=== PATIENT | male | born 1950 | race Caucasian/White ===

== ENCOUNTER 2016-11-21 12:57 | Inpatient (IN) ==
--- NOTE | 2016-11-21 13:59 | Emergency Department Note ---
Disposition Clinical Impression: NSTEMI (non-ST elevated myocardial infarction) Disposition: Admitted As Inpatient Condition: Fair General Adult HPI - General Chief complaint: ED Chest Pain Stated complaint: chest pain Time Seen by Provider: 11/21/16 13:53 Source: patient Limitations: no limitations - History of Present Illness Pain Scale: 5 - Related Data Home Medications Medication Instructions Recorded Confirmed Amlodipine [Norvasc] 5 mg PO DAILY 11/21/16 11/21/16 Aspirin [Lo-Dose Aspirin EC] 81 mg PO DAILY 11/21/16 11/21/16 Atenolol [Tenormin] 50 mg PO DAILY 11/21/16 11/21/16 Atorvastatin [Lipitor] 10 mg PO HS 11/21/16 11/21/16 Furosemide [Lasix] 20 mg PO DAILY 11/21/16 11/21/16 Gabapentin [Neurontin] 300 mg PO HS 11/21/16 11/21/16 Glimepiride [Amaryl] 4 mg PO BID 11/21/16 11/21/16 HYDROcodone/Acet 5/325 mg [[place] 2 tab PO HS 11/21/16 11/21/16 5-325 mg] Insulin DETEMIR [Levemir] 30 unit SQ HS 11/21/16 11/21/16 Lisinopril [Zestril] 5 mg PO DAILY 11/21/16 11/21/16 Meloxicam [Mobic] 15 mg PO DAILY 11/21/16 11/21/16 Metformin HCl [Glucophage] 1,000 mg PO BID 11/21/16 11/21/16 Nitroglycerin 0.4 mg SL Q5MIN PRN 11/21/16 11/21/16 Allergies Allergy/AdvReac Type Severity Reaction Status Date / Time No Known Allergies Allergy Verified 11/21/16 13:07 Past Medical History - Past Medical History Medical history: Reports: coronary artery disease, myocardial infarction Psychiatric history: Reports: no psych history - Social History Smoking Status: Never smoker Alcohol use: Reports: none Drug use: Reports: none Physical Exam - General Limitations: no limitations General appearance: alert, in no apparent distress Course Vital Signs Temperature 97.4 F L 11/21/16 13:07 Pulse Rate 61 11/21/16 13:07 Respiratory Rate 17 11/21/16 13:07 Blood Pressure 181/92 11/21/16 13:07 O2 Sat by Pulse Oximetry 96 11/21/16 13:07 Temperature 97.5 F L 11/21/16 17:30 Pulse Rate 63 11/21/16 22:16 Respiratory Rate 15 11/21/16 22:16 Blood Pressure 169/86 11/21/16 22:16 O2 Sat by Pulse Oximetry 93 L 11/21/16 22:16 Oxygen Delivery Oxygen Delivery Room Air Medical Decision Making - Lab Data Result diagrams: 11/21/16 14:41 11/21/16 14:41 Lab Results 11/21/16 11/21/16 11/21/16 Range/Units 14:41 14:41 14:41 WBC 10.5 (4.3-11.1) K/mcL RBC 5.39 (4.19-5.50) M/mcL Hgb 14.4 (12.9-16.9) g/dL Hct 45.6 (37.5-50.1) % MCV 84.6 (83.0-100.0) fL MCH 26.7 L (28.0-33.3) pg MCHC 31.6 (31.6-35.5) g/dL RDW 14.5 (11.5-14.5) % Plt Count 323 (140-400) K/mcL MPV 10.9 (9.4-12.4) fL Immature Gran % 0.8 (0-4) % Seg Neutrophils % 64.5 % Lymphocytes % 23.6 % Monocytes % 7.3 % Eosinophils % 2.9 % Basophils % 0.9 % Neutrophils # 6.8 (1.6-8.9) K/mcL Lymphocytes # 2.5 (0.6-4.6) K/mcL Monocytes # 0.8 (0.0-1.3) K/mcL Eosinophils # 0.3 (0.0-0.6) K/mcL Basophils # 0.1 (0.0-0.2) K/mcL PT 11.8 (9.4-12.1) Seconds INR 1.1 APTT 28.5 (26.0-36.0) Seconds Sodium 140 (136-145) mEq/L Potassium 4.5 (3.5-4.5) mEq/L Chloride 108 (98-109) mEq/L Carbon Dioxide 21 (19-29) mEq/L BUN 13 (8-26) mg/dL Creatinine 1.05 (0.72-1.25) mg/dL Est GFR ( Amer) > 60 (> 60) Est GFR (Non-Af Amer) > 60 (> 60) BUN/Creatinine Ratio 12 (6-26) Glucose 115 H (70-99) mg/dL Calculated Osmolality 291 (280-300) Calcium 10.2 (8.6-10.8) mg/dL Troponin I (0-0.03) ng/mL 11/21/16 Range/Units 14:41 WBC (4.3-11.1) K/mcL RBC (4.19-5.50) M/mcL Hgb (12.9-16.9) g/dL Hct (37.5-50.1) % MCV (83.0-100.0) fL MCH (28.0-33.3) pg MCHC (31.6-35.5) g/dL RDW (11.5-14.5) % Plt Count (140-400) K/mcL MPV (9.4-12.4) fL Immature Gran % (0-4) % Seg Neutrophils % % Lymphocytes % % Monocytes % % Eosinophils % % Basophils % % Neutrophils # (1.6-8.9) K/mcL Lymphocytes # (0.6-4.6) K/mcL Monocytes # (0.0-1.3) K/mcL Eosinophils # (0.0-0.6) K/mcL Basophils # (0.0-0.2) K/mcL PT (9.4-12.1) Seconds INR APTT (26.0-36.0) Seconds Sodium (136-145) mEq/L Potassium (3.5-4.5) mEq/L Chloride (98-109) mEq/L Carbon Dioxide (19-29) mEq/L BUN (8-26) mg/dL Creatinine (0.72-1.25) mg/dL Est GFR ( Amer) (> 60) Est GFR (Non-Af Amer) (> 60) BUN/Creatinine Ratio (6-26) Glucose (70-99) mg/dL Calculated Osmolality (280-300) Calcium (8.6-10.8) mg/dL Troponin I 1.49 H* (0-0.03) ng/mL Critical Care Time Critical Care Time: Yes Total Critical Care Time: 30 Attestation: Patient presented with chest pain. Troponin elevated. IV heparin ordered. Consult with cardiology. Admission to medicine Attestation Statement - Attestation Attestation: I examined this patient and my medical decision-making was reviewed with the JOB SETTER/PA/Advanced Practice Nurse/Resident Physician. I agree with the documented findings, disposition and treatment plan as described except to the extent set forth below. Face to face time provided Patient complains of left-sided chest pain. He appears in no acute distress. Triage note and vital signs reviewed by me. EKG reviewed by me
--- NOTE | 2016-11-21 14:18 | Emergency Department Note ---
Disposition Clinical Impression: NSTEMI (non-ST elevated myocardial infarction) Disposition: Admitted As Inpatient Condition: Fair Referrals: Meg Reina CNP [Primary Care Provider] - Forms: ED Satisfaction Letter Chest Pain HPI - General Chief Complaint: ED Chest Pain Stated Complaint: chest pain Time Seen by Provider: 11/21/16 13:53 Source: patient Limitations: no limitations Vital Signs Reviewed: Yes Nursing Notes Reviewed: Yes - History of Present Illness HPI Narrative: 66-year-old male with a history of coronary artery disease and previous bypass surgery as well as hypertension and hyperlipidemia presents to the emergency department with a chief complaint of chest pain. He had bypass surgery about 15 years ago after having an AR but has not had any sort of cardiac workup since then. He takes medications for diabetes, hypertension, CHF and hyperlipidemia. He sees his primary doctor for his medications but no investigative assistant. He has been having progressive exertional dyspnea over the last week but started developing left-sided chest pain that radiates to his neck and shoulder over the last 3 days. Exertion exacerbates this. He states it feels similar to his previous AR. Chest pain is described as a pressure and heaviness. No associated nausea, vomiting or diaphoresis. He does however, have associated hiccups. Denies any new lower extremity swelling. Denies any abdominal pain, lightheadedness or syncope. Severity scale (1-10): 5 - Related Data Home Medications Medication Instructions Recorded Confirmed Amlodipine [Norvasc] 5 mg PO DAILY 11/21/16 11/21/16 Aspirin [Lo-Dose Aspirin EC] 81 mg PO DAILY 11/21/16 11/21/16 Atenolol [Tenormin] 50 mg PO DAILY 11/21/16 11/21/16 Atorvastatin [Lipitor] 10 mg PO HS 11/21/16 11/21/16 Furosemide [Lasix] 20 mg PO DAILY 11/21/16 11/21/16 Gabapentin [Neurontin] 300 mg PO HS 11/21/16 11/21/16 Glimepiride [Amaryl] 4 mg PO BID 11/21/16 11/21/16 HYDROcodone/Acet 5/325 mg [[place] 2 tab PO HS 11/21/16 11/21/16 5-325 mg] Insulin DETEMIR [Levemir] 30 unit SQ HS 11/21/16 11/21/16 Lisinopril [Zestril] 5 mg PO DAILY 11/21/16 11/21/16 Meloxicam [Mobic] 15 mg PO DAILY 11/21/16 11/21/16 Metformin HCl [Glucophage] 1,000 mg PO BID 11/21/16 11/21/16 Nitroglycerin 0.4 mg SL Q5MIN PRN 11/21/16 11/21/16 Allergies Allergy/AdvReac Type Severity Reaction Status Date / Time No Known Allergies Allergy Verified 11/21/16 13:07 All systems ED: reviewed and negative except as stated. Constitutional: Denies: fever Cardiovascular: Reports: chest pain, dyspnea on exertion Respiratory: Reports: dyspnea. Denies: cough Gastrointestinal: Denies: abdominal pain, nausea, vomiting Musculoskeletal: Denies: back pain, neck pain Integumentary: Denies: rash Neurological: Denies: headache, weakness, numbness Chest Pain PMH - Past Medical History Medical history: Reports: coronary artery disease, myocardial infarction Psychiatric history: Reports: no psych history - Social History Smoking Status: Never smoker Alcohol use: Reports: none Drug use: Reports: none Physical Exam General: Appears well, alert and oriented x 3 Cardiovascular: Regular rate and rhythm. S1, S2. No murmurs, rubs or gallops. Respiratory: Breath sounds clear bilaterally. No wheezing, rales or rhonchi. No resp distress Abdomen: Soft, nontender. No pulsatile abdominal mass Eyes: conjunctiva clear HENT: No bruit Neuro: No motor or sensory deficit. Musculoskeletal: No joint tenderness or swelling. Bilateral mild nonpitting swelling of the ankles bilaterally. No calf tenderness or pain along the venous system. Skin: No lesions. No diaphoresis. Normal turgor. Normal color Psych: Appropriate - General Limitations: no limitations General appearance: alert, in no apparent distress Course Course Narrative: 66-year-old male history of coronary artery disease who had bypass 15 years ago and has not had much of a workup since then presents to the ED with 3 days of exertional dyspnea and chest pain that feels similar to his previous AR. Initial EKG shows a incomplete left bundle-branch block without any ST changes. He does have some T-wave flattening in the inferior leads. We have no EKG available for previous comparison. Patient's not having symptoms now and actually appears very well. He has stable vital signs is talkative, appropriate and nontoxic appearing. His chest x-ray shows some atelectasis. His troponin came back elevated at 1.15. He was given aspirin. His symptoms did not progress. We spoke with the investigative assistant, Dr. Bahena who is comfortable with heparinization and agrees to see the patient as consult. We then spoke with the hospitalist, Dr. Jurado who accepts for admission, no further orders at this time. Plan to admit for NSTEMI Vital Signs Temperature 97.4 F L 11/21/16 13:07 Pulse Rate 61 11/21/16 13:07 Respiratory Rate 17 11/21/16 13:07 Blood Pressure 181/92 11/21/16 13:07 O2 Sat by Pulse Oximetry 96 11/21/16 13:07 Temperature 97.4 F L 11/21/16 13:07 Pulse Rate 54 11/21/16 15:30 Respiratory Rate 16 11/21/16 15:30 Blood Pressure 113/74 11/21/16 15:30 O2 Sat by Pulse Oximetry 96 11/21/16 15:30 Oxygen Delivery Oxygen Delivery Room Air Chest Pain - Lab Data Result diagrams: 11/21/16 14:41 11/21/16 14:41 Lab Results 11/21/16 11/21/16 11/21/16 Range/Units 14:41 14:41 14:41 WBC 10.5 (4.3-11.1) K/mcL RBC 5.39 (4.19-5.50) M/mcL Hgb 14.4 (12.9-16.9) g/dL Hct 45.6 (37.5-50.1) % MCV 84.6 (83.0-100.0) fL MCH 26.7 L (28.0-33.3) pg MCHC 31.6 (31.6-35.5) g/dL RDW 14.5 (11.5-14.5) % Plt Count 323 (140-400) K/mcL MPV 10.9 (9.4-12.4) fL Immature Gran % 0.8 (0-4) % Seg Neutrophils % 64.5 % Lymphocytes % 23.6 % Monocytes % 7.3 % Eosinophils % 2.9 % Basophils % 0.9 % Neutrophils # 6.8 (1.6-8.9) K/mcL Lymphocytes # 2.5 (0.6-4.6) K/mcL Monocytes # 0.8 (0.0-1.3) K/mcL Eosinophils # 0.3 (0.0-0.6) K/mcL Basophils # 0.1 (0.0-0.2) K/mcL PT 11.8 (9.4-12.1) Seconds INR 1.1 APTT 28.5 (26.0-36.0) Seconds Sodium 140 (136-145) mEq/L Potassium 4.5 (3.5-4.5) mEq/L Chloride 108 (98-109) mEq/L Carbon Dioxide 21 (19-29) mEq/L BUN 13 (8-26) mg/dL Creatinine 1.05 (0.72-1.25) mg/dL Est GFR ( Amer) > 60 (> 60) Est GFR (Non-Af Amer) > 60 (> 60) BUN/Creatinine Ratio 12 (6-26) Glucose 115 H (70-99) mg/dL Calculated Osmolality 291 (280-300) Calcium 10.2 (8.6-10.8) mg/dL Troponin I (0-0.03) ng/mL 11/21/16 Range/Units 14:41 WBC (4.3-11.1) K/mcL RBC (4.19-5.50) M/mcL Hgb (12.9-16.9) g/dL Hct (37.5-50.1) % MCV (83.0-100.0) fL MCH (28.0-33.3) pg MCHC (31.6-35.5) g/dL RDW (11.5-14.5) % Plt Count (140-400) K/mcL MPV (9.4-12.4) fL Immature Gran % (0-4) % Seg Neutrophils % % Lymphocytes % % Monocytes % % Eosinophils % % Basophils % % Neutrophils # (1.6-8.9) K/mcL Lymphocytes # (0.6-4.6) K/mcL Monocytes # (0.0-1.3) K/mcL Eosinophils # (0.0-0.6) K/mcL Basophils # (0.0-0.2) K/mcL PT (9.4-12.1) Seconds INR APTT (26.0-36.0) Seconds Sodium (136-145) mEq/L Potassium (3.5-4.5) mEq/L Chloride (98-109) mEq/L Carbon Dioxide (19-29) mEq/L BUN (8-26) mg/dL Creatinine (0.72-1.25) mg/dL Est GFR ( Amer) (> 60) Est GFR (Non-Af Amer) (> 60) BUN/Creatinine Ratio (6-26) Glucose (70-99) mg/dL Calculated Osmolality (280-300) Calcium (8.6-10.8) mg/dL Troponin I 1.49 H* (0-0.03) ng/mL - EKG Data EKG results narrative: EKG shows a sinus rhythm with a rate of 60 bpm. Left bundle branch block pattern. Poor R-wave progression. Left axis deviation. Nonspecific T wave changes in [address] elevation. T-wave flattening in inferior leads. We have no previous EKG available for comparison.
[2016-11-21 14:53] LABS: Basophils # 0.1 K/mcL (0.0-0.2); Basophils % 0.9 %; Eosinophils # 0.3 K/mcL (0.0-0.6); Eosinophils % 2.9 %; Hematocrit 45.6 % (37.5-50.1); Hemoglobin 14.4 g/dL (12.9-16.9); Immature Granulocytes % 0.8 % (0-4); Lymphocytes # 2.5 K/mcL (0.6-4.6); Lymphocytes % 23.6 %; Mean Corpuscular HGB Conc 31.6 g/dL (31.6-35.5); Mean Corpuscular Hemoglobin 26.7 pg (28.0-33.3); Mean Corpuscular Volume 84.6 fL (83.0-100.0); Mean Platelet Volume 10.9 fL (9.4-12.4); Monocytes # 0.8 K/mcL (0.0-1.3); Monocytes % 7.3 %; Neutrophils # 6.8 K/mcL (1.6-8.9); Platelet Count 323 K/mcL (140-400); Red Blood Count 5.39 M/mcL (4.19-5.50); Red Cell Distribution Width 14.5 % (11.5-14.5); Segmented Neutrophils % 64.5 %
[2016-11-21 15:02] LABS: BUN/Creatinine Ratio 12 (6-26); Blood Urea Nitrogen 13 mg/dL (8-26); Calcium 10.2 mg/dL (8.6-10.8); Carbon Dioxide 21 mEq/L (19-29); Chloride 108 mEq/L (98-109); Glucose 115 mg/dL (70-99); INR 1.1; Osmolality,Calculated 291 (280-300); Potassium 4.5 mEq/L (3.5-4.5); Prothrombin Time 11.8 Seconds (9.4-12.1); Sodium 140 mEq/L (136-145); eGFR For African Americans > 60 (> 60); eGFR For Non-African Americans > 60 (> 60)
[2016-11-21 15:05] LABS: Activated Partial Thrombo Time 28.5 Seconds (26.0-36.0)
[2016-11-21] MEDS ORDERED: *HR* Heparin 5,000 UNIT/ML VIAL IVP PRN (15:23)
[2016-11-21] MEDS ORDERED: *HR* Heparin 5,000 UNIT/ML VIAL IVP ONE (15:23)
[2016-11-21] MEDS ORDERED: Heparin 25,000 UNIT/500 ML D5W 25,000 UNIT/500 ML MLS IVC SCH (15:30)
[2016-11-21] MEDS ORDERED: Aspirin 81 MG TAB.CHEW PO ONE (16:20)
[2016-11-21] MEDS ORDERED: Naloxone 0.4 MG/ML INJ IVP PRN (18:07)
[2016-11-21] MEDS ORDERED: Ondansetron 4 MG/2 ML VIAL IVP PRN (18:07)
[2016-11-21] MEDS ORDERED: Acetaminophen 325 MG TABLET PO PRN (18:07)
[2016-11-21] MEDS ORDERED: Nitroglycerin 0.4 MG TAB.SUBL SL PRN (21:52)
[2016-11-21] MEDS ORDERED: *HR* Dextrose 50 % in Water (Syg) 50 ML SYRINGE IVP PRN (22:04)
[2016-11-21] MEDS ORDERED: Dextrose Gel 15 GM PO PRN ×2 (22:04)
[2016-11-21] MEDS ORDERED: D5% in Water 1,000 ML IV PRN (22:04)
--- NOTE | 2016-11-21 22:22 | Internal Med History&Physical ---
<Kaelyn Baeza - Last Filed: 11/21/16 22:18> Date of Encounter: 11/21/16 Time of Encounter: 22:18 Assessment and Plan (1) NSTEMI (non-ST elevated myocardial infarction) Status: Acute Trend troponins Cardiac catheter tomorrow morning Aspirin, statin, heparin, beta yuliet, AARON inhibitor (2) Diabetes Status: Acute Hold oral medications Continue Levemir Low-dose sliding scale insulin Qualifiers: Diabetes mellitus type: type 2 Diabetes mellitus complication status: with neurologic complications Diabetes mellitus complication detail: with unspecified neuropathy Diabetes mellitus terminal worker insulin use: with terminal worker use Qualified Code(s): E11.40 - Type 2 diabetes mellitus with diabetic neuropathy, unspecified; Z79.4 - lobsterman (current) use of insulin (3) Hypertension Status: Acute Qualifiers: Hypertension type: essential hypertension Qualified Code(s): I10 - Essential (primary) hypertension (4) CAD (coronary artery disease) Status: Acute Qualifiers: Coronary Disease-Associated Artery/Lesion type: bypass graft [place] vs. transplanted heart: [place] heart Associated angina: without angina Qualified Code(s): I25.810 - Atherosclerosis of coronary artery bypass graft(s) without angina pectoris Internal Medicine - H&P: HPI Admitted From: Emergency Dept Plans for Post Hospital Care: Home History of present illness: Mr. Sahu is a 66 year old male with past medical history of diabetes with nephropathy and coronary artery disease status post open bypass and stents. He presents to the emergency department with a three-day history of nonexertional chest pain and pressure. He states that the chest pain shoots to his back and also radiates to his left shoulder. There is associated shortness of breath. 3 days ago he also had a headache. Today he came to the emergency department due to the chest pressure being unrelenting. He did have loss of appetite today. He states that this pain is similar to his previous MD. Past Med Surg Social Fam HX - Past Medical History Medical history: coronary artery disease, diabetes, myocardial infarction, other (hypogonadism) Psychiatric history: no psych history - Past Surgical History Surgical History: appendectomy, coronary bypass (CABG), knee replacement (right) , orthopedic, other (L hand) - Social History Smoking Status: Never smoker Smokeless Tobacco Status: No Alcohol use: none Drug use: none Internal Medicine - H&P: Meds Amlodipine [Norvasc] 5 mg PO DAILY 11/21/16 [History] Aspirin [Lo-Dose Aspirin EC] 81 mg PO DAILY 11/21/16 [History] Atorvastatin [Lipitor] 10 mg PO HS 11/21/16 [History] Furosemide [Lasix] 20 mg PO DAILY 11/21/16 [History] Gabapentin [Neurontin] 300 mg PO HS 11/21/16 [History] Glimepiride [Amaryl] 4 mg PO BID 11/21/16 [History] HYDROcodone/Acet 5/325 mg [[place] 5-325 mg] 2 tab PO HS 11/21/16 [History] Insulin DETEMIR [Levemir] 30 unit SQ HS 11/21/16 [History] Lisinopril [Zestril] 5 mg PO DAILY 11/21/16 [History] Metformin HCl [Glucophage] 1,000 mg PO BID 11/21/16 [History] Nitroglycerin 0.4 mg SL Q5MIN PRN 11/21/16 [History] Metoprolol XL (24 HR) Succ [Toprol Xl] 50 mg PO DAILY #30 tab.er.24h 11/23/16 [ Rx] Ticagrelor [Brilinta] 90 mg PO BID #180 tablet 11/23/16 [Rx] Allergies No Known Allergies Allergy (Verified 11/21/16 13:07) All Systems PM: A 10-system review of systems was performed and is negative for pertinent findings except as documented above in the HPI. - Constitutional Constitutional: anorexia, no chills, no excessive sweating, no fever(s), no night sweats, no weakness - EENT Eyes: no change in vision, no discharge, no pain, no photophobia Ears: no ear discharge, no ear pain, no tinnitus Nose, mouth and throat: nasal discharge, no dysphagia, no neck pain, no sore throat - Cardiovascular Cardiovascular ROS IM: chest pain, dyspnea, no diaphoresis, no lightheadedness, no palpitations, no syncope - Respiratory Respiratory: no cough, no dyspnea, no wheezing, no excessive phlegm production - Gastrointestinal Gastrointestinal: diarrhea (chronic with metformin use), no abdominal pain, no change in bowel habits, no hematemesis, no hematochezia, no melena, no nausea, no vomiting - Genitourinary Genitourinary ROS male: nocturia (chronic), no difficulty urinating, no dysuria - Musculoskeletal Musculoskeletal ROS IM: arthralgias (chronic), no muscle weakness, no myalgias, no numbness, no tingling - Integumentary Integumentary IM: no rash, no unusual bruising - Neurological Neurological ROS: no confusion, no convulsions, no disequilibrium, no dizziness , no focal weakness, no numbness, no tingling, no tremor(s) - Hematologic/Lymphatic Hematologic/Lymphatic: no easy bruising - Constitutional Vitals: Temp Pulse Resp BP Pulse Ox 97.5 F L 63 15 169/86 93 L 11/21/16 17:30 11/21/16 22:16 11/21/16 22:16 11/21/16 22:16 11/21/16 22:16 General appearance: Present: A&O X 3, no acute distress, answers questions appropriately - Head Head exam: Present: atraumatic, normocephalic - Eye Eye exam: Present: PERRL, conjuntiva pink, sclera anicteric Pupils: Present: PERRL - Neck Neck exam general surgery: Present: supple, trachea midline. Absent: lymphadenopathy - Respiratory Respiratory exam: Present: CTAB. Absent: accessory muscle use, rales, rhonchi, wheezes - Cardiovascular Cardiovascular exam: Present: RRR, +S1, +S2. Absent: diastolic murmur, gallop, rubs, systolic murmur - GI/Abdominal GI/Abdominal exam: Present: normal bowel sounds, soft, no peritoneal signs. Absent: distended, tenderness - Extremities Exam Extremities exam: Present: warm, radial pulses palpable and symetrical. Absent : calf tenderness, cyanotic, pedal edema - Neurological Exam Neurological exam: Present: CN II-XII intact, oriented X3, no focal deficits. Absent: pronater drift, facial droop, speech deficit - Skin Skin exam: Present: dry, intact Internal Med - H&P Results - Labs CBC & Chem 7: 11/21/16 14:41 11/21/16 14:41 Labs: Cardiac Enzymes 11/21/16 Range/Units 19:46 Troponin I 1.60 H* (0-0.03) ng/mL <Dino Fermin - Last Filed: 11/27/16 22:50> Assessment and Plan (1) Chest pain, rule out acute myocardial infarction Status: Acute . (2) Chest pain with moderate risk of acute coronary syndrome Status: Acute . (3) Hx of CABG Status: Chronic . (4) Obesity (BMI 30-39.9) Status: Chronic . (5) NSTEMI (non-ST elevated myocardial infarction) Status: Acute . (6) Systolic CHF Status: Chronic . Qualifiers: Congestive heart failure chronicity: acute on chronic Qualified Code(s): I50.23 - Acute on chronic systolic (congestive) heart failure (7) CAD (coronary artery disease) Status: Chronic / Qualifiers: Coronary Disease-Associated Artery/Lesion type: bypass graft [place] vs. transplanted heart: [place] heart Associated angina: without angina Qualified Code(s): I25.810 - Atherosclerosis of coronary artery bypass graft(s) without angina pectoris (8) Diabetes Status: Chronic / Qualifiers: Diabetes mellitus type: type 2 Diabetes mellitus complication status: with neurologic complications Diabetes mellitus complication detail: with unspecified neuropathy Diabetes mellitus mcc insulin use: with terminal worker use Qualified Code(s): E11.40 - Type 2 diabetes mellitus with diabetic neuropathy, unspecified; Z79.4 - USP (current) use of insulin (9) Hypertension Status: Chronic / Qualifiers: Hypertension type: essential hypertension Qualified Code(s): I10 - Essential (primary) hypertension Internal Medicine - H&P: HPI Chief complaint: Chest Pain History of present illness: Mr. Sahu is a 66 year old male is admitted to [facility] via the emergency department with chief complaint of chest pain. The patient was visited and interviewed and examined. I examined this patient and my medical decision-making was reviewed with the Resident Physician. For this encounter, I have reviewed the documentation, treatment plan, and medical decision making. I agree with the documented findings, disposition and treatment plan as described except to the extent set forth below. All Laboratory and radiographic database was reviewed and considered and discussed. Given the patient's presenting concerns, past medical history, clinical findings and symptoms, he is admitted at this time and further evaluation and disposition. Orders were written as per the computerized physician orders entry system............................ Past Med Surg Social Fam HX - Past Medical History Source: old records reviewed Medical history: arthritis, CHF, coronary artery disease, diabetes (diabetic peripheral polyneuropahty.), hyperlipidemia, hypertension, myocardial infarction , other (Hypogonadism. ED/impotence. Onychomycosis.) - Past Surgical History Surgical History: angioplasty/stent, appendectomy, coronary bypass (CABG), knee replacement, orthopedic, other, other (colonoscopy) - Social History Occupational status: retired Current living situation: With Family Activity Level: Independent ambulation, Mostly sedentary Recent Out of Country Travel Within the Last 8 Weeks: No Exposure or Possible Exposure to Illness During Travel: No All Systems PM: A 10-system review of systems was performed and is negative for pertinent findings except as documented above in the HPI. - Constitutional Vitals: Temp Pulse Resp BP Pulse Ox 98.4 F 59 16 156/84 98 11/23/16 08:15 11/23/16 08:15 11/23/16 08:15 11/23/16 08:15 11/23/16 08:15 Internal Med - H&P Results - Labs CBC & Chem 7: 11/23/16 04:19 11/23/16 04:19 - Impressions Abnormal lab results Hgb 12.8 g/dL (12.9-16.9) L 11/23/16 04:19 MCH 26.5 pg (28.0-33.3) L 11/23/16 04:19 RDW 14.7 % (11.5-14.5) H 11/23/16 04:19 APTT 86.1 Seconds (26.0-36.0) H D 11/22/16 12:50 Est GFR (Non-Af Amer) 57 (> 60) L 11/23/16 04:19 Glucose 105 mg/dL (70-99) H 11/23/16 04:19 POC Glucose 157 (58-89) H 11/23/16 08:15 Hemoglobin A1c 6.9 % (-5.6) H 11/22/16 05:17 Troponin I 1.68 ng/mL (0-0.03) H* 11/22/16 05:17 HDL Cholesterol 26 mg/dL (40-59) L 11/22/16 05:17 Allergies Allergy/AdvReac Type Severity Reaction Status Date / Time No Known Allergies Allergy Verified 11/21/16 13:07 Laboratory Results WBC 9.8 K/mcL (4.3-11.1) 11/23/16 04:19 RBC 4.83 M/mcL (4.19-5.50) 11/23/16 04:19 Hgb 12.8 g/dL (12.9-16.9) L 11/23/16 04:19 Hct 40.4 % (37.5-50.1) 11/23/16 04:19 MCV 83.6 fL (83.0-100.0) 11/23/16 04:19 MCH 26.5 pg (28.0-33.3) L 11/23/16 04:19 MCHC 31.7 g/dL (31.6-35.5) 11/23/16 04:19 RDW 14.7 % (11.5-14.5) H 11/23/16 04:19 Plt Count 291 K/mcL (140-400) 11/23/16 04:19 MPV 10.8 fL (9.4-12.4) 11/23/16 04:19 Immature Gran % 0.6 % (0-4) 11/23/16 04:19 Seg Neutrophils % 57.4 % 11/23/16 04:19 Lymphocytes % 27.5 % 11/23/16 04:19 Monocytes % 10.0 % 11/23/16 04:19 Eosinophils % 3.7 % 11/23/16 04:19 Basophils % 0.8 % 11/23/16 04:19 Neutrophils # 5.6 K/mcL (1.6-8.9) 11/23/16 04:19 Lymphocytes # 2.7 K/mcL (0.6-4.6) 11/23/16 04:19 Monocytes # 1.0 K/mcL (0.0-1.3) 11/23/16 04:19 Eosinophils # 0.4 K/mcL (0.0-0.6) 11/23/16 04:19 Basophils # 0.1 K/mcL (0.0-0.2) 11/23/16 04:19 PT 11.8 Seconds (9.4-12.1) 11/21/16 14:41 INR 1.1 11/21/16 14:41 APTT 86.1 Seconds (26.0-36.0) H D 11/22/16 12:50 Sodium 141 mEq/L (136-145) 11/23/16 04:19 Potassium 4.1 mEq/L (3.5-4.5) 11/23/16 04:19 Chloride 109 mEq/L (98-109) 11/23/16 04:19 Carbon Dioxide 22 mEq/L (19-29) 11/23/16 04:19 BUN 20 mg/dL (8-26) 11/23/16 04:19 Creatinine 1.25 mg/dL (0.72-1.25) 11/23/16 04:19 Est GFR ( Amer) > 60 (> 60) 11/23/16 04:19 Est GFR (Non-Af Amer) 57 (> 60) L 11/23/16 04:19 BUN/Creatinine Ratio 16 (6-26) 11/23/16 04:19 Glucose 105 mg/dL (70-99) H 11/23/16 04:19 POC Glucose 157 (58-89) H 11/23/16 08:15 Est Mean Plasma Glucose 151 mg/dl 11/22/16 05:17 Hemoglobin A1c 6.9 % (-5.6) H 11/22/16 05:17 Calculated Osmolality 295 (280-300) 11/23/16 04:19 Calcium 9.3 mg/dL (8.6-10.8) 11/23/16 04:19 Magnesium 1.9 mg/dL (1.6-2.6) 11/23/16 04:19 Troponin I 1.68 ng/mL (0-0.03) H* 11/22/16 05:17 C-Reactive Protein 4 mg/L (Less than 5) 11/22/16 05:17 Triglycerides 110 mg/dL (< 150) 11/22/16 05:17 Cholesterol 99 mg/dL (< 200) 11/22/16 05:17 LDL Cholesterol, Calc 51 mg/dL (0-99) 11/22/16 05:17 VLDL Cholesterol, Calc 22 mg/dL (< 31) 11/22/16 05:17 HDL Cholesterol 26 mg/dL (40-59) L 11/22/16 05:17 Cholesterol/HDL Ratio 3.8 (0-4.9) 11/22/16 05:17 TSH 3.459 mcIU/mL (0.350-4.840) 11/22/16 05:17 Impressions Chest X-Ray 11/21/16 13:11 IMPRESSION: Mild left lower lobe atelectasis versus pneumonia. D/ / Jeffrey Montilla MD / Jeffrey Montilla MD Interpreting Provider: Jeffrey Montilla MD Chest CT 11/22/16 08:00 IMPRESSION: 1. Indeterminate 3-8 mm ground-glass and solid nodules bilaterally. Although these could be infectious etiology, a neoplastic process cannot be excluded. Recommend at least a short-term follow-up CT in three months. 2. Mild mediastinal adenopathy. Metastatic disease is not excluded given lung nodules. 3. Nonobstructing left renal calculi. 4. Mild cardiomegaly with no other acute cardiopulmonary findings. RECOMMENDATIONS: Fleischner Society guidelines for follow-up and management of pulmonary nodules: Nodule size equals 6-8 mm In a low-risk patient, initial follow-up CT at 6-12 months then at 18-24 months if no change. In a high-risk patient, initial follow-up CT at 3-6 months then at 9-12 months and 24 months if no change. Nodule size greater than 8 mm In low-risk and high-risk patients follow-up CT at around 3, 9, and 24 months, contrast-enhanced CT, PET, and/or biopsy. Low risk patients include individuals with minimal or absent history of smoking and other known risk factors. High risk patients include individuals with a history of smoking or other known risk factors. Radiology 2005; [id number] D/ / 11/22/2016 09:23:21 Eloina Shaw MD / sven Interpreting Provider: Eloina Shaw MD - Attending Attestation My signature below is to certify that this patient is under my care and that I, or the Resident Physician working with me, has had a [id number] encounter with this patient. Plan of care has been reviewed and discussed in detail with patient. Questions addressed. Advance care directive discussion briefly addressed. Patient does not declare any healthcare restrictions at this time. Outpatient medication schedules will be reviewed, confirmed and facilitated as appropriate. Reconciliation of home treatments including adjustment, substitutions and reattachment regimen will address this maintenance therapies for chronic pre-existing medical conditions. Smoking cessation counseling briefly addressed. The patient declares self a nonsmoker. Hospital course will be dependent upon clinical findings, treatment response and potential consultative interventions. Patient is at risk for acute clinical decline and morbidity given his presenting chief complaint, findings and associated comorbidities. Condition is serious. Prognosis is guarded. CODE STATUS is full.
[2016-11-21] MEDS: *HR* Heparin 5,000 UNIT/ML VIAL IVP PRN (22:59)
[2016-11-21] MEDS: Gabapentin 300 MG CAPSULE PO SCH (23:03)
[2016-11-21] MEDS: *HR* HYDROcodone/Acet 5/325 mg TABLET PO SCH (23:04)
[2016-11-21] MEDS ORDERED: *HR* Morphine 2 MG/ML SYRINGE IVP PRN (23:58)
[2016-11-21] MEDS ORDERED: Pantoprazole 40 MG VIAL IVP STA (23:58)
[2016-11-21] MEDS ORDERED: Benzonatate 100 MG CAPSULE PO PRN (23:58)
[2016-11-22 06:07] LABS: Basophils # 0.1 K/mcL (0.0-0.2); Basophils % 0.9 %; Eosinophils # 0.4 K/mcL (0.0-0.6); Eosinophils % 3.8 %; Hematocrit 40.9 % (37.5-50.1); Hemoglobin 13.2 g/dL (12.9-16.9); Immature Granulocytes % 0.6 % (0-4); Lymphocytes # 3.1 K/mcL (0.6-4.6); Lymphocytes % 32.5 %; Mean Corpuscular HGB Conc 32.3 g/dL (31.6-35.5); Mean Corpuscular Hemoglobin 27.2 pg (28.0-33.3); Mean Corpuscular Volume 84.3 fL (83.0-100.0); Mean Platelet Volume 11.4 fL (9.4-12.4); Monocytes # 0.9 K/mcL (0.0-1.3); Monocytes % 9.2 %; Neutrophils # 5.1 K/mcL (1.6-8.9); Platelet Count 307 K/mcL (140-400); Red Blood Count 4.85 M/mcL (4.19-5.50); Red Cell Distribution Width 14.6 % (11.5-14.5)
[2016-11-22 06:09] LABS: Hemoglobin A1C 6.9 %
[2016-11-22 06:14] LABS: BUN/Creatinine Ratio 13 (6-26); Blood Urea Nitrogen 14 mg/dL (8-26); C-Reactive Protein 4 mg/L (Less than 5); Calcium 9.3 mg/dL (8.6-10.8); Carbon Dioxide 20 mEq/L (19-29); Chloride 109 mEq/L (98-109); Chol/HDL Ratio 3.8 (0-4.9); Cholesterol 99 mg/dL (< 200); Glucose 113 mg/dL (70-99); HDL Cholesterol 26 mg/dL (40-59); LDL Cholesterol,Calculated 51 mg/dL (0-99); Magnesium 1.7 mg/dL (1.6-2.6); Osmolality,Calculated 291 (280-300); Sodium 140 mEq/L (136-145); Triglycerides 110 mg/dL (< 150); eGFR For African Americans > 60 (> 60); eGFR For Non-African Americans > 60 (> 60)
[2016-11-22] MEDS: *HR* Heparin 5,000 UNIT/ML VIAL IVP PRN (06:32)
[2016-11-22 07:17] LABS: Thyroid Stimulating Hormone 3.459 mcIU/mL (0.350-4.840)
--- NOTE | 2016-11-22 09:34 | Cardiology Consult Note ---
<Colton Laurent - Last Filed: 11/22/16 09:37> Date of Encounter: 11/22/16 Time of Encounter: 09:29 Assessment and Plan (1) NSTEMI (non-ST elevated myocardial infarction) Current Visit: Yes Status: Acute Heparin drip On beta-yuliet, Statin, AARON-I, and ASA therapy Likely cardiac cath today Echocardiogram ordered (2) CAD (coronary artery disease) Current Visit: Yes Status: Chronic Qualifiers: Coronary Disease-Associated Artery/Lesion type: bypass graft [place] vs. transplanted heart: [place] heart Associated angina: without angina Qualified Code(s): I25.810 - Atherosclerosis of coronary artery bypass graft(s) without angina pectoris (3) Diabetes Current Visit: Yes Status: Chronic Hold oral medications Continue Levemir Low-dose sliding scale insulin Qualifiers: Diabetes mellitus type: type 2 Diabetes mellitus complication status: with neurologic complications Diabetes mellitus complication detail: with unspecified neuropathy Diabetes mellitus extermination inspector insulin use: with [place] use Qualified Code(s): E11.40 - Type 2 diabetes mellitus with diabetic neuropathy, unspecified; Z79.4 - ferry terminal agent (current) use of insulin (4) Hypertension Current Visit: Yes Status: Chronic Qualifiers: Hypertension type: essential hypertension Qualified Code(s): I10 - Essential (primary) hypertension Discussion w patient/family: The assessment and plan as outlined above was discussed with the patient and/or family members who expressed understanding and agreement. All questions were answered. Thank you for involving us in the care of your patient. Please call with any questions. History of Present Illness Consult date: 11/22/16 Requesting physician: Kaelyn Baeza Consult reason: Elevated Troponin Chief complaint: Chest pain, weakness History of present illness: Mr. Sahu is a 66 year old male with hisotry of CAD and 6-way bypass roughly 15 years ago after SC, arrived to [facility] ED for complaints of chest pain since 11/19/16 in the afternoon. He states he had left sided chest pain with radiation to left shoulder and neck pain with generalized weakness which he states that felt identical to his previous SC. Patient states he felt too weak to go anywhere on Saturday but decided yesterday that he had enough strength to come to the ED. Previous to this episode he has been experiencing dyspnea on exertion that has been worsening with associated chest pain. In addition this is relieved by rest at times, but states this relief has been lessened over the days preceding the episode. He states that he had an SC on Saturday. Patient has history of HTN, HLD, DMII, CAD, CHF. Denies any other complaints. Past Med Surg Social Fam HX - Past Medical History Attestation: Yes The following information was validated with the patient. Source: patient, old records reviewed Medical history: coronary artery disease, diabetes, myocardial infarction, other (hypogonadism) Psychiatric history: no psych history - Past Surgical History Surgical History: appendectomy, coronary bypass (CABG), knee replacement (right) , orthopedic, other (L hand) - Social History Smoking Status: Never smoker Smokeless Tobacco Status: No Alcohol use: none Drug use: none Medications and Allergies Amlodipine [Norvasc] 5 mg PO DAILY 11/21/16 [History] Aspirin [Lo-Dose Aspirin EC] 81 mg PO DAILY 11/21/16 [History] Atenolol [Tenormin] 50 mg PO DAILY 11/21/16 [History] Atorvastatin [Lipitor] 10 mg PO HS 11/21/16 [History] Furosemide [Lasix] 20 mg PO DAILY 11/21/16 [History] Gabapentin [Neurontin] 300 mg PO HS 11/21/16 [History] Glimepiride [Amaryl] 4 mg PO BID 11/21/16 [History] HYDROcodone/Acet 5/325 mg [[place] 5-325 mg] 2 tab PO HS 11/21/16 [History] Insulin DETEMIR [Levemir] 30 unit SQ HS 11/21/16 [History] Lisinopril [Zestril] 5 mg PO DAILY 11/21/16 [History] Meloxicam [Mobic] 15 mg PO DAILY 11/21/16 [History] Metformin HCl [Glucophage] 1,000 mg PO BID 11/21/16 [History] Nitroglycerin 0.4 mg SL Q5MIN PRN 11/21/16 [History] Allergies No Known Allergies Allergy (Verified 11/21/16 13:07) All Systems Review: A 10-system review of systems was performed and is negative for pertinent findings except as documented above in the HPI. - Constitutional Constitutional: fatigue - Cardiovascular Cardiovascular: chest pain at rest (subsided since admission), chest pain with exertion, dyspnea on exertion Physical Examination Vital Signs, Last 4 Hours Temp Pulse Resp BP Pulse Ox 11/22/16 07:07 97.7 F 48 16 150/79 94 L General: Conversant, No Apparent Distress HEENT: Normocephaly, Mucus Membranes Moist Neck: No JVD Cardiac: Reg Rate and Rhythm, Normal S1 and S2, No Murmur Lungs: Normal Breath Sounds, No Wheeze, Rales, Rhonchi Neuro: Alert and responsive, No focal deficits noted Abdomen: Soft, Non-Tender Skin: No rashes noted on visualized skin Musculoskeletal: No Chest Wall Tenderness Extremities: No Clubbing, No Edema Results 11/22/16 05:17 11/22/16 05:17 Lab Results 11/21/16 11/21/16 11/22/16 19:46 22:15 05:17 WBC 9.6 Hgb 13.2 Hct 40.9 Plt Count 307 APTT 44.5 H D Sodium Potassium Chloride Carbon Dioxide BUN Creatinine Glucose Calcium Magnesium Troponin I 1.60 H* TSH 11/22/16 11/22/16 11/22/16 05:17 05:17 05:17 WBC Hgb Hct Plt Count APTT 52.8 H Sodium 140 Potassium 4.0 Chloride 109 Carbon Dioxide 20 BUN 14 Creatinine 1.08 Glucose 113 H Calcium 9.3 Magnesium 1.7 Troponin I 1.68 H* TSH 3.459 - Imaging and Cardiology Chest Xray: report reviewed - EKG Interpretation EKG results cardiology: personally reviewed, no diagnostic ischemia, left bundle branch block Consult Discharge Plan - Plan Referrals: Meg Reina CNP [Primary Care Provider] - 11/29/16 10:40 am <Carolann Bahena - Last Filed: 11/22/16 13:42> Assessment and Plan Discussion w patient/family: The assessment and plan as outlined above was discussed with the patient and/or family members who expressed understanding and agreement. All questions were answered. Thank you for involving us in the care of your patient. Please call with any questions. History of Present Illness History of present illness: Mr. Sahu is a 66 year old male All Systems Review: A 10-system review of systems was performed and is negative for pertinent findings except as documented above in the HPI. Physical Examination Vital Signs, Last 4 Hours Pulse Resp BP 11/22/16 10:48 54 20 164/88 Results 11/22/16 05:17 02/16/17 05:17 Lab Results 11/21/16 11/21/16 11/22/16 19:46 22:15 05:17 WBC 9.6 Hgb 13.2 Hct 40.9 Plt Count 307 APTT 44.5 H D Sodium Potassium Chloride Carbon Dioxide BUN Creatinine Glucose Calcium Magnesium Troponin I 1.60 H* TSH 11/22/16 11/22/16 11/22/16 05:17 05:17 05:17 WBC Hgb Hct Plt Count APTT 52.8 H Sodium 140 Potassium 4.0 Chloride 109 Carbon Dioxide 20 BUN 14 Creatinine 1.08 Glucose 113 H Calcium 9.3 Magnesium 1.7 Troponin I 1.68 H* TSH 3.459 11/22/16 12:50 WBC Hgb Hct Plt Count APTT 86.1 H D Sodium Potassium Chloride Carbon Dioxide BUN Creatinine Glucose Calcium Magnesium Troponin I TSH - Attending Attestation I examined this patient and my medical decision-making was reviewed with the JUNIOR SYSTEMS ANALYST/PA/Advanced Practice Nurse/Resident Physician. I agree with the documented findings, disposition and treatment plan. Mr. Sahu presents with his typical chest pain symptoms and an elevated troponin consistent with NSTEMI. He has a remote history of CABG 15 years ago and has not been following a window covering sales consultant since that time. We have recommended proceeding with [facility]. The R/B/A of the procedure were discussed with the patient who expressed understanding and verbalized agreement to proceed.
[2016-11-22] MEDS: Aspirin Enteric Coated 81 MG Tablet PO SCH (09:53)
[2016-11-22] MEDS ORDERED: 0.9 % Sodium Chloride 1,000 ML ONE ×2 (09:56→10:55)
[2016-11-22] MEDS ORDERED: *HR* Heparin 10,000 UNIT/10 ML VIAL ONE (09:56)
[2016-11-22] MEDS ORDERED: Heparin 1,000 UNITS/500 mL NS 500 ML ONE ×2 (09:56→11:44)
[2016-11-22] MEDS ORDERED: Nitroglycerin 1,000 MCG/10 ML VIAL IV ONE (09:57)
[2016-11-22] MEDS ORDERED: *HR* Midazolam HCl 2 MG/2 ML VIAL ONE (10:47)
[2016-11-22] MEDS ORDERED: *HR* FentaNYL (PF) 100 MCG/2 ML VIAL ONE (10:47)
--- NOTE | 2016-11-22 11:02 | Pre-Sedation Evaluation ---
Pre-sedation evaluation - Pre-sedation checklist Date of procedure: 11/22/16 Procedure: HEART CATHERIZATION Recent Vitals: Last Vital Signs Temp 97.7 F 11/22/16 07:07 Pulse 54 11/22/16 10:48 Resp 20 11/22/16 10:48 BP 164/88 11/22/16 10:48 Pulse Ox 94 L 11/22/16 07:07 H&P (including ROS) documented in medical record: Yes Previous reaction to sedatives/anesthetics: No Dietary Status: NPO after Midnight Dentition: full dentition Possible difficult airway: No ASA Classification *see protocol: CLASS II-Mild systemic disease Plan of Care: Pt appropriate candidate for procedure/moderate/conscious sedation , Risks/benefits of procedure/sedation discussed w/ patient/family, If not NPO; Risk of intake outweiged by necessity to perform procedure
[2016-11-22] MEDS: Insulin LISPRO 300 UNITS/3 ML VIAL SQ SCH ×2 (11:30→17:42)
[2016-11-22] MEDS ORDERED: *HR* Bivalirudin 250 MG VIAL IVC ONE ×2 (11:31→11:45)
[2016-11-22] MEDS ORDERED: *HR* Ticagrelor 90 MG TABLET ONE (11:53)
[2016-11-22] MEDS ORDERED: *HR* HYDROcodone/Acet 5/325 mg TABLET PO PRN (12:05)
[2016-11-22] MEDS ORDERED: 0.9 % Sodium Chloride 1,000 ML IVC SCH (12:15)
--- NOTE | 2016-11-22 12:19 | Invasive Diagnostic Lab ---
Name: Selwyn Shau Date of Study: 11/22/2016 Date: 1950 Ht: 180.0 cm /70.9 in Medical Record#: [id number] Age: 66 Wt: 111. kg / 244.71 lb Account/Order#: [id number] Gender: Male BSA: 2.29 Order #: [id number] Fluoro Dose: 2782 mGy BMI: 34.26 Procedure Physician: Aden Leong MD Referring MD: Meg Reina CNP Referring MD: Procedures Performed: LEFT HEART CATH W/ GRAFTS Stent w/ PTCA Single Major Vessel Indications: Non-Stemi Impressions: There is severe three vessel coronary artery disease. There is mild LV Dysfunction EF 45% Patient had successful PTCA/Drug-Eluting Stent placement in the Ramus. S/P CABG 2 of 3 patent bypass grafts. Recommendations: Optimal medical therapy of patient's disease. Aggressive risk factor modification. Patient being referred for cardiac rehab. History/Risk Factors: CABG approx. 15 years ago Diabetes Hypertension Prior AR Procedure Access obtained in the right Femoral artery by percutaneous puncture Patient had successful PTCA/Drug-Eluting Stent placement in the Ramus. Complications: None Contrast: Isovue 276ml Closure Device: Perclose ProGlide Hemodynamics: Pressures Site Systolic/ A Wave Diastolic/ V Wave End Diastolic/ Mean HR AO 126 69 92 65 AO 119 70 92 53 AO 143 19 59 54 LV 141 7 21 55 LV 125 31 27 52 AO 144 52 93 55 AO 112 51 73 54 LV Ventriculography Ejection Method: LV Gram Ejection Fraction: 45% Wall Motion: HERNANDEZ Anterobasal Normal Anterolateral Normal Apical: Normal Inferoapical Normal Inferobasal Akinesis Coronary Dominance: right Lesion Findings/Interventions * Left Main Coronary Artery The LMCA is angiographically free of disease. * Left Anterior Descending There is a 100% stenosis in the Proximal LAD. * Circumflex There is a 30% stenosis in the 1st Marginal. There is a 100% stenosis in the 2nd Marginal. * Ramus There is a 8 mm long, 99% stenosis in the Ramus. The lesion has a BETTYE flow of 2 and has no thrombus present. An intervention was performed on the Ramus with a final stenosis of 0%. There were no lesion complications. The final BETTYE flow was 3. * Right Coronary Artery There is a 100% stenosis in the Proximal RCA. Additional Findings: Grafts * The saphenous vein graft to the 2nd Marginal is patent. * The left internal mammary graft to the Proximal LAD is patent. * The saphenous vein graft to the RCA is occluded. Interventional Device(s) Vessel Segment Type Name Diameter (mm) Length (mm) Ramus Balloon Emerge Monorail 2 8 Ramus Drug Eluting Stent Synergy 2.25 8 Updated by Yissel Griffiths RT (R) on 11/22/2016 12:10:05 PM Aden Leong MD electronically signed on 11/22/2016 12:13:37 PM with status of Final
--- NOTE | 2016-11-22 12:20 | Invasive Diagnostic Lab Proc ---
Name: Selwyn Sahu Date of Study: 11/22/2016 Date: 1950 Ht: 70.9in Medical Record#: [id number] Age: 66 Wt: 244.71lb Gender: Male BSA: 2.29 Order #: [id number] BMI: 34.26 Physicians Procedure Physician: Aden Leong MD Referring MD: Meg Reina CNP Referring MD: Staff Name Position Time In Sites, Yissel RT (R) Monitor 11:05 AM Alvarez Yissel RT (R) Scrub 11:05 AM Jai Gastelum RN Physics Teacher 11:05 AM Indications Indication Non-Stemi Procedures Performed Procedure L HRT ART/GRFT ANGIO PRQ CARD JAMIE STENT W/ANGIO 1 VSL Pre-Procedure Checklist Informed consent is complete signed and on chart. H\\T\\P is on chart. ID band is on and ID verified with patient. Patient NPO for procedure The procedure was described for the patient and questions were answered. Blood Pressure: 150/79 ECG is on chart. Rhythm: Sinus Bradycardia Plan of Care Patient will tolerate the procedure without complications. Adequate level of comfort will be maintained. Hemodynamics will remain stable Patient will recover from procedure without complications. Respiratory function will be maintained. Cardiac rhythm will remain stable. Patient temperature will be maintained. Patient and/or family have verbalized understanding of the procedure. Patient Education Chief Complaint/Reason for Test: Cardiac Cath Developmental Category: Adult (18-64 years) Developmentally Appropriate for Age: Yes Learning Barriers: None Education Needs: Procedure Education Method: Verbal Information Taught: Cardiac Cath Educational Evaluation: Able to repeat information Intravenous Access Time IV Size Location DC'd Fluid/Drip Rate Units RN 10:53 AM 20g 1 10/10" Patent On Arrival Rt Antecubital 0.9NaCl 25 ml/hr Jai Gastelum RN Allergies No Known Allergies Vital Signs Time BP (mmHg) HR (bpm) O2 Sat. RR (bpm) LOC 10:53 AM 164 / 88 54 98 % 20 5 = Fully awake and oriented or at pre-proc level 11:07 AM / % 5 = Fully awake and oriented or at pre-proc level 11:07 AM / % 5 = Fully awake and oriented or at pre-proc level 11:01 AM 178 / 130 79 94 % 15 11:05 AM 162 / 83 52 97 % 11:11 AM 159 / 83 57 95 % 20 11:15 AM 133 / 68 52 90 % 14 11:20 AM 143 / 65 51 95 % 24 11:25 AM 140 / 74 53 94 % 21 11:31 AM 134 / 69 52 93 % 28 11:35 AM 138 / 74 52 94 % 11:41 AM 137 / 68 51 95 % 11:45 AM 135 / 73 50 95 % 19 11:50 AM 138 / 64 50 95 % 22 11:55 AM 142 / 72 51 93 % 21 12:00 PM 102 / 60 50 99 % 17 Procedural Medications Time Medication Dose Units Method Given By 11:06 AM Oxygen 2 L/min nasal cannula Jai Gastelum RN 11:06 AM Versed 1 mg Intravenous Jai Gasteulm RN 11:06 AM Fentanyl 50 mcg Intravenous Jai Gastelum RN 11:10 AM Versed 1 mg Intravenous Jai Gastelum RN 11:10 AM Fentanyl 50 mcg Intravenous Jai Gastelum RN 11:10 AM Lidocaine 2% 20 ml Subcutaneous Aden Leong MD 11:16 AM Oxygen 5 L/min nasal cannula Jai Gastelum RN 11:27 AM Nitroglycerin 200 mcg Intracoronary Aden Leong MD 11:34 AM Angiomax 0.75mg/kg bolus: 16 ml Intravenous Jai Gastelum RN 11:34 AM Angiomax 1.75mg/kg/hr: 38.5 ml Intravenous Jai Gastelum RN 11:36 AM Nitroglycerin 200 mcg IntracAden Buckley MD 11:52 AM Nitroglycerin 200 mcg IntracoronAden Rosario MD 11:56 AM Brilinta 180 mg Orally Jai Gastelum RN ASA Classification: CLASS II- Mild systemic disease (i.e. well-controlled diabetes, hypertension, asthma, cigarette smoking) Kourtney Score Preprocedure Postprocedure Activity 2- Moves 4 extremities sustained head lift Activity 2- Moves 4 extremities sustained head lift Circulation 2- SBP +/= 20 points of pre-anesthetic level Circulation 2- SBP +/= 20 points of pre-anesthetic level Consciousness 2- Awake and alert oriented x 3 Consciousness 2- Awake and alert oriented x 3 O2 Saturation 2- Able to maintain O2 satruation of 92% on room air O2 Saturation 2- Able to maintain O2 satruation of 92% on room air Respiratory 2- Able to deep breathe and cough well Respiratory 2- Able to deep breathe and cough well Total Score 10 Total Score 10 Contrast Agent: Isovue Diagnostic Contrast: 276 ml Total Contrast: 276 ml Fluoro Dose: 2782 mGy Procedure Log Time Note Enter By 10:08 AM CathStat 10:59 AM Sign in performed according to hospital policy. tsites 10:59 AM Procedure start 10:59 tsites 10:59 AM Pt arrived to geophysical laboratory chief 2 at 10:59 tsites 10:59 AM Physician arrived 10:59 tsites 10:59 AM Case Start 10:59 AM Vitals capture started with the following parameters, Patient=Adult, Interval=5 min, Initial Wbzzcxeh=064 mmHg, Deflation Rate=5 mmHg, Cuff placed on Right Arm 10:59 AM Meet and greet completed tsites 11:01 AM HR=79 bpm, OYIZ=391/130 mmhg, SpO2=94.0 %, Resp=15 B/min 11:04 AM Recorded ECG: HR=55 Condition=Condition 1 11:04 AM Recorded ECG: HR=54 Condition=Condition 1 11:05 AM Yissel Griffiths RT (R) Position: Monitor Time in: 11:05 [facility] 11:05 AM HR=52 bpm, WVBX=399/83 mmhg, SpO2=97.0 %, Comment=sb 11:05 AM Yissel Pino RT (R) Position: Scrub Time in: 11:05 tsites 11:05 AM Jai Gastelum RN Position: Physics Teacher Time in: 11:05 [facility] 11:05 AM Patient charges- Angio tray pack, Navilyst 3mm J, Pulse Oximetry and ACIST tubing and transducer [facility] 11:06 AM Time: 11: Oxygen on at 2 L/min per nasal cannula by Jai Gastelum RN [facility] 11: AM Time: 11: Versed 1 mg Intravenous Given by Jai Gastelum RN [facility] 11: AM Time: 11: Fentanyl 50 mcg Intravenous Given by Jai Gastelum RN [facility] 11: AM Time: 11:07 Patient comfortable and pain free: Yes [facility] 11:07 AM Time: 11:07LOC: 5 = Fully awake and oriented or at pre-proc level [facility] 11:07 AM Clinical Presentation: Non-STEMI [facility] 11:08 AM Pressure channel 1 zero failed. 11:08 AM Pressure channel 1 zeroed. 11:10 AM Time: 11:10 Versed 1 mg Intravenous Given by Jai Gastelum RN [facility] 11:10 AM Time: 11:10 Fentanyl 50 mcg Intravenous Given by Jai Gastelum RN [facility] 11:10 AM Time: 11:10 20 ml Lidocaine 2% to right groin Subcutaneous Given by Aden Leong MD [facility] 11:11 AM HR=57 bpm, CZJX=039/83 mmhg, SpO2=95 %, Resp=20 B/min 11:11 AM Access obtained by percutaneous puncture. 6Fr 10cm Terumo Roberta sheath placed in right Femoral artery. [id number] [facility] 11:12 AM 5Fr FL 4 catheter inserted over the wire DN [facility] 11:12 AM 0.035 145cm Navilyst 3mmJ wire [id number] [facility] 11:14 AM 5Fr FR 4 catheter inserted over the wire [facility] 11:14 AM RCA angiography performed in multiple views. tsites 11:15 AM SVG to the 2nd OM angio performed in multiple views. [facility] 11:15 AM Recorded Pressure: Ao, HR=65, Condition=Condition 1 (Aorta) Ao 126/69/92 11:15 AM HR=52 bpm, IFSZ=630/68 mmhg, SpO2=90 %, Resp=14 B/min 11:16 AM Time: 11:16 Oxygen on at 5 L/min per nasal cannula by Jai Gastelum RN [facility] 11:17 AM Left ASIF to the LAD angio performed in multiple views. tsites 11:18 AM Wire removed [facility] 11:18 AM 0.035 260cm Navilyst 3mmJ wire [id number] tsites 11:18 AM Wire removed tsites 11:18 AM 0.035 260cm Glidewire wire [id number] [facility] 11:19 AM Catheter removed tsites 11:19 AM 5Fr IM catheter inserted over the wire [id number] tsites 11:20 AM HR=51 bpm, PMPW=313/65 mmhg, SpO2=95 %, Resp=24 B/min 11:21 AM Wire removed [facility] 11:21 AM Left ASIF to the LAD angio performed in multiple views. tsites 11: AM Time: 11:07 Patient comfortable and pain free: Yes [facility] 11:22 AM Time: 11:07LOC: 5 = Fully awake and oriented or at pre-proc level tsites 11: AM Catheter removed tsites 11:22 AM 5Fr MPA1 catheter inserted over the wire [id number] tsites 11:22 AM Recorded Pressure: Ao, HR=53, Condition=Condition 1 (Aorta) Ao 119/70/92 11:23 AM SVG to the RPDA angio performed in multiple views. tsites 11:23 AM Catheter removed tsites 11: AM 5Fr FL3.5 catheter inserted over the wire [id number] tsites 11:24 AM LCA angiography performed in multiple views. tsites 11:24 AM Recorded Pressure: Ao, HR=54, Condition=Condition 1 (Aorta) Ao 143/19/59 11:25 AM HR=53 bpm, VSOX=146/74 mmhg, SpO2=94 %, Resp=21 B/min 11: AM Time: 11: Nitroglycerin 200 mcg Intracoronary Given by Aden Leong MD tsites 11:29 AM Coronary Dominance: right tsites 11:30 AM Lesion found in Proximal LAD. Pre Stenosis: 100 Pre BETTYE Flow: 2: Partial Flow/Perfusion (> 1 but < 3) tsites 11:30 AM Lesion found in Proximal RCA. Pre Stenosis: 100 Pre BETTYE Flow: 0: No Flow/No perfusion tsites 11:30 AM Lesion found in 1st Marginal. Pre Stenosis: 30 Pre BETTYE Flow: tsites 11:31 AM HR=52 bpm, BREH=423/69 mmhg, SpO2=93 %, Resp=28 B/min 11:31 AM Lesion found in 2nd Marginal. Pre Stenosis: 100 Pre BETTYE Flow: 0: No Flow/No perfusion tsites 11:31 AM Lesion found in Ramus. Pre Stenosis: 99 Pre BETTYE Flow: tsites 11:31 AM Proximal Left Anterior Descending Coronary Artery with 100% stenosis. If graft is supplying this territory, 0 % stenosis. tsites 11:31 AM Recorded Pressure: LV, HR=55, Condition=Condition 1 (Left Ventricle) LV 141/7/21 11:32 AM Mid/Distal Left Anterior Descending Coronary Artery and diagonal branches with 100% stenosis. If graft is supplying this area, 0 % stenosis tsites 11:32 AM 5Fr Pigtail catheter inserted over the wire DN tsites 11:32 AM Catheter selectively placed in left ventricle tsites 11:32 AM Recorded Pressure: LV, Ao, HR=54, Condition=Condition 1 (Left Ventricle) LV 125/31/27, (Aorta) Ao 144/52/93 11:33 AM Bolus angiogram of left Ventricle complete: 12 ml/sec for a total of 36 mls tsites 11:33 AM Catheter removed tsites 11:34 AM 6Fr XB3.5 [place] Bright-Tip guide catheter was used to cannulate the PCI vessel successfully. reused? No tsites 11:34 AM Inflation device was opened. tsites 11:34 AM Time: 11:34 Angiomax 0.75mg/kg bolus: 16 ml Intravenous Given by Jai Gastelum RN [place] pump tsites 11:35 AM Time: 11:34 Angiomax 1.75mg/kg/hr: 38.5 ml Intravenous Given by Jai Gastelum RN [place] pump tsites 11:35 AM HR=52 bpm, IWMP=997/74 mmhg, SpO2=94.0 % 11:36 AM Time: 11:36 Nitroglycerin 200 mcg Intracoronary Given by Aden Leong MD tsites 11:36 AM Recorded Pressure: Ao, HR=54, Condition=Condition 1 (Aorta) Ao 112/51/73 11:37 AM Time: 11:22 Patient comfortable and pain free: Yes tsites 11:37 AM .014 Prowater 182cm guide wire across target lesion- successful. reused? No tsites 11:40 AM .014 Whisper 190cm guide wire across target lesion- successful. reused? No tsites 11:40 AM Guide wire removed intact.prowater tsites 11:41 AM HR=51 bpm, EXGG=542/68 mmhg, SpO2=95.0 %, Comment=sb 11:43 AM .014 Whisper 190cm guide wire across target lesion- successful. reused? No tsites 11:45 AM HR=50 bpm, NCOC=559/73 mmhg, SpO2=95.0 %, Resp=19 B/min 11:46 AM Guide wire removed intact. tsites 11:46 AM 2.0 mm x 8 mm Emerge Monorail balloon across target lesion- successful. reused? No tsites 11:47 AM Balloon inflated @ 10 marilynn for 10 seconds tsites 11:48 AM Balloon inflated @ 12 marilynn for 8 seconds tsites 11:50 AM Balloon catheter removed intact. tsites 11:50 AM HR=50 bpm, ADDM=350/64 mmhg, SpO2=95.0 %, Resp=22 B/min, Comment=sb 11:51 AM 2.25mm x 8mm Synergy drug-eluting stent across target lesion- successful Lot #[id number] tsites 11:52 AM Time: 11:37 Patient comfortable and pain free: Yes tsites 11:52 AM Time: 11:52 Nitroglycerin 200 mcg Intracoronary Given by Aden Leong MD tsites 11:52 AM Stent deployed @ 11 marilynn for 4 seconds tsites 11:53 AM Stent delivery system removed intact. tsites 11:53 AM Guide wire removed intact. tsites 11:53 AM Guide catheter removed intact. tsites 11:53 AM Bolus angiogram of right Femoral complete: 2 ml/sec for a total of 4 mls tsites 11:55 AM HR=51 bpm, GSFE=197/72 mmhg, SpO2=93.0 %, Resp=21 B/min, Comment=sb 11:55 AM Procedure completed at 11:55 tsites 11:56 AM Sign out completed: Radiation Dose 2782 mGy Fluoro Time: 14.7 Isovue 370 - 200ml contrast 276 ml given by Aden Leong MD. Complications: NoneCardiac Rehab Consult needed: YesConfirmed administered medications: Yes tsites 11:56 AM Time: 11:56 Brilinta 180 mg Orally Given by Jai Gastelum RN tsites 11:57 AM Isovue 370 - 500ml,1 Bottle(s) used. tsites 11:57 AM Arterial sheath pulled, perclose closure device used and was Successful S/N. tsites 11:57 AM Post ECG NSR tsites 11:57 AM Post Blood Pressure 142/72 tsites 11:57 AM 11:57 Post Pulses Bilateral DP \\T\\ PT 2+ tsites 11:57 AM Information taught Cardiac Cath, PCI, and Perlose tsites 11:57 AM Education needs Procedure, Plan of Care, and Responsibilities of Patient in Care tsites 11:58 AM Learning barriers :None tsites 11:58 AM Education Methods Verbal tsites 11:58 AM Education evaluation Able to repeat information tsites 11:58 AM Site status No bleeding/hematoma - Rt Groin as reported by Yissel Pino RT (R) at 11:58 tsites 11:58 AM Opsite applied tsites 11:58 AM Plavix, Effient or Brilinta given Yes tsites 12:00 PM HR=50 bpm, UIKC=286/60 mmhg, SpO2=99 %, Resp=17 B/min 12:02 PM Family placed in consult room. tsites 12:05 PM Report given to naga [place] Pt taken to E Room #34. 12:05 tsites 12:05 PM Patient out of room: 12:05 tsites Complications Complication None Hemodynamics Pressures Site Systolic/A Wave Diastolic/V Wave Mean AO 126 69 92 AO 119 70 92 AO 143 19 59 LV 141 7 21 LV 125 31 27 AO 144 52 93 AO 112 51 73 Post Procedure Information Blood Pressure: 142/72 mmHg Rhythm: NSR Post procedural instructions were given Closure Device Time Device Success/Fail 11/22/2016 12:05:00 PM Perclose ProGlide Successful Site Checks Time Location Status Staff Sheath In? Note 11:58 AM Rt Groin No bleeding/hematoma Yissel Pino RT (R) Pulses Time Site Pre-Procedure Post-Procedure Note 11/22/2016 10:53:00 AM Bilateral DP \\T\\ PT 2+ 11:57:00 AM Bilateral DP \\T\\ PT 2+ Updated by Yissel Griffiths RT (R) on 11/22/2016 12:14:05 PM RT Kathy electronically signed on 11/22/2016 12:14:28 PM with status of Final
--- NOTE | 2016-11-22 16:27 | Internal Med Progress Note ---
<Ghada Omalley - Last Filed: 11/22/16 16:22> Date of Encounter: 11/22/16 Time of Encounter: 09:00 - Assessment and plan (1) NSTEMI (non-ST elevated myocardial infarction) Status: Acute Assessment and plan: Patient had LHC with graft and stent with PTCA single major vessel. Found severe three vessel coronary artery disease, mild LV dysfunction EF 45%. Patient had drug eluting stent placed. He is s/p CABG 2 of 3 patnet bypass grafts. Started on Brilinta by cardiology. Continue ASA, Statin, BB, Heparin drip discontinued, switched to SQ heparin. Cardiac diet. possible discharge home tomorrow. (3) CAD (coronary artery disease) Status: Chronic Assessment and plan: plan as above. Qualifiers: Coronary Disease-Associated Artery/Lesion type: bypass graft [place] vs. transplanted heart: [place] heart Associated angina: without angina Qualified Code(s): I25.810 - Atherosclerosis of coronary artery bypass graft(s) without angina pectoris (4) Diabetes Status: Chronic Assessment and plan: Low dose sliding scale insulin with ACHS accuchecks. Qualifiers: Diabetes mellitus type: type 2 Diabetes mellitus complication status: with neurologic complications Diabetes mellitus complication detail: with unspecified neuropathy Diabetes mellitus roasterman insulin use: with residential use Qualified Code(s): E11.40 - Type 2 diabetes mellitus with diabetic neuropathy, unspecified; Z79.4 - MCFP (current) use of insulin (5) Hypertension Status: Chronic Assessment and plan: Continue home med lisinopril Qualifiers: Hypertension type: essential hypertension Qualified Code(s): I10 - Essential (primary) hypertension (6) DVT prophylaxis Status: Acute Assessment and plan: Heparin SQ - Subjective Interval history: 66 year old male evaluated at bedside. Patient was admited to the ED overnight with exertional dyspnea and chest pain. Patient is scheduled for a [facility] this morning. - Constitutional Vitals: Temp Pulse Resp BP Pulse Ox 97.5 F L 55 16 134/75 96 11/22/16 15:46 11/22/16 15:46 11/22/16 15:46 11/22/16 15:46 11/22/16 15:46 General appearance: Present: A&O X 3, no acute distress, answers questions appropriately - Head Head exam: Present: atraumatic, normocephalic - Neck Neck exam general surgery: Present: supple, trachea midline - Respiratory Additional comments: expiratory wheezing and fine crackles present in Right upper lobe. - Cardiovascular Additional comments: bradycardia, regular rhythm. - GI/Abdominal GI/Abdominal exam: Present: soft. Absent: tenderness - Extremities Exam Extremities exam: Present: radial pulses palpable and symetrical. Absent: cyanotic, pedal edema - Neurological Exam Neurological exam: Present: alert, oriented X3, no focal deficits Internal Medicine: Result - Labs CBC & Chem 7: 11/22/16 05:17 11/22/16 05:17 - ABG Interpretation ABG results: PT/INR, D-dimer PT 11.8 Seconds (9.4-12.1) 11/21/16 14:41 Consult Discharge Plan - Plan Instructions: Metoprolol (By mouth), Ticagrelor (By mouth) Additional Instructions: Stop taking Atenolol. Stop taking Mobic (severe interaction with Brillinta). Follow up with Primary care doctor within one week of discharge. Follow up with [facility] after discharge. Take Metoprolol XL and Brillinta as directed. Follow Low fat/low cholesterol diet. Patient counseled on importance of exercise, weight loss, and low fat diet. Referrals: Meg Reina CNP [Primary Care Provider] - 11/29/16 10:40 am Carolann Bahena DO [Partnered Physician] - Prescriptions: Metoprolol XL (24 HR) Succ [Toprol Xl] 50 mg PO DAILY #30 tab.er.24h Ticagrelor [Brilinta] 90 mg PO BID #180 tablet <Orlin Hudson - Last Filed: 11/23/16 15:12> - Assessment and plan (1) NSTEMI (non-ST elevated myocardial infarction) Status: Acute (2) CAD (coronary artery disease) Status: Chronic Qualifiers: Coronary Disease-Associated Artery/Lesion type: bypass graft [place] vs. transplanted heart: [place] heart Associated angina: without angina Qualified Code(s): I25.810 - Atherosclerosis of coronary artery bypass graft(s) without angina pectoris (3) Diabetes Status: Chronic Qualifiers: Diabetes mellitus type: type 2 Diabetes mellitus complication status: with neurologic complications Diabetes mellitus complication detail: with unspecified neuropathy Diabetes mellitus roasterman insulin use: with residential use Qualified Code(s): E11.40 - Type 2 diabetes mellitus with diabetic neuropathy, unspecified; Z79.4 - long term care phlebotomist (current) use of insulin (4) Hypertension Status: Chronic Qualifiers: Hypertension type: essential hypertension Qualified Code(s): I10 - Essential (primary) hypertension (5) Systolic CHF Status: Acute Qualifiers: Congestive heart failure chronicity: acute Qualified Code(s): I50.21 - Acute systolic (congestive) heart failure - Constitutional Vitals: Temp Pulse Resp BP Pulse Ox 98.4 F 59 16 156/84 98 11/23/16 08:15 11/23/16 08:15 11/23/16 08:15 11/23/16 08:15 11/23/16 08:15 Internal Medicine: Result - Labs CBC & Chem 7: 11/23/16 04:19 11/23/16 04:19 Labs: Short CBC 11/23/16 Range/Units 04:19 WBC 9.8 (4.3-11.1) K/mcL Hgb 12.8 L (12.9-16.9) g/dL Hct 40.4 (37.5-50.1) % Plt Count 291 (140-400) K/mcL Neutrophils # 5.6 (1.6-8.9) K/mcL BMP 11/23/16 04:19 Sodium 141 Potassium 4.1 Chloride 109 Carbon Dioxide 22 BUN 20 Creatinine 1.25 Glucose 105 H Calcium 9.3 - ABG Interpretation ABG results: PT/INR, D-dimer PT 11.8 Seconds (9.4-12.1) 11/21/16 14:41 - Attending Attestation I examined this patient and my medical decision-making was reviewed with the Resident Physician on 11/22/16. I agree with the documented findings, disposition and treatment plan as described except to the extent set forth below. Mr. Sahu is currently in observation for acute NSTEMI. He is high risk due to potential for worsening cardiac status. Mr. Sahu is going to cardiac cath today. No chest pain currently. No fever or chills. Exam Alert. Comfortable Heart reg Lungs no wheeze I/P 1. Acute NSTEMI 2. HTN Further diagnoses and plan as above.
--- NOTE | 2016-11-22 19:44 | Electrocardiograph Report ---
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
[2016-11-22] MEDS: *HR* HYDROcodone/Acet 5/325 mg TABLET PO SCH (20:39)
[2016-11-22] MEDS: Gabapentin 300 MG CAPSULE PO SCH (20:40)
[2016-11-22] MEDS: *HR* Ticagrelor 90 MG TABLET PO SCH (20:40)
[2016-11-22] MEDS ORDERED: Insulin DETEMIR 100 UNIT/ML X5UNITS SQ SCH (21:00)
[2016-11-22] MEDS ORDERED: Insulin LISPRO 300 UNITS/3 ML VIAL SQ SCH (21:00)
[2016-11-22] MEDS ORDERED: NON-FORMULARY MEDICATION 1 EACH EACH (Insulin Detemir 30 UNIT) SQ SCH (21:00)
[2016-11-22] MEDS: *HR* Heparin 5,000 UNIT/ML VIAL SQ SCH (22:26)
[2016-11-23 05:14] LABS: Basophils # 0.1 K/mcL (0.0-0.2); Basophils % 0.8 %; Eosinophils # 0.4 K/mcL (0.0-0.6); Eosinophils % 3.7 %; Hematocrit 40.4 % (37.5-50.1); Hemoglobin 12.8 g/dL (12.9-16.9); Immature Granulocytes % 0.6 % (0-4); Lymphocytes # 2.7 K/mcL (0.6-4.6); Lymphocytes % 27.5 %; Mean Corpuscular HGB Conc 31.7 g/dL (31.6-35.5); Mean Corpuscular Hemoglobin 26.5 pg (28.0-33.3); Mean Corpuscular Volume 83.6 fL (83.0-100.0); Mean Platelet Volume 10.8 fL (9.4-12.4); Neutrophils # 5.6 K/mcL (1.6-8.9); Platelet Count 291 K/mcL (140-400); Red Blood Count 4.83 M/mcL (4.19-5.50); Red Cell Distribution Width 14.7 % (11.5-14.5); Segmented Neutrophils % 57.4 %
[2016-11-23 05:49] LABS: BUN/Creatinine Ratio 16 (6-26); Blood Urea Nitrogen 20 mg/dL (8-26); Calcium 9.3 mg/dL (8.6-10.8); Carbon Dioxide 22 mEq/L (19-29); Chloride 109 mEq/L (98-109); Glucose 105 mg/dL (70-99); Magnesium 1.9 mg/dL (1.6-2.6); Osmolality,Calculated 295 (280-300); Potassium 4.1 mEq/L (3.5-4.5); Sodium 141 mEq/L (136-145); eGFR For African Americans > 60 (> 60); eGFR For Non-African Americans 57 (> 60)
[2016-11-23] MEDS: *HR* Heparin 5,000 UNIT/ML VIAL SQ SCH (06:03)
[2016-11-23] MEDS: Aspirin Enteric Coated 81 MG Tablet PO SCH (08:11)
[2016-11-23] MEDS: *HR* Ticagrelor 90 MG TABLET PO SCH (08:11)
[2016-11-23] MEDS: Insulin LISPRO 300 UNITS/3 ML VIAL SQ SCH (08:15)
[2016-11-23] MEDS ORDERED: Aspirin 81 MG TAB.CHEW PO SCH (09:00)
--- NOTE | 2016-11-23 09:10 | Cardiology Progress Note ---
<Colton Laurent - Last Filed: 11/23/16 09:55> Date of Encounter: 11/23/16 Time of Encounter: 09:08 Assessment and Plan (1) Systolic CHF Status: Acute Begin patient on Toprol XL 50 mg Daily. D/c atenolol. Follow-up with cardiology outpatient clinic. Qualifiers: Congestive heart failure chronicity: acute Qualified Code(s): I50.21 - Acute systolic (congestive) heart failure (2) NSTEMI (non-ST elevated myocardial infarction) Status: Acute Cardiac cath 11/22/16. (3) CAD (coronary artery disease) Status: Chronic Qualifiers: Coronary Disease-Associated Artery/Lesion type: bypass graft [place] vs. transplanted heart: [place] heart Associated angina: without angina Qualified Code(s): I25.810 - Atherosclerosis of coronary artery bypass graft(s) without angina pectoris (4) Diabetes Status: Chronic Hold oral medications Continue Levemir Low-dose sliding scale insulin Qualifiers: Diabetes mellitus type: type 2 Diabetes mellitus complication status: with neurologic complications Diabetes mellitus complication detail: with unspecified neuropathy Diabetes mellitus detention insulin use: with batching operator use Qualified Code(s): E11.40 - Type 2 diabetes mellitus with diabetic neuropathy, unspecified; Z79.4 - photo specialist (current) use of insulin (5) Hypertension Status: Chronic Qualifiers: Hypertension type: essential hypertension Qualified Code(s): I10 - Essential (primary) hypertension Discussion w patient/family: The assessment and plan as outlined above was discussed with the patient and/or family members who expressed understanding and agreement. All questions were answered. Thank you for involving us in the care of your patient. Please call with any questions. Subjective Principal diagnosis: Elevated cardiac enzymes Interval history: Patient received cardiac catheterization yesterday. JAMIE placed in RMA. EF 50% in Echo. No other complaints. Objective General: Conversant, No Apparent Distress HEENT: Atraumatic, Normocephaly, Mucus Membranes Moist Neck: No JVD Cardiac: Reg Rate and Rhythm, Normal S1 and S2, No Murmur Lungs: Normal Breath Sounds, No Wheeze, Rales, Rhonchi Neuro: Alert and responsive, No focal deficits noted Abdomen: Soft, Non-Tender Skin: No rashes noted on visualized skin Musculoskeletal: No Chest Wall Tenderness Extremities: No Clubbing, No Cyanosis, No Edema Other: Cath site intact without erythema, hematoma or bruising noted. Results 11/23/16 04:19 11/23/16 04:19 Lab Results 11/23/16 11/23/16 04:19 04:19 WBC 9.8 Hgb 12.8 L Hct 40.4 Plt Count 291 Sodium 141 Potassium 4.1 Chloride 109 Carbon Dioxide 22 BUN 20 Creatinine 1.25 Glucose 105 H Calcium 9.3 Magnesium 1.9 - Imaging and Cardiology Echo: report reviewed Cardiac cath: report reviewed Consult Discharge Plan - Plan Instructions: Metoprolol (By mouth), Ticagrelor (By mouth) Additional Instructions: Stop taking Atenolol. Stop taking Mobic (severe interaction with Brillinta). Follow up with Primary care doctor within one week of discharge. Follow up with [place] [facility]ology after discharge. Take Metoprolol XL and Brillinta as directed. Follow Low fat/low cholesterol diet. Patient counseled on importance of exercise, weight loss, and low fat diet. Referrals: Meg Reina CNP [Primary Care Provider] - 11/29/16 10:40 am Carolann Bahena DO [Partnered Physician] - Prescriptions: Metoprolol XL (24 HR) Succ [Toprol Xl] 50 mg PO DAILY #30 tab.er.24h Ticagrelor [Brilinta] 90 mg PO BID #180 tablet <Carolann Bahena - Last Filed: 11/23/16 11:30> Assessment and Plan Discussion w patient/family: I examined this patient and my medical decision-making was reviewed with the PRODUCTION SUPPORT ENGINEER/PA/Advanced Practice Nurse/Resident Physician. I agree with the documented findings, disposition and treatment plan. Mr. Sahu underwent PCI with JAMIE to ramus without complication. He is feeling well this AM without groin complaints. He was strongly advised to continue at least 12 months of uninterrupted DAPT. He will remain on statin and BB. LV systolic function low normal on echo. We will sign off. Please have him follow up in the outpatient setting. Objective Vital Signs, Last 4 Hours Temp Pulse Resp BP Pulse Ox 11/23/16 08:15 98.4 F 59 16 156/84 98 Results 11/23/16 04:19 11/23/16 04:19 Lab Results 11/23/16 11/23/16 04:19 04:19 WBC 9.8 Hgb 12.8 L Hct 40.4 Plt Count 291 Sodium 141 Potassium 4.1 Chloride 109 Carbon Dioxide 22 BUN 20 Creatinine 1.25 Glucose 105 H Calcium 9.3 Magnesium 1.9
[2016-11-23] MEDS ORDERED: Metoprolol XL (24 HR) Succ 50 MG TAB.ER.24H PO SCH (09:15)
--- NOTE | 2016-11-23 09:15 | Discharge Summary ---
<Ghada Omalley - Last Filed: 11/23/16 13:27> Date of Encounter: 11/23/16 Time of Encounter: 08:30 - Discharge Diagnosis (1) NSTEMI (non-ST elevated myocardial infarction) Priority: Primary Status: Acute (2) Systolic CHF Priority: Secondary Status: Acute Qualifiers: Congestive heart failure chronicity: acute Qualified Code(s): I50.21 - Acute systolic (congestive) heart failure (3) CAD (coronary artery disease) Priority: Primary Status: Chronic Qualifiers: Coronary Disease-Associated Artery/Lesion type: bypass graft [place] vs. transplanted heart: [place] heart Associated angina: without angina Qualified Code(s): I25.810 - Atherosclerosis of coronary artery bypass graft(s) without angina pectoris (4) Diabetes Priority: Secondary Status: Chronic Qualifiers: Diabetes mellitus type: type 2 Diabetes mellitus complication status: with neurologic complications Diabetes mellitus complication detail: with unspecified neuropathy Diabetes mellitus intermediate insulin use: with intermediate use Qualified Code(s): E11.40 - Type 2 diabetes mellitus with diabetic neuropathy, unspecified; Z79.4 - moth exterminator (current) use of insulin (5) Hypertension Priority: Secondary Status: Chronic Qualifiers: Hypertension type: essential hypertension Qualified Code(s): I10 - Essential (primary) hypertension (6) DVT prophylaxis Priority: Secondary Status: Acute - Discharge Medications Prescriptions: Metoprolol XL (24 HR) Succ [Toprol Xl] 50 mg PO DAILY #30 tab.er.24h Ticagrelor [Brilinta] 90 mg PO BID #180 tablet Home Medications: Amlodipine [Norvasc] 5 mg PO DAILY 11/21/16 [History] Aspirin [Lo-Dose Aspirin EC] 81 mg PO DAILY 11/21/16 [History] Atorvastatin [Lipitor] 10 mg PO HS 11/21/16 [History] Furosemide [Lasix] 20 mg PO DAILY 11/21/16 [History] Gabapentin [Neurontin] 300 mg PO HS 11/21/16 [History] Glimepiride [Amaryl] 4 mg PO BID 11/21/16 [History] HYDROcodone/Acet 5/325 mg [[place] 5-325 mg] 2 tab PO HS 11/21/16 [History] Insulin DETEMIR [Levemir] 30 unit SQ HS 11/21/16 [History] Lisinopril [Zestril] 5 mg PO DAILY 11/21/16 [History] Metformin HCl [Glucophage] 1,000 mg PO BID 11/21/16 [History] Nitroglycerin 0.4 mg SL Q5MIN PRN 11/21/16 [History] Metoprolol XL (24 HR) Succ [Toprol Xl] 50 mg PO DAILY #30 tab.er.24h 11/23/16 [ Rx] Ticagrelor [Brilinta] 90 mg PO BID #180 tablet 11/23/16 [Rx] Allergies/Adverse Reactions: Allergies No Known Allergies Allergy (Verified 11/21/16 13:07) Date of admission: 11/22/16 16:06 Primary care physician: Meg Reina CNP - Patient Status Disposition: Home, Self-Care Condition: Good Functional capacity at discharge: independent ambulation Overall status at discharge: patient is progressing back to baseline - Discharge Instructions Instructions: Metoprolol (By mouth), Ticagrelor (By mouth) Follow Up With: Meg Reina CNP [Primary Care Provider] - 11/29/16 10:40 am Carolann Bahena DO [Partnered Physician] - Additional Instructions: Stop taking Atenolol. Stop taking Mobic (severe interaction with Brillinta). Follow up with Primary care doctor within one week of discharge. Follow up with [place] [facility] after discharge. Take Metoprolol XL and Brillinta as directed. Follow Low fat/low cholesterol diet. Patient counseled on importance of exercise, weight loss, and low fat diet. - Diet and Activity Activity: as per the cardiac rehab Diet: low fat, low cholesterol Hospital course: Mr. Sahu is a 66 year old male with PMHx of HTN, systolic CHF, DM with nephropathy, CAD (s/p open bypass with stents). He presented to the hospital with a three day history of non exertional chest pain and pressure that radiates to his back and left shoulder. He also complained of a headache at that time. He was diagnosed with a NSTEMI and placed on a heparin drip, aspirin , statin, beta yuliet. The patient subsequently underwent a LHC with graft and stent with PTCA single major vessel. The cath showed severe three vessel coronary artery disease, mild LV dysfunction with EF 45%. The patient had a drug eluting stent placed. After cardiac catheterization, he was started on Brillinta. Cardiology continued to monitor him after his catheterization. For his systolic CHF, he was started on Toprol XL and his home med Atenolol was discontinued. The patient did not have any complications after his heart cath and he continued to remain stable throughout his hospital stay. He was instructed to follow up with cardiology and his PCP outpatient. Plan: Stop taking Atenolol. Stop taking Mobic (severe interaction with Brillinta). Follow up with Primary care doctor within one week of discharge. Follow up with [place] cardiology after discharge. Take Metoprolol XL and Brillinta as directed. Follow Low fat/low cholesterol diet. Patient counseled on importance of exercise, weight loss, and low fat diet. - Time Spent with Patient Total time spent providing and/or coordinating discharge services: - Constitutional Vitals: Temp Pulse Resp BP Pulse Ox 98.2 F 57 16 144/80 91 L 11/23/16 05:00 11/23/16 05:00 11/23/16 05:00 11/23/16 05:00 11/23/16 05:00 General appearance: Present: A&O X 3, no acute distress, answers questions appropriately - Head Head exam: Present: atraumatic, normocephalic - Eye Eye exam: Absent: scleral icterus - Neck Neck exam general surgery: Present: supple, trachea midline - Respiratory Respiratory exam: Present: CTAB - Cardiovascular Cardiovascular exam: Present: RRR, +S1, +S2 - GI/Abdominal GI/Abdominal exam: Present: normal bowel sounds, soft. Absent: tenderness - Extremities Exam Extremities exam: Absent: cyanotic, pedal edema - Neurological Exam Neurological exam: Present: alert, oriented X3, no focal deficits - Psychiatric Psychiatric exam: Present: normal mood <Orlin Hudson - Last Filed: 11/23/16 15:18> - Discharge Diagnosis (1) NSTEMI (non-ST elevated myocardial infarction) Status: Acute (2) CAD (coronary artery disease) Status: Chronic Qualifiers: Coronary Disease-Associated Artery/Lesion type: bypass graft [place] vs. transplanted heart: [place] heart Associated angina: without angina Qualified Code(s): I25.810 - Atherosclerosis of coronary artery bypass graft(s) without angina pectoris (3) Diabetes Status: Chronic Qualifiers: Diabetes mellitus type: type 2 Diabetes mellitus complication status: with neurologic complications Diabetes mellitus complication detail: with unspecified neuropathy Diabetes mellitus intermediate insulin use: with rat exterminator use Qualified Code(s): E11.40 - Type 2 diabetes mellitus with diabetic neuropathy, unspecified; Z79.4 - MCC (current) use of insulin (4) Hypertension Status: Chronic Qualifiers: Hypertension type: essential hypertension Qualified Code(s): I10 - Essential (primary) hypertension (5) Systolic CHF Status: Acute Qualifiers: Congestive heart failure chronicity: acute Qualified Code(s): I50.21 - Acute systolic (congestive) heart failure Procedures/tests Complete & Pending: Procedures Performed prior 72 hours Category Date Time Status ECG 12 lead ECG [ECG] Routine Y 11/22/16 13:07 Completed Date of admission: 11/22/16 16:06 Primary care physician: Meg Reina [facility] Hospital course: Mr. Sahu is a 66 year old male - Time Spent with Patient Total time spent providing and/or coordinating discharge services: 27min - Constitutional Vitals: Temp Pulse Resp BP Pulse Ox 98.4 F 59 16 156/84 98 11/23/16 08:15 11/23/16 08:15 11/23/16 08:15 11/23/16 08:15 11/23/16 08:15 - Attending Attestation I examined this patient and my medical decision-making was reviewed with the Resident Physician on 11/23/16. I agree with the documented findings, disposition and treatment plan as described except to the extent set forth below. Mr. Lawton had cath and stent placement yesterday. He is doing OK and ready to go home. Exam alert. Comfortable Heart reg Lungs clear No edema Plan D/C today Follow up with PCP and cardiology.
[2016-11-23 09:23] VITALS: BP 156/84
--- NOTE | 2016-11-23 09:25 | ECHO - Doppler Report ---
Echocardiogram Name: Selwyn Sahu Date of Study: 11/22/2016 Date: 1950 Ht: 71.0 in Medical Record#: [id number] Age: 66 Wt: 245.0 lb Gender: Male BSA: 2.3 Order #: [id number] Location: [facility] Room #: [id number] Reading Physician: Carolann Bahena DO Power Sewing Machine Operator: Kallie Webb Ordering Physician: Colton Laurent DO Primary Physician: Meg Reina CNP Indications: Elevated cardiac enzymes Impressions: LVEF 50%. Not all LV myocardial segments were well visualized. There is evidence of moderate diastolic dysfunction of the left ventricle. Moderately enlarged left atrial size. Normal right ventricular size and function. Mild pulmonic regurgitation. No pulmonary hypertension. Left Ventricular Wall Motion: Rest Echo Findings The apex, apical inferior, mid inferior, basal inferior, apical anterior, mid anterior and basal anterior villa were not visualized. All other wall segments showed normal motion. Findings: Study Quality * Technically sub-optimal due to body habitus. ECG Findings * Sinus bradycardia. Left Ventricle * Normal LV chamber size, wall thickness and function. * Moderate left ventricular diastolic dysfunction. * LVEF 50%. Mitral Valve * Normal mitral valve structure. * No mitral stenosis. * No mitral regurgitation. Aortic Valve * No aortic regurgitation. * Trileaflet aortic valve. * Normal aortic valve structure. * No aortic stenosis. Tricuspid Valve * Tricuspid valve not well visualized. * No tricuspid regurgitation. Pulmonic Valve * Pulmonic valve is not well visualized. * No pulmonic stenosis. * Mild pulmonic regurgitation. Pulmonary Artery * Pulmonary artery not well visualized. Right Ventricle * Normal right ventricular structure and function. Right Atrium * Normal right atrial size. Left Atrium * Moderately dilated left atrium. Interatrial Septum * Interatrial septum not well evaluated. IVC * The IVC is not well evaluated. Pericardium * There is no pericardial effusion present. Aorta * Normally sized aortic root. History Hypertension Diabetes Hypercholesteremia Family History of CAD History of CAD/PTCA Myocardial Infarction Coronary Artery Bypass Graft Congestive Heart Failure Measurements: BP: 134/ 75 2D Normal Values IVSd: 1.10 cm 0.6 - 1.0 cm LVIDd: 4.60 cm 3.7 - 5.6 cm LVPWd: 1.10 cm 0.6 - 1.1 cm LVIDs: 3.50 cm 1.5 - 3.6 cm AO: 3.50 cm < 4.0 cm LA: 4.70 cm 2.0 - 4.0cm %FS: 23.90 cm >25 % LA volume: 85 Mitral Valve Peak E:.74 m/sec Peak A:.29 m/sec E/A Ratio:2.5 Peak E' Lat Fredy:10.7 cm/s Peak E' Med Fredy:4.87 cm/s E/E' Lat Ratio:6.9 E/E' Med Ratio:15.2 Tricuspid Valve TV Regurg Peak Grad: 13.00mmHg TV Regurg Peak Fredy: 1.78m/sec Updated by Carolann Bahena on 11/23/2016 9:17:19 AM electronically signed on 11/23/2016 9:18:28 AM with status of Final Wall Motion Elizalde: 1=Normal, 2=Hypokinesis, 3=Akinesis, 4=Dyskinesis, 5=Aneurysmal, 6=Hyperkinetic, X=Not Visualized (Blank)=Missing
--- NOTE | 2016-11-23 17:14 | Electrocardiograph Report ---
[place] [id number] Test Date: 2016-11-22 Pat Name: Selwyn Sahu Department: 111 Room: [id number] Gender: M Forensic Medical Examiner: : 1950 Requested By: Orlin Hudson Order Number: [id number] Reading MD: Carolann Bahena Measurements Intervals [place] Rate: 46 P: 204 WA: 233 QRS: -23 QRSD: 114 T: -31 QT: 460 QTc: 420 Interpretive Statements SINUS BRADYCARDIA WITH FIRST DEGREE AV BLOCK INTRAVENTRICULAR CONDUCTION DELAY NONSPECIFIC T-WAVE ABNORMALITY Electronically Signed On 11-23-2016 17:12:50 EST by Carolann Bahena
== END 2016-11-23 10:54 | disposition home or self-care (01) | DRG 246 ==
LOC: 2NENU 12:57 → EMEROO 12:57 → 2NENU 17:16
PROVIDERS: ADMIT Internal Medicine; ATTEND Internal Medicine

== ENCOUNTER 2018-07-16 18:50 | Inpatient (IN) ==
--- NOTE | 2018-07-16 19:44 | Emergency Department Note ---
Disposition Clinical Impression: Elevated troponin Congestive heart failure Qualifiers: Heart failure type: unspecified Heart failure chronicity: acute Qualified Code( s): I50.9 - Heart failure, unspecified Disposition: Admitted As Inpatient Condition: Fair Referrals: Meg Reina CNP [Primary Care Provider] - Forms: ED Satisfaction Letter SOB HPI - General Chief Complaint: ED Shortness of Breath/Dyspnea Stated Complaint: Abnormal EKG from Time Seen by Provider: 07/16/18 19:01 Source: patient Mode of arrival: private vehicle Limitations: no limitations Nursing Notes Reviewed: Yes Vital Signs Reviewed: Yes - History of Present Illness 67-year-old male history of CAD with a CABG in roughly 1999, cardiac stent placed in 2017 on aspirin and Plavix who presents to the ER from urgent care with a complaint of generalized weakness, chest pain and shortness of breath. Patient states she has felt unwell for about a week. Says around 3-4 days ago he started having a left sided chest pressure up into his shoulder. It feels vaguely similar to when he last had a cardiac issue. Also states for the last 3 days he has been unable to lay flat at home. He feels like he gets very short of breath when he lays flat. States this is happened twice 1 when he had pneumonia and 1 when he required a stent. Reports a cough with a little bit of productive sputum. When he breathes and it hurts down into his abdomen. He states he does have some exertional dyspnea but that is normal for him for the last 5 years. He has diarrhea which is chronic for him secondary to his diabetic medications. He was seen at urgent care there was concern for an abnormal EKG and was sent here for further evaluation. Pt Subjective Complaint: shortness of breath, cough, chest pain Onset (ago): day(s) Severity: moderate Consistency/Duration: intermittent Improves with: nothing Worsens with: lying flat Known history of: other (CAD) Associated symptoms: Reports: chest pain, cough, sputum production, orthopnea. Denies: fever Treatment prior to arrival: none Cough present: Yes Cough Description: Involuntary Cough Frequency: Intermittent Sputum production: Yes Sputum Amount: Small - Related Data Home oxygen amount: none Home Medications Medication Instructions Recorded Confirmed Aspirin [Lo-Dose Aspirin EC] 81 mg PO DAILY 11/21/16 07/16/18 Atorvastatin [Lipitor] 10 mg PO HS 11/21/16 07/16/18 Furosemide [Lasix] 20 mg PO DAILY 11/21/16 07/16/18 Glimepiride [Amaryl] 4 mg PO BID 11/21/16 07/16/18 Lisinopril [Zestril] 5 mg PO DAILY 11/21/16 07/16/18 Metformin HCl [Glucophage] 1,000 mg PO BID 11/21/16 07/16/18 Nitroglycerin 0.4 mg SL Q5MIN PRN 11/21/16 07/16/18 amLODIPine [Norvasc] 5 mg PO DAILY 11/21/16 07/16/18 Clopidogrel [Plavix] 75 mg PO DAILY 07/16/18 07/16/18 Metoprolol XL (24 HR) Succ [Toprol 50 mg PO BID 07/16/18 07/16/18 Xl] Allergies Allergy/AdvReac Type Severity Reaction Status Date / Time No Known Allergies Allergy Verified 07/16/18 18:19 All systems ED: reviewed and negative except as stated. Constitutional: Denies: fever Cardiovascular: Reports: chest pain, dyspnea on exertion Respiratory: Reports: cough, dyspnea Gastrointestinal: Reports: abdominal pain, diarrhea (chronic). Denies: nausea, vomiting Neurological: Reports: weakness Past Medical History - Past Medical History Attestation: Yes The following information was validated with the patient. Source: patient Medical history: Reports: arthritis, CHF, coronary artery disease, diabetes, hyperlipidemia, hypertension, myocardial infarction, other Surgical history: Reports: angioplasty/stent, appendectomy, coronary bypass ( CABG), knee replacement, orthopedic, other, other (colonoscopy) Psychiatric history: Reports: no psych history - Social History Smoking Status: Never smoker Smokeless Tobacco Status: No Alcohol use: Reports: none Drug use: Reports: none Physical Exam - General Limitations: no limitations General appearance: alert, in no apparent distress - Head Head exam: atraumatic, normocephalic - Eye Eye exam: Present: normal appearance - ENT ENT exam: normal exam - Neck Neck exam: Present: normal inspection - Chest Chest inspection: Present: normal inspection, symmetric chest wall rise - Respiratory Respiratory exam: Present: normal lung sounds bilaterally - Cardiovascular Cardiovascular exam: Present: normal rhythm, bradycardia, normal heart sounds - Abdominal Exam Abdominal exam: Present: soft, Non-Tender. Absent: tenderness, distention, rigidity - Extremities Exam Extremities exam: Present: normal inspection, full ROM - Expanded Upper Extremity Exam Shoulder exam: Present: normal inspection, full ROM Arm exam: Present: normal inspection, full ROM Elbow exam: Present: normal inspection, full ROM Forearm/Wrist exam: Present: normal inspection, full ROM Hand exam: Present: normal inspection, full ROM - Expanded Lower Extremity Exam Hip/Pelvis exam: Present: normal inspection, full ROM Upper leg exam: Present: normal inspection, full ROM Knee exam: Present: normal inspection, full ROM Lower leg exam: Present: normal inspection, full ROM Ankle exam: Present: normal inspection, full ROM Foot/toe exam: Present: normal inspection, full ROM - Skin Skin exam: Present: warm, dry Course Course Narrative: Patient seen and examined. Vital signs reviewed. Plan for EKG, chest x-ray, labs, likely admission for further evaluation. - Reevaluation(s) Reevaluation #1: Imaging and labs reviewed. Nitroglycerin given for pain as well as for heart failure. Lasix also initiated. Plan to admit for acute congestive heart failure and elevated troponin. Aspirin ordered. Vital Signs Temperature 97.9 F 07/16/18 18:56 Pulse Rate 62 07/16/18 18:56 Respiratory Rate 22 07/16/18 18:56 Blood Pressure 180/78 07/16/18 18:56 O2 Sat by Pulse Oximetry 97 07/16/18 18:56 Temperature 97.9 F 07/16/18 19:55 Pulse Rate 75 07/16/18 21:07 Respiratory Rate 20 07/16/18 21:07 Blood Pressure 179/70 07/16/18 21:07 O2 Sat by Pulse Oximetry 93 07/16/18 21:07 Oxygen Delivery Oxygen Delivery Room Air Shortness of Breath/Dyspnea - [facility] Narrative Medical decision making narrative: 67-year-old male presenting with orthopnea shortness of breath and generalized weakness for several days. He is hemodynamically stable here. His EKG demonstrates what appears to be atrial flutter. Chest x-ray with pulmonary vascular congestion. He has an elevated BNP as well as an elevated troponin. The patient was given nitroglycerin, aspirin and Lasix. He is admitted to the hospitalist service for acute exacerbation of congestive heart failure and elevated troponin. - Lab Data Lab results reviewed: Yes I reviewed the patient's lab results. Result diagrams: 07/16/18 19:29 07/16/18 19:29 Lab Results 07/16/18 07/16/18 07/16/18 Range/Units 19:29 19:29 19:29 WBC 11.2 H (4.3-11.1) K/mcL RBC 4.53 (4.19-5.50) M/mcL Hgb 11.8 L (12.9-16.9) g/dL Hct 36.9 L (37.5-50.1) % MCV 81.5 L (83.0-100.0) fL MCH 26.0 L (28.0-33.3) pg MCHC 32.0 (31.6-35.5) g/dL RDW 15.6 H (11.5-14.5) % Plt Count 292 (140-400) K/mcL MPV 10.7 (9.4-12.4) fL Immature Gran % 1.0 (0-4) % Seg Neutrophils % 73.3 % Lymphocytes % 14.3 % Monocytes % 8.7 % Eosinophils % 2.0 % Basophils % 0.7 % Neutrophils # 8.2 (1.6-8.9) K/mcL Lymphocytes # 1.6 (0.6-4.6) K/mcL Monocytes # 1.0 (0.0-1.3) K/mcL Eosinophils # 0.2 (0.0-0.6) K/mcL Basophils # 0.1 (0.0-0.2) K/mcL PT 12.0 (9.4-12.1) Seconds INR 1.1 Sodium 141 (136-145) mEq/L Potassium 3.6 (3.5-5.1) mEq/L Chloride 106 (98-107) mEq/L Carbon Dioxide 22 L (23-29) mEq/L BUN 15 (8-23) mg/dL Creatinine 0.97 (0.70-1.30) mg/dL Est GFR ( Amer) > 60 (> 60) Est GFR (Non-Af Amer) > 60 (> 60) BUN/Creatinine Ratio 15 (6-26) Glucose 195 H (70-105) mg/dL Calculated Osmolality 298 (280-300) Calcium 9.5 (8.6-10.3) mg/dL Magnesium 1.5 L (1.6-2.6) mg/dL Total Bilirubin 0.6 (0.3-1.0) mg/dL Direct Bilirubin 0.1 (0.0-0.2) mg/dL Indirect Bilirubin 0.5 (0.0-1.2) mg/dL AST 10 L (13-39) Units/L ALT 10 (7-52) Units/L Alkaline Phosphatase 75 (34-104) Units/L Troponin I 0.08 H* (< 0.04) ng/mL B-Natriuretic Peptide (Less than 100) pg/mL Serum Total Protein 6.8 (6.4-8.9) g/dL Albumin 4.3 (3.5-5.7) g/dL Globulin 2.5 (2.4-3.5) g/dL Albumin/Globulin Ratio 1.7 (1.1-2.2) Lipase 22 (11-82) Units/L TSH 2.827 (0.340-5.600) mcIU/mL Blood Type Antibody Screen 07/16/18 07/16/18 Range/Units 19:29 19:29 WBC (4.3-11.1) K/mcL RBC (4.19-5.50) M/mcL Hgb (12.9-16.9) g/dL Hct (37.5-50.1) % MCV (83.0-100.0) fL MCH (28.0-33.3) pg MCHC (31.6-35.5) g/dL RDW (11.5-14.5) % Plt Count (140-400) K/mcL MPV (9.4-12.4) fL Immature Gran % (0-4) % Seg Neutrophils % % Lymphocytes % % Monocytes % % Eosinophils % % Basophils % % Neutrophils # (1.6-8.9) K/mcL Lymphocytes # (0.6-4.6) K/mcL Monocytes # (0.0-1.3) K/mcL Eosinophils # (0.0-0.6) K/mcL Basophils # (0.0-0.2) K/mcL PT (9.4-12.1) Seconds INR Sodium (136-145) mEq/L Potassium (3.5-5.1) mEq/L Chloride (98-107) mEq/L Carbon Dioxide (23-29) mEq/L BUN (8-23) mg/dL Creatinine (0.70-1.30) mg/dL Est GFR ( Amer) (> 60) Est GFR (Non-Af Amer) (> 60) BUN/Creatinine Ratio (6-26) Glucose (70-105) mg/dL Calculated Osmolality (280-300) Calcium (8.6-10.3) mg/dL Magnesium (1.6-2.6) mg/dL Total Bilirubin (0.3-1.0) mg/dL Direct Bilirubin (0.0-0.2) mg/dL Indirect Bilirubin (0.0-1.2) mg/dL AST (13-39) Units/L ALT (7-52) Units/L Alkaline Phosphatase (34-104) Units/L Troponin I (< 0.04) ng/mL B-Natriuretic Peptide 724 H (Less than 100) pg/mL Serum Total Protein (6.4-8.9) g/dL Albumin (3.5-5.7) g/dL Globulin (2.4-3.5) g/dL Albumin/Globulin Ratio (1.1-2.2) Lipase (11-82) Units/L TSH (0.340-5.600) mcIU/mL Blood Type A POSITIVE Antibody Screen POSITIVE - Radiology Data Radiology results reviewed: Yes I reviewed the patient's radiology results. Chest X-Ray 07/16/18 19:01 IMPRESSION: Pulmonary vascular congestion without overt edema. D/ / Eloina Shaw MD / Eloina Shaw MD Interpreting Provider: Eloina Shaw MD - EKG Data EKG attestation: Yes I reviewed and interpreted this EKG. EKG results narrative: EKG demonstrates a bradycardic rhythm with the appearance of atrial flutter with a rate of 57 bpm. Left axis deviation poor R wave progression. No gross ST elevations or depressions. No acute ischemic findings. Changes from prior EKG on 11/22/16 include atrial flutter. S.B.A.R. - S.B.A.R. Situation: Demographics, MOA Background: Presenting Complaint, Relevant PMH, Meds, & Allergies Assessment: Vital Signs, Course and respsone to treatment, Exam Concerns, Patient/Family Expectation, Pertinant Lab Results Recommendation: Barrier(s) to disposition, Recommendation based on pending studies, treatments, or consults [email or web address] Report Given to: Dr. Analy Lawrence Repor Time: 21:29
[2018-07-16 19:47] LABS: Hematocrit 36.9 % (37.5-50.1); Hemoglobin 11.8 g/dL (12.9-16.9); Mean Corpuscular Volume 81.5 fL (83.0-100.0); Mean Platelet Volume 10.7 fL (9.4-12.4); Platelet Count 292 K/mcL (140-400); Red Blood Count 4.53 M/mcL (4.19-5.50); Red Cell Distribution Width 15.6 % (11.5-14.5); Segmented Neutrophils % 73.3 %
[2018-07-16 19:48] LABS: Basophils # 0.1 K/mcL (0.0-0.2); Basophils % 0.7 %; Eosinophils # 0.2 K/mcL (0.0-0.6); Lymphocytes # 1.6 K/mcL (0.6-4.6); Lymphocytes % 14.3 %; Monocytes % 8.7 %; Neutrophils # 8.2 K/mcL (1.6-8.9)
[2018-07-16 19:54] LABS: INR 1.1
[2018-07-16 20:15] LABS: Alanine Aminotransferase 10 Units/L (7-52); Albumin 4.3 g/dL (3.5-5.7); Albumin/Globulin Ratio 1.7 (1.1-2.2); Alkaline Phosphatase 75 Units/L (34-104); Aspartate Amino Transferase 10 Units/L (13-39); BUN/Creatinine Ratio 15 (6-26); Bilirubin,Direct 0.1 mg/dL (0.0-0.2); Bilirubin,Indirect 0.5 mg/dL (0.0-1.2); Bilirubin,Total 0.6 mg/dL (0.3-1.0); Blood Urea Nitrogen 15 mg/dL (8-23); Calcium 9.5 mg/dL (8.6-10.3); Carbon Dioxide 22 mEq/L (23-29); Chloride 106 mEq/L (98-107); Globulin 2.5 g/dL (2.4-3.5); Glucose 195 mg/dL (70-105); Lipase 22 Units/L (11-82); Magnesium 1.5 mg/dL (1.6-2.6); Osmolality,Calculated 298 (280-300); Potassium 3.6 mEq/L (3.5-5.1); Sodium 141 mEq/L (136-145); Total Protein 6.8 g/dL (6.4-8.9); eGFR For Non-African Americans > 60 (> 60)
[2018-07-16] MEDS ORDERED: Nitroglycerin 0.4 MG TAB.SUBL SL PRN (20:15)
[2018-07-16 20:18] LABS: Troponin I 0.08 ng/mL (< 0.04)
[2018-07-16] MEDS ORDERED: Aspirin 325 MG TABLET PO ONE (20:25)
[2018-07-16 20:28] LABS: Thyroid Stimulating Hormone 2.827 mcIU/mL (0.340-5.600)
[2018-07-16] MEDS ORDERED: Furosemide 40 MG/4 ML VIAL IVP ONE (20:45)
[2018-07-16] MEDS ORDERED: Nitroglycerin 0.4 MG TAB.SUBL SL ONE (20:53)
--- NOTE | 2018-07-16 21:14 | Emergency Department Note ---
Disposition Clinical Impression: Elevated troponin Congestive heart failure Qualifiers: Heart failure type: unspecified Heart failure chronicity: acute Qualified Code( s): I50.9 - Heart failure, unspecified Disposition: Admitted As Inpatient Condition: Fair Referrals: Meg Reina CNP [Primary Care Provider] - Forms: ED Satisfaction Letter General Adult HPI - General Chief complaint: ED Shortness of Breath/Dyspnea Stated complaint: Abnormal EKG from UC Time Seen by Provider: 07/16/18 19:01 Source: patient Mode of arrival: private vehicle Limitations: no limitations Nursing Notes Reviewed: Yes Vital Signs Reviewed: Yes - History of Present Illness Pain Scale: 6 - Related Data Home Medications Medication Instructions Recorded Confirmed Aspirin [Lo-Dose Aspirin EC] 81 mg PO DAILY 11/21/16 07/16/18 Atorvastatin [Lipitor] 10 mg PO HS 11/21/16 07/16/18 Furosemide [Lasix] 20 mg PO DAILY 11/21/16 07/16/18 Glimepiride [Amaryl] 4 mg PO BID 11/21/16 07/16/18 Lisinopril [Zestril] 5 mg PO DAILY 11/21/16 07/16/18 Metformin HCl [Glucophage] 1,000 mg PO BID 11/21/16 07/16/18 Nitroglycerin 0.4 mg SL Q5MIN PRN 11/21/16 07/16/18 amLODIPine [Norvasc] 5 mg PO DAILY 11/21/16 07/16/18 Clopidogrel [Plavix] 75 mg PO DAILY 07/16/18 07/16/18 Metoprolol XL (24 HR) Succ [Toprol 50 mg PO BID 07/16/18 07/16/18 Xl] Allergies Allergy/AdvReac Type Severity Reaction Status Date / Time No Known Allergies Allergy Verified 07/16/18 18:19 Constitutional: Denies: fever Cardiovascular: Reports: chest pain, dyspnea on exertion Respiratory: Reports: cough, dyspnea Gastrointestinal: Reports: abdominal pain, diarrhea (chronic). Denies: nausea, vomiting Neurological: Reports: weakness Past Medical History - Past Medical History Medical history: Reports: arthritis, CHF, coronary artery disease, diabetes, hyperlipidemia, hypertension, myocardial infarction, other Surgical history: Reports: angioplasty/stent, appendectomy, coronary bypass ( CABG), knee replacement, orthopedic, other, other (colonoscopy) Psychiatric history: Reports: no psych history - Social History Smoking Status: Never smoker Smokeless Tobacco Status: No Alcohol use: Reports: none Drug use: Reports: none Physical Exam - General Limitations: no limitations General appearance: alert, in no apparent distress Course Vital Signs Temperature 97.9 F 07/16/18 18:56 Pulse Rate 62 07/16/18 18:56 Respiratory Rate 22 07/16/18 18:56 Blood Pressure 180/78 07/16/18 18:56 O2 Sat by Pulse Oximetry 97 07/16/18 18:56 Temperature 97.9 F 07/16/18 19:55 Pulse Rate 75 07/16/18 21:07 Respiratory Rate 20 07/16/18 21:07 Blood Pressure 179/70 07/16/18 21:07 O2 Sat by Pulse Oximetry 93 07/16/18 21:07 Oxygen Delivery Oxygen Delivery Room Air Medical Decision Making - Medical Records Medical records reviewed: Yes I reviewed the patient's medical records. - Lab Data Lab results reviewed: Yes I reviewed the patient's lab results. Result diagrams: 07/16/18 19:29 07/16/18 19:29 Lab Results 07/16/18 07/16/18 07/16/18 Range/Units 19:29 19:29 19:29 WBC 11.2 H (4.3-11.1) K/mcL RBC 4.53 (4.19-5.50) M/mcL Hgb 11.8 L (12.9-16.9) g/dL Hct 36.9 L (37.5-50.1) % MCV 81.5 L (83.0-100.0) fL MCH 26.0 L (28.0-33.3) pg MCHC 32.0 (31.6-35.5) g/dL RDW 15.6 H (11.5-14.5) % Plt Count 292 (140-400) K/mcL MPV 10.7 (9.4-12.4) fL Immature Gran % 1.0 (0-4) % Seg Neutrophils % 73.3 % Lymphocytes % 14.3 % Monocytes % 8.7 % Eosinophils % 2.0 % Basophils % 0.7 % Neutrophils # 8.2 (1.6-8.9) K/mcL Lymphocytes # 1.6 (0.6-4.6) K/mcL Monocytes # 1.0 (0.0-1.3) K/mcL Eosinophils # 0.2 (0.0-0.6) K/mcL Basophils # 0.1 (0.0-0.2) K/mcL PT 12.0 (9.4-12.1) Seconds INR 1.1 Sodium 141 (136-145) mEq/L Potassium 3.6 (3.5-5.1) mEq/L Chloride 106 (98-107) mEq/L Carbon Dioxide 22 L (23-29) mEq/L BUN 15 (8-23) mg/dL Creatinine 0.97 (0.70-1.30) mg/dL Est GFR ( Amer) > 60 (> 60) Est GFR (Non-Af Amer) > 60 (> 60) BUN/Creatinine Ratio 15 (6-26) Glucose 195 H (70-105) mg/dL Calculated Osmolality 298 (280-300) Calcium 9.5 (8.6-10.3) mg/dL Magnesium 1.5 L (1.6-2.6) mg/dL Total Bilirubin 0.6 (0.3-1.0) mg/dL Direct Bilirubin 0.1 (0.0-0.2) mg/dL Indirect Bilirubin 0.5 (0.0-1.2) mg/dL AST 10 L (13-39) Units/L ALT 10 (7-52) Units/L Alkaline Phosphatase 75 (34-104) Units/L Troponin I 0.08 H* (< 0.04) ng/mL B-Natriuretic Peptide (Less than 100) pg/mL Serum Total Protein 6.8 (6.4-8.9) g/dL Albumin 4.3 (3.5-5.7) g/dL Globulin 2.5 (2.4-3.5) g/dL Albumin/Globulin Ratio 1.7 (1.1-2.2) Lipase 22 (11-82) Units/L TSH 2.827 (0.340-5.600) mcIU/mL Blood Type Antibody Screen 07/16/18 07/16/18 Range/Units 19:29 19:29 WBC (4.3-11.1) K/mcL RBC (4.19-5.50) M/mcL Hgb (12.9-16.9) g/dL Hct (37.5-50.1) % MCV (83.0-100.0) fL MCH (28.0-33.3) pg MCHC (31.6-35.5) g/dL RDW (11.5-14.5) % Plt Count (140-400) K/mcL MPV (9.4-12.4) fL Immature Gran % (0-4) % Seg Neutrophils % % Lymphocytes % % Monocytes % % Eosinophils % % Basophils % % Neutrophils # (1.6-8.9) K/mcL Lymphocytes # (0.6-4.6) K/mcL Monocytes # (0.0-1.3) K/mcL Eosinophils # (0.0-0.6) K/mcL Basophils # (0.0-0.2) K/mcL PT (9.4-12.1) Seconds INR Sodium (136-145) mEq/L Potassium (3.5-5.1) mEq/L Chloride (98-107) mEq/L Carbon Dioxide (23-29) mEq/L BUN (8-23) mg/dL Creatinine (0.70-1.30) mg/dL Est GFR ( Amer) (> 60) Est GFR (Non-Af Amer) (> 60) BUN/Creatinine Ratio (6-26) Glucose (70-105) mg/dL Calculated Osmolality (280-300) Calcium (8.6-10.3) mg/dL Magnesium (1.6-2.6) mg/dL Total Bilirubin (0.3-1.0) mg/dL Direct Bilirubin (0.0-0.2) mg/dL Indirect Bilirubin (0.0-1.2) mg/dL AST (13-39) Units/L ALT (7-52) Units/L Alkaline Phosphatase (34-104) Units/L Troponin I (< 0.04) ng/mL B-Natriuretic Peptide 724 H (Less than 100) pg/mL Serum Total Protein (6.4-8.9) g/dL Albumin (3.5-5.7) g/dL Globulin (2.4-3.5) g/dL Albumin/Globulin Ratio (1.1-2.2) Lipase (11-82) Units/L TSH (0.340-5.600) mcIU/mL Blood Type A POSITIVE Antibody Screen POSITIVE - Radiology Data Radiology results reviewed: Yes I reviewed the patient's radiology results. Chest X-Ray 07/16/18 19:01 IMPRESSION: Pulmonary vascular congestion without overt edema. D/ / Eloina Shaw MD / Eloina Shaw MD Interpreting Provider: Eloina Shaw MD - EKG Data EKG #1 EKG attestation: Yes I reviewed and interpreted this EKG. EKG results narrative: EKG shows an atrial flutter with 41 conduction with ventricular rate of 57. No acute ST segment elevation or depression noted. Attestation Statement - Attestation Attestation: I, Kurt Rodriguez MD, personally evaluated this patient and discussed their management with the resident physician. I reviewed the resident's note and agree with the documented findings, medical decision making, and plan of care. 67-year-old male presents to the emergency department with a complaint of some generalized weakness and malaise and not feeling well for the past several days. He states he thought he was getting the flu and then started having some burning discomfort across the upper chest which is worse in the left upper chest and radiated to the left shoulder. He also complains of wheezing and shortness of breath when he lies flat which is not normal for him. He does have some swelling of his ankles which is chronic and unchanged from usual. Patient has a prior history of CABG in the distant past and about one year ago had a stent placed. Patient states this discomfort in his chest feels similar when he had to have his bypass and stent. Some nonproductive cough. No fever. Patient initially seen at urgent care and had an EKG which showed some abnormalities and he was referred to the emergency department. On examination patient is a well-developed well-nourished well-appearing elderly male in no acute distress. He is alert and oriented 3. There is no cyanosis or diaphoresis. Chest is nontender to palpation. Breath sounds are clear and equal bilaterally. Heart regular rate and rhythm. Abdomen is soft and nontender with normal bowel sounds. There is 1+ pitting edema of the lower extremities bilaterally. EKG shows atrial flutter with 4-1 conduction and a ventricular rate of 57. No acute ischemic changes. Chest x-ray shows pulmonary vascular congestion with no overt edema. Labs reviewed. Troponin elevated at 0.08. BNP 724. The hospitalist, Dr. Beckford, was consulted and accepted admission of the patient.
--- NOTE | 2018-07-16 22:31 | Internal Med History&Physical ---
<Rohan Perez - Last Filed: 07/17/18 02:14> Date of Encounter: 07/17/18 Time of Encounter: 22:40 Internal Medicine - H&P: HPI Chief complaint: Chest pain Admitted From: Emergency Dept Plans for Post Hospital Care: Home History of present illness: Mr. Sahu is a 67 year old male with history of diabetes, hypertension, hyperlipidemia, DE status post CABG in 1999, stent in 2017 and CHF with ejection fraction 45% in 2017 per left heart catheterization presented to the emergency room due to chest pain and shortness of breath. Says that this has developed over the past several days insidiously. The pain is primarily centered substernally, with radiation towards both the right and the left side. It is exertional in nature and made worse with even minimal movement, however it is also worsened with lying flat. It is relieved with rest. He says that it does feel very similar to the times that he has had coronary events in the past, however it feels more similar to events Tino had acute heart failure decompensation in the past. As an associated symptom, he mentions that he has been coughing today. This cough has been dry and he denies sputum production. He otherwise denies fever, chills, sweats. He has no other acute symptoms. He presented to the urgent care because he thought that he was developing a upper respiratory infection with the flu, however at that time it was noted that he had an abnormal EKG which was potentially noted to be atrial flutter, and he was sent to the emergency department. In the ED, the patient had an EKG which showed potentially atrial flutter with 4 -1 conduction and a ventricular rate of 57. He did have a WBC 11.7 and also a troponin of 0.08 and BNP 724. Chest x-ray in the emergency department demonstrated pulmonary vascular congestion without overt edema. He received 40 mg IV Lasix and was admitted to medicine for observation. Social Hx: Lives at home with . Denies tobacco or alcohol use. Denies illicit drug use. Surgical Hx: CABG in 1999, PCI 2017, multiple orthopedic surgeries Family Hx: Mother history of coronary artery disease status post CABG; father diabetes, CAD status post CABG Past Med Surg Social Fam HX - Past Medical History Medical history: arthritis, CHF, coronary artery disease, diabetes, hyperlipidemia, hypertension, myocardial infarction, other Psychiatric history: no psych history - Past Surgical History Surgical History: angioplasty/stent, appendectomy, coronary bypass (CABG), knee replacement, orthopedic, other, other (colonoscopy) - Social History Smoking Status: Never smoker Smokeless Tobacco Status: No Alcohol use: none Drug use: none - Family History Mother Hx Family Cardiac Disorders: Yes (CAD, CABG) Father Hx Family Cardiac Disorders: Yes (CAD; CABG) Hx Family Endocrine Disorder: Yes (DM) Brother Age: 65 Hx Family Genitourinary Disorders: Yes Internal Medicine - H&P: Meds Aspirin [Lo-Dose Aspirin EC] 81 mg PO DAILY 11/21/16 [History] Atorvastatin [Lipitor] 10 mg PO HS 11/21/16 [History] Furosemide [Lasix] 20 mg PO DAILY 11/21/16 [History] Glimepiride [Amaryl] 4 mg PO BID 11/21/16 [History] Lisinopril [Zestril] 5 mg PO DAILY 11/21/16 [History] Metformin HCl [Glucophage] 1,000 mg PO BID 11/21/16 [History] Nitroglycerin 0.4 mg SL Q5MIN PRN 11/21/16 [History] amLODIPine [Norvasc] 5 mg PO DAILY 11/21/16 [History] Clopidogrel [Plavix] 75 mg PO DAILY 07/16/18 [History] Metoprolol XL (24 HR) Succ [Toprol Xl] 50 mg PO BID 07/16/18 [History] 3 Allergy/AdvReac Type Severity Reaction Status Date / Time No Known Allergies Allergy Verified 07/16/18 18:19 All Systems PM: A 10-system review of systems was performed and is negative for pertinent findings except as documented above in the HPI. Review of systems: Constitutional: Denies fevers, chills, weight loss, generalized fatigue Head/Neck: Denies [place], neck stiffness EENT: Denies vision changes/blurriness, rhinorrhea, congestion, sore throat CVS: Admits to substernal chest pain, palpitations, dyspnea on exertion and orthopnea Pulm: Admits to shortness of breath, cough, wheezing GI: Admits to Nausea. Denies abdominal pain, vomiting, diarrhea, constipation, melena, hematemasis : Denies dysuria, increased frequency, urgency, hematuria Heme: Denies ease of bleeding or bruising MSK: Denies joint pain, limited ROM Skin: Denies rashes, ulcers, color changes Neuro: Denies [place], paresthesias, focal deficits, ataxia - Constitutional Vitals: Temp Pulse Resp BP Pulse Ox 97.9 F 75 20 179/70 93 07/16/18 19:55 07/16/18 21:07 07/16/18 21:07 07/16/18 21:07 07/16/18 21:07 Exam: Gen: Vitals noted. Mildly distressed with conversational dyspnea HEENT: Normocephalic, atraumatic. JVD is noted on Exam. No scleral icterus Neck: Supple. No adenopathy. Cardiac: RRR, no murmur, +S1/S2 Pulmonary: Bibasilar rales, otherwise CTAB. Abdomen: Moderately distended, tympanic to percussion, nontender, no guarding Back: Nontender throughout. MSK: ROM intact, no joint swelling noted Extremities: 2+ BLE edema, nontender calf, no cyanosis or clubbing Neuro: moves all extremities, no focal deficits. A&Ox3 Psych: Appropriate mood and behavior Internal Med - H&P Results - Labs CBC & Chem 7: 07/17/18 01:05 07/17/18 01:05 Labs: Short CBC 07/16/18 Range/Units 19:29 WBC 11.2 H (4.3-11.1) K/mcL Hgb 11.8 L (12.9-16.9) g/dL Hct 36.9 L (37.5-50.1) % Plt Count 292 (140-400) K/mcL Neutrophils # 8.2 (1.6-8.9) K/mcL BMP 07/16/18 19:29 Sodium 141 Potassium 3.6 Chloride 106 Carbon Dioxide 22 L BUN 15 Creatinine 0.97 Glucose 195 H Calcium 9.5 Cardiac Enzymes 07/16/18 Range/Units 19:29 Troponin I 0.08 H* (< 0.04) ng/mL Liver Function 07/16/18 Range/Units 19:29 Total Bilirubin 0.6 (0.3-1.0) mg/dL Direct Bilirubin 0.1 (0.0-0.2) mg/dL AST 10 L (13-39) Units/L ALT 10 (7-52) Units/L Alkaline Phosphatase 75 (34-104) Units/L Albumin 4.3 (3.5-5.7) g/dL - Impressions ITS Impressions Chest X-Ray 07/16/18 19:01 IMPRESSION: Pulmonary vascular congestion without overt edema. D/ / Eloina Shaw MD / Eloina Shaw MD Interpreting Provider: Eloina Shaw MD - Assessment and plan (1) Congestive heart failure Current Visit: Yes Status: Acute Assessment and plan: Acute decompensation of congestive heart failure, Appears [facility] Class III Long-standing history of CAD and CHF with multiple procedures including CABG and stents Echocardiogram 11/23 demonstrated EF of 50 with moderate left ventricular diastolic dysfunction Left heart catheterization 11/22/16 demonstrated mild LV dysfunction with EF of 45% and severe three-vessel coronary artery disease Patient presents with chest pains or shortness of breath, dyspnea on exertion, orthopnea and JVD Troponin is mildly elevated, BNP 724. Chest x-ray demonstrates pulmonary vascular congestion Plan -Continue ASA, High Intensity Statin, Beta yuliet, Torito inhibitor, and lasix -Recieved 40mg IV Lasix in the ED, continue aggressive diuresis with 20mg IV lasix BID as tolerated -NPO for now pending cardiac evaluation, however fluid restriction 1500mL -Maintain strict I/Os, Daily weights -Cardiac and O2 monitoring -echocardiogram in AM for EF/valvular abnormality -Cardiology consult Qualifiers: Heart failure type: systolic Heart failure chronicity: acute on chronic Qualified Code(s): I50.23 - Acute on chronic systolic (congestive) heart failure (2) CAD (coronary artery disease) Current Visit: Yes Status: Chronic Assessment and plan: Long standing history of CAD, s/p CABG 1999 and PCI 2016 Patient presents with chest pain and mildly elevated troponin, decompensated heart failure and new atrial arrhythmia HEART Score 7, Patient is High risk of MACE Additionally, C 11/23 demonstrated severe 3 vessel disease with 100% stenosis of LAD, 100% stenosis in 2nd marginal circumflex, and 100% stenosis of proximal RCA with occlusion of graft to the RCA Given his extensive history of CAD, I am highly suspicious of cardiac event in this patient I will consult cardiology for ischemic workup. Received ASA in the ED. On heparin for new a fib/flutter. Qualifiers: Coronary Disease-Associated Artery/Lesion type: bypass graft [place] vs. transplanted heart: [place] heart Associated angina: without angina Qualified Code(s): I25.810 - Atherosclerosis of coronary artery bypass graft(s) without angina pectoris (3) Elevated troponin Current Visit: Yes Status: Acute Assessment and plan: Elevated troponin, 0.08 Although it very well could be due to demand ischemia in the setting of CHF exacerbation, patient has high risk of ischemic event Continue to trend troponins, telemetry Cardiology consult (4) Hypertension Current Visit: Yes Status: Acute Assessment and plan: Poorly controlled hypertension Patient presents with SBP of 180 Although he's on several home antihypertensives, they are all low dose We will begin to titrate up on these Continue home meds, increase lisinopril to 20mg Nitro paste 0.5 inch, hydralazine prn Qualifiers: Hypertension type: essential hypertension Qualified Code(s): I10 - Essential (primary) hypertension (5) Diabetes Current Visit: Yes Status: Chronic Assessment and plan: Diabetes, moderate control Hold oral glycemic medications Sliding scale insulin Qualifiers: Diabetes mellitus type: type 2 Diabetes mellitus penitentiary insulin use: with penitentiary use Diabetes mellitus complication status: with neurologic complications Diabetes mellitus complication detail: with unspecified neuropathy Qualified Code(s): E11.40 - Type 2 diabetes mellitus with diabetic neuropathy, unspecified; Z79.4 - long term care phlebotomist (current) use of insulin (6) DVT prophylaxis Current Visit: No Status: Acute Assessment and plan: Patient will be on heparin drip (7) Atrial arrhythmia Current Visit: Yes Status: Acute Assessment and plan: Newly diagnosed atrial arrhythmia On EKG appears to be atrial flutter with 4-1 conduction pattern Did appear to have regularity on 12-lead EKG however on monitor and there appeared to be markedly irregularity Suspect that the patient may have mixed atrial fib atrial flutter pattern Etiology is unclear although likely related to decompensated respiratory status in setting of acute heart failure We will get an echocardiogram in the morning to evaluate valvular abnormalities [id number] Score 5, penitentiary anticoagulation is indicated in this patient We will start heparin drip tonight, likely transition to NOAC following full workup - Time Spent With Patient Total time spent is greater than 50% in coordination of care (as documented) at patient's floor/unit and/or counseling patient: <Princess Beckford - Last Filed: 07/17/18 05:16> Date of Encounter: 07/17/18 Internal Medicine - H&P: HPI History of present illness: Mr. Sahu is a 67 year old male All Systems PM: A 10-system review of systems was performed and is negative for pertinent findings except as documented above in the HPI. - Constitutional Vitals: Temp Pulse Resp BP Pulse Ox 98.7 F 57 16 154/67 93 07/17/18 00:54 07/17/18 02:15 07/17/18 00:54 07/17/18 02:15 07/17/18 01:02 Internal Med - H&P Results - Labs CBC & Chem 7: 07/17/18 02:59 07/17/18 01:05 - Assessment and plan (1) Diabetes Current Visit: Yes Status: Chronic Qualifiers: Diabetes mellitus type: type 2 Diabetes mellitus intermediate project manager insulin use: with intermediate project manager use Diabetes mellitus complication status: with neurologic complications Diabetes mellitus complication detail: with unspecified neuropathy Qualified Code(s): E11.40 - Type 2 diabetes mellitus with diabetic neuropathy, unspecified; Z79.4 - long term care phlebotomist (current) use of insulin (2) Hypertension Current Visit: Yes Status: Acute Qualifiers: Hypertension type: essential hypertension Qualified Code(s): I10 - Essential (primary) hypertension (3) CAD (coronary artery disease) Current Visit: Yes Status: Chronic Qualifiers: Coronary Disease-Associated Artery/Lesion type: bypass graft [place] vs. transplanted heart: [place] heart Associated angina: without angina Qualified Code(s): I25.810 - Atherosclerosis of coronary artery bypass graft(s) without angina pectoris (4) DVT prophylaxis Current Visit: No Status: Acute (5) Congestive heart failure Current Visit: Yes Status: Acute Qualifiers: Heart failure type: systolic Heart failure chronicity: acute on chronic Qualified Code(s): I50.23 - Acute on chronic systolic (congestive) heart failure (6) Elevated troponin Current Visit: Yes Status: Acute (7) Atrial arrhythmia Current Visit: Yes Status: Acute - Time Spent With Patient Total time spent is greater than 50% in coordination of care (as documented) at patient's floor/unit and/or counseling patient: - Attending Attestation Patient seen and examined. Chart including laboratory and imaging were reviewed. Case discussed with resident. Agree with assessment and plan. Short patient is a 67-year-old male with a past medical history of coronary artery disease status post CABG and PCI now presents with atypical chest pain, worsening shortness of breath with exertion and orthopnea. Labs notable for an elevated BNP and troponin. EKG shows new changes with ST depression in lead 1, and slight elevations in aVR and V1. Concern for CHF exacerbation secondary to underlying ischemia. We will continue to trend troponin, echocardiogram in the morning, and cardiology consult. Will start patient on heparin drip.
[2018-07-16 22:55] LABS: Bilirubin,Urine Negative (Negative); Blood,Urine Negative (Negative); Clarity,Urine Clear (Clear); Color,Urine Yellow (Yellow); Glucose,Urine (UA) Normal (Normal); Ketones,Urine Negative (Negative); Leukocyte Esterase,Urine Negative (Negative); Nitrite,Urine Negative (Negative); Protein,Urine 100 mg/dL (Neg-Trace); Specific Gravity,Urine 1.023 (1.010-1.025); Urobilinogen,Urine Normal (Normal)
[2018-07-16 22:57] LABS: Bacteria,Urine None Seen per hpf (None-Few); Hyaline Casts,Urine None Seen per lpf (None-Few); RBC,Urine 0-3 per hpf (0-3); Squamous Epithelial Cell,Urine Few per lpf (None-Few); WBC,Urine 0-3 per hpf (0-3)
[2018-07-16] MEDS ORDERED: Naloxone 0.4 MG/ML INJ IVP PRN (23:23)
[2018-07-16] MEDS ORDERED: Dextrose Gel 15 GM/37.5 ML TUBE PO PRN ×2 (23:30)
[2018-07-16] MEDS ORDERED: D5% in Water 1,000 ML IVC PRN (23:30)
[2018-07-16] MEDS ORDERED: *HR* Dextrose 50 % in Water (Syg) 50 ML SYRINGE IVP PRN (23:30)
[2018-07-17 01:15] LABS: Basophils # 0.1 K/mcL (0.0-0.2); Basophils % 0.5 %; Eosinophils # 0.2 K/mcL (0.0-0.6); Eosinophils % 1.9 %; Hematocrit 36.6 % (37.5-50.1); Hemoglobin 11.7 g/dL (12.9-16.9); Immature Granulocytes % 0.9 % (0-4); Lymphocytes # 1.6 K/mcL (0.6-4.6); Lymphocytes % 13.7 %; Mean Corpuscular Hemoglobin 26.2 pg (28.0-33.3); Mean Corpuscular Volume 81.9 fL (83.0-100.0); Mean Platelet Volume 10.6 fL (9.4-12.4); Neutrophils # 8.6 K/mcL (1.6-8.9); Platelet Count 336 K/mcL (140-400); Red Blood Count 4.47 M/mcL (4.19-5.50); Red Cell Distribution Width 15.8 % (11.5-14.5)
[2018-07-17 01:21] LABS: INR 1.1; Prothrombin Time 12.8 Seconds (9.4-12.1)
[2018-07-17 01:35] LABS: BUN/Creatinine Ratio 15 (6-26); Blood Urea Nitrogen 14 mg/dL (8-23); Calcium 9.5 mg/dL (8.6-10.3); Carbon Dioxide 21 mEq/L (23-29); Chloride 104 mEq/L (98-107); Chol/HDL Ratio 3.7 (0-4.9); Cholesterol 107 mg/dL (< 200); Glucose 207 mg/dL (70-105); HDL Cholesterol 29 mg/dL (40-59); LDL Cholesterol,Calculated 45 mg/dL (0-99); Osmolality,Calculated 293 (280-300); Potassium 3.6 mEq/L (3.5-5.1); Sodium 138 mEq/L (136-145); Triglycerides 163 mg/dL (< 150); eGFR For Non-African Americans > 60 (> 60)
[2018-07-17 01:37] LABS: % Iron Saturation 3 % (20-55); Iron 10 mcg/dL (65-175); Transferrin 281 mg/dL (203-362)
[2018-07-17 01:54] LABS: Ferritin 48 ng/mL (20-250)
[2018-07-17] MEDS: Insulin LISPRO 300 UNITS/3 ML VIAL SQ SCH ×4 (02:01→16:52)
[2018-07-17] MEDS ORDERED: Furosemide 40 MG/4 ML VIAL IVP ONE (02:09)
[2018-07-17] MEDS ORDERED: *HR* Heparin 5,000 UNIT/ML VIAL IVP PRN (02:10)
[2018-07-17] MEDS ORDERED: *HR* Heparin 5,000 UNIT/ML VIAL IVP ONE (02:10)
[2018-07-17] MEDS ORDERED: Nitroglycerin 1 INCH/GM PACKET TP ONE (02:11)
[2018-07-17] MEDS: Heparin 25,000 UNIT/500 ML D5W 25,000 UNIT/500 ML BAG IVC SCH ×2 (03:15→16:53)
[2018-07-17 03:17] LABS: Hematocrit 34.9 % (37.5-50.1); Hemoglobin 11.1 g/dL (12.9-16.9); Mean Corpuscular HGB Conc 31.8 g/dL (31.6-35.5); Mean Corpuscular Hemoglobin 25.9 pg (28.0-33.3); Mean Corpuscular Volume 81.4 fL (83.0-100.0); Mean Platelet Volume 10.6 fL (9.4-12.4); Platelet Count 288 K/mcL (140-400); Red Blood Count 4.29 M/mcL (4.19-5.50); Red Cell Distribution Width 15.7 % (11.5-14.5)
[2018-07-17 03:32] LABS: Heparin anti-factor XA UFH 0.04 IU/mL (0.30-0.70)
[2018-07-17 03:33] LABS: INR 1.1; Prothrombin Time 12.4 Seconds (9.4-12.1)
[2018-07-17] MEDS: *HR* Heparin 5,000 UNIT/ML VIAL IVP PRN (04:00)
[2018-07-17 07:21] LABS: Estimated Average Glucose 197 mg/dl; Hemoglobin A1C 8.5 %
[2018-07-17] MEDS: amLODIPine 5 MG TABLET PO SCH (07:40)
[2018-07-17] MEDS: Lisinopril 20 MG TABLET PO SCH (07:40)
[2018-07-17] MEDS: Metoprolol XL (24 HR) Succ 50 MG TAB.ER.24H PO SCH ×2 (07:40→20:01)
[2018-07-17] MEDS: Furosemide 20 MG/2 ML VIAL IVP SCH ×2 (07:40→20:01)
[2018-07-17] MEDS: Aspirin Enteric Coated 81 MG Tablet PO SCH (07:40)
[2018-07-17] MEDS ORDERED: *HR* Morphine 2 MG/ML SYRINGE IVP ONE (09:30)
--- NOTE | 2018-07-17 13:38 | Cardiology Consult Note ---
Date of Encounter: 07/17/18 Time of Encounter: 12:30 Assessment and Plan (1) CHF (congestive heart failure) Current Visit: Yes Status: Acute CHFpEF per last TTE. Will re-evaluate with re-peat TTE. TTE 11/2016- LVEF 50%. Not all LV myocardial segments were well visualized. There is evidence of moderate diastolic dysfunction of the left ventricle. Moderately enlarged left atrial size. Normal right ventricular size and function. Mild pulmonic regurgitation. No pulmonary hypertension. Significant fluid overload on exam. LE edema and crackles. CXR showed interstitial pulmonary edema. Agree with IV lasix. Strict I&O and daily weights. CHF education. Qualifiers: Heart failure type: diastolic Qualified Code(s): I50.31 - Acute diastolic ( congestive) heart failure (2) Elevated troponin Current Visit: Yes Status: Acute Mild adynamic troponin elevation at 0.08, 0.09, 0.09. Likely demand ischemia in the setting of acute CHF. He [place] c/o intermittent chest discomfort that occurs with activity concerning for angina. EKG- atrial flutter with slow ventricular response, HR 57. Non-specific T wave changes. Recommend TTE for further evaluation. (3) CAD (coronary artery disease) Current Visit: Yes Status: Chronic H/o CABG. Last LHC 11/2016 for a NSTEMI at that time showed 2/3 patent bypass grafts includding SVG to 2nd OM, and [place] -LAD. SVG - RCA was occluded. 100% stenosis in the Proximal LAD. 30% stenosis in the 1st Marginal. 100% stenosis in the 2nd Marginal. 99% stenosis in the Ramus s/p PCI with PTCA and JAMIE. 100% stenosis in the Proximal RCA. Continue asa, plavix, statin, and bb. NTG SL PRN pain. WIll consider adding imdur. Qualifiers: Coronary Disease-Associated Artery/Lesion type: bypass graft [place] vs. transplanted heart: [place] heart Associated angina: without angina Qualified Code(s): I25.810 - Atherosclerosis of coronary artery bypass graft(s) without angina pectoris (4) Atrial arrhythmia Current Visit: Yes Status: Acute EKG shows atrial flutter with slow ventricular response. Telemetry shows some atrial fibrillation rate controlled. He denies prior history. Currently on heparin gtt. Continue bb. CHADS VASc=6. Anticoagulation with coumadin verses NOAC discussed. I will send eliquis RX to pharmacy for lemus check. Continue heparin gtt pending further work-up. Discussion w patient/family: The assessment and plan as outlined above was discussed with the patient and/or family members who expressed understanding and agreement. All questions were answered. Thank you for involving us in the care of your patient. Please call with any questions. History of Present Illness Consult date: 07/17/18 Requesting physician: David Guerra Consult reason: CHF, aflutter, chest pain. Chief complaint: SOB, congestion, cough, chest discomfort History of present illness: Mr. Sahu is a 67 year old male with past medical history of CABG in 2005, ND with PCI in 2017, and DM who presents due to feeling un-well for three days. C/o weight gain, BLE edema, orthopnea, and left sided chest pain for three days. C/o congestion and cough. He states that his chest pain is not like his previous ND. His pain does improve with SL NTG and NTG patch that was placed in the ED. His cardiac work-up revealed elevated troponin at 0.08 and atrial fibrillation /flutter on EKG and telemetry. CXR shows pulmonary interstitial edema. He was started on IV lasix for CHF. He denies history of atrial flutter or CHF. Past Med Surg Social Fam HX - Past Medical History Medical history: arthritis, coronary artery disease, diabetes, hyperlipidemia, hypertension, myocardial infarction, other Psychiatric history: no psych history - Past Surgical History Surgical History: angioplasty/stent, appendectomy, coronary bypass (CABG), knee replacement, orthopedic, other, other (colonoscopy) - Social History Smoking Status: Never smoker Smokeless Tobacco Status: No Alcohol use: none Drug use: none - Family History Mother Age: 87 Living Status: Still Living Hx Family Cardiac Disorders: Yes (CAD, CABG) Father Living Status: Age at : 72 Cause of : DM, Heart failure, dialysis Hx Family Cardiac Disorders: Yes (CAD; CABG) Hx Family Endocrine Disorder: Yes (DM) Brother Age: 65 Hx Family Genitourinary Disorders: Yes Medications and Allergies Aspirin [Lo-Dose Aspirin EC] 81 mg PO DAILY 11/21/16 [History] Atorvastatin [Lipitor] 10 mg PO HS 11/21/16 [History] Furosemide [Lasix] 20 mg PO DAILY 11/21/16 [History] Glimepiride [Amaryl] 4 mg PO BID 11/21/16 [History] Lisinopril [Zestril] 5 mg PO DAILY 11/21/16 [History] Metformin HCl [Glucophage] 1,000 mg PO BID 11/21/16 [History] Nitroglycerin 0.4 mg SL Q5MIN PRN 11/21/16 [History] amLODIPine [Norvasc] 5 mg PO DAILY 11/21/16 [History] Clopidogrel [Plavix] 75 mg PO DAILY 07/16/18 [History] Metoprolol XL (24 HR) Succ [Toprol Xl] 50 mg PO BID 07/16/18 [History] 3 Allergy/AdvReac Type Severity Reaction Status Date / Time No Known Allergies Allergy Verified 07/16/18 18:19 All Systems Review: The remainder of the systems were reviewed and are negative Physical Examination Vital Signs, Last 4 Hours Temp Pulse Resp BP Pulse Ox 07/17/18 12:27 97.7 F 64 17 155/64 91 General: Conversant, Other (Mildly SOB) HEENT: Atraumatic, Normocephaly, Mucus Membranes Moist Neck: No JVD, Normal carotid pulses Cardiac: Reg Rate and Rhythm, Normal S1 and S2, No Murmur Lungs: Normal Breath Sounds, No Wheeze, Rales, Rhonchi Neuro: Alert and responsive, No focal deficits noted Abdomen: Soft, Non-Tender Skin: No rashes noted on visualized skin Musculoskeletal: No Chest Wall Tenderness Extremities: No Clubbing, No Cyanosis, No Edema, Normal Pulses Results 07/17/18 02:59 07/17/18 01:05 Lab Results 07/17/18 07:07 Troponin I 0.09 H* - Imaging and Cardiology Echo: report reviewed Cardiac cath: report reviewed - EKG Interpretation EKG results cardiology: personally reviewed Consult Discharge Plan - Plan Referrals: Meg Reina CNP [Primary Care Provider] -
--- NOTE | 2018-07-17 14:57 | Internal Med Progress Note ---
Hospitalist Progress Note - Encounter Date of Encounter: 07/17/18 Time of Encounter: 14:54 - Subjective Interval History: Pt reported chest pain this am and EKG showing a flutter. He then denied CP but did report chest discomfort. He denies plapitations or SOB. He is afebrile. He denies fever, chills, N/V or diarrhea. - Exam Vitals: Temp Pulse Resp BP Pulse Ox 97.7 F 64 17 155/64 91 07/17/18 12:27 07/17/18 12:27 07/17/18 12:27 07/17/18 12:27 07/17/18 12:27 Exam: Gen: Vitals noted. Mildly distressed with conversational dyspnea HEENT: Normocephalic, atraumatic. JVD is noted on Exam. No scleral icterus Neck: Supple. No adenopathy. Cardiac: RRR, no murmur, +S1/S2 Pulmonary: Bibasilar rales, otherwise CTAB. Abdomen: Moderately distended, tympanic to percussion, non-tender, no guarding Back: Nontender throughout. MSK: ROM intact, no joint swelling noted Extremities: 2+ BLE edema, non-tender calf, no cyanosis or clubbing Neuro: moves all extremities, no focal deficits. A&Ox3 Psych: Appropriate mood and behavior - Assessment and Plan (1) Congestive heart failure Current Visit: Yes Status: Acute Assessment and Plan: Acute decompensation of congestive heart failure, Appears [facility] Class III Long-standing history of CAD and CHF with multiple procedures including CABG and stents Echocardiogram 11/23 demonstrated EF of 50 with moderate left ventricular diastolic dysfunction Left heart catheterization 11/22/16 demonstrated mild LV dysfunction with EF of 45% and severe three-vessel coronary artery disease Patient presents with chest pains and shortness of breath, dyspnea on exertion, orthopnea and JVD Troponin is mildly elevated, BNP 724. Chest x-ray demonstrated pulmonary vascular congestion Plan - Consulted cardiology to see due to significant hx of CAD and cardiac issues. Cardiology agrees with Lasix. -Continue ASA, statin, Beta yuliet, Torito inhibitor, and lasix -Recieved 40mg IV Lasix in the ED, continue diuresis with Lasix 20mg IV BID as tolerated - however fluid restriction 1500mL -Maintain strict I/Os, Daily weights -Cardiac and O2 monitoring -echocardiogram in AM for EF/valvular abnormality (2) CAD (coronary artery disease) Current Visit: Yes Status: Chronic Assessment and Plan: Long standing history of CAD, s/p CABG 1999 and PCI 2016 Patient presents with chest pain and mildly elevated troponin, decompensated heart failure and new atrial arrhythmia HEART Score 7, Patient is High risk of MACE Additionally, [facility] 11/23 demonstrated severe 3 vessel disease with 100% stenosis of LAD, 100% stenosis in 2nd marginal circumflex, and 100% stenosis of proximal RCA with occlusion of graft to the RCA Given his extensive history of CAD, cardiology consulting. Received ASA in the ED. On heparin for new a fib/flutter. (3) Hypertension Current Visit: Yes Status: Acute Assessment and Plan: Lisinopril and Metoprolol Previous rounding hospitalist increased lisinopril to 20mg Nitro paste 0.5 inch, hydralazine prn (4) Elevated troponin Current Visit: Yes Status: Acute Assessment and Plan: Elevated troponin, 0.08 Although it very well could be due to demand ischemia in the setting of CHF exacerbation, patient has high risk of ischemic event Continue to trend troponins, telemetry. Cardiology consulting. (5) Atrial arrhythmia Current Visit: Yes Status: Acute Assessment and Plan: Newly diagnosed atrial arrhythmia On EKG appears to be atrial flutter with 3-1 conduction pattern Did appear to have regularity on 12-lead EKG however on monitor and there appeared to be markedly irregularity Suspect that the patient may have mixed atrial fib atrial flutter pattern Etiology is unclear although likely related to decompensated respiratory status in setting of acute heart failure We will get an echocardiogram in the morning to evaluate valvular abnormalities [id number] Score 5, shelter anticoagulation is indicated in this patient On heparin drip likely transition to NOAC following full workup by cardiology (6) Diabetes Current Visit: Yes Status: Chronic Assessment and Plan: Diabetes, moderate control On Glimepiride and Metformin at home. Glycemic medications held on admission Sliding scale insulin (7) Atrial flutter Current Visit: Yes Status: Acute Assessment and Plan: Notified by nurse that pt having CP this morning. EKG ordered showing Aflutter with 3-1 conduction. [id number] score 6, shelter anticoagulation is indicated in this patient. Suspect that the patient may have mixed atrial fib atrial flutter pattern. Cardiology sending Eliquis to pharmacy for lemus check. DVT Prophylaxis: Heparin - Summary of Assessment and Plan Summary of Assessment and Plan: Mr. Sahu is a 67 year old male with history of diabetes, hypertension, hyperlipidemia, [place] status post CABG in 2000, stent in 2017 and CHF with ejection fraction 45% in 2017 per left heart catheterization presented to the emergency room due to chest pain and shortness of breath. Says that this has developed over the past several days insidiously. The pain is primarily centered substernally, with radiation towards both the right and the left side. It is exertional in nature and made worse with even minimal movement, however it is also worsened with lying flat. It is relieved with rest. He says that it does feel very similar to the times that he has had coronary events in the past, however it feels more similar to events Tino had acute heart failure decompensation in the past. In the ED, the patient had an EKG which showed potentially atrial flutter with 4 -1 conduction and a ventricular rate of 57. He did have a WBC 11.7 and also a troponin of 0.08 and BNP 724. Chest x-ray in the emergency department demonstrated pulmonary vascular congestion without overt edema. He received 40 mg IV Lasix and was admitted to medicine for observation. - Time Spent with Patient Total time spent is greater than 50% in coordination of care (as documented) at patient's floor/unit and/or counseling patient: less than 15 minutes Plan of Care Discussed with: patient Internal Medicine: Result - Labs CBC & Chem 7: 07/17/18 02:59 07/17/18 01:05 Labs: Cardiac Enzymes 07/17/18 Range/Units 07:07 Troponin I 0.09 H* (< 0.04) ng/mL - ABG Interpretation ABG results: PT/INR, D-dimer PT 12.4 Seconds (9.4-12.1) H 07/17/18 02:59 Consult Discharge Plan - Plan Referrals: Meg Reina, ELECTRICAL CHECKOUT MECHANIC [Primary Care Provider] - (1) Congestive heart failure Qualifiers: Heart failure type: systolic Heart failure chronicity: acute on chronic Qualified Code(s): I50.23 - Acute on chronic systolic (congestive) heart failure (2) CAD (coronary artery disease) Qualifiers: Coronary Disease-Associated Artery/Lesion type: bypass graft [place] vs. transplanted heart: [place] heart Associated angina: without angina Qualified Code(s): I25.810 - Atherosclerosis of coronary artery bypass graft(s) without angina pectoris (3) Hypertension Qualifiers: Hypertension type: essential hypertension Qualified Code(s): I10 - Essential (primary) hypertension (6) Diabetes Qualifiers: Diabetes mellitus type: type 2 Diabetes mellitus oysterman insulin use: with oysterman use Diabetes mellitus complication status: with neurologic complications Diabetes mellitus complication detail: with unspecified neuropathy Qualified Code(s): E11.40 - Type 2 diabetes mellitus with diabetic neuropathy, unspecified; 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
--- NOTE | 2018-07-17 16:52 | Event Note ---
Date of Encounter: 07/17/18 Time of Encounter: 16:49 Please consider this might attest patient to the consultation performed earlier today. Patient independently seen and examined. Significant history of CAD, noncompliant with follow-up. [facility] performed 11/2016 as described in the consultation. JAMIE placed in the ramus. 2/3 patent bypass grafts described. Returns to hospital with complaints of general weakness and left-sided chest discomfort. ECG in the ER demonstrates slow atrial flutter with controlled ventricular response. Elevated cardioembolic risk score. We discussed the risks, benefits, and alternatives to anticoagulation. Patient agreeable to proceed. Minimal troponin elevation not c/w ACS. Given onset of this arrhythmia and complaints of chest discomfort, recommend an ischemic evaluation. Agree with TTE. Recommend stress test. Compliance with follow-up emphasized. All questions were answered. The recommendations to follow. Thanks, Duane Bowman DO, FACC
[2018-07-17] MEDS ORDERED: Insulin DETEMIR 100 UNIT/ML X5UNITS SQ SCH (21:00)
[2018-07-18] MEDS: Insulin LISPRO 300 UNITS/3 ML VIAL SQ SCH ×4 (00:36→17:07)
[2018-07-18] MEDS ORDERED: Regadenoson 0.4 MG/5 ML SYRINGE IVP ONE (05:28)
[2018-07-18] MEDS: Heparin 25,000 UNIT/500 ML D5W 25,000 UNIT/500 ML BAG IVC SCH ×2 (06:14→20:27)
[2018-07-18] MEDS: Furosemide 20 MG/2 ML VIAL IVP SCH ×2 (08:44→20:46)
[2018-07-18] MEDS: Metoprolol XL (24 HR) Succ 50 MG TAB.ER.24H PO SCH ×2 (08:44→20:46)
[2018-07-18] MEDS: Lisinopril 20 MG TABLET PO SCH (08:44)
[2018-07-18] MEDS: Aspirin Enteric Coated 81 MG Tablet PO SCH (08:44)
[2018-07-18] MEDS: amLODIPine 5 MG TABLET PO SCH (08:44)
--- NOTE | 2018-07-18 12:18 | Internal Med Progress Note ---
Hospitalist Progress Note - Encounter Date of Encounter: 07/18/18 Time of Encounter: 12:20 - Subjective Interval History: No acute events. Denies CP, SOB, N/V. Edema at baseline. - Exam Vitals: Temp Pulse Resp BP Pulse Ox 98.5 F 70 16 165/80 98 07/18/18 08:30 07/18/18 08:30 07/18/18 08:30 07/18/18 08:30 07/18/18 09:06 Exam: Gen: NAD HEENT: Normocephalic, atraumatic. + JVD. Neck: Supple. No adenopathy. Cardiac: RRR, no murmur, +S1/S2 Pulmonary: Bibasilar rales Abdomen: Moderately distended, tympanic to percussion, non-tender, no guarding Extremities: 2+ BLE edema, no cyanosis or clubbing - Assessment and Plan (1) Chest pain Current Visit: Yes Status: Acute Assessment and Plan: Cardiology following, recommendations appreciated Stress test done today, results pending Echo done showing improvement in EF since prior studies. Troponin 0.08, 0.09, 0.09 (2) Congestive heart failure Current Visit: Yes Status: Acute Assessment and Plan: Acute decompensation of congestive heart failure, Appears [facility] Class III Long-standing history of CAD and CHF with multiple procedures including CABG and stents Echocardiogram 11/23 demonstrated EF of 50 with moderate left ventricular diastolic dysfunction Left heart catheterization 11/22/16 demonstrated mild LV dysfunction with EF of 45% and severe three-vessel coronary artery disease Patient presents with chest pains and shortness of breath, dyspnea on exertion, orthopnea and JVD Troponin is mildly elevated, BNP 724. Chest x-ray demonstrated pulmonary vascular congestion 07/18: repeat Echo shows EF 55%. Stress test report pending. Plan - Consulted cardiology to see due to significant hx of CAD and cardiac issues. Cardiology agrees with Lasix. -Continue ASA, statin, Beta yuliet, Torito inhibitor, and lasix -Recieved 40mg IV Lasix in the ED, continue diuresis with Lasix 20mg IV BID as tolerated -however fluid restriction 1500mL -Maintain strict I/Os, Daily weights -Wean O2 as tolerated. (3) Diabetes Current Visit: Yes Status: Chronic Assessment and Plan: Diabetes, moderate control Hold oral diabetic meds Glycemic medications held on admission Sliding scale insulin (4) Hypertension Current Visit: Yes Status: Acute Assessment and Plan: Lisinopril and Metoprolol increased lisinopril to 20mg Nitro paste 0.5 inch, hydralazine prn (5) CAD (coronary artery disease) Current Visit: Yes Status: Chronic Assessment and Plan: Long standing history of CAD, s/p CABG 1999 and PCI 2016 Patient presents with chest pain and mildly elevated troponin, decompensated heart failure and new atrial arrhythmia HEART Score 7, Patient is High risk of MACE Additionally, [facility] 11/23 demonstrated severe 3 vessel disease with 100% stenosis of LAD, 100% stenosis in 2nd marginal circumflex, and 100% stenosis of proximal RCA with occlusion of graft to the RCA Given his extensive history of CAD, cardiology consulting. Received ASA in the ED. On heparin for new a fib/flutter. (6) Elevated troponin Current Visit: Yes Status: Acute Assessment and Plan: Elevated troponin, 0.08 Although it very well could be due to demand ischemia in the setting of CHF exacerbation, patient has high risk of ischemic event Continue to trend troponins, telemetry. Cardiology consulting. (7) Atrial arrhythmia Current Visit: Yes Status: Acute Assessment and Plan: Newly diagnosed atrial arrhythmia On EKG appears to be atrial flutter with 3-1 conduction pattern Did appear to have regularity on 12-lead EKG however on monitor and there appeared to be markedly irregularity Suspect that the patient may have mixed atrial fib atrial flutter pattern Etiology is unclear although likely related to decompensated respiratory status in setting of acute heart failure We will get an echocardiogram in the morning to evaluate valvular abnormalities [id number] Score 5, extermination supervisor anticoagulation is indicated in this patient On heparin drip likely transition to NOAC following full workup by cardiology (8) Atrial flutter Current Visit: Yes Status: Acute Assessment and Plan: Notified by nurse that pt having CP this morning. EKG ordered showing Aflutter with 3-1 conduction. [id number] score 6, extermination supervisor anticoagulation is indicated in this patient. Suspect that the patient may have mixed atrial fib atrial flutter pattern. Cardiology sending Eliquis to pharmacy for lemus check. - Time Spent with Patient Total time spent is greater than 50% in coordination of care (as documented) at patient's floor/unit and/or counseling patient: Internal Medicine: Result - Labs CBC & Chem 7: 07/17/18 02:59 07/17/18 01:05 - ABG Interpretation ABG results: PT/INR, D-dimer PT 12.4 Seconds (9.4-12.1) H 07/17/18 02:59 Consult Discharge Plan - Plan Referrals: Meg Reina, REPA[employer]ER [employer]IPMENT [Primary Care Provider] - (1) Chest pain Qualifiers: Chest pain type: unspecified Qualified Code(s): R07.9 - Chest pain, unspecified (2) Congestive heart failure Qualifiers: Heart failure type: systolic Heart failure chronicity: acute on chronic Qualified Code(s): I50.23 - Acute on chronic systolic (congestive) heart failure (3) Diabetes Qualifiers: Diabetes mellitus type: type 2 Diabetes mellitus jail insulin use: with jail use Diabetes mellitus complication status: with neurologic complications Diabetes mellitus complication detail: with unspecified neuropathy Qualified Code(s): E11.40 - Type 2 diabetes mellitus with diabetic neuropathy, unspecified; Z79.4 - retirement (current) use of insulin (4) Hypertension Qualifiers: Hypertension type: essential hypertension Qualified Code(s): I10 - Essential (primary) hypertension (5) CAD (coronary artery disease) Qualifiers: Coronary Disease-Associated Artery/Lesion type: bypass graft [place] vs. transplanted heart: [place] heart Associated angina: without angina Qualified Code(s): I25.810 - Atherosclerosis of coronary artery bypass graft(s) without angina pectoris
--- NOTE | 2018-07-18 14:38 | Cardiology Progress Note ---
Date of Encounter: 07/18/18 Time of Encounter: 14:34 Assessment and Plan (1) Chest pain Current Visit: Yes Status: Acute Atypical chest pain symptoms on admission. Stress test was completed. There was a mild to moderate intensity decrease perfusion involving the mid to distal inferior wall and inferoseptum. Findings represent ischemia. Fixed perfusion defect involving the basal-mid inferior wall represents infarct. Hypertensive throughout study, beginning BP 180/90 mmHg. Gated EF > 70%. Findings reviewed with Dr. Bowman. Ischemia seen correlates with known occluded SVG to RCA graft.TTE shows preserved EF. Medical management recommended for now. Patient agrees with plan. Start imdur. Continue asa, statin, and bb. Outpatient follow-up will be scheduled with [place] [facility]. Cardiology will sign off. Please call with questions. Qualifiers: Chest pain type: unspecified Qualified Code(s): R07.9 - Chest pain, unspecified (2) CHF (congestive heart failure) Current Visit: Yes Status: Acute CHFpEF. TTE completed shows LVEF 55%. Atypical septal motion consistent with post-operative status. LV wall motion abnormality noted in diagram. Indeterminate diastolic function. Normal right ventricular structure and function. Mild mitral regurgitation. Mild pulmonic regurgitation. CXR showed interstitial pulmonary edema. Continue IV lasix until euvolemic. He will need at least 24 more hours. Then start on maintenance lasix 20 mg at d/c. Symptoms have improved Strict I&O and daily weights. CHF education reviewed. Qualifiers: Heart failure type: diastolic Qualified Code(s): I50.31 - Acute diastolic ( congestive) heart failure (3) Elevated troponin Current Visit: Yes Status: Acute Mild adynamic troponin elevation at 0.08, 0.09, 0.09. Likely demand ischemia in the setting of acute CHF. He [place] c/o intermittent chest discomfort that occurs with activity concerning for angina. EKG- atrial flutter with slow ventricular response, HR 57. Non-specific T wave changes. TTE shows preserved EF. No WMA. (4) CAD (coronary artery disease) Current Visit: Yes Status: Chronic H/o CABG. Last [facility] 11/2016 for a NSTEMI at that time showed 2/3 patent bypass grafts includding SVG to 2nd OM, and [place] -LAD. SVG - RCA was occluded. 100% stenosis in the Proximal LAD. 30% stenosis in the 1st Marginal. 100% stenosis in the 2nd Marginal. 99% stenosis in the Ramus s/p PCI with PTCA and JAMIE. 100% stenosis in the Proximal RCA. Continue plavix, statin, and bb. We will hold aspirin to avoid triple therapy. Patient is being started on Coumadin for afib. add imdur. Qualifiers: Coronary Disease-Associated Artery/Lesion type: bypass graft [place] vs. transplanted heart: [place] heart Associated angina: without angina Qualified Code(s): I25.810 - Atherosclerosis of coronary artery bypass graft(s) without angina pectoris (5) Atrial arrhythmia Current Visit: Yes Status: Acute EKG shows atrial flutter with slow ventricular response. Telemetry shows some atrial fibrillation rate controlled. He denies prior history. Currently on heparin gtt. Continue bb. CHADS VASc=6. Anticoagulation with coumadin verses NOAC discussed. Eliquis and xarelto are found to be 250.00$ through his insurance. He is agreeable to start Coumadin therapy. Coumadin ordered with pharmacy to dose. Discussion w patient/family: The assessment and plan as outlined above was discussed with the patient and/or family members who expressed understanding and agreement. All questions were answered. Thank you for involving us in the care of your patient. Please call with any questions. Subjective Principal diagnosis: CHF, chest pain Interval history: Mr. mendieta states he is breathing better and has less chest tightness. Objective Vital Signs, Last 4 Hours Temp Pulse Resp BP Pulse Ox 07/18/18 12:24 98.0 F 69 15 174/69 95 General: Conversant, No Apparent Distress HEENT: Atraumatic, Normocephaly, Mucus Membranes Moist Neck: No JVD, Normal carotid pulses Cardiac: Other (irregular) Lungs: Normal Breath Sounds, No Wheeze, Rales, Rhonchi, Other (Respirations easy , fine crackles right improved) Neuro: Alert and responsive, No focal deficits noted Abdomen: Soft, Non-Tender Skin: No rashes noted on visualized skin Musculoskeletal: No Chest Wall Tenderness Extremities: No Clubbing, No Cyanosis, No Edema, Normal Pulses Results 07/17/18 02:59 07/17/18 01:05 - Imaging and Cardiology Stress Test: report reviewed Echo: report reviewed Consult Discharge Plan - Plan Referrals: Meg Reina, DOCUMENT MANAGEMENT SPECIALIST [Primary Care Provider] -
[2018-07-18] MEDS: Isosorbide MONOnitrate (24 HR) 30 MG TAB.ER.24H PO SCH (14:54)
[2018-07-18] MEDS ORDERED: Warfarin perPT PO PRN (18:00)
[2018-07-18] MEDS ORDERED: *HR* Warfarin 2.5 MG TABLET PO ONE (18:00)
[2018-07-19] MEDS: Insulin LISPRO 300 UNITS/3 ML VIAL SQ SCH ×5 (00:21→23:19)
[2018-07-19 06:07] LABS: Basophils # 0.1 K/mcL (0.0-0.2); Basophils % 0.6 %; Eosinophils # 0.4 K/mcL (0.0-0.6); Hemoglobin 10.5 g/dL (12.9-16.9); Immature Granulocytes % 0.9 % (0-4); Lymphocytes # 1.8 K/mcL (0.6-4.6); Lymphocytes % 16.9 %; Mean Corpuscular HGB Conc 31.8 g/dL (31.6-35.5); Mean Corpuscular Hemoglobin 25.7 pg (28.0-33.3); Mean Corpuscular Volume 80.9 fL (83.0-100.0); Mean Platelet Volume 10.3 fL (9.4-12.4); Monocytes % 9.2 %; Neutrophils # 7.4 K/mcL (1.6-8.9); Platelet Count 322 K/mcL (140-400); Red Blood Count 4.08 M/mcL (4.19-5.50); Red Cell Distribution Width 15.8 % (11.5-14.5); Segmented Neutrophils % 68.4 %
[2018-07-19 06:13] LABS: INR 1.2
[2018-07-19 06:31] LABS: BUN/Creatinine Ratio 13 (6-26); Blood Urea Nitrogen 14 mg/dL (8-23); Calcium 8.9 mg/dL (8.6-10.3); Carbon Dioxide 26 mEq/L (23-29); Chloride 101 mEq/L (98-107); Glucose 235 mg/dL (70-105); Osmolality,Calculated 292 (280-300); Potassium 3.5 mEq/L (3.5-5.1); Sodium 137 mEq/L (136-145); eGFR For Non-African Americans > 60 (> 60)
--- NOTE | 2018-07-19 06:55 | Event Note ---
Date of Encounter: 07/19/18 Time of Encounter: 06:50 - Cardiology Event Note Discussed with Dr. Bowman, we will discontinue his Plavix and continue aspirin for his CAD. Referral sent to Coumadin clinic and requested appointment early next week. Please call with any questions.
[2018-07-19] MEDS: Lisinopril 20 MG TABLET PO SCH (09:44)
[2018-07-19] MEDS: Metoprolol XL (24 HR) Succ 50 MG TAB.ER.24H PO SCH ×2 (09:44→20:39)
[2018-07-19] MEDS: Aspirin Enteric Coated 81 MG Tablet PO SCH (09:44)
[2018-07-19] MEDS: amLODIPine 5 MG TABLET PO SCH (09:44)
[2018-07-19] MEDS: Isosorbide MONOnitrate (24 HR) 30 MG TAB.ER.24H PO SCH (09:44)
[2018-07-19] MEDS: Furosemide 20 MG/2 ML VIAL IVP SCH ×2 (09:45→20:39)
[2018-07-19] MEDS: Heparin 25,000 UNIT/500 ML D5W 25,000 UNIT/500 ML BAG IVC SCH (09:58)
--- NOTE | 2018-07-19 10:53 | Electrocardiograph Report ---
[address] [address] Test Date: 2018-07-17 Pat Name: Selwyn Sahu Department: 113 Room: 3B53 Gender: Program Dir: : 1950 Requested By: Gabriella Arnold Order Number: [id number] Reading MD: Carolann Bahena Measurements Intervals [place] Rate: 57 P: [place]: 0 QRS: -17 QRSD: 114 T: -37 QT: 494 QTc: 487 Interpretive Statements ATRIAL FLUTTER/TACHYCARDIA WITH SLOW VENTRICULAR RESPONSE INTRAVENTRICULAR CONDUCTION DELAY NONSPECIFIC ST ABNORMALITIES Electronically Signed On 07-19-2018 10:51:47 EDT by Carolann Bahena
--- NOTE | 2018-07-19 11:10 | Electrocardiograph Report ---
[place] [address] Test Date: 2018-07-16 Pat Name: Selwyn Sahu Department: [id number] Room: 3B53 Gender: M Legislative Correspondent: : 1950 Requested By: John Kaiser Order Number: [id number] Reading MD: Carolann Bahena Measurements Intervals [place] Rate: 57 P: 203 [place]: 171 QRS: -23 QRSD: 111 T: 92 QT: 415 QTc: 404 Interpretive Statements Atrial flutter LVH with secondary repolarization abnormality Anterior Q waves, possibly due to old NC Electronically Signed On 07-19-2018 11:09:07 EDT by Carolann Bahena
--- NOTE | 2018-07-19 14:21 | Internal Med Progress Note ---
Hospitalist Progress Note - Encounter Date of Encounter: 07/19/18 Time of Encounter: 14:30 - Subjective Interval History: No acute events. Denies CP, N/V. Still having edema. SOB slight improvement. - Exam Vitals: Temp Pulse Resp BP Pulse Ox 98.0 F 59 16 148/65 94 07/19/18 11:51 07/19/18 11:51 07/19/18 11:51 07/19/18 11:51 07/19/18 11:51 Exam: Gen: NAD HEENT: Normocephalic, atraumatic. + JVD. Neck: Supple. No adenopathy. Cardiac: RRR, no murmur, +S1/S2 Pulmonary: Bibasilar rales, faint wheezing expiratory Abdomen: non-tender, no guarding Extremities: 2+ BLE edema, no cyanosis or clubbing - Assessment and Plan (1) Acute respiratory failure with hypoxia Current Visit: Yes Status: Acute Assessment and Plan: Likely due to heart failure. Continue Lasix 20 mg IV BID 1.5 L Fluid restriction Wean oxygen as tolerated. Will do trial of Duo Nebs as he is wheezing, but this could be cardiac related. (2) Chest pain Current Visit: Yes Status: Acute Assessment and Plan: Echo done showing improvement in EF since prior studies. Troponin 0.08, 0.09, 0.09 Atypical chest pain. Stress test showed mild to moderate decrease perfusion in mid to distal inferior wall, consistent with ischemia. This is reviewed by Cardiology and medical management is recommended at this time. Continue aspirin , statin, BB. Starting Coumadin today for atrial flutter/fibrillation. (3) Congestive heart failure Current Visit: Yes Status: Acute Assessment and Plan: Acute decompensation of congestive heart failure, Appears [facility] Class III Long-standing history of CAD and CHF with multiple procedures including CABG and stents Echocardiogram 11/23 demonstrated EF of 50 with moderate left ventricular diastolic dysfunction Left heart catheterization 11/22/16 demonstrated mild LV dysfunction with EF of 45% and severe three-vessel coronary artery disease Patient presents with chest pains and shortness of breath, dyspnea on exertion, orthopnea and JVD Troponin is mildly elevated, BNP 724. Chest x-ray demonstrated pulmonary vascular congestion 07/18: repeat Echo shows EF 55%. Plan - Consulted cardiology to see due to significant hx of CAD and cardiac issues. Cardiology agrees with Lasix. -Continue ASA, statin, Beta yuliet, Torito inhibitor, and lasix -Recieved 40mg IV Lasix in the ED, continue diuresis with Lasix 20mg IV BID as tolerated -Continue fluid restriction 1500mL -Maintain strict I/Os, Daily weights -Wean O2 as tolerated. (4) Diabetes Current Visit: Yes Status: Chronic Assessment and Plan: Diabetes, moderate control Hold oral diabetic meds Glycemic medications held on admission Sliding scale insulin (5) Hypertension Current Visit: Yes Status: Acute Assessment and Plan: Lisinopril and Metoprolol increased lisinopril to 20mg Nitro paste 0.5 inch, hydralazine prn (6) CAD (coronary artery disease) Current Visit: Yes Status: Chronic Assessment and Plan: Long standing history of CAD, s/p CABG 1999 and PCI 2016 Patient presents with chest pain and mildly elevated troponin, decompensated heart failure and new atrial arrhythmia HEART Score 7, Patient is High risk of MACE Additionally, LHC 11/23 demonstrated severe 3 vessel disease with 100% stenosis of LAD, 100% stenosis in 2nd marginal circumflex, and 100% stenosis of proximal RCA with occlusion of graft to the RCA Received ASA in the ED. 07/19: aspirin, statin, BB. Plavix is discontinued because Coumadin will be started today for atrial arrhythmias. (7) Elevated troponin Current Visit: Yes Status: Acute Assessment and Plan: Stable, workup and plan as above. (8) Atrial arrhythmia Current Visit: Yes Status: Acute Assessment and Plan: Newly diagnosed atrial arrhythmia On EKG appears to be atrial flutter with 3-1 conduction pattern Did appear to have regularity on 12-lead EKG however on monitor and there appeared to be markedly irregularity Suspect that the patient may have mixed atrial fib atrial flutter pattern Etiology is unclear although likely related to decompensated respiratory status in setting of acute heart failure We will get an echocardiogram in the morning to evaluate valvular abnormalities [id number] Score 5, long term care pharmacist anticoagulation is indicated in this patient NOAC too expensive and patient agrees to coumadin which is started today. Continue heparin to bridge to coumadin . (9) Atrial flutter Current Visit: Yes Status: Acute Assessment and Plan: Notified by nurse that pt having CP this morning. EKG ordered showing Aflutter with 3-1 conduction. [id number] score 6, long term care pharmacist anticoagulation is indicated in this patient. Suspect that the patient may have mixed atrial fib atrial flutter pattern. Coumadin starting today, continue heparin will bridge. - Time Spent with Patient Total time spent is greater than 50% in coordination of care (as documented) at patient's floor/unit and/or counseling patient: Internal Medicine: Result - Labs CBC & Chem 7: 07/19/18 05:45 07/19/18 05:45 Labs: Short CBC 07/19/18 Range/Units 05:45 WBC 10.9 (4.3-11.1) K/mcL Hgb 10.5 L (12.9-16.9) g/dL Hct 33.0 L (37.5-50.1) % Plt Count 322 (140-400) K/mcL Neutrophils # 7.4 (1.6-8.9) K/mcL BMP 07/19/18 05:45 Sodium 137 Potassium 3.5 Chloride 101 Carbon Dioxide 26 BUN 14 Creatinine 1.10 Glucose 235 H Calcium 8.9 - ABG Interpretation ABG results: PT/INR, D-dimer PT 14.0 Seconds (9.4-12.1) H 07/19/18 05:45 Consult Discharge Plan - Plan Referrals: Meg Reina, ELECTRON MICROSCOPIST [Primary Care Provider] - (2) Chest pain Qualifiers: Chest pain type: unspecified Qualified Code(s): R07.9 - Chest pain, unspecified (3) Congestive heart failure Qualifiers: Heart failure type: systolic Heart failure chronicity: acute on chronic Qualified Code(s): I50.23 - Acute on chronic systolic (congestive) heart failure (4) Diabetes Qualifiers: Diabetes mellitus type: type 2 Diabetes mellitus senior care insulin use: with long term care pharmacist use Diabetes mellitus complication status: with neurologic complications Diabetes mellitus complication detail: with unspecified neuropathy Qualified Code(s): E11.40 - Type 2 diabetes mellitus with diabetic neuropathy, unspecified; Z79.4 - shelter (current) use of insulin (5) Hypertension Qualifiers: Hypertension type: essential hypertension Qualified Code(s): I10 - Essential (primary) hypertension (6) CAD (coronary artery disease) Qualifiers: Coronary Disease-Associated Artery/Lesion type: bypass graft [place] vs. transplanted heart: [place] heart Associated angina: without angina Qualified Code(s): I25.810 - Atherosclerosis of coronary artery bypass graft(s) without angina pectoris
[2018-07-19] MEDS: Ipratropium/Albuterol Neb 3 ML IH SCH ×2 (16:16→22:11)
[2018-07-19] MEDS: *HR* Heparin 5,000 UNIT/ML VIAL IVP PRN (16:59)
[2018-07-19] MEDS ORDERED: *HR* Warfarin 3 MG TABLET PO ONE (18:00)
[2018-07-20] MEDS ORDERED: Methyl Salicylate/Menthol 28 GM TUBE TP PRN (04:51)
[2018-07-20 05:34] LABS: Basophils # 0.1 K/mcL (0.0-0.2); Basophils % 0.7 %; Eosinophils # 0.4 K/mcL (0.0-0.6); Eosinophils % 3.6 %; Hematocrit 34.7 % (37.5-50.1); Hemoglobin 10.8 g/dL (12.9-16.9); Immature Granulocytes % 1.1 % (0-4); Lymphocytes # 1.6 K/mcL (0.6-4.6); Lymphocytes % 14.5 %; Mean Corpuscular HGB Conc 31.1 g/dL (31.6-35.5); Mean Corpuscular Hemoglobin 25.5 pg (28.0-33.3); Mean Corpuscular Volume 81.8 fL (83.0-100.0); Mean Platelet Volume 10.3 fL (9.4-12.4); Monocytes # 1.2 K/mcL (0.0-1.3); Monocytes % 11.3 %; Neutrophils # 7.5 K/mcL (1.6-8.9); Platelet Count 334 K/mcL (140-400); Red Blood Count 4.24 M/mcL (4.19-5.50); Red Cell Distribution Width 15.7 % (11.5-14.5); Segmented Neutrophils % 68.8 %
[2018-07-20 05:40] LABS: INR 1.2; Prothrombin Time 13.6 Seconds (9.4-12.1)
[2018-07-20] MEDS: Ipratropium/Albuterol Neb 3 ML IH SCH ×4 (05:44→23:59)
[2018-07-20 05:53] LABS: BUN/Creatinine Ratio 12 (6-26); Blood Urea Nitrogen 13 mg/dL (8-23); Carbon Dioxide 26 mEq/L (23-29); Chloride 101 mEq/L (98-107); Glucose 251 mg/dL (70-105); Osmolality,Calculated 295 (280-300); Potassium 3.5 mEq/L (3.5-5.1); Sodium 138 mEq/L (136-145); eGFR For Non-African Americans > 60 (> 60)
[2018-07-20] MEDS: Insulin LISPRO 300 UNITS/3 ML VIAL SQ SCH ×4 (06:20→23:51)
[2018-07-20] MEDS: Metoprolol XL (24 HR) Succ 50 MG TAB.ER.24H PO SCH ×2 (07:54→20:43)
[2018-07-20] MEDS: Lisinopril 20 MG TABLET PO SCH (07:54)
[2018-07-20] MEDS: Aspirin Enteric Coated 81 MG Tablet PO SCH (07:54)
[2018-07-20] MEDS: Isosorbide MONOnitrate (24 HR) 30 MG TAB.ER.24H PO SCH (07:54)
[2018-07-20] MEDS: Furosemide 20 MG/2 ML VIAL IVP SCH ×2 (07:54→17:41)
[2018-07-20] MEDS: amLODIPine 5 MG TABLET PO SCH (07:54)
[2018-07-20] MEDS: Heparin 25,000 UNIT/500 ML D5W 25,000 UNIT/500 ML BAG IVC SCH ×2 (10:28→20:56)
--- NOTE | 2018-07-20 13:14 | Internal Med Progress Note ---
Hospitalist Progress Note - Encounter Date of Encounter: 07/20/18 Time of Encounter: 12:30 - Subjective Interval History: No acute events. Denies CP, N/V. Edema is improved. SOB better and patient weaned to room air. He also felt Duo Neb therapy helped his breathing. - Exam Vitals: Temp Pulse Resp BP Pulse Ox 99.4 F 63 16 147/64 92 07/20/18 11:22 07/20/18 11:22 07/20/18 11:22 07/20/18 11:22 07/20/18 11:22 Exam: Gen: NAD HEENT: Normocephalic, atraumatic. + JVD. Neck: Supple. No adenopathy. Cardiac: RRR, no murmur, +S1/S2 Pulmonary: Bibasilar rales, faint wheezing expiratory but this has improved. Abdomen: non-tender, no guarding Extremities: 2+ BLE edema, no cyanosis or clubbing - Assessment and Plan (1) Acute respiratory failure with hypoxia Current Visit: Yes Status: Acute Assessment and Plan: Likely due to heart failure. 1.5 L Fluid restriction Wean oxygen as tolerated. He did feel relief with Duo Nebs so will continue this Lasix 20 mg IV BID will increase to 40 mg BID today. Continue incentive spirometry. (2) Chest pain Current Visit: Yes Status: Acute Assessment and Plan: Echo done showing improvement in EF since prior studies. Troponin 0.08, 0.09, 0.09 Atypical chest pain. Stress test showed mild to moderate decrease perfusion in mid to distal inferior wall, consistent with ischemia. This is reviewed by Cardiology and medical management is recommended at this time. Continue aspirin , statin, BB. Starting Coumadin today for atrial flutter/fibrillation. bridge with heparin (3) Congestive heart failure Current Visit: Yes Status: Acute Assessment and Plan: Acute decompensation of congestive heart failure, Appears [facility] Class III Long-standing history of CAD and CHF with multiple procedures including CABG and stents Echocardiogram 11/23 demonstrated EF of 50 with moderate left ventricular diastolic dysfunction Left heart catheterization 11/22/16 demonstrated mild LV dysfunction with EF of 45% and severe three-vessel coronary artery disease Patient presents with chest pains and shortness of breath, dyspnea on exertion, orthopnea and JVD Troponin is mildly elevated, BNP 724. Chest x-ray demonstrated pulmonary vascular congestion 07/18: repeat Echo shows EF 55%. Plan - Consulted cardiology to see due to significant hx of CAD and cardiac issues. Cardiology agrees with Lasix. -Continue ASA, statin, Beta yuliet, Torito inhibitor, and lasix -Recieved 40mg IV Lasix in the ED, -Continue fluid restriction 1500mL -Maintain strict I/Os, Daily weights -Wean O2 as tolerated. Increase Lasix to 40 mg IV BID, still having edema (4) Diabetes Current Visit: Yes Status: Chronic Assessment and Plan: Diabetes, moderate control Hold oral diabetic meds Glycemic medications held on admission Sliding scale insulin (5) Hypertension Current Visit: Yes Status: Acute Assessment and Plan: Lisinopril and Metoprolol increased lisinopril to 20mg Nitro paste 0.5 inch, hydralazine prn (6) CAD (coronary artery disease) Current Visit: Yes Status: Chronic Assessment and Plan: Long standing history of CAD, s/p CABG 1999 and PCI 2016 Patient presents with chest pain and mildly elevated troponin, decompensated heart failure and new atrial arrhythmia HEART Score 7, Patient is High risk of MACE Additionally, LHC 11/23 demonstrated severe 3 vessel disease with 100% stenosis of LAD, 100% stenosis in 2nd marginal circumflex, and 100% stenosis of proximal RCA with occlusion of graft to the RCA Received ASA in the ED. 07/19: aspirin, statin, BB. Plavix is discontinued because Coumadin will be started today for atrial arrhythmias. (7) Elevated troponin Current Visit: Yes Status: Acute Assessment and Plan: Stable, workup and plan as above. (8) Atrial arrhythmia Current Visit: Yes Status: Acute Assessment and Plan: Newly diagnosed atrial arrhythmia On EKG appears to be atrial flutter with 3-1 conduction pattern Did appear to have regularity on 12-lead EKG however on monitor and there appeared to be markedly irregularity Suspect that the patient may have mixed atrial fib atrial flutter pattern Etiology is unclear although likely related to decompensated respiratory status in setting of acute heart failure We will get an echocardiogram in the morning to evaluate valvular abnormalities [id number] Score 5, nursing home anticoagulation is indicated in this patient NOAC too expensive and patient agrees to coumadin Continue heparin to bridge to coumadin . (9) Atrial flutter Current Visit: Yes Status: Acute Assessment and Plan: Notified by nurse that pt having CP this morning. EKG ordered showing Aflutter with 3-1 conduction. [id number] score 6, termite technician anticoagulation is indicated in this patient. Suspect that the patient may have mixed atrial fib atrial flutter pattern. Coumadin starting today, continue heparin will bridge. (10) Right knee pain Current Visit: Yes Status: Acute Assessment and Plan: Acute started yesterday. Unsure cause but appears to be effusion on exam, but he states he has effusions of knee regularly. ROM limited to pain. Obtain x- ray knee rule out fracture, and U/S rule out DVT. DVT Prophylaxis: Currently on heparin drip bridging to coumadin. - Time Spent with Patient Total time spent is greater than 50% in coordination of care (as documented) at patient's floor/unit and/or counseling patient: Internal Medicine: Result - Labs CBC & Chem 7: 07/20/18 04:00 07/20/18 04:00 Labs: Short CBC 07/20/18 Range/Units 04:00 WBC 10.9 (4.3-11.1) K/mcL Hgb 10.8 L (12.9-16.9) g/dL Hct 34.7 L (37.5-50.1) % Plt Count 334 (140-400) K/mcL Neutrophils # 7.5 (1.6-8.9) K/mcL BMP 07/20/18 04:00 Sodium 138 Potassium 3.5 Chloride 101 Carbon Dioxide 26 BUN 13 Creatinine 1.06 Glucose 251 H Calcium 9.0 - ABG Interpretation ABG results: PT/INR, D-dimer PT 13.6 Seconds (9.4-12.1) H 07/20/18 04:00 Consult Discharge Plan - Plan Referrals: Meg Reina, PHOTOGRAPH EDITOR [Primary Care Provider] - (2) Chest pain Qualifiers: Chest pain type: unspecified Qualified Code(s): R07.9 - Chest pain, unspecified (3) Congestive heart failure Qualifiers: Heart failure type: systolic Heart failure chronicity: acute on chronic Qualified Code(s): I50.23 - Acute on chronic systolic (congestive) heart failure (4) Diabetes Qualifiers: Diabetes mellitus type: type 2 Diabetes mellitus nursing home insulin use: with termite technician use Diabetes mellitus complication status: with neurologic complications Diabetes mellitus complication detail: with unspecified neuropathy Qualified Code(s): E11.40 - Type 2 diabetes mellitus with diabetic neuropathy, unspecified; Z79.4 - termite control representative (current) use of insulin (5) Hypertension Qualifiers: Hypertension type: essential hypertension Qualified Code(s): I10 - Essential (primary) hypertension (6) CAD (coronary artery disease) Qualifiers: Coronary Disease-Associated Artery/Lesion type: bypass graft [place] vs. transplanted heart: [place] heart Associated angina: without angina Qualified Code(s): I25.810 - Atherosclerosis of coronary artery bypass graft(s) without angina pectoris (10) Right knee pain Qualifiers: Chronicity: acute Qualified Code(s): M25.561 - Pain in right knee
[2018-07-20] MEDS: Acetaminophen 325 MG TABLET PO PRN ×2 (14:00→23:48)
[2018-07-20] MEDS ORDERED: *HR* Warfarin 5 MG TABLET PO ONE (18:00)
[2018-07-21] MEDS: Ipratropium/Albuterol Neb 3 ML IH SCH (04:17)
[2018-07-21 04:33] LABS: Basophils # 0.1 K/mcL (0.0-0.2); Basophils % 0.7 %; Eosinophils # 0.3 K/mcL (0.0-0.6); Eosinophils % 2.9 %; Hematocrit 30.1 % (37.5-50.1); Hemoglobin 9.6 g/dL (12.9-16.9); Immature Granulocytes % 1.1 % (0-4); Lymphocytes # 1.7 K/mcL (0.6-4.6); Lymphocytes % 16.3 %; Mean Corpuscular HGB Conc 31.9 g/dL (31.6-35.5); Mean Corpuscular Hemoglobin 25.9 pg (28.0-33.3); Mean Corpuscular Volume 81.1 fL (83.0-100.0); Mean Platelet Volume 10.3 fL (9.4-12.4); Monocytes # 1.3 K/mcL (0.0-1.3); Monocytes % 12.7 %; Neutrophils # 6.8 K/mcL (1.6-8.9); Platelet Count 310 K/mcL (140-400); Red Blood Count 3.71 M/mcL (4.19-5.50); Red Cell Distribution Width 15.9 % (11.5-14.5); Segmented Neutrophils % 66.3 %
[2018-07-21 04:37] LABS: INR 1.3; Prothrombin Time 14.8 Seconds (9.4-12.1)
[2018-07-21 04:56] LABS: BUN/Creatinine Ratio 13 (6-26); Blood Urea Nitrogen 14 mg/dL (8-23); Calcium 8.8 mg/dL (8.6-10.3); Carbon Dioxide 27 mEq/L (23-29); Chloride 101 mEq/L (98-107); Glucose 289 mg/dL (70-105); Osmolality,Calculated 293 (280-300); Potassium 3.2 mEq/L (3.5-5.1); Sodium 136 mEq/L (136-145); eGFR For Non-African Americans > 60 (> 60)
[2018-07-21] MEDS: Insulin LISPRO 300 UNITS/3 ML VIAL SQ SCH ×3 (05:57→17:21)
--- NOTE | 2018-07-21 08:21 | Internal Med Progress Note ---
Hospitalist Progress Note - Encounter Date of Encounter: 07/21/18 Time of Encounter: 08:15 - Subjective Interval History: No acute events. Denies CP, N/V. Overnight patient required O2 again. He didn't notice any shortness of breath or chest pain at this time. Right knee pain is not improved and he is unable to ambulate. - Exam Vitals: Temp Pulse Resp BP Pulse Ox 99.1 F 59 16 160/82 95 07/21/18 07:42 07/21/18 07:42 07/21/18 07:42 07/21/18 07:42 07/21/18 07:42 Exam: Gen: NAD HEENT: Normocephalic, atraumatic. no longer JVD. Neck: Supple. No adenopathy. Cardiac: RRR, no murmur, +S1/S2 Pulmonary: Bibasilar rales, wheezing has improved. Abdomen: non-tender, no guarding Extremities: 2+ BLE edema, no cyanosis or clubbing - Assessment and Plan (1) Acute respiratory failure with hypoxia Current Visit: Yes Status: Acute Assessment and Plan: Likely due to heart failure. 1.5 L Fluid restriction Wean oxygen as tolerated. He did feel relief with Duo Nebs so will continue this Again, encouraged incentive spirometry. Lasix had to be increased yesterday to 40 mg IV BID. (2) Chest pain Current Visit: Yes Status: Acute Assessment and Plan: Echo done showing improvement in EF since prior studies. Troponin 0.08, 0.09, 0.09 Atypical chest pain. Stress test showed mild to moderate decrease perfusion in mid to distal inferior wall, consistent with ischemia. This is reviewed by Cardiology and medical management is recommended at this time. Continue aspirin , statin, BB. Continue coumadin bridge for atrial flutter/fibrillation (3) Congestive heart failure Current Visit: Yes Status: Acute Assessment and Plan: Acute decompensation of congestive heart failure, Appears [facility] Class III Long-standing history of CAD and CHF with multiple procedures including CABG and stents Echocardiogram 11/23 demonstrated EF of 50 with moderate left ventricular diastolic dysfunction Left heart catheterization 11/22/16 demonstrated mild LV dysfunction with EF of 45% and severe three-vessel coronary artery disease Patient presents with chest pains and shortness of breath, dyspnea on exertion, orthopnea and JVD Troponin is mildly elevated, BNP 724. Chest x-ray demonstrated pulmonary vascular congestion 07/18: repeat Echo shows EF 55%. Plan as above. (4) Diabetes Current Visit: Yes Status: Chronic Assessment and Plan: Diabetes, moderate control Hold oral diabetic meds Glycemic medications held on admission Sliding scale insulin (5) Hypertension Current Visit: Yes Status: Acute Assessment and Plan: Lisinopril and Metoprolol increased lisinopril to 20mg Continue home medications. (6) CAD (coronary artery disease) Current Visit: Yes Status: Chronic Assessment and Plan: Long standing history of CAD, s/p CABG 1999 and PCI 2016 Patient presents with chest pain and mildly elevated troponin, decompensated heart failure and new atrial arrhythmia HEART Score 7, Patient is High risk of MACE Additionally, [facility] 11/23 demonstrated severe 3 vessel disease with 100% stenosis of LAD, 100% stenosis in 2nd marginal circumflex, and 100% stenosis of proximal RCA with occlusion of graft to the RCA Received ASA in the ED. 07/19: aspirin, statin, BB. Plavix is discontinued because Coumadin will be started today for atrial arrhythmias. (7) Elevated troponin Current Visit: Yes Status: Acute Assessment and Plan: Stable, workup and plan as above. (8) Atrial arrhythmia Current Visit: Yes Status: Acute Assessment and Plan: Newly diagnosed atrial arrhythmia On EKG appears to be atrial flutter with 3-1 conduction pattern Did appear to have regularity on 12-lead EKG however on monitor and there appeared to be markedly irregularity Suspect that the patient may have mixed atrial fib atrial flutter pattern Etiology is unclear although likely related to decompensated respiratory status in setting of acute heart failure We will get an echocardiogram in the morning to evaluate valvular abnormalities [id number] Score 5, custodial anticoagulation is indicated in this patient NOAC too expensive and patient agrees to coumadin Continue heparin to bridge to coumadin . (9) Atrial flutter Current Visit: Yes Status: Acute Assessment and Plan: Notified by nurse that pt having CP this morning. EKG ordered showing Aflutter with 3-1 conduction. [id number] score 6, custodial anticoagulation is indicated in this patient. Suspect that the patient may have mixed atrial fib atrial flutter pattern. Continue bridge to coumadin. (10) Right knee pain Current Visit: Yes Status: Acute Assessment and Plan: Acute started 2 days ago Effusion is prominent. He states it was when compression stockings on. ROM limited to pain. U/S to rule out DVT is pending, continue coumadin/heparin. CT of right knee as patient is unable to ambulate and this is a concern for home -going. THere was no known inciting incident - Time Spent with Patient Total time spent is greater than 50% in coordination of care (as documented) at patient's floor/unit and/or counseling patient: Internal Medicine: Result - Labs CBC & Chem 7: 07/21/18 04:15 07/21/18 04:15 Labs: Short CBC 07/21/18 Range/Units 04:15 WBC 10.3 (4.3-11.1) K/mcL Hgb 9.6 L (12.9-16.9) g/dL Hct 30.1 L (37.5-50.1) % Plt Count 310 (140-400) K/mcL Neutrophils # 6.8 (1.6-8.9) K/mcL BMP 07/21/18 04:15 Sodium 136 Potassium 3.2 L Chloride 101 Carbon Dioxide 27 BUN 14 Creatinine 1.08 Glucose 289 H Calcium 8.8 - ABG Interpretation ABG results: PT/INR, D-dimer PT 14.8 Seconds (9.4-12.1) H 07/21/18 04:15 - Impressions Impressions Knee X-Ray 07/20/18 13:15 IMPRESSION: Mild tricompartment osteoarthritis right knee. Prominent suprapatellar joint effusion which can be an indicator for internal derangement. Unremarkable radiographs right knee. D/ / Clemente Lopes / Clemente Lopes Interpreting Provider: Clemente Lopes Chest X-Ray 07/20/18 13:17 IMPRESSION: 1. Findings of mild congestive heart failure. 2. Calcific atherosclerosis aorta. 3. Cardiomegaly. 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 transplanted heart: [place] heart Associated angina: without angina Qualified Code(s): I25.810 - Atherosclerosis of coronary artery bypass graft(s) without angina pectoris (9) Atrial flutter Qualifiers: Atrial flutter type: unspecified Qualified Code(s): I48.92 - Unspecified atrial flutter (10) Right knee pain Qualifiers: Chronicity: acute Qualified Code(s): M25.561 - Pain in right knee
[2018-07-21] MEDS ORDERED: Ipratropium/Albuterol Neb 3 ML IH PRN (08:36)
[2018-07-21] MEDS: amLODIPine 5 MG TABLET PO SCH (09:44)
[2018-07-21] MEDS: Lisinopril 20 MG TABLET PO SCH (09:44)
[2018-07-21] MEDS: Isosorbide MONOnitrate (24 HR) 30 MG TAB.ER.24H PO SCH (09:44)
[2018-07-21] MEDS: Metoprolol XL (24 HR) Succ 50 MG TAB.ER.24H PO SCH ×2 (09:44→20:54)
[2018-07-21] MEDS: Aspirin Enteric Coated 81 MG Tablet PO SCH (09:44)
[2018-07-21] MEDS: Furosemide 20 MG/2 ML VIAL IVP SCH ×2 (09:44→17:21)
[2018-07-21] MEDS: Acetaminophen 325 MG TABLET PO PRN (11:48)
[2018-07-21] MEDS ORDERED: *HR* Warfarin 5 MG TABLET PO ONE (18:00)
--- NOTE | 2018-07-21 21:27 | Orthopedic Consult Note ---
Date of Encounter: 07/21/18 Time of Encounter: 21:20 History of Present Illness Chief complaint: Right knee swelling HPI: Mr. Sahu is a 67 year old male who has had intermittent episodes of swelling about the right knee for a prolonged period of time. Patient had a recent acute episode. He relates this to having a knee-high or possibly a thigh -high Mark that was up around his right knee. He states that after that the knee swelled. Patient also describes a history of chronic swelling in his knees due to a combination of heart disease as well as what he suspects is due to diabetes. He is having little pain now. He states that the knee is feeling better today and he has been able to weight-bear on the knee. Denies any acute injuries. Patient did have a right knee arthroscopy in the distant past by Dr. Da Silva in [place]. I reviewed the patient's completed history and physical exam as well as reviewed the medical record. Pertinent orthopedic examination reveals the left knee to have normal range of motion and function. No evidence of a left knee effusion. Right knee shows a moderate suprapatellar effusion. There are palpable spurs along both the medial and lateral joint lines of the knee. There are some patellofemoral crepitance. No overt instability. Range of motion is approximately 15-90 degrees. X-rays of the right knee are reviewed. These are nonweightbearing x- rays. These do show quite severe arthritic changes especially involving the lateral compartment. Marked patellofemoral spurring is also noted. There is evidence of a moderate suprapatellar effusion. CT scan of the right knee is also reviewed. This reveals similar findings as the x-rays. They are quite severe arthritic changes seen in a tricompartmental manner. Chondrocalcinosis is noted in both the medial and lateral compartments. A non-worrisome effusion is noted. No evidence of a lipohemarthrosis. No evidence of fractures or dislocations. Impression: Right knee effusion secondary to advanced right knee arthritis Recommendation: This is an effusion related to her arthritic knee with probable meniscal pathology as well. I discussed with the patient the current findings clinically and as well as radiographically. We discussed that this can be treated very conservatively with observation, possibly the use of anti- inflammatory medications, aspiration and corticosteroid injections or more aggressive forms of treatment such as arthroscopic surgery. Ultimate treatment would be a total knee arthroplasty. After much discussion of the treatment options and the patient's underlying medical conditions, anti-inflammatory medication was would be contraindicated due to his kidney disease as well as his heart disease. A corticosteroid injection would offer him relief but will be a possibility of escalating his blood sugars higher they currently are is concerning. I do not think anything more aggressive need be done. At this time the patient is feeling better and moving better with observation and conservative treatment. Would continue to observe and offer any further treatment pending his clinical response. Thank you very much for allowing me to seen care for Mr. Sahu. Sincerely, Michelet Islas,DO Past Med Surg Social Fam HX - Past Medical History Medical history: arthritis, coronary artery disease, diabetes, hyperlipidemia, hypertension, myocardial infarction, other Psychiatric history: no psych history - Past Surgical History Surgical History: angioplasty/stent, appendectomy, coronary bypass (CABG), knee replacement, orthopedic, other, other (colonoscopy) - Social History Smoking Status: Never smoker Smokeless Tobacco Status: No Alcohol use: none Drug use: none - Family History Mother Age: 87 Living Status: Still Living Hx Family Cardiac Disorders: Yes (CAD, CABG) Father Living Status: Age at : 72 Cause of : DM, Heart failure, dialysis Hx Family Cardiac Disorders: Yes (CAD; CABG) Hx Family Endocrine Disorder: Yes (DM) Brother Age: 65 Hx Family Genitourinary Disorders: Yes Medications and Allergies Aspirin [Lo-Dose Aspirin EC] 81 mg PO DAILY 11/21/16 [History] Atorvastatin [Lipitor] 10 mg PO HS 11/21/16 [History] Furosemide [Lasix] 20 mg PO DAILY 11/21/16 [History] Glimepiride [Amaryl] 4 mg PO BID 11/21/16 [History] Lisinopril [Zestril] 5 mg PO DAILY 11/21/16 [History] Metformin HCl [Glucophage] 1,000 mg PO BID 11/21/16 [History] Nitroglycerin 0.4 mg SL Q5MIN PRN 11/21/16 [History] amLODIPine [Norvasc] 5 mg PO DAILY 11/21/16 [History] Clopidogrel [Plavix] 75 mg PO DAILY 07/16/18 [History] Metoprolol XL (24 HR) Succ [Toprol Xl] 50 mg PO BID 07/16/18 [History] 3 Allergy/AdvReac Type Severity Reaction Status Date / Time No Known Allergies Allergy Verified 07/16/18 18:19 All Systems Reviewed: The remainder of the systems were reviewed and are negative Physical Exam - Constitutional Vitals: Temp Pulse Resp BP Pulse Ox 100 F H 69 18 162/69 94 07/21/18 20:59 07/21/18 20:59 07/21/18 20:59 07/21/18 20:59 07/21/18 20:59 Results - Labs Result Diagrams: 07/21/18 04:15 07/21/18 04:15 Labs: Abnormal lab results RBC 3.71 M/mcL (4.19-5.50) L 07/21/18 04:15 Hgb 9.6 g/dL (12.9-16.9) L 07/21/18 04:15 Hct 30.1 % (37.5-50.1) L 07/21/18 04:15 MCV 81.1 fL (83.0-100.0) L 07/21/18 04:15 MCH 25.9 pg (28.0-33.3) L 07/21/18 04:15 RDW 15.9 % (11.5-14.5) H 07/21/18 04:15 PT 14.8 Seconds (9.4-12.1) H 07/21/18 04:15 Potassium 3.2 mEq/L (3.5-5.1) L 07/21/18 04:15 Glucose 289 mg/dL (70-105) H 07/21/18 04:15 POC Glucose 312 mg/dL (70-99) H 07/21/18 05:54 Hemoglobin A1c 8.5 % (-5.6) H 07/16/18 23:30 Iron 10 mcg/dL (65-175) L 07/17/18 01:05 % Saturation 3 % (20-55) L 07/17/18 01:05 AST 10 Units/L (13-39) L 07/16/18 19:29 Troponin I 0.09 ng/mL (< 0.04) H* 07/17/18 07:07 B-Natriuretic Peptide 724 pg/mL (Less than 100) H 07/16/18 19:29 Triglycerides 163 mg/dL (< 150) H 07/17/18 01:05 VLDL Cholesterol, Calc 33 mg/dL (< 31) H 07/17/18 01:05 HDL Cholesterol 29 mg/dL (40-59) L 07/17/18 01:05 Urine Protein 100 mg/dL (Neg-Trace) H 07/16/18 22:45 H & H 07/21/18 Range/Units 04:15 Hgb 9.6 L (12.9-16.9) g/dL Hct 30.1 L (37.5-50.1) % All other labs normal. - Diagnostic results Knee x-ray: image reviewed Knee CT: image reviewed Consult Discharge Plan - Plan Referrals: Meg Reina, ALARM SIGNAL OPERATOR [Primary Care Provider] -
[2018-07-22] MEDS: Acetaminophen 325 MG TABLET PO PRN (00:26)
[2018-07-22] MEDS: Insulin LISPRO 300 UNITS/3 ML VIAL SQ SCH ×4 (00:48→12:19)
[2018-07-22 05:46] LABS: Basophils # 0.1 K/mcL (0.0-0.2); Basophils % 0.8 %; Eosinophils # 0.4 K/mcL (0.0-0.6); Eosinophils % 4.7 %; Hematocrit 31.8 % (37.5-50.1); Immature Granulocytes % 0.8 % (0-4); Lymphocytes # 1.5 K/mcL (0.6-4.6); Lymphocytes % 16.5 %; Mean Corpuscular HGB Conc 31.4 g/dL (31.6-35.5); Mean Corpuscular Hemoglobin 25.5 pg (28.0-33.3); Mean Corpuscular Volume 81.1 fL (83.0-100.0); Mean Platelet Volume 10.3 fL (9.4-12.4); Monocytes % 11.1 %; Neutrophils # 5.8 K/mcL (1.6-8.9); Platelet Count 341 K/mcL (140-400); Red Blood Count 3.92 M/mcL (4.19-5.50); Red Cell Distribution Width 15.9 % (11.5-14.5); Segmented Neutrophils % 66.1 %
[2018-07-22 05:50] LABS: INR 1.4; Prothrombin Time 15.8 Seconds (9.4-12.1)
[2018-07-22 06:06] LABS: BUN/Creatinine Ratio 15 (6-26); Blood Urea Nitrogen 16 mg/dL (8-23); Calcium 9.4 mg/dL (8.6-10.3); Carbon Dioxide 24 mEq/L (23-29); Chloride 102 mEq/L (98-107); Glucose 218 mg/dL (70-105); Osmolality,Calculated 292 (280-300); Potassium 3.5 mEq/L (3.5-5.1); Sodium 137 mEq/L (136-145); eGFR For Non-African Americans > 60 (> 60)
[2018-07-22] MEDS ORDERED: *HR* Enoxaparin 120 MG/0.8 ML SYRINGE SQ SCH (07:45)
[2018-07-22] MEDS: Metoprolol XL (24 HR) Succ 50 MG TAB.ER.24H PO SCH (08:07)
[2018-07-22] MEDS: amLODIPine 5 MG TABLET PO SCH (08:07)
[2018-07-22] MEDS: Isosorbide MONOnitrate (24 HR) 30 MG TAB.ER.24H PO SCH (08:07)
[2018-07-22] MEDS: Lisinopril 20 MG TABLET PO SCH (08:07)
[2018-07-22] MEDS: Furosemide 20 MG/2 ML VIAL IVP SCH (08:07)
[2018-07-22] MEDS: Aspirin Enteric Coated 81 MG Tablet PO SCH (08:07)
--- NOTE | 2018-07-22 08:36 | Internal Med Progress Note ---
Hospitalist Progress Note - Encounter Date of Encounter: 07/22/18 Time of Encounter: 08:34 - Subjective Interval History: No acute events. Denies CP, N/V. Breathing is significantly better after increasing Lasix to 40 mg IV BID. He didn't notice any shortness of breath or chest pain at this time. Right knee pain still bothersome. - Exam Vitals: Temp Pulse Resp BP Pulse Ox 99.2 F 58 18 161/77 94 07/22/18 07:27 07/22/18 07:27 07/22/18 07:27 07/22/18 07:27 07/22/18 07:27 Exam: Gen: NAD HEENT: Normocephalic, atraumatic. no longer JVD. Neck: Supple. No adenopathy. Cardiac: RRR, no murmur, +S1/S2 Pulmonary: Bibasilar rales, improved since exam yesterday. Abdomen: non-tender, no guarding Extremities: 2+ BLE edema, no cyanosis or clubbing. Moderate right knee effusion. Skin is intact, warm, dry, no rashes. - Assessment and Plan (1) Acute respiratory failure with hypoxia Current Visit: Yes Status: Acute Assessment and Plan: Likely due to heart failure. 1.5 L Fluid restriction Wean oxygen as tolerated - Currently on room ait Again, encouraged incentive spirometry. Lasix had to be increased two days ago to 40 mg IV BID. Disposition: - Likely home today - repeat chest x-ray due to borderline temperature, will rule out pneumonia. - PT to work with patient today for right knee. - Coumdin/Lovenox bridge on discharge. (2) Chest pain Current Visit: Yes Status: Acute Assessment and Plan: Echo done showing improvement in EF since prior studies. Troponin 0.08, 0.09, 0.09 Atypical chest pain. Stress test showed mild to moderate decrease perfusion in mid to distal inferior wall, consistent with ischemia. This is reviewed by Cardiology and medical management is recommended at this time. Continue aspirin , statin, BB. Continue coumadin bridge for atrial flutter/fibrillation (3) Congestive heart failure Current Visit: Yes Status: Acute Assessment and Plan: Acute decompensation of congestive heart failure, Appears [facility] Class III Long-standing history of CAD and CHF with multiple procedures including CABG and stents Echocardiogram 11/23 demonstrated EF of 50 with moderate left ventricular diastolic dysfunction Left heart catheterization 11/22/16 demonstrated mild LV dysfunction with EF of 45% and severe three-vessel coronary artery disease Patient presents with chest pains and shortness of breath, dyspnea on exertion, orthopnea and JVD Troponin is mildly elevated, BNP 724. Chest x-ray demonstrated pulmonary vascular congestion 07/18: repeat Echo shows EF 55%. Plan as above. (4) Diabetes Current Visit: Yes Status: Chronic Assessment and Plan: Diabetes, moderate control Hold oral diabetic meds Glycemic medications held on admission Sliding scale insulin (5) Hypertension Current Visit: Yes Status: Acute Assessment and Plan: Lisinopril and Metoprolol increased lisinopril to 20mg Continue home medications. (6) CAD (coronary artery disease) Current Visit: Yes Status: Chronic Assessment and Plan: Long standing history of CAD, s/p CABG 1999 and PCI 2016 Patient presents with chest pain and mildly elevated troponin, decompensated heart failure and new atrial arrhythmia HEART Score 7, Patient is High risk of MACE Additionally, [facility] 11/23 demonstrated severe 3 vessel disease with 100% stenosis of LAD, 100% stenosis in 2nd marginal circumflex, and 100% stenosis of proximal RCA with occlusion of graft to the RCA Received ASA in the ED. 07/19: aspirin, statin, BB. Plavix is discontinued because Coumadin will be started today for atrial arrhythmias. (7) Elevated troponin Current Visit: Yes Status: Acute Assessment and Plan: Stable, workup and plan as above. (8) Atrial arrhythmia Current Visit: Yes Status: Acute Assessment and Plan: Newly diagnosed atrial arrhythmia On EKG appears to be atrial flutter with 3-1 conduction pattern Did appear to have regularity on 12-lead EKG however on monitor and there appeared to be markedly irregularity Suspect that the patient may have mixed atrial fib atrial flutter pattern Etiology is unclear although likely related to decompensated respiratory status in setting of acute heart failure We will get an echocardiogram in the morning to evaluate valvular abnormalities [id number] Score 5, food critic anticoagulation is indicated in this patient NOAC too expensive and patient agrees to coumadin Continue bridge to coumadin (9) Atrial flutter Current Visit: Yes Status: Acute Assessment and Plan: Notified by nurse that pt having CP this morning. EKG ordered showing Aflutter with 3-1 conduction. [id number] score 6, food critic anticoagulation is indicated in this patient. Suspect that the patient may have mixed atrial fib atrial flutter pattern. Continue bridge to coumadin. (10) Right knee pain Current Visit: Yes Status: Acute Assessment and Plan: Acute started 2 days ago Effusion is prominent. He states it was when compression stockings on. ROM limited to pain. U/S to rule out DVT is pending, continue coumadin/heparin. CT of right knee shows effusion Ortho consulted, likely this is right knee effusion from advanced arthritis causing pain. Continue conservative measures. PT/OT to work for home needs. - Time Spent with Patient Total time spent is greater than 50% in coordination of care (as documented) at patient's floor/unit and/or counseling patient: Internal Medicine: Result - Labs CBC & Chem 7: 07/22/18 05:19 07/22/18 05:19 Labs: Short CBC 07/22/18 Range/Units 05:19 WBC 8.8 (4.3-11.1) K/mcL Hgb 10.0 L (12.9-16.9) g/dL Hct 31.8 L (37.5-50.1) % Plt Count 341 (140-400) K/mcL Neutrophils # 5.8 (1.6-8.9) K/mcL BMP 07/22/18 05:19 Sodium 137 Potassium 3.5 Chloride 102 Carbon Dioxide 24 BUN 16 Creatinine 1.04 Glucose 218 H Calcium 9.4 - ABG Interpretation ABG results: PT/INR, D-dimer PT 15.8 Seconds (9.4-12.1) H 07/22/18 05:19 - Impressions Impressions Knee CT 07/21/18 08:17 IMPRESSION: No acute bony abnormalities identified. If there is persistent clinical concern consider MRI evaluation. Large nonspecific knee joint effusion without fat-fluid level or fluid-fluid level to suggest hemarthrosis or lipohemarthrosis. Question superimposed nonspecific synovitis. Tricompartmental degenerative changes to the knee. Chondrocalcinosis. Diffuse bone demineralization. Mild nonspecific subcutaneous edema predominantly anteriorly. D/ / 07/21/2018 09:39:23 Talon Raymundo MD / [facility] Interpreting Provider: Talon Raymundo MD Consult Discharge Plan - Plan Referrals: Meg Reina, HOSPICE PLAN ADMINISTRATOR [Primary Care Provider] - (2) Chest pain Qualifiers: Chest pain type: unspecified Qualified Code(s): R07.9 - Chest pain, unspecified (3) Congestive heart failure Qualifiers: Heart failure type: systolic Heart failure chronicity: acute on chronic Qualified Code(s): I50.23 - Acute on chronic systolic (congestive) heart failure (4) Diabetes Qualifiers: Diabetes mellitus type: type 2 Diabetes mellitus fpc insulin use: with fpc use Diabetes mellitus complication status: with neurologic complications Diabetes mellitus complication detail: with unspecified neuropathy Qualified Code(s): E11.40 - Type 2 diabetes mellitus with diabetic neuropathy, unspecified; Z79.4 - custodial (current) use of insulin (5) Hypertension Qualifiers: Hypertension type: essential hypertension Qualified Code(s): I10 - Essential (primary) hypertension (6) CAD (coronary artery disease) Qualifiers: Coronary Disease-Associated Artery/Lesion type: bypass graft [place] vs. transplanted heart: [place] heart Associated angina: without angina Qualified Code(s): I25.810 - Atherosclerosis of coronary artery bypass graft(s) without angina pectoris (9) Atrial flutter Qualifiers: Atrial flutter type: unspecified Qualified Code(s): I48.92 - Unspecified atrial flutter (10) Right knee pain Qualifiers: Chronicity: acute Qualified Code(s): M25.561 - Pain in right knee
[2018-07-22 11:10] VITALS: BP 135/61
--- NOTE | 2018-07-22 15:11 | Discharge Summary ---
- NOTES TO OUTPATIENT PROVIDER Notes to Outpatient Provider: Adjust Lasix dose as needed. Will be discharged with 5 days of 40 mg PO BID. Orders not resulted at time of discharge: Pending orders 07/17/18 16:52 NM rosie perf SPECT multi [NM] Routine 07/23/18 04:00 BMP [Basic Metabolic Panel] AM 0400 Complete Blood Count [HEME] AM 0400 PT/INR [Prothrombin Time INR] [COAG] AM 04007/24/18 04:00 BMP [Basic Metabolic Panel] AM 0400 Complete Blood Count [HEME] AM 0400 PT/INR [Prothrombin Time INR] [COAG] AM 0400 07/25/18 04:00 BMP [Basic Metabolic Panel] AM 0400 Complete Blood Count [HEME] AM 0400 PT/INR [Prothrombin Time INR] [COAG] AM 0400 07/26/18 04:00 PT/INR [Prothrombin Time INR] [COAG] AM 0400 Date of Encounter: 07/22/18 Time of Encounter: 15:07 - Discharge Diagnosis (1) Acute respiratory failure with hypoxia Priority: Primary Status: Acute (2) Chest pain Priority: Secondary Status: Acute Qualifiers: Chest pain type: unspecified Qualified Code(s): R07.9 - Chest pain, unspecified (3) Congestive heart failure Priority: Secondary Status: Acute Qualifiers: Heart failure type: systolic Heart failure chronicity: acute on chronic Qualified Code(s): I50.23 - Acute on chronic systolic (congestive) heart failure (4) Diabetes Priority: Secondary Status: Chronic Qualifiers: Diabetes mellitus type: type 2 Diabetes mellitus terminal block assembler insulin use: with skilled nursing use Diabetes mellitus complication status: with neurologic complications Diabetes mellitus complication detail: with unspecified neuropathy Qualified Code(s): E11.40 - Type 2 diabetes mellitus with diabetic neuropathy, unspecified; Z79.4 - senior living (current) use of insulin (5) Hypertension Priority: Secondary Status: Acute Qualifiers: Hypertension type: essential hypertension Qualified Code(s): I10 - Essential (primary) hypertension (6) CAD (coronary artery disease) Priority: Secondary Status: Chronic Qualifiers: Coronary Disease-Associated Artery/Lesion type: bypass graft [place] vs. transplanted heart: [place] heart Associated angina: without angina Qualified Code(s): I25.810 - Atherosclerosis of coronary artery bypass graft(s) without angina pectoris (7) Elevated troponin Priority: Secondary Status: Acute (8) Atrial arrhythmia Priority: Secondary Status: Acute (9) Atrial flutter Priority: Secondary Status: Acute Qualifiers: Atrial flutter type: unspecified Qualified Code(s): I48.92 - Unspecified atrial flutter (10) Right knee pain Priority: Secondary Status: Acute Qualifiers: Chronicity: acute Qualified Code(s): M25.561 - Pain in right knee Hospital course: Mr. Sahu is a 67 year old male with history of systolic heart failure, DM, HTN, [place] s/p CABG in 1999 presnted to ED for chest pain and shortness of breath that was ongoing for several days. Chest pain was exertional and he also complained of orthopnea. In the ED patient had an EKG which showed atrial flutter with 4-1 conduction and ventricular rate of 57. He had an initial troponin of 0.08 and BNP of 724. Chest x-ray in ED showed pulmonary vascular congestion. He was admitted for acute decompensated heart failure. He was started on a fluid restricted diet and started on IV Lasix. Cardiology was consulted for chest pain and elevated troponin. For atrial arrhythmia newly found on EKG, he was started on a heparin drip since his [id number] score is 5 -6. He had a stress test on 07/18/18, and Cardiology reviewed. There was ischemia seen that correlates with his known occluded SVG to RCA graft. A repeat echo showed preserved ejection fraction. Plavix was discontinued and aspirin was restarted. Patient improved with IV Lasix. He did have an episode of acute knee swelling and Ortho evaluated patient, this was less likely hemoarthrosis, this was likely effusion from knee arthritis and so anticoagulation was continued. He was discharged home in stable condition. He is being transitioned to coumadin with a Lovenox bridge on discharge. He will be discharged with 40 mg PO Lasix BID. Recheck INR and BMP in 3 days. - Time Spent with Patient Total time spent providing and/or coordinating discharge services: - Discharge Medications Prescriptions: Enoxaparin [Lovenox] 100 mg SQ Q12HR #6 syr Furosemide [Lasix] 40 mg PO BID #10 tablet Warfarin [Coumadin] 4 mg PO 1800 #30 tablet Home Medications: Aspirin [Lo-Dose Aspirin EC] 81 mg PO DAILY 02/15/17 [History] Atorvastatin [Lipitor] 10 mg PO HS 11/21/16 [History] Glimepiride [Amaryl] 4 mg PO BID 11/21/16 [History] Lisinopril [Zestril] 5 mg PO DAILY 11/21/16 [History] Metformin HCl [Glucophage] 1,000 mg PO BID 11/21/16 [History] Nitroglycerin 0.4 mg SL Q5MIN PRN 11/21/16 [History] amLODIPine [Norvasc] 5 mg PO DAILY 11/21/16 [History] Metoprolol XL (24 HR) Succ [Toprol Xl] 50 mg PO BID 07/16/18 [History] Acetaminophen [Tylenol] 650 mg PO Q6HR PRN tablet 07/22/18 [Rx] Enoxaparin [Lovenox] 100 mg SQ Q12HR #6 syr 07/22/18 [Rx] Furosemide [Lasix] 40 mg PO BID #10 tablet 07/22/18 [Rx] Warfarin [Coumadin] 4 mg PO 1800 #30 tablet 07/22/18 [Rx] Allergies/Adverse Reactions: 3 Allergy/AdvReac Type Severity Reaction Status Date / Time No Known Allergies Allergy Verified 07/16/18 18:19 Date of admission: 07/17/18 03:42 Primary care physician: Meg Reina CNP Consults: 07/17/18 07:57 Consult to Invasive Line Access Team [CONS] Routine Reason for Consult: limited access. heparin drip, no IV, elevated trops, chest pain. Line Type: EPIV 07/17/18 09:44 Consult to Cardiology [CONS] Routine Comment: Consulting Provider: Cardiology Pia Reason for Consult: NSTEMI Call Completed: Yes 07/21/18 08:17 Consult to Physical Therapy [CONS] Routine Comment: Evaluate, develop and implement POC Reason for Consult: Right knee pain. Does patient have active BEDREST order?: No Is patient medically & hemodynamically stable?: Yes 07/21/18 16:47 Consult to Orthopedic Surgery [CONS] Routine Consulting Provider: Orthopedic and Sports Medicine Reason for Consult: Joint effusion, possibly hemoarthrosis. Call Completed: Yes Discharging clinician: Valerie Durham - Constitutional Vitals: Temp Pulse Resp BP Pulse Ox 97.9 F 59 18 135/61 92 07/22/18 11:05 07/22/18 11:05 07/22/18 11:05 07/22/18 11:05 07/22/18 11:05 Exam: Gen: NAD HEENT: Normocephalic, atraumatic. no longer JVD. Neck: Supple. No adenopathy. Cardiac: RRR, no murmur, +S1/S2 Pulmonary: Bibasilar rales, improved since exam yesterday. Abdomen: non-tender, no guarding Extremities: 2+ BLE edema, no cyanosis or clubbing. Moderate right knee effusion. Skin is intact, warm, dry, no rashes. - Patient Status Disposition: Home Health Service Condition: Fair Functional capacity at discharge: uses cane/walker Overall status at discharge: patient is progressing back to baseline - Discharge Instructions Follow Up With: Meg Reina, MACHINE BINDER STRIPPER [Primary Care Provider] - - Diet and Activity Activity: as per physical therapy Diet: diabetic diet, low fat, low cholesterol, low salt diet
--- NOTE | 2018-07-22 15:30 | Physician Discharge Referral ---
Home Health/Hosp Referral Info Transfer to: Home Health Provider in Charge Post Discharge: PCP - Diagnosis (1) Acute respiratory failure with hypoxia Priority: Primary Status: Acute (2) Chest pain Priority: Secondary Status: Acute (3) Congestive heart failure Priority: Secondary Status: Acute (4) Diabetes Priority: Secondary Status: Chronic (5) Hypertension Priority: Secondary Status: Acute (6) CAD (coronary artery disease) Priority: Secondary Status: Chronic (7) Elevated troponin Priority: Secondary Status: Acute (8) Atrial arrhythmia Priority: Secondary Status: Acute (9) Atrial flutter Priority: Secondary Status: Acute (10) Right knee pain Priority: Secondary Status: Acute - Respiratory Orders Smoking Cessation: Smoking cessation has been advised. For more information, call the [place] Tobacco Quit Line at 7-816-TETYNOW. - Services Needed Following services are medically necessary services: Physical Therapy - Transfer Medications Prescriptions: Enoxaparin [Lovenox] 100 mg SQ Q12HR #6 syr Furosemide [Lasix] 40 mg PO BID #10 tablet Warfarin [Coumadin] 4 mg PO 1800 #30 tablet Home Medications: Aspirin [Lo-Dose Aspirin EC] 81 mg PO DAILY 11/21/16 [History] Atorvastatin [Lipitor] 10 mg PO HS 11/21/16 [History] Glimepiride [Amaryl] 4 mg PO BID 11/21/16 [History] Lisinopril [Zestril] 5 mg PO DAILY 11/21/16 [History] Metformin HCl [Glucophage] 1,000 mg PO BID 11/21/16 [History] Nitroglycerin 0.4 mg SL Q5MIN PRN 11/21/16 [History] amLODIPine [Norvasc] 5 mg PO DAILY 11/21/16 [History] Metoprolol XL (24 HR) Succ [Toprol Xl] 50 mg PO BID 07/16/18 [History] Acetaminophen [Tylenol] 650 mg PO Q6HR PRN tablet 07/22/18 [Rx] Enoxaparin [Lovenox] 100 mg SQ Q12HR #6 syr 07/22/18 [Rx] Furosemide [Lasix] 40 mg PO BID #10 tablet 07/22/18 [Rx] Warfarin [Coumadin] 4 mg PO 1800 #30 tablet 07/22/18 [Rx] Allergies/Adverse Reactions: 3 Allergy/AdvReac Type Severity Reaction Status Date / Time No Known Allergies Allergy Verified 10/10/18 18:19 Certification: Further, I certify that my clinical findings support that this patient is homebound (i.e. absences from home require considerable and taxing effort and are for medical reasons or adventism services or infrequently or short duration when for other reasons) because: Homebound Reason: Patient requires assistance of a person or device to safely leave home, Severity of cardiac or pulmonary status limits activity tolerance Attestation: My signature below is to certify that this patient is under my care and that I, or nurse practitioner, or a physician's assistant paralegal working with me, has a face-to -face encounter with this patient.
[2018-07-22] MEDS ORDERED: *HR* Warfarin 5 MG TABLET PO ONE (18:00)
[2018-07-22] MEDS ORDERED: Warfarin perPT PO PRN (18:00)
[2018-07-22] MEDS ORDERED: Insulin LISPRO 300 UNITS/3 ML VIAL SQ SCH (21:00)
== END 2018-07-22 17:25 | disposition home health service (06) | DRG 291 ==
LOC: EMEROOARM 18:50 → 3BNU 18:50 → SUATTDRO 07-17 03:42 → 3BNU 07-20 22:16 → 2ANU 07-21 09:26
PROVIDERS: ADMIT Internal Medicine; ATTEND Student in an Organized Health Care Education/Training Program

== ENCOUNTER 2018-11-24 04:03 | Observation (INO) ==
--- NOTE | 2018-11-24 04:23 | Emergency Department Note ---
Disposition Clinical Impression: Hypoglycemia, TIA (transient ischemic attack), Elevated troponin Lymphoma Qualifiers: Lymphoma type: unspecified type Lymphoma site: unspecified region Qualified Code(s): C85.90 - Non-Hodgkin lymphoma, unspecified, unspecified site CAD (coronary artery disease) Qualifiers: Coronary Disease-Associated Artery/Lesion type: unspecified vessel or lesion type [place] vs. transplanted heart: [place] heart Associated angina: without angina Qualified Code(s): I25.10 - Atherosclerotic heart disease of [place] coronary artery without angina pectoris Disposition: Admitted As Inpatient Condition: Good Referrals: Meg Reina TREASURY ASSOCIATE [Primary Care Provider] - Forms: ED Satisfaction Letter General Adult HPI - General Chief complaint: ED Neuro Symptoms/Deficit Stated complaint: Neuro symptoms Time Seen by Provider: 11/24/18 04:19 Source: patient, family Limitations: no limitations Nursing Notes Reviewed: Yes Vital Signs Reviewed: Yes - History of Present Illness HPI Narrative: 68-year-old male with history of CAD, CABG and A. fib on Xarelto, and Lymphoma who presents emergency Department with complaints of slurred speech, weakness. states that at approximately 7 PM tonight he had a 30 minute episode of slurred speech, difficulty walking and bilateral lower extremity weakness. This resolved on its own. He then went to bed after getting to baseline. He then woke up around 230 and at approximately 3am, 1 hour prior to arrival the patient was Pain Scale: 0 - Related Data Home Medications Medication Instructions Recorded Confirmed Aspirin [Lo-Dose Aspirin EC] 81 mg PO DAILY 11/21/16 11/21/18 Atorvastatin [Lipitor] 10 mg PO HS 11/21/16 11/21/18 Glimepiride [Amaryl] 4 mg PO BID 11/21/16 11/21/18 Lisinopril [Zestril] 5 mg PO DAILY 11/21/16 11/21/18 Metformin HCl [Glucophage] 1,000 mg PO BID 11/21/16 11/21/18 Nitroglycerin 0.4 mg SL Q5MIN PRN 11/21/16 11/21/18 amLODIPine [Norvasc] 5 mg PO DAILY 11/21/16 11/21/18 Metoprolol XL (24 HR) Succ [Toprol 50 mg PO BID 07/16/18 11/21/18 Xl] Previous Rx's Medication Instructions Recorded Furosemide [Lasix] 40 mg PO BID #10 tablet 07/22/18 Walker [WALKER] 1 each .ROUTE AD #1 each 07/22/18 Allopurinol [Zyloprim 300 MG] 300 mg PO DAILY #30 tablet 10/20/18 Acyclovir [Zovirax] 400 mg PO BID #60 tablet 11/03/18 Allopurinol [Zyloprim] 300 mg PO BID #60 tablet 11/03/18 Ciprofloxacin HCl [Cipro] 500 mg PO BID #60 tablet 11/03/18 Fluconazole [Diflucan] 400 mg PO DAILY #60 tab 11/03/18 Omeprazole [PriLOSEC] 40 mg PO DAILY #30 cap 11/03/18 Ondansetron HCl [Zofran] 4 mg PO Q6HR PRN #20 tab 11/03/18 predniSONE [PredniSONE] 60 mg PO DAILY #15 tablet 11/03/18 Rivaroxaban [Xarelto] 20 mg PO DAILY #30 tablet 11/04/18 Lidocaine/Prilocaine [Emla] 1 appl TP DAILY #30 gm 11/06/18 OxyCODONE ER (12 HR) [OxyCONTIN] 10 mg PO Q12HR 30 Days #60 11/06/18 tab.er.12h Magic Mouthwash 5 ml PO Q4HR #240 ml 11/12/18 Polyethylene Glycol 3350 [MiraLAX] 17 gm PO DAILY #1 bottle 11/12/18 Oxycodone HCl/Acetaminophen 1 each PO Q6HR 30 Days #120 tablet 11/18/18 [Percocet 5-325 mg Tablet] Rivaroxaban [Xarelto] 10 mg PO DAILY #30 tablet 11/18/18 cephALEXin [Keflex] 500 mg PO TID #21 capsule 11/18/18 Doxycycline 100 mg PO BID #20 capsule 11/20/18 Allergies Allergy/AdvReac Type Severity Reaction Status Date / Time No Known Allergies Allergy Verified 11/21/18 13:04 Review of Systems: In addition to that documented in the HPI above, the additional ROS was obtained: General: Denies fever. Denies chills. Denies weight loss. Denies behavioral change. Eyes: Denies visual changes. ENT: Denies nasal congestion. Denies sore throat. Denies hearing change. Cardio: Denies chest pain. Denies palpitations. Respiratory: Denies cough. Admits shortness of breath. Denies wheezing. GI: Denies nausea, vomiting, or diarrhea. Denies hematochezia or melena. Denies abdominal pain. : Denies dysuria, hematuria, or urinary retention MSK: Denies back pain. Denies joint swelling. Neuro: Admits slurred speech. Admits numbness or tingling. Admits focal weakness. Denies headache. Denies loss of consciousness. Psych: Denies mood changes. All systems ED: reviewed and negative except as stated. Review of Systems: As Per HPI Past Medical History - Past Medical History Medical history: Reports: arthritis, coronary artery disease, diabetes, hyperlipidemia, hypertension, myocardial infarction, other Surgical history: Reports: angioplasty/stent, appendectomy, coronary bypass (CABG), knee replacement, orthopedic, other, other Psychiatric history: Reports: no psych history - Social History Smoking Status: Never smoker Smokeless Tobacco Status: No Alcohol use: Reports: none Drug use: Reports: none Physical Exam General: Conversant. No apparent distress. Follow commands. Appears stated age. Neck: No JVD. Trachea midline. Neck supple. Eyes: PERRL. No scleral icterus. HENT: Normocephalic and atraumatic. Moist mucus membranes. Cardiovascular: Regular rate and rhythm. Normal S1 and S2. No murmurs appreciated. Normal capillary refill. Extremities well perfused with 2+ distal pulses bilaterally. No edema. Pulmonary: Normal and equal breath sounds bilaterally, anteriorly and posteriorly. No wheezes, rales, or rhonchi. Not in respiratory distress. Speaks in full sentences. Abdomen: Soft, nondistended, and tontender. No bruits or masses. No guarding. Neuro: Alert and oriented x2, states year is 2018. Mild slurred speech. Alert and oriented to person, and place, believes it is 2018. CN II-XII tested and grossly intact. No hemineglect. Sensory: Sensation intact to light touch in all extremities. Motor: Normal tone and bulk. No pronator drift. 5/5 strength in LUE 5/5 strength in RUE 5/5 strength in LLE 5/5 strength in RLE Coordination: Finger to nose and heel to blankenship testing intact bilaterally. Reflexes: Babinski with downgoing toes bilaterally. Skin: No rashes noted on visualized skin. Musculoskeletal: No bony abnormalities visualized. Moves all extremities. Psych: Normal mood. Pleasant. Makes appropriate eye contact. - General Limitations: no limitations General appearance: alert, in no apparent distress Course - Reevaluation(s) Reevaluation #1: Discussed CT head with [place] radiology who sees subtle levi-white differentiation changes in the left temporal lobe which would correlate with slurred speech. Radiologist recommends MRI for further evaluation. No hemorrhage seen on CT. Time: 05:17 Vital Signs Temperature 97.6 F 11/24/18 04:09 Pulse Rate 65 11/24/18 04:09 Respiratory Rate 20 11/24/18 04:09 Blood Pressure 134/106 11/24/18 04:09 O2 Sat by Pulse Oximetry 100 11/24/18 04:09 Temperature 97.6 F 11/24/18 04:09 Pulse Rate 58 11/24/18 05:26 Respiratory Rate 20 11/24/18 05:26 Blood Pressure 131/73 11/24/18 05:26 O2 Sat by Pulse Oximetry 98 11/24/18 05:26 Oxygen Delivery Oxygen Delivery Room Air Medical Decision Making - MDM Narrative Medical decision making narrative: 68-year-old male who presents the emergency department with slurred speech. Per his by the time of arrival in our assessment he is approximately back to his baseline and significantly improved since his symptoms started. Initial point of care glucose was in the 50s therefore did give him oral juice. Given the patient's rapid improvement in his symptoms stroke alert was not called. Did obtain CBC, BMP, EKG, chest x-ray, troponin as well as head CT. CBC shows anemia which appears approximately the patient's baseline. Otherwise he does have slight elevation in troponin to 0.18 but given he is chest pain free and without EKG changes, this will likely be adynamic as it has been in the past. CT head does show subtle change in the levi-white differentiation in the left temporal lobe which could correlate with his slurred speech. After CT head resulted without hemorrhage he was given 325mg aspirin. He has significant improvement in his speech and has no complaints. It is possible these symptoms are moreso related to a TIA but will admit for likely MRI and neurology consultation. Did give the patient snack to ensure he does not remain hypoglycemic. Discussed case with on-call hospitalist Dr. Sheth who agrees with plan for admission and accepts the patient to the inpatient service. Patient agrees with and understands course of treatment plan including plan for admission. All questions answered. - Medical Records Medical records reviewed: Yes I reviewed the patient's medical records. - Lab Data Lab results reviewed: Yes I reviewed the patient's lab results. Result diagrams: 11/24/18 04:30 11/24/18 04:30 Lab Results 11/24/18 11/24/18 11/24/18 Range/Units 04:30 04:30 04:30 WBC 5.1 (4.3-11.1) K/mcL RBC 3.71 L (4.19-5.50) M/mcL Hgb 8.8 L (12.9-16.9) g/dL Hct 29.0 L (37.5-50.1) % MCV 78.2 L (83.0-100.0) fL MCH 23.7 L (28.0-33.3) pg MCHC 30.3 L (31.6-35.5) g/dL RDW 20.0 H (11.5-14.5) % Plt Count 366 D (140-400) K/mcL MPV 9.2 L (9.4-12.4) fL Immature Gran % 9.9 H (0-4) % Seg Neutrophils % 40.5 % Lymphocytes % 22.9 % Monocytes % 15.4 % Eosinophils % 9.1 % Basophils % 2.2 % Neutrophils # 2.1 (1.6-8.9) K/mcL Lymphocytes # 1.2 (0.6-4.6) K/mcL Monocytes # 0.8 (0.0-1.3) K/mcL Eosinophils # 0.5 (0.0-0.6) K/mcL Basophils # 0.1 (0.0-0.2) K/mcL Platelet Estimate Normal (Normal) PT 17.4 H (9.4-12.1) Seconds INR 1.5 APTT 35.1 (26.0-36.0) Seconds Sodium 138 (136-145) mEq/L Potassium 4.2 (3.5-5.1) mEq/L Chloride 102 (98-107) mEq/L Carbon Dioxide 22 L (23-29) mEq/L BUN 13 (8-23) mg/dL Creatinine 1.04 (0.70-1.30) mg/dL Est GFR ( Amer) > 60 (> 60) Est GFR (Non-Af Amer) > 60 (> 60) BUN/Creatinine Ratio 13 (6-26) Glucose 60 L (70-105) mg/dL Calculated Osmolality 284 (280-300) Calcium 9.0 (8.6-10.3) mg/dL Magnesium 1.8 (1.6-2.6) mg/dL Total Bilirubin 0.3 (0.3-1.0) mg/dL Direct Bilirubin 0.1 (0.0-0.2) mg/dL Indirect Bilirubin 0.2 (0.0-1.2) mg/dL AST 14 (13-39) Units/L ALT 11 (7-52) Units/L Alkaline Phosphatase 70 (34-104) Units/L Troponin I 0.18 H* (< 0.04) ng/mL Serum Total Protein 6.4 (6.4-8.9) g/dL Albumin 3.3 L (3.5-5.7) g/dL Globulin 3.1 (2.4-3.5) g/dL Albumin/Globulin Ratio 1.1 (1.1-2.2) - Radiology Data Radiology results reviewed: Yes I reviewed the patient's radiology results. Chest X-Ray 11/24/18 04:20 IMPRESSION: No acute process. D/ / Jose Aldridge MD / Jose Aldridge MD Interpreting Provider: Jose Aldridge MD Head CT 11/24/18 04:20 IMPRESSION: There is subtle loss of daugherty-white matter differentiation within the left temporal lobe, concerning for an acute infarct. There is no evidence of hemorrhage. Further evaluation with MRI of the brain is recommended. Findings were discussed with Cee Borrego at 5:15 am on 11/24/2018. D/ / Felipa Alston MD / Felipa Alston MD Interpreting Provider: Felipa Alston MD - EKG Data EKG #1 EKG attestation: Yes I reviewed and interpreted this EKG. EKG results narrative: Atrial flutter rate of 59. Normal axis. Intermittent PVCs. No evidence of ST elevations. When compared with prior from 07/17/2018 there are no significant changes. QRS 114, QT 465, QTC 461.
[2018-11-24 04:49] LABS: Basophils # 0.1 K/mcL (0.0-0.2); Basophils % 2.2 %; Eosinophils # 0.5 K/mcL (0.0-0.6); Eosinophils % 9.1 %; Hemoglobin 8.8 g/dL (12.9-16.9); Immature Granulocytes % 9.9 % (0-4); Lymphocytes # 1.2 K/mcL (0.6-4.6); Lymphocytes % 22.9 %; Mean Corpuscular HGB Conc 30.3 g/dL (31.6-35.5); Mean Corpuscular Hemoglobin 23.7 pg (28.0-33.3); Mean Corpuscular Volume 78.2 fL (83.0-100.0); Mean Platelet Volume 9.2 fL (9.4-12.4); Monocytes # 0.8 K/mcL (0.0-1.3); Monocytes % 15.4 %; Neutrophils # 2.1 K/mcL (1.6-8.9); Platelet Count 366 K/mcL (140-400); Red Blood Count 3.71 M/mcL (4.19-5.50); Segmented Neutrophils % 40.5 %
[2018-11-24 04:57] LABS: INR 1.5; Prothrombin Time 17.4 Seconds (9.4-12.1)
[2018-11-24 04:59] LABS: Activated Partial Thrombo Time 35.1 Seconds (26.0-36.0)
[2018-11-24 05:11] LABS: Alanine Aminotransferase 11 Units/L (7-52); Albumin 3.3 g/dL (3.5-5.7); Albumin/Globulin Ratio 1.1 (1.1-2.2); Alkaline Phosphatase 70 Units/L (34-104); Aspartate Amino Transferase 14 Units/L (13-39); BUN/Creatinine Ratio 13 (6-26); Bilirubin,Direct 0.1 mg/dL (0.0-0.2); Bilirubin,Indirect 0.2 mg/dL (0.0-1.2); Bilirubin,Total 0.3 mg/dL (0.3-1.0); Blood Urea Nitrogen 13 mg/dL (8-23); Carbon Dioxide 22 mEq/L (23-29); Chloride 102 mEq/L (98-107); Globulin 3.1 g/dL (2.4-3.5); Glucose 60 mg/dL (70-105); Magnesium 1.8 mg/dL (1.6-2.6); Osmolality,Calculated 284 (280-300); Potassium 4.2 mEq/L (3.5-5.1); Sodium 138 mEq/L (136-145); Total Protein 6.4 g/dL (6.4-8.9); eGFR For Non-African Americans > 60 (> 60)
[2018-11-24] MEDS ORDERED: Aspirin 81 MG TAB.CHEW PO STA (05:18)
--- NOTE | 2018-11-24 05:18 | Emergency Department Note ---
Disposition Clinical Impression: Hypoglycemia, TIA (transient ischemic attack), Elevated troponin Lymphoma Qualifiers: Lymphoma type: unspecified type Lymphoma site: unspecified region Qualified Code(s): C85.90 - Non-Hodgkin lymphoma, unspecified, unspecified site CAD (coronary artery disease) Qualifiers: Coronary Disease-Associated Artery/Lesion type: unspecified vessel or lesion type [place] vs. transplanted heart: [place] heart Associated angina: without angina Qualified Code(s): I25.10 - Atherosclerotic heart disease of [place] coronary artery without angina pectoris Disposition: Admitted As Inpatient Condition: Good Referrals: Meg Reina STRAP MACHINE OPERATOR AUTOMATIC [Primary Care Provider] - Forms: ED Satisfaction Letter General Adult HPI - General Chief complaint: ED Neuro Symptoms/Deficit Stated complaint: Neuro symptoms Time Seen by Provider: 11/24/18 04:19 Source: patient, family Limitations: no limitations Nursing Notes Reviewed: Yes Vital Signs Reviewed: Yes - History of Present Illness Pain Scale: 0 - Related Data Home Medications Medication Instructions Recorded Confirmed Aspirin [Lo-Dose Aspirin EC] 81 mg PO DAILY 11/21/16 11/21/18 Atorvastatin [Lipitor] 10 mg PO HS 11/21/16 11/21/18 Glimepiride [Amaryl] 4 mg PO BID 11/21/16 11/21/18 Lisinopril [Zestril] 5 mg PO DAILY 11/21/16 11/21/18 Metformin HCl [Glucophage] 1,000 mg PO BID 11/21/16 11/21/18 Nitroglycerin 0.4 mg SL Q5MIN PRN 11/21/16 11/21/18 amLODIPine [Norvasc] 5 mg PO DAILY 11/21/16 11/21/18 Metoprolol XL (24 HR) Succ [Toprol 50 mg PO BID 07/16/18 11/21/18 Xl] Previous Rx's Medication Instructions Recorded Furosemide [Lasix] 40 mg PO BID #10 tablet 07/22/18 Walker [WALKER] 1 each .ROUTE AD #1 each 07/22/18 Allopurinol [Zyloprim 300 MG] 300 mg PO DAILY #30 tablet 10/20/18 Acyclovir [Zovirax] 400 mg PO BID #60 tablet 11/03/18 Allopurinol [Zyloprim] 300 mg PO BID #60 tablet 11/03/18 Ciprofloxacin HCl [Cipro] 500 mg PO BID #60 tablet 11/03/18 Fluconazole [Diflucan] 400 mg PO DAILY #60 tab 11/03/18 Omeprazole [PriLOSEC] 40 mg PO DAILY #30 cap 11/03/18 Ondansetron HCl [Zofran] 4 mg PO Q6HR PRN #20 tab 11/03/18 predniSONE [PredniSONE] 60 mg PO DAILY #15 tablet 11/03/18 Rivaroxaban [Xarelto] 20 mg PO DAILY #30 tablet 11/04/18 Lidocaine/Prilocaine [Emla] 1 appl TP DAILY #30 gm 11/06/18 OxyCODONE ER (12 HR) [OxyCONTIN] 10 mg PO Q12HR 30 Days #60 11/06/18 tab.er.12h Magic Mouthwash 5 ml PO Q4HR #240 ml 11/12/18 Polyethylene Glycol 3350 [MiraLAX] 17 gm PO DAILY #1 bottle 11/12/18 Oxycodone HCl/Acetaminophen 1 each PO Q6HR 30 Days #120 tablet 11/18/18 [Percocet 5-325 mg Tablet] Rivaroxaban [Xarelto] 10 mg PO DAILY #30 tablet 11/18/18 cephALEXin [Keflex] 500 mg PO TID #21 capsule 11/18/18 Doxycycline 100 mg PO BID #20 capsule 11/20/18 Allergies Allergy/AdvReac Type Severity Reaction Status Date / Time No Known Allergies Allergy Verified 11/21/18 13:04 Past Medical History - Past Medical History Medical history: Reports: arthritis, coronary artery disease, diabetes, hyperlipidemia, hypertension, myocardial infarction, other Surgical history: Reports: angioplasty/stent, appendectomy, coronary bypass (CABG), knee replacement, orthopedic, other, other Psychiatric history: Reports: no psych history - Social History Smoking Status: Never smoker Smokeless Tobacco Status: No Alcohol use: Reports: none Drug use: Reports: none Physical Exam - General Limitations: no limitations General appearance: alert, in no apparent distress Course Vital Signs Temperature 97.6 F 11/24/18 04:09 Pulse Rate 65 11/24/18 04:09 Respiratory Rate 20 11/24/18 04:09 Blood Pressure 134/106 11/24/18 04:09 O2 Sat by Pulse Oximetry 100 11/24/18 04:09 Temperature 97.6 F 02/18/19 04:09 Pulse Rate 56 11/24/18 06:25 Respiratory Rate 16 11/24/18 06:25 Blood Pressure 136/64 11/24/18 06:25 O2 Sat by Pulse Oximetry 99 11/24/18 06:25 Oxygen Delivery Oxygen Delivery Room Air Medical Decision Making - Medical Records Medical records reviewed: Yes I reviewed the patient's medical records. - Lab Data Lab results reviewed: Yes I reviewed the patient's lab results. Result diagrams: 11/24/18 04:30 11/24/18 04:30 Lab Results 11/24/18 11/24/18 11/24/18 Range/Units 04:30 04:30 04:30 WBC 5.1 (4.3-11.1) K/mcL RBC 3.71 L (4.19-5.50) M/mcL Hgb 8.8 L (12.9-16.9) g/dL Hct 29.0 L (37.5-50.1) % MCV 78.2 L (83.0-100.0) fL MCH 23.7 L (28.0-33.3) pg MCHC 30.3 L (31.6-35.5) g/dL RDW 20.0 H (11.5-14.5) % Plt Count 366 D (140-400) K/mcL MPV 9.2 L (9.4-12.4) fL Immature Gran % 9.9 H (0-4) % Seg Neutrophils % 40.5 % Lymphocytes % 22.9 % Monocytes % 15.4 % Eosinophils % 9.1 % Basophils % 2.2 % Neutrophils # 2.1 (1.6-8.9) K/mcL Lymphocytes # 1.2 (0.6-4.6) K/mcL Monocytes # 0.8 (0.0-1.3) K/mcL Eosinophils # 0.5 (0.0-0.6) K/mcL Basophils # 0.1 (0.0-0.2) K/mcL Platelet Estimate Normal (Normal) PT 17.4 H (9.4-12.1) Seconds INR 1.5 APTT 35.1 (26.0-36.0) Seconds Sodium 138 (136-145) mEq/L Potassium 4.2 (3.5-5.1) mEq/L Chloride 102 (98-107) mEq/L Carbon Dioxide 22 L (23-29) mEq/L BUN 13 (8-23) mg/dL Creatinine 1.04 (0.70-1.30) mg/dL Est GFR ( Amer) > 60 (> 60) Est GFR (Non-Af Amer) > 60 (> 60) BUN/Creatinine Ratio 13 (6-26) Glucose 60 L (70-105) mg/dL Calculated Osmolality 284 (280-300) Calcium 9.0 (8.6-10.3) mg/dL Magnesium 1.8 (1.6-2.6) mg/dL Total Bilirubin 0.3 (0.3-1.0) mg/dL Direct Bilirubin 0.1 (0.0-0.2) mg/dL Indirect Bilirubin 0.2 (0.0-1.2) mg/dL AST 14 (13-39) Units/L ALT 11 (7-52) Units/L Alkaline Phosphatase 70 (34-104) Units/L Troponin I 0.18 H* (< 0.04) ng/mL Serum Total Protein 6.4 (6.4-8.9) g/dL Albumin 3.3 L (3.5-5.7) g/dL Globulin 3.1 (2.4-3.5) g/dL Albumin/Globulin Ratio 1.1 (1.1-2.2) - Radiology Data Radiology results reviewed: Yes I reviewed the patient's radiology results. Chest X-Ray 11/24/18 04:20 IMPRESSION: No acute process. D/ / Jose Aldridge MD / Jose Aldridge MD Interpreting Provider: Jose Aldridge MD Head CT 11/24/18 04:20 IMPRESSION: There is subtle loss of daugherty-white matter differentiation within the left temporal lobe, concerning for an acute infarct. There is no evidence of hemorrhage. Further evaluation with MRI of the brain is recommended. Findings were discussed with Cee Borrego at 5:15 am on 11/24/2018. D/ / Felipa Alston MD / Felipa Alston MD Interpreting Provider: Felipa Alston MD - EKG Data EKG #1 EKG attestation: Yes I reviewed and interpreted this EKG. EKG results narrative: EKG shows atrial flutter with ventricular rate of 59. PVC. No ST elevation or depression. No change from prior EKG dated 07/17/2018. Attestation Statement - Attestation Attestation: I, Kurt Rodriguez MD, personally evaluated this patient and discussed their management with the resident physician. I reviewed the resident's note and agree with the documented findings, medical decision making, and plan of care. 68-year-old male persisted emergency department with a complaint of neuro symptoms which started about one hour prior to arrival. reports that he had an episode earlier in the evening about 7 PM. He had difficulty with speech and balance. All he could say was helped knee and his speech was slurred. He could not get out what he wanted to say. helped him to his chair and this resolved completely after a while. He had another similar episode this morning sometime around 3 AM. His speech was slurred and he could not get out what he wanted to say. He seemed a little confused. By the time I get patient into trauma one on the stretcher he was talking and answering questions appropriately. His speech was no longer slurred and his symptoms had totally resolved. Initial INH of 0. No facial droop. No slurred speech. No drift of the upper or lower extremities. No motor weakness. Sensation intact. Patient is on Xarelto for atrial fibrillation. On examination patient is a well-developed well-nourished elderly male in no acute distress. He is alert and oriented. No cyanosis or diaphoresis. Breath sounds are clear and equal bilaterally. Heart regular rate and rhythm. Abdomen soft and nontender with normal bowel sounds. Good media professional strength bilaterally. No drift of upper or lower extremities. No facial droop. Fingerstick blood sugar 58. Patient was given juice. CT of the head showed an area in the left temporal lobe of subtle loss of daugherty-white matter differentiation concerning for infarction. MRI recommended. Chest x-ray negative. EKG showed atrial flutter with a ventricular rate of 59. Also a PVC. No ST segment elevation or depression. Labs reviewed. The hospitalist, Dr. Sheth, was consulted and accepted admission of the patient.
[2018-11-24 05:21] LABS: Troponin I 0.18 ng/mL (< 0.04)
[2018-11-24 05:29] LABS: Platelet Estimate Normal (Normal)
[2018-11-24 07:30] LABS: Bilirubin,Urine Negative (Negative); Blood,Urine Negative (Negative); Clarity,Urine Clear (Clear); Color,Urine Yellow (Yellow); Glucose,Urine (UA) Normal (Normal); Ketones,Urine Negative (Negative); Leukocyte Esterase,Urine Negative (Negative); Nitrite,Urine Negative (Negative); Protein,Urine 30 mg/dL (Neg-Trace); Specific Gravity,Urine 1.015 (1.010-1.025); Urobilinogen,Urine Normal (Normal)
[2018-11-24 07:33] LABS: Bacteria,Urine None Seen per hpf (None-Few); Hyaline Casts,Urine None Seen per lpf (None-Few); RBC,Urine 0-3 per hpf (0-3); Squamous Epithelial Cell,Urine None Seen per lpf (None-Few); WBC,Urine 0-3 per hpf (0-3)
[2018-11-24 08:09] LABS: Sperm,Urine Present
[2018-11-24] MEDS ORDERED: Naloxone 0.4 MG/ML INJ IVP PRN (08:12)
--- NOTE | 2018-11-24 08:21 | Internal Med History&Physical ---
Date of Encounter: 11/24/18 Time of Encounter: 08:14 Internal Medicine - H&P: HPI Chief complaint: slurred speech Admitted From: Home Plans for Post Hospital Care: Home History of present illness: Mr. 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 As per family at bedside symptoms have been occurring for the past 3 weeks on and off. On the day before admission he developed difficulty finding words and slurred speech 3 which spontaneously resolved. At around 3 AM he was brought to the emergency department because he woke up again having difficulty finding words. In addition he felt extremely weak. he cannot recall alleviating or aggravating factors. He denies extremity weakness or loss of sensation in the extremities. Denies history of seizures. He denies fever, chills, nausea, vomiting, diarrhea. As per patient he was recently seen and his oncologist office on November 21 and Xarelto was decreased to 10 mg secondary to severe nosebleeds. He is compliant with his medication last took his Xarelto on 11/23 and is compliant with aspirin 81 mg daily. He is currently receiving chemotherapy for DL BCL next cycle is due on November 26 and he follows with the [place] [facility]. Currently he denies difficulty speaking, has no weakness in the extremities or loss of sensation. While the emergency department he was given aspirin [address] head showed possible acute infarct in the left temporal lobe. An MRI was recommended. He was endorsed for admission for further workup of stroke. Past Med Surg Social Fam HX - Past Medical History Medical history: arthritis, coronary artery disease, diabetes, hyperlipidemia, hypertension, myocardial infarction, other Psychiatric history: no psych history - Past Surgical History Surgical History: angioplasty/stent, appendectomy, coronary bypass (CABG), knee replacement, orthopedic, other, other Additional surgical history: cardiac stent. knee surgery - Social History Smoking Status: Never smoker Smokeless Tobacco Status: No Alcohol use: none Drug use: none - Family History Mother Living Status: Still Living Hx Family Cardiac Disorders: Yes (CAD, CABG) Father Living Status: Hx Family Cardiac Disorders: Yes (CAD; CABG) Hx Family Endocrine Disorder: Yes (DM) Internal Medicine - H&P: Meds RX: Aspirin [Lo-Dose Aspirin EC] 81 mg PO DAILY 11/21/16 [History] RX: Atorvastatin [Lipitor] 10 mg PO HS 11/21/16 [History] RX: Glimepiride [Amaryl] 4 mg PO BID 11/21/16 [History] RX: Lisinopril [Zestril] 5 mg PO DAILY 11/21/16 [History] RX: Metformin HCl [Glucophage] 1,000 mg PO BID 11/21/16 [History] RX: Nitroglycerin 0.4 mg SL Q5MIN PRN 11/21/16 [History] RX: amLODIPine [Norvasc] 5 mg PO DAILY 11/21/16 [History] RX: Metoprolol XL (24 HR) Succ [Toprol Xl] 50 mg PO BID 07/16/18 [History] Ciprofloxacin HCl [Cipro] 500 mg PO BID #60 tablet 11/03/18 [Rx] Omeprazole [PriLOSEC] 40 mg PO DAILY #30 cap 11/03/18 [Rx] Ondansetron HCl [Zofran] 4 mg PO Q6HR PRN #20 tab 11/03/18 [Rx] RX: Acyclovir [Zovirax] 400 mg PO BID #60 tablet 11/03/18 [Rx] RX: Allopurinol [Zyloprim] 300 mg PO BID #60 tablet 11/03/18 [Rx] RX: Fluconazole [Diflucan] 400 mg PO DAILY #60 tab 11/03/18 [Rx] Lidocaine/Prilocaine [Emla] 1 appl TP DAILY #30 gm 11/06/18 [Rx] RX: OxyCODONE ER (12 HR) [OxyCONTIN] 10 mg PO Q12HR 30 Days #60 tab.er.12h 11/06/18 [Rx] Rivaroxaban [Xarelto] 10 mg PO DAILY #30 tablet 11/18/18 [Rx] RX: Doxycycline 100 mg PO BID #20 capsule 11/20/18 [Rx] Cyanocobalamin (Vitamin B-12) [Vitamin B12] 1,000 mcg PO DAILY 11/24/18 [History] Ferrous Sulfate [Iron] 325 mg PO DAILY 11/24/18 [History] Furosemide [Lasix] 20 mg PO BID 11/24/18 [History] Insulin Degludec [Tresiba Flextouch U-100] 20 unit SQ QAM 11/24/18 [History] OxyCODONE/APAP 5/325 [Percocet 5/325 MG] 1 each PO Q6HR PRN 11/24/18 [History] Allergy/AdvReac Type Severity Reaction Status Date / Time No Known Allergies Allergy Verified 11/21/18 13:04 All Systems PM: review of systems was performed and is negative for pertinent findings except as documented above in the HPI. - Constitutional Vitals: Temp Pulse Resp BP Pulse Ox 97.6 F 56 16 140/66 99 11/24/18 04:09 11/24/18 06:25 11/24/18 07:29 11/24/18 07:29 11/24/18 06:25 Exam: General: Patient is alert, oriented, no acute distress, speaks in full sentences Head: atraumatic, normocephalic, Eye: normal appearance, PERRL, no scleral icterus, no conjunctival injection, pale ENT: mucous membranes moist, normal external ear exam Neck: normal inspection, trachea midline, full ROM, no carotid bruits Chest: normal inspection, symmetric chest rise, CABG scar well-healed, right- sided port in the anterior chest without signs of infection Respiratory: Good respiratory effort. Bilateral breath sounds are clear without wheezing, crackles, or rhonchi. Cardiovascular: Bradycardic s1 and s2 No clicks, rubs, gallops, or murmors. Abdomen: Bowel sounds present normoactive x-4 quadrants. Abdomen is soft, nondistended. no Epigastric tenderness. No guarding or rebound. No organomegaly noted, obese musculoskeletal: Spontaneously moving all extremities. no edema, no calf tenderness Skin: warm, dry, intact. Stage II decub ulcer Neuro: Alert and oriented x4. Speech is comprehendible, cranial nerves II through XII is intact. Strength is 5 out of 5 in all extremities. Psych: Patient's affect is normal Internal Med - H&P Results - Labs CBC & Chem 7: 11/24/18 04:30 11/24/18 04:30 Labs: Short CBC 11/24/18 Range/Units 04:30 WBC 5.1 (4.3-11.1) K/mcL Hgb 8.8 L (12.9-16.9) g/dL Hct 29.0 L (37.5-50.1) % Plt Count 366 D (140-400) K/mcL Neutrophils # 2.1 (1.6-8.9) K/mcL BMP 11/24/18 04:30 Sodium 138 Potassium 4.2 Chloride 102 Carbon Dioxide 22 L BUN 13 Creatinine 1.04 Glucose 60 L Calcium 9.0 Cardiac Enzymes 11/24/18 Range/Units 04:30 Troponin I 0.18 H* (< 0.04) ng/mL Liver Function 11/24/18 Range/Units 04:30 Total Bilirubin 0.3 (0.3-1.0) mg/dL Direct Bilirubin 0.1 (0.0-0.2) mg/dL AST 14 (13-39) Units/L ALT 11 (7-52) Units/L Alkaline Phosphatase 70 (34-104) Units/L Albumin 3.3 L (3.5-5.7) g/dL Urine 11/24/18 Range/Units 07:15 Urine Color Yellow (Yellow) Urine Clarity Clear (Clear) Urine pH 6.0 (5.0-8.0) pH Units Ur Specific [place] 1.015 (1.010-1.025) Urine Protein 30 H (Neg-Trace) mg/dL Urine Glucose (UA) Normal (Normal) mg/dL - EKG Data -: EKG Interpreted by Myself (aflutter with 4:1 block borderline repol abn ormality ) - EKG Data Prior EKG available for review: yes When compared to previous EKG: there is no significant change - Impressions ITS Impressions Chest X-Ray 11/24/18 04:20 IMPRESSION: No acute process. D/ / 11/24/2018 07:27:58 Jose Aldridge MD / [facility] Interpreting Provider: Jose Aldridge MD Head CT 11/24/18 04:20 IMPRESSION: There is subtle loss of daugherty-white matter differentiation within the left temporal lobe, concerning for an acute infarct. There is no evidence of hemorrhage. Further evaluation with MRI of the brain is recommended. Findings were discussed with Cee M Plager at 5:15 am on 11/24/2018. D/ / 11/24/2018 07:28:39 Felipa Alston MD / [facility] Interpreting Provider: Felipa Alston MD - Assessment and plan (1) Acute CVA (cerebrovascular accident) Current Visit: Yes Status: Acute Assessment and plan: Acute left temporal CVA No TPA as symptoms rapidly improved/ out of window Telemetry monitoring Was loaded with aspirin 325 mg in the ED was on ASA 81 mg daily, will follow neurology recs on switching him to plavix is on xarelto daily for Afib- dose recently decreased by tubing machine operator on 11/21 secondary to nose bleeds- hematology consulted will follow recommendations Lipitor 80 mg at night Neurology consulted spoke to Dr. Barrios who will see the patient -recommended to hold off of AC ( heparin drip) until hematology/oncology sees the patient- he will see the patient and will provide further recommendations Neuro check as per protocol MRA head Carotid duplex 2D ECHO with bubble study Rehab/ PT Evaluation Speech / swallow evaluation Lipid panel, HbA1C, TSH Keep systolic BP <220 and diastolic BP <120 mmHg Maintain LDL less than 75 DVT prophylaxis with SCDs and on xarelto Fall, aspiration and seizure precautions (2) Atrial fibrillation Current Visit: Yes Status: Acute Assessment and plan: on BB and xarelto ( dose recently reduced be oncologist) currently in slow ventricular rate and acute stroke. hold BB for now continue xarelto pending neurology recommendations. took PM dose on 11/23 next dose due on 11/24 pm. ( Ct head negative for ICH) - hematology consulted (3) Elevated troponin Current Visit: Yes Status: Acute Assessment and plan: most likely secondary to supply vs demand mismatch cannot rule out underlying CAD currently Chest pain free follow troponins Q6H x3 continue home medications if not CI TTE pending will consider cardiology consult if troponin continues to trend up. (4) Hypoglycemia Current Visit: Yes Status: Acute Assessment and plan: on glimipride, long acting insulin at home along with metformin hold all diabetic oral diabetic medications finger sticks Q4H for 1 day hypoglycemia protocol A1c in AM (5) Lymphoma Current Visit: Yes Status: Acute Assessment and plan: Stage IV DLBCL; FISH and BMB results pending. Bulky disease with a left retroperitoneal para-aortic mass measuring 8.6 x 7.2 x 7.7 s/p chemotherapy next cycle is on 11/26 continue home pain medication oncology consulted will follow recommendations. Qualifiers: Lymphoma type: unspecified type Lymphoma site: unspecified region Qualif ied Code(s): C85.90 - Non-Hodgkin lymphoma, unspecified, unspecified site (6) Decubitus ulcer, stage 2 with infection Current Visit: No Status: Acute Assessment and plan: wound cx on 11/18 grew MRSA wound care consulted continue doxycyline( sensitive as per 11/18 cultures) ESR, CRP Bcx consider ID consult (7) Diabetes Current Visit: No Status: Chronic Assessment and plan: was hypoglycemic hold all oral hypoglycemic agents will consider insulin sliding scale if glucose stabilizes. A1c in AM Qualifiers: Diabetes mellitus type: type 2 Diabetes mellitus residential insulin use: with intermediate school teacher use Diabetes mellitus complication status: with neurologic complications Diabetes mellitus complication detail: with unspecified neuropathy Qualified Code(s): E11.40 - Type 2 diabetes mellitus with diabetic neuropathy, unspecified; Z79.4 - MCFP (current) use of insulin (8) Iron deficiency anemia Current Visit: Yes Status: Acute Assessment and plan: on iron supplements will continue hematology/oncology on board will follow recommendations. Qualifiers: Iron deficiency anemia type: inadequate dietary iron intake Qualified Code(s): D50.8 - Other iron deficiency anemias (9) Obesity (BMI 30-39.9) Current Visit: No Status: Chronic Assessment and plan: nutrition consult (10) DVT prophylaxis Current Visit: No Status: Acute Assessment and plan: on xarelto SCds - Time Spent With Patient Total time spent is greater than 50% in coordination of care (as documented) at patient's floor/unit and/or counseling patient:
[2018-11-24] MEDS ORDERED: Gadolinium Contrast Agent (WT Based) IV PRN (08:30)
[2018-11-24] MEDS ORDERED: D5% in Water 1,000 ML IVC PRN (08:36)
[2018-11-24] MEDS ORDERED: Dextrose Gel 15 GM/37.5 ML TUBE PO PRN ×2 (08:36)
[2018-11-24] MEDS ORDERED: Dextrose 4 GM Chewable Tablets PO PRN ×2 (08:36)
[2018-11-24] MEDS ORDERED: *HR* Dextrose 50 % in Water (Syg) 50 ML SYRINGE IVP PRN (08:36)
[2018-11-24] MEDS ORDERED: Ondansetron ODT 4 MG TAB.RAPDIS PO PRN (08:56)
[2018-11-24] MEDS ORDERED: Nitroglycerin 0.4 MG TAB.SUBL SL PRN (08:56)
[2018-11-24] MEDS: Acyclovir 200 MG CAPSULE PO SCH ×2 (09:25→21:01)
[2018-11-24] MEDS: Cyanocobalamin (B-12) 1,000 MCG TABLET PO SCH (09:25)
[2018-11-24] MEDS: *HR* OxyCODONE ER (12 HR) 10 MG TABLET PO SCH ×2 (09:25→21:00)
[2018-11-24] MEDS: Fluconazole 100 MG TABLET PO SCH (09:26)
[2018-11-24] MEDS: 0.9 % Sodium Chloride 1,000 ML IVC SCH (09:29)
[2018-11-24] MEDS: Doxycycline 100 MG CAPSULE PO SCH ×2 (10:29→21:00)
--- NOTE | 2018-11-24 11:05 | Neurology - Consult Note ---
Addendum entered and electronically signed by Jaya Barrios MD 11/24/18 16:41: I did a face to face evaluation with the patient in the presence of Gurpreet Rosario. Case discussed, laboratory results reviewed and imaging studies reviewed together and I agree with his history taking, physical examination, assessment and plan. this is a 68-year-old man with past medical history significant for chronic atrial fibrillation on combination of Xarelto and aspirin, status post chemotherapy few weeks ago who developed few episodes of diaphoresis, diffuse weakness, dizziness, speech difficulty lasting less than 20 minutes in duration in the last few days. MRI of the brain demonstrated no evidence of stroke. patient has been taking a reduced dose of Xarelto due to nasal bleeding on last Saturday. Nasal bleeding has been stopped and currently there is no evidence of active bleeding. There are reports that his glucose has been running low which may contribute to the spells. Not fully convinced that these are true TIAs. However, patient does have atrial fibrillation and he is at risk of developing arterial embolism if not fully anticoaguted. At present time would suggest: 1. Continue on anticoagulation therapy with xarelto and Aspirin. If no active bleeding i would recommend that patient go on full dose Xarelto and monitor clinical symptoms closely, but would defer decision to cardiology and hemo- oncology. 2. Would recommend carotid artery duplex study to check possible ICA stenosis. 3. EEG already completed and showed no seizures, no EDs and no significant focal slowing. Occasional delta slowing noted at the left anterior temporal lobe would be consistent with left temporal lobe atrophy. Addendum entered and electronically signed by Gurpreet Rosario 11/24/18 12:55: Recommend EEG to r/o seizures Original Note: Date of Encounter: 11/24/18 Time of Encounter: 10:57 Assessment and Plan (1) Acute CVA (cerebrovascular accident) Current Visit: Yes Status: Acute Pt has recurrent episodes of weakness, confusion, and slurred speech lasting 30 minutes at a time and alleviated by food consumption. Recently with start of chemotherapy in the past month, pt blood glucose level has been in 50s as opposed to 200s where he typically lies. Pt has decreased appetite and weight loss in response to his chemotherapy regimen. Based on the above, it is likely that pt sx correlate with a hypoglycemic state but CVA is also likely, continue with r/o. CT head on admission indicated possible acute infarct in left temporal lobe. MRI brain pending Continue neuro assessments per protocol Already taking ASA and Plavix; resume is not already done History of Present Illness Chief complaint: concern for CVA with intermittent slurred speech and confusion HPI: Mr. Sahu is a 68 y/o male with PMHx of A fib controlled with Xarelto and Aspirin, CAD, CABG, DM, and DLBCL presenting with recurrent episodes of mild confusion, weakness and slurred speech over the past week. His speech is not impaired but pt states that he feels what he says is unintelligible. Pt reports that these episodes last for approximately 30 minutes for which he is alert and aware of his state. At this time he typically has some juice or a snack and his symptoms alleviate. He has noticed these episodes over the last week, increasing in frequency, having 3 yesterday prior to ED presentation. Pt has had a decreased appetite for quite some time, but with recent start of chemotherapy regimen last month for his DLBCL he reports his appetite has worsened. His daughter, present at bedside, reports that he has also had weight loss. Pt also has DM for which he is compliant, taking his blood glucose levels daily. Pt was typically running in the 200s in the mornings, however since beginning his chemotherapy last month he states that his levels have been in the 50s. Past Med Surg Social Fam HX - Past Medical History Medical history: arthritis, coronary artery disease, diabetes, hyperlipidemia, hypertension, myocardial infarction, other Additional medical history: [place] x5 Psychiatric history: no psych history - Past Surgical History Surgical History: angioplasty/stent, appendectomy, coronary bypass (CABG), knee replacement, orthopedic, other, other Additional surgical history: cardiac stent. knee surgery - Social History Smoking Status: Never smoker Smokeless Tobacco Status: No Alcohol use: none Drug use: none - Family History Mother Living Status: Still Living Hx Family Cardiac Disorders: Yes (CAD, CABG) Father Living Status: Hx Family Cardiac Disorders: Yes (CAD; CABG) Hx Family Endocrine Disorder: Yes (DM) Medications and Allergies Aspirin [Lo-Dose Aspirin EC] 81 mg PO DAILY 11/21/16 [History] Atorvastatin [Lipitor] 10 mg PO HS 11/21/16 [History] Glimepiride [Amaryl] 4 mg PO BID 11/21/16 [History] Lisinopril [Zestril] 5 mg PO DAILY 11/21/16 [History] Metformin HCl [Glucophage] 1,000 mg PO BID 11/21/16 [History] Nitroglycerin 0.4 mg SL Q5MIN PRN 11/21/16 [History] amLODIPine [Norvasc] 5 mg PO DAILY 11/21/16 [History] Metoprolol XL (24 HR) Succ [Toprol Xl] 50 mg PO BID 07/16/18 [History] Acyclovir [Zovirax] 400 mg PO BID #60 tablet 11/03/18 [Rx] Allopurinol [Zyloprim] 300 mg PO BID #60 tablet 11/03/18 [Rx] Ciprofloxacin HCl [Cipro] 500 mg PO BID #60 tablet 11/03/18 [Rx] Fluconazole [Diflucan] 400 mg PO DAILY #60 tab 11/03/18 [Rx] Omeprazole [PriLOSEC] 40 mg PO DAILY #30 cap 11/03/18 [Rx] Ondansetron HCl [Zofran] 4 mg PO Q6HR PRN #20 tab 11/03/18 [Rx] Lidocaine/Prilocaine [Emla] 1 appl TP DAILY #30 gm 11/06/18 [Rx] OxyCODONE ER (12 HR) [OxyCONTIN] 10 mg PO Q12HR 30 Days #60 tab.er.12h 11/06/18 [Rx] Rivaroxaban [Xarelto] 10 mg PO DAILY #30 tablet 11/18/18 [Rx] Doxycycline 100 mg PO BID #20 capsule 11/20/18 [Rx] Cyanocobalamin (Vitamin B-12) [Vitamin B12] 1,000 mcg PO DAILY 11/24/18 [History] Ferrous Sulfate [Iron] 325 mg PO DAILY 11/24/18 [History] Furosemide [Lasix] 20 mg PO BID 11/24/18 [History] Insulin Degludec [Tresiba Flextouch U-100] 20 unit SQ QAM 11/24/18 [History] OxyCODONE/APAP 5/325 [Percocet 5/325 MG] 1 each PO Q6HR PRN 11/24/18 [History] Allergy/AdvReac Type Severity Reaction Status Date / Time No Known Allergies Allergy Verified 11/21/18 13:04 All Systems: The remainder of the systems were reviewed and are negative Review of Systems: REVIEW OF SYSTEMS GENERAL: Negative for any nausea, vomiting, fevers, chills + weight loss and fatigue NEUROLOGIC: Negative for any visual changes, facial asymmetry, dysphagia, hemiparesis, hemisensory deficits, vertigo, ataxia, seizures, parasthesias + dysarthria (resolved), word searching, lightheadedness HEENT: Negative for any head trauma, neck trauma GASTROINTESTINAL: Negative for any nausea, vomiting, diarrhea GENITOURINARY: Negative for any dysuria, hematuria, incontinence. ENDOCRINE: Thyroid trouble, heat/cold intolerance, excessive sweating, thirst, hunger, intermittent confusion and speech changes with episodes of hypoglycemia Physical Examination - Vital Signs Vital Signs: Initial Vital Signs Temp Pulse Resp BP Pulse Ox 97.6 F 65 20 134/106 100 11/24/18 04:09 11/24/18 04:09 11/24/18 04:09 11/24/18 04:11/24/18 04:09 - Exam Exam: Examination: General Examination: *CONSTITUTIONAL: A&OX3, no acute distress *GENERAL APPEARANCE OF PATIENT obese male, appears weak and easily fatigued *EYES: pupils equal, round, reactive to light and accommodation, conjunctiva clear without masses or ulcerations, fundi normal. *CARDIOVASCULAR no peripheral edema Musculoskeletal: *GAIT AND STATION sitting upright in bed with erect posture *ASSESSMENT OF MUSCLE STRENGTH IN THE UPPER AND LOWER EXTREMITIES bilateral deltoid, bicep, tricep, member of technical staff strength, hip flexors ,anterior tibialis, dorsoflexion of the foot 5/5 *MUSCLE TONE IN THE UPPER AND LOWER EXTREMITIES normal. No abnormal movements, fasciculations or atrophy identified. Neurological: *ORIENTATION to time, person, situation and place *RECURRENT AND REMOTE MEMORY intact *ATTENTION AND CONCENTRATION are normal *LANGUAGE FUNCTION no significant aphasia or dysarthia was noted. *FUND OF KNOWLEDGE aware of current events, past history, vocabulary *MENTAL attention span and concentration normal. *CN II optic fundi were normal, no papilledema noted. *CN III,IV, PERRLA extraocular eye movements were full, no nystagmus and no ptosis noted. *CN V shows normal sensation and jaw opens symmetrically. *CN VII shows normal facial movement symmetrically, upper and lower bilaterally. *CN VIII shows no significant hearing loss on exa *CN IX,,X palate elevated symmetrically *CN XI normal strength in the sternocleidomastoid muscles, asymmetrical shoulder shrugging right shoulder elevation less than left *CN XII tongue protruded in the midline, with normal strength and movement. *SENSORY EXAMINATION light touch intact *REFLEXES: deep tendon reflexes were dimished and symmetrical , grade 1/4 diffusely, no pathological reflexes were noted. *CEREBELLAR TESTING normal finger to nose, no obvious overshoot *PAIN LEVEL 0/10 Results - Laboratory Findings CBC and BMP: 11/24/18 04:30 11/24/18 04:30 Abnormal lab findings: Abnormal lab results RBC 3.71 M/mcL (4.19-5.50) L 11/24/18 04:30 Hgb 8.8 g/dL (12.9-16.9) L 11/24/18 04:30 Hct 29.0 % (37.5-50.1) L 11/24/18 04:30 MCV 78.2 fL (83.0-100.0) L 11/24/18 04:30 MCH 23.7 pg (28.0-33.3) L 11/24/18 04:30 MCHC 30.3 g/dL (31.6-35.5) L 11/24/18 04:30 RDW 20.0 % (11.5-14.5) H 11/24/18 04:30 MPV 9.2 fL (9.4-12.4) L 11/24/18 04:30 Immature Gran % 9.9 % (0-4) H 11/24/18 04:30 ESR >= 130 mm/hr (0-10) H 11/24/18 08:32 PT 17.4 Seconds (9.4-12.1) H 11/24/18 04:30 Carbon Dioxide 22 mEq/L (23-29) L 11/24/18 04:30 Glucose 60 mg/dL (70-105) L 11/24/18 04:30 Troponin I 0.18 ng/mL (< 0.04) H* 11/24/18 04:30 C-Reactive Protein 118 mg/L (Less than 10) H 11/24/18 08:32 Albumin 3.3 g/dL (3.5-5.7) L 11/24/18 04:30 Urine Protein 30 mg/dL (Neg-Trace) H 11/24/18 07:15 - Diagnostic Findings Additional findings: I have personally reviewed the CT of the head. There is subtle loss of daugherty-wh ite matter within the left temporal lobe which may indicate an acute infarct. Otherwise no hemorrhage, mass effect or midline shift noted. CT chest shows does not show an acute pulmonary process Consult Discharge Plan - Plan Referrals: Meg Reina, SKIING TEACHER [Primary Care Provider] -
--- NOTE | 2018-11-24 13:30 | Cardiology Consult Note ---
<Parviz Villaseñor - Last Filed: 11/24/18 13:21> Date of Encounter: 11/24/18 Time of Encounter: 13:20 Assessment and Plan (1) TIA (transient ischemic attack) Current Visit: Yes Status: Acute Pt presents with CVA symptoms. MRI negative for acute CVA. TIA vs hypoglycemia. Neurology evaluation pending. (2) Elevated troponin Current Visit: Yes Status: Acute Mild adynamic troponin elevation up t0 0.18 in the setting of acute on chronic CHF and TIA. H/o prior MN, 3V CABG , and prior PCI. He denies chest pain. TTE ordered for further evaluation. Heparin gtt deferred due to anemia and patient on xarelto. Continue asa and statin. Restart low dose bb. On 50 mg BID at home. (3) Atrial fibrillation Current Visit: Yes Status: Acute Diagnosed with atrial fibrillation during hospital visit 07/2018. He was rate controlled on bb and started on coumadin. Due to dizziness with mild bradycardia will decrease toprol to 25 mg BID from 50 mg BID. Avg HR on telemetry is 52 bpm. HR currently 59 bpm. HR as low as 35 bpm during nocturnal hours seen. Due to nose bleeds and interaction with chemotherapy he was transitioned to xarelto. Due to continued nose bleeds xarelto was decreased by oncology to 10 mg daily. CHADS VASc= 5 (7 if positive for TIA). Ideally he should be on 20 mg daily and 10 mg is suboptimal for CVA prevention in the setting of afib. Recommend ENT evaluation for nose bleeds and then increasing xarelto back to recommended dose if able. Qualifiers: Atrial fibrillation type: unspecified Qualified Code(s): I48.91 - Unspecified atrial fibrillation (4) Congestive heart failure Current Visit: No Status: Acute HFpEF acute on chronic. Increased BLE edema after recent decrease in lasix. Increase lasix back to 20 mg BID. TTE 11/04/18 showed EF 65%. Mild LVH. Indeterminate diastolic function. CHF education reviewed. Low sodium diet stressed. Daily weights. Qualifiers: Heart failure type: systolic Heart failure chronicity: acute on chronic Qualified Code(s): I50.23 - Acute on chronic systolic (congestive) heart failure (5) CAD (coronary artery disease) Current Visit: Yes Status: Chronic H/o 3V CABG. Last [facility] 11/2016 for a NSTEMI at that time showed 2/3 patent bypass grafts including SVG to 2nd OM, and YARBROUGH -LAD. SVG - RCA was occluded. 100% stenosis in the Proximal LAD. 30% stenosis in the 1st Marginal. 100% stenosis in the 2nd Marginal. 99% stenosis in the Ramus s/p PCI with PTCA and JAMIE. 100% stenosis in the Proximal RCA. Stress test 07/2018 showed ischemia in mid-distal inferior wall and inferoseptum. Findings corresponded with known occluded SVG-RCA graft. Medical management was recommended. He denies chest pain or anginal symptoms. Continue asa, statin, and bb. Qualifiers: Coronary Disease-Associated Artery/Lesion type: unspecified vessel or lesion type [place] vs. transplanted heart: [place] heart Associated angina: without angina Qualified Code(s): I25.10 - Atherosclerotic heart disease of [place] coronary artery without angina pectoris Discussion w patient/family: The assessment and plan as outlined above was discussed with the patient and/or family members who expressed understanding and agreement. All questions were answered. Thank you for involving us in the care of your patient. Please call with any questions. History of Present Illness Consult date: 11/24/18 Requesting physician: Joanna Gonzalez Consult reason: elevated troponin slow VR Chief complaint: intermittent garbled speech History of present illness: Mr. Sahu is a 68 year old male with PMHx significant for 3v CABG, prior PCI, atrial fibrillation, DM type II, diastolic CHF, and newly diagnosed lymphoma on chemo and radiation. He presented to the hospital c/o intermittent garbled speech and expressive aphasia. He says he was thinking clearly but his words were not coming out right. His family felt he may have been confused at times. He also c/o intermittent dizziness. He feels maybe his blood sugar was low causing his symptoms. When he would eat his symptoms improved. His initial work-up included CT scan that showed possible acute CVA. F/u MR was negative for acute CVA. He is noted to have atrial fibrillation with slow VR. HR in the 50's. Troponin elevated up to 0.18. Cardiology consulted for elevated troponin and atrial fibrillation with slow ventricular response. Past Med Surg Social Fam HX - Past Medical History Medical history: arthritis, coronary artery disease, diabetes, hyperlipidemia, hypertension, malignancy, myocardial infarction, other Additional medical history: [place] x5 Psychiatric history: no psych history - Past Surgical History Surgical History: angioplasty/stent, appendectomy, coronary bypass (CABG), knee replacement, orthopedic, other, other Additional surgical history: cardiac stent. knee surgery - Social History Smoking Status: Never smoker Smokeless Tobacco Status: No Alcohol use: none Drug use: none - Family History Mother Living Status: Still Living Hx Family Cardiac Disorders: Yes (CAD, CABG) Father Living Status: Hx Family Cardiac Disorders: Yes (CAD; CABG) Hx Family Endocrine Disorder: Yes (DM) Medications and Allergies Aspirin [Lo-Dose Aspirin EC] 81 mg PO DAILY 11/21/16 [History] Atorvastatin [Lipitor] 10 mg PO HS 11/21/16 [History] Glimepiride [Amaryl] 4 mg PO BID 11/21/16 [History] Lisinopril [Zestril] 5 mg PO DAILY 11/21/16 [History] Metformin HCl [Glucophage] 1,000 mg PO BID 11/21/16 [History] Nitroglycerin 0.4 mg SL Q5MIN PRN 11/21/16 [History] amLODIPine [Norvasc] 5 mg PO DAILY 11/21/16 [History] Metoprolol XL (24 HR) Succ [Toprol Xl] 50 mg PO BID 07/16/18 [History] Acyclovir [Zovirax] 400 mg PO BID #60 tablet 11/03/18 [Rx] Allopurinol [Zyloprim] 300 mg PO BID #60 tablet 11/03/18 [Rx] Ciprofloxacin HCl [Cipro] 500 mg PO BID #60 tablet 11/03/18 [Rx] Fluconazole [Diflucan] 400 mg PO DAILY #60 tab 11/03/18 [Rx] Omeprazole [PriLOSEC] 40 mg PO DAILY #30 cap 11/03/18 [Rx] Ondansetron HCl [Zofran] 4 mg PO Q6HR PRN #20 tab 11/03/18 [Rx] Lidocaine/Prilocaine [Emla] 1 appl TP DAILY #30 gm 11/06/18 [Rx] OxyCODONE ER (12 HR) [OxyCONTIN] 10 mg PO Q12HR 30 Days #60 tab.er.12h 11/06/18 [Rx] Rivaroxaban [Xarelto] 10 mg PO DAILY #30 tablet 11/18/18 [Rx] Doxycycline 100 mg PO BID #20 capsule 11/20/18 [Rx] Cyanocobalamin (Vitamin B-12) [Vitamin B12] 1,000 mcg PO DAILY 11/24/18 [History] Ferrous Sulfate [Iron] 325 mg PO DAILY 11/24/18 [History] Furosemide [Lasix] 20 mg PO BID 11/24/18 [History] Insulin Degludec [Tresiba Flextouch U-100] 20 unit SQ QAM 11/24/18 [History] OxyCODONE/APAP 5/325 [Percocet 5/325 MG] 1 each PO Q6HR PRN 11/24/18 [History] Allergy/AdvReac Type Severity Reaction Status Date / Time No Known Allergies Allergy Verified 11/21/18 13:04 All Systems Review: The remainder of the systems were reviewed and are negative Physical Examination Vital Signs, Last 4 Hours Temp Pulse Resp BP Pulse Ox 11/24/18 12:21 97.5 F L 59 17 145/69 95 General: Conversant, No Apparent Distress HEENT: Atraumatic, Normocephaly, Mucus Membranes Moist Neck: No JVD, Normal carotid pulses Cardiac: Other (Irregular) Lungs: Normal Breath Sounds, No Wheeze, Rales, Rhonchi Neuro: Alert and responsive, No focal deficits noted Abdomen: Soft, Non-Tender Skin: No rashes noted on visualized skin Musculoskeletal: No Chest Wall Tenderness Extremities: No Clubbing, No Cyanosis, Normal Pulses, Other (2+ pitting ankle edema. ) Results 11/24/18 04:30 11/24/18 04:30 Lab Results 11/24/18 11/24/18 11/24/18 04:30 04:30 04:30 WBC 5.1 Hgb 8.8 L Hct 29.0 L Plt Count 366 D INR 1.5 APTT 35.1 Sodium 138 Potassium 4.2 Chloride 102 Carbon Dioxide 22 L BUN 13 Creatinine 1.04 Glucose 60 L Calcium 9.0 Magnesium 1.8 Total Bilirubin 0.3 AST 14 ALT 11 Alkaline Phosphatase 70 Troponin I 0.18 H* 11/24/18 10:19 WBC Hgb Hct Plt Count INR APTT Sodium Potassium Chloride Carbon Dioxide BUN Creatinine Glucose Calcium Magnesium Total Bilirubin AST ALT Alkaline Phosphatase Troponin I 0.16 H* - Imaging and Cardiology Echo: report reviewed - EKG Interpretation EKG results cardiology: personally reviewed Consult Discharge Plan - Plan Referrals: Meg Reina, [facility] [Primary Care Provider] - <Woody Hernadez - Last Filed: 11/24/18 18:48> Date of Encounter: 11/24/18 - Attending Attestation Patient was seen and evaluated independently by me. Findings, assessment and plan were discussed at length with patient, questions answered. Agree with nurse practitioner's/resident's documentation. Addition as follows, 68yoCM ho CABG, AFlutter est [id number] on xarelto, anemia, lymphoma, DM. P/w dysarthria/expressive aphasia 3 episodes in 24 hrs which resolved on admission. Brain MRI no acute infarct. Consulted for trop 0.2 flat. ECG Aflutter/Fib with slow VR 40s. TTE pending. Recently xarelto dose from 20 to 10 due to anemia and epistaxis A: TIA Elevated troponin, type II NSTEMI vs myocardial injury Aflutter with slow VR, need to r/o global hypoperfusion due to profound bradycardia and pauses causing global hypoperfusion Suboptimal xarelto dose, non-sustained epistaxis, anemia CAD s/p CABG, no angina lymphoma P: pending TTE full dose xarelto, ENT consult D/C metoprolol if persistent bradycardia Tele inpatient Event monitor before discharge Woody Hernadez MD, PhD Assessment and Plan Discussion w patient/family: The assessment and plan as outlined above was discussed with the patient and/or family members who expressed understanding and agreement. All questions were answered. Thank you for involving us in the care of your patient. Please call with any questions. History of Present Illness History of present illness: Mr. Sahu is a 68 year old male All Systems Review: The remainder of the systems were reviewed and are negative Physical Examination Vital Signs, Last 4 Hours Temp Pulse Resp BP Pulse Ox 11/24/18 15:54 98.8 F 60 16 142/71 97 Results 11/24/18 04:30 11/24/18 04:30 Lab Results 11/24/18 11/24/18 11/24/18 04:30 04:30 04:30 WBC 5.1 Hgb 8.8 L Hct 29.0 L Plt Count 366 D INR 1.5 APTT 35.1 Sodium 138 Potassium 4.2 Chloride 102 Carbon Dioxide 22 L BUN 13 Creatinine 1.04 Glucose 60 L Calcium 9.0 Magnesium 1.8 Total Bilirubin 0.3 AST 14 ALT 11 Alkaline Phosphatase 70 Troponin I 0.18 H* 11/24/18 10:19 WBC Hgb Hct Plt Count INR APTT Sodium Potassium Chloride Carbon Dioxide BUN Creatinine Glucose Calcium Magnesium Total Bilirubin AST ALT Alkaline Phosphatase Troponin I 0.16 H*
--- NOTE | 2018-11-24 16:32 | EEG/EMG/Oth Biometrics Report ---
EEG Procedure Report Date of procedure: 11/24/18 EEG Procedure: Routine EEG Procedure Note: This EEG was acquired with standard international 10-20 system with EKG recording. The background EEG activity was replaced by persistent low amplitude, fast activity. The background activity was reactive to eye openings. Sleep stages were characterized by the presence of background fragmentation, vertex waves, K complexes, and sleep spindles. There are no electrographic seizures identified during this tracing. There are no epileptiform discharges and focal slowing noted during this recording. Photic stimulation produced no abnormalities. Hyperventilation procedure was not performed. Intermittent movements artefact noted throughout the recording. EKG tracing showed normal sinus rhythm. Impression: This is essentially a normal awake and asleep EEG. Clinical Correlation: Normal EEGs, however, do not exclude epilepsy. Clinical correlation advised.
--- NOTE | 2018-11-24 16:39 | Oncology Inp Consult Note ---
<Arun Cardenas S - Last Filed: 11/24/18 18:02> Date of Encounter: 11/24/18 - Data of Consult Requesting Physician: Darnell Sheth MD Primary Care Provider: Meg Reina CNP Medications and Allergies RX: Aspirin [Lo-Dose Aspirin EC] 81 mg PO DAILY 11/21/16 [History] RX: Atorvastatin [Lipitor] 10 mg PO HS 11/21/16 [History] RX: Glimepiride [Amaryl] 4 mg PO BID 11/21/16 [History] RX: Lisinopril [Zestril] 5 mg PO DAILY 11/21/16 [History] RX: Metformin HCl [Glucophage] 1,000 mg PO BID 11/21/16 [History] RX: Nitroglycerin 0.4 mg SL Q5MIN PRN 11/21/16 [History] RX: amLODIPine [Norvasc] 5 mg PO DAILY 11/21/16 [History] RX: Metoprolol XL (24 HR) Succ [Toprol Xl] 50 mg PO BID 07/16/18 [History] Ciprofloxacin HCl [Cipro] 500 mg PO BID #60 tablet 11/03/18 [Rx] Omeprazole [PriLOSEC] 40 mg PO DAILY #30 cap 11/03/18 [Rx] Ondansetron HCl [Zofran] 4 mg PO Q6HR PRN #20 tab 11/03/18 [Rx] RX: Acyclovir [Zovirax] 400 mg PO BID #60 tablet 11/03/18 [Rx] RX: Allopurinol [Zyloprim] 300 mg PO BID #60 tablet 11/03/18 [Rx] RX: Fluconazole [Diflucan] 400 mg PO DAILY #60 tab 11/03/18 [Rx] Lidocaine/Prilocaine [Emla] 1 appl TP DAILY #30 gm 11/06/18 [Rx] RX: OxyCODONE ER (12 HR) [OxyCONTIN] 10 mg PO Q12HR 30 Days #60 tab.er.12h 11/06/18 [Rx] Rivaroxaban [Xarelto] 10 mg PO DAILY #30 tablet 11/18/18 [Rx] RX: Doxycycline 100 mg PO BID #20 capsule 11/20/18 [Rx] Cyanocobalamin (Vitamin B-12) [Vitamin B12] 1,000 mcg PO DAILY 11/24/18 [Hist ory] Ferrous Sulfate [Iron] 325 mg PO DAILY 11/24/18 [History] Furosemide [Lasix] 20 mg PO BID 11/24/18 [History] Insulin Degludec [Tresiba Flextouch U-100] 20 unit SQ QAM 11/24/18 [History] OxyCODONE/APAP 5/325 [Percocet 5/325 MG] 1 each PO Q6HR PRN 11/24/18 [History] Allergy/AdvReac Type Severity Reaction Status Date / Time No Known Allergies Allergy Verified 11/21/18 13:04 Consult Discharge Plan - Plan Referrals: Meg Reina CNP [Primary Care Provider] - Inpatient Charges Provider: Dr. Linwood Cardenas Consult - Inpatient: [id number] - Attending Attestation I examined this patient and my medical decision-making was reviewed with the Advanced Practice Nurse Kate Fraire I agree with the documented findings, disposition and treatment plan as described except to the extent set forth below. 1. Patient admitted with possible TIA symptoms which improved. He also had some hyperglycemia 2. Significant coronary artery disease. Post CABG and percutaneous intervention. Chronic atrial fibrillation. His Conrad risk score is high 5-7. He is on aspirin and Plavix. He was on Xarelto 20 mg daily which was reduced to 10 mg daily because of nosebleeds. Given history sent CVA reasonable to inc rease Xarelto back to 20 mg a day per cardiology recommendation Currently his CBC is normal with normal platelet count 366,000 3. 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 Bone marrow biopsy negative for lymphoma. Retroperitoneal lymph node biopsy showed diffuse large B-cell lymphoma. BCL-2 and c-MYC not reported yet <Anayeli Fraire - Last Filed: 11/25/18 07:55> Date of Encounter: 11/25/18 Time of Encounter: 16:10 Assessment and Plan (1) Lymphoma Status: Acute Assessment and plan: Diffuse large B-cell lymphoma Qualifiers: Lymphoma type: non-Hodgkin Non-Hodgkin lymphoma type: B-cell B-cell lymphoma type: diffuse large B-cell Lymphoma site: unspecified region Qualified Code(s): C83.30 - Diffuse large B-cell lymphoma, unspecified site (2) Diabetes Status: Chronic Qualifiers: Diabetes mellitus type: type 2 Diabetes mellitus termite technician insulin use: with termite technician use Diabetes mellitus complication status: with neurologic complications Diabetes mellitus complication detail: with unspecified neuropathy Qualified Code(s): E11.40 - Type 2 diabetes mellitus with diabetic neuropathy, unspecified; Z79.4 - termite inspector (current) use of insulin - Data of Consult Requesting Physician: Darnell Sheth MD Primary Care Provider: Meg Reina CNP - Consult Narrative Reason for consult: Diffuse large B cell lymphoma History of present illness: Selwyn, a 68 yo male with diffuse large B cell lymphoma, presented to the emergency department with garbled speech, expressive aphasia,and feeling dizzy. He had his first cycle of R-CHOP on 11/05/18 and states that he tolerated without difficulty.He has a history of arthritis, coronary artery disease, diabetes, hyperlipidemia, hypertension, malignancy, myocardial infarction, He notes that he had mild nausea that is well-controlled with anti-emetics. He has a history of DM, type 2, but his blood sugar remained under control even with high doses of prednisone on Days 1-5. Selwyn's sister and niece are present in the room and note that he has not been eating or drinking as much as normal. He denies weight loss, fever, night sweats, shortness of breath, or cough. Denies headaches or vision changes. Selwyn notes that he does have ongoing issues with alternating constipation and diarrhea. He notes that he is supplementing his oral intake with Glucerna twice per day. Past Med Surg Social Fam HX - Past Medical History Medical history: arthritis, coronary artery disease, diabetes, hyperlipidemia, hypertension, malignancy, myocardial infarction, other Additional medical history: [place] x5 Psychiatric history: no psych history - Past Surgical History Surgical History: angioplasty/stent, appendectomy, coronary bypass (CABG), knee replacement, orthopedic, other, other Additional surgical history: cardiac stent. knee surgery - Social History Smoking Status: Never smoker Smokeless Tobacco Status: No Alcohol use: none Drug use: none - Family History Father Living Status: Hx Family Cardiac Disorders: Yes (CAD; CABG) Hx Family Endocrine Disorder: Yes (DM) Mother Living Status: Still Living Hx Family Cardiac Disorders: Yes (CAD, CABG) Constitutional: Present: fatigue. Absent: chills, excessive sweating, fever(s), headache(s), night sweats, weight loss Eyes: Absent: change in vision, loss of vision Cardiovascular: Present: leg edema, lightheadedness, slow heart rate. Absent: chest pain, diaphoresis Respiratory: Absent: cough, dyspnea Gastrointestinal: Present: constipation, diarrhea, nausea. Absent: abdominal pain, change in bowel habits, vomiting Integumentary: Present: swelling, unusual bruising Neurological: Present: abnormal speech, confusion, dizziness. Absent: headache(s), loss of vision, memory loss, syncope Hematologic/Lymphatic: Present: easy bleeding, easy bruising Oncology - Exam - Constitutional General appearance: cooperative, no acute distress - Head Head exam: Present: normal inspection, normocephalic - Eye Eye exam: Present: normal appearance, PERRL - ENT ENT exam: Present: mucous membranes moist - Neck Neck exam: Present: normal inspection. Absent: lymphadenopathy, tenderness - Respiratory Respiratory exam: Present: CTAB. Absent: rales, respiratory distress, rhonchi, wheezes, tachypnea - Cardiovascular Cardiovascular exam: Present: bradycardia, irregular rhythm - GI/Abdominal GI/Abdominal exam: Present: normal bowel sounds, soft. Absent: rebound, tenderness - Expanded Lower Extremity Exam Lower Leg exam: Present: swelling Ankle exam: Present: swelling - Neurological Exam Neurological exam: Present: alert, oriented X3, no focal deficits - Psychiatric Psychiatric exam: Present: normal affect, normal mood - Skin Skin exam: Present: abrasion, normal color, warm
[2018-11-24] MEDS: Furosemide 20 MG TABLET PO SCH (17:57)
[2018-11-24] MEDS ORDERED: *HR* OxyCODONE ER (12 HR) 10 MG TABLET PO SCH (18:00)
[2018-11-24] MEDS: *HR* Rivaroxaban 10 MG TABLET PO SCH (19:47)
[2018-11-24] MEDS ORDERED: Metoprolol XL (24 HR) Succ 25 MG TAB.ER.24H PO SCH (21:00)
[2018-11-25] MEDS: *HR* OxyCODONE/APAP 5/325 TABLET PO PRN ×2 (04:17→17:25)
[2018-11-25] MEDS: 0.9 % Sodium Chloride 1,000 ML IVC SCH (04:18)
[2018-11-25 04:47] LABS: Hematocrit 28.4 % (37.5-50.1); Hemoglobin 8.7 g/dL (12.9-16.9); Mean Corpuscular HGB Conc 30.6 g/dL (31.6-35.5); Mean Corpuscular Hemoglobin 23.8 pg (28.0-33.3); Mean Corpuscular Volume 77.6 fL (83.0-100.0); Mean Platelet Volume 9.4 fL (9.4-12.4); Platelet Count 479 K/mcL (140-400); Red Blood Count 3.66 M/mcL (4.19-5.50); Red Cell Distribution Width 19.9 % (11.5-14.5)
[2018-11-25 05:10] LABS: Alanine Aminotransferase 13 Units/L (7-52); Albumin 3.3 g/dL (3.5-5.7); Albumin/Globulin Ratio 1.2 (1.1-2.2); Alkaline Phosphatase 66 Units/L (34-104); Aspartate Amino Transferase 17 Units/L (13-39); BUN/Creatinine Ratio 11 (6-26); Bilirubin,Total 0.2 mg/dL (0.3-1.0); Blood Urea Nitrogen 12 mg/dL (8-23); Carbon Dioxide 24 mEq/L (23-29); Chloride 105 mEq/L (98-107); Chol/HDL Ratio 4.2 (0-4.9); Cholesterol 96 mg/dL (< 200); Globulin 2.7 g/dL (2.4-3.5); Glucose 91 mg/dL (70-105); HDL Cholesterol 23 mg/dL (40-59); LDL Cholesterol,Calculated 51 mg/dL (0-99); Osmolality,Calculated 283 (280-300); Potassium 4.2 mEq/L (3.5-5.1); Sodium 137 mEq/L (136-145); Triglycerides 109 mg/dL (< 150); eGFR For Non-African Americans > 60 (> 60)
[2018-11-25 05:13] LABS: Troponin I 0.13 ng/mL (< 0.04)
[2018-11-25 05:23] LABS: Thyroid Stimulating Hormone 3.353 mcIU/mL (0.340-5.600)
[2018-11-25] MEDS: Doxycycline 100 MG CAPSULE PO SCH (09:23)
[2018-11-25] MEDS: Furosemide 20 MG TABLET PO SCH ×2 (09:23→17:25)
[2018-11-25] MEDS: Fluconazole 100 MG TABLET PO SCH (09:23)
[2018-11-25] MEDS: Cyanocobalamin (B-12) 1,000 MCG TABLET PO SCH (09:23)
[2018-11-25] MEDS: Acyclovir 200 MG CAPSULE PO SCH (09:24)
[2018-11-25] MEDS: *HR* OxyCODONE ER (12 HR) 10 MG TABLET PO SCH (09:24)
[2018-11-25 09:33] LABS: Estimated Average Glucose 148 mg/dl; Hemoglobin A1C 6.8 %
--- NOTE | 2018-11-25 09:52 | Oncology Inp Progress Note ---
<Anayeli Fraire - Last Filed: 11/26/18 16:52> Date of Encounter: 11/26/18 Time of Encounter: 09:40 (1) Lymphoma Status: Acute Assessment and plan: Diffuse large B-cell lymphoma C1 RCHOP 11/05/18 C2 RCHOP due 11/26/18. Dr Gonzalez would like patient to continue to follow up with him tomorrow if discharged from the hospital today. He will plan on evaluation of symptoms and labs with possible treatment. Qualifiers: Lymphoma type: non-Hodgkin Non-Hodgkin lymphoma type: B-cell B-cell lym phoma type: diffuse large B-cell Lymphoma site: unspecified region Qualified Code(s): C83.30 - Diffuse large B-cell lymphoma, unspecified site (2) Diabetes Status: Chronic Assessment and plan: Hyppoglycemic overnight: BS 41. Continue to monitor AC + HS. Follow up with PCP to address insulin needs since beginning chemotherapy. Qualifiers: Diabetes mellitus type: type 2 Diabetes mellitus intermediate manager insulin use: with intermediate manager use Diabetes mellitus complication status: with neurologic complications Diabetes mellitus complication detail: with unspecified neuropathy Qualified Code(s): E11.40 - Type 2 diabetes mellitus with diabetic neuropathy, unspecified; Z79.4 - longterm (current) use of insulin Oncology: Subj Interval history: Selwyn notes that he is feeling this morning. He does note that he had a low blood sugar overnight of 41. He had no episodes of confusion or slurred speech, but was diaphoretic with the low blood sugar. He denies chest pain or shortness of breath. He denies nausea, vomiting, diarrhea, constipation, or abdominal pain. He denies fever or chills. Discussed with patient that Dr. Gonzalez, his primary oncologist would like him to continue with his appointment and probably C2D1 RCHOP tomorrow, as planned, if he is discharged today. He verbalizes a cceptance and desire to continue with his treatment schedule. - Constitutional General appearance: cooperative, no acute distress - Head Head exam: Present: normal inspection, normocephalic - Neck Neck exam: Present: normal inspection. Absent: lymphadenopathy, tenderness - Respiratory Respiratory exam: Present: CTAB. Absent: rales, rhonchi, wheezes, tachypnea - Cardiovascular Cardiovascular exam: Present: irregular rhythm Additional comments: rate controlled. - GI/Abdominal GI/Abdominal exam: Present: normal bowel sounds, soft. Absent: rebound, tenderness Additional comments: obese - Expanded Lower Extremity Exam Lower leg exam: Present: swelling. Absent: erythema, tenderness Oncology: Obj Data - Labs CBC & Chem 7: 11/25/18 04:20 11/25/18 04:20 Consult Discharge Plan - Plan Instructions: Holter Monitoring (GEN), Sleep Apnea Syndrome (GEN), Methicillin Resistant Staphylococcus Aureus (GEN), Wound Infection (GEN), Diabetic Hypoglycemia (GEN), Bradycardia (GEN), Transient Ischemic Attack, Director Of District Office (GEN), Ischemic Stroke, Director Of District Office (GEN) Additional Instructions: FOLLOW-UP WITH ONCOLOGY -- TOMORROW... FOLLOW-UP WITH CARDIOLOGY -- IN 2-3 WEEKS FOLLOW-UP WITH ENT (NOSE BLEEDS) -- THIS OR NEXT WEEK... Referrals: Meg Reina, S[employer]IOR [employer] [Primary Care Provider] - (Please f/u in 7-10 days with PCP, please review all of hospital stay including possible need for KAUSHAL further testing) Inpatient Charges Provider: Dr. Linwood Cardenas <Arun Cardenas S - Last Filed: 11/27/18 13:34> Date of Encounter: 11/26/18 Oncology: Obj Data - Labs CBC & Chem 7: 11/25/18 04:20 11/25/18 04:20 Inpatient Charges Provider: Dr. Linwood Cardenas Follow up - Inpatient: [id number] - Attending Attestation I examined this patient and my medical decision-making was reviewed with the Advanced Practice Nurse. I agree with the documented findings, disposition and treatment plan as described except to the extent set forth below. 1. Diffuse large B-cell lymphoma stage IV. Bone marrow negative for lymphoma. Discussed with Dr. Gonzalez. C Myc positive. But BCL-2 and BCL 6 negative Should be okay to proceed with cycle 2R CHOP as an outpatient 2. PossibleTIA versus hypoglycemia. He is on aspirin and Plavix for atrial fibrillation. Also Xarelto increased to 20 mg from 10 mg dose. We will continue to watch him closely. If he has major bleeding may have to reduce the dose of Xarelto
--- NOTE | 2018-11-25 11:17 | Cardiology Progress Note ---
Date of Encounter: 11/25/18 Time of Encounter: 11:10 Assessment and Plan (1) Atrial fibrillation Current Visit: Yes Status: Acute Diagnosed with atrial fibrillation during hospital visit 07/2018. He was rate controlled on bb and started on coumadin. Due to dizziness with bradycardia toprol decreased to 25 mg BID from 50 mg BID. Avg HR on telemetry is 52 bpm overlast 24 hours. HR as low as 26 bpm at 1258pm seen. No significant daytime bradycardia seen. Discussed with Dr. Tijerina. We will hold metoprolol. Unclear if HR in low 50's causing dizziness. I will order hoter monitor to be placed at discharge. Due to nose bleeds and interaction with chemotherapy he was transitioned to xarelto from coumadin one week ago. Due to continued nose bleeds xarelto was decreased to 10 mg daily. CHADS VASc= 5 (7 if positive for TIA). Ideally he should be on 20 mg daily and 10 mg is suboptimal for CVA prevention in the setting of afib. Recommend ENT evaluation for nose bleeds if needed. Currently tolerating 20 mg daily. If no change on TTE cardiology will sign off. Out-pt f/u will be coordinated. Qualifiers: Atrial fibrillation type: unspecified Qualified Code(s): I48.91 - Unspecified atrial fibrillation (2) Elevated troponin Current Visit: Yes Status: Acute Mild adynamic troponin elevation up t0 0.18 in the setting of acute on chronic CHF and TIA. Likely type II WA, demand ischemia. H/o prior WA, 3V CABG , and prior PCI. He denies chest pain. TTE ordered for further evaluation. Heparin gtt deferred due to anemia and patient on xarelto. Continue asa and statin. BB held for bradycardia. (3) TIA (transient ischemic attack) Current Visit: Yes Status: Acute Pt presents with CVA/TIA symptoms. MRI negative for acute CVA. Possible TIA vs hypoglycemia.Full strength xarelto is recommended for CVA/TIA prevention. Denies nose bleeds currently. (4) Congestive heart failure Current Visit: No Status: Acute HFpEF acute on chronic. Increased BLE edema after recent decrease in lasix. Increase lasix back to 20 mg BID. TTE 11/04/18 showed EF 65%. Mild LVH. Indeterminate diastolic function. CHF education reviewed. Low sodium diet stressed. Daily weights. BLE edema improved. Monitor BMP out-pt. Qualifiers: Heart failure type: systolic Heart failure chronicity: acute on chronic Qualified Code(s): I50.23 - Acute on chronic systolic (congestive) heart failure (5) CAD (coronary artery disease) Current Visit: Yes Status: Chronic H/o 3V CABG. Last [facility] 11/2016 for a NSTEMI at that time showed 2/3 patent bypass grafts including SVG to 2nd OM, and YARBROUGH -LAD. SVG - RCA was occluded. 100% stenosis in the Proximal LAD. 30% stenosis in the 1st Marginal. 100% stenosis in the 2nd Marginal. 99% stenosis in the Ramus s/p PCI with PTCA and JAMIE. 100% stenosis in the Proximal RCA. Stress test 07/2018 showed ischemia in mid-distal inferior wall and inferoseptum. Findings corresponded with known occluded SVG-RCA graft. Medical management was recommended. He denies chest pain or anginal symptoms. Continue asa, statin, and bb. Qualifiers: Coronary Disease-Associated Artery/Lesion type: unspecified vessel or lesion type [place] vs. transplanted heart: [place] heart Associated angina: without angina Qualified Code(s): I25.10 - Atherosclerotic heart disease of [place] coronary artery without angina pectoris Discussion w patient/family: The assessment and plan as outlined above was discussed with the patient and/or family members who expressed understanding and agreement. All questions were answered. Thank you for involving us in the care of your patient. Please call with any questions. Subjective Principal diagnosis: dizziness, difficulty speaking Interval history: Mr. Sahu denies recurrent garbled speech. Denies current dizziness. Denies Chest pain or SOB. Objective Vital Signs, Last 4 Hours Temp Pulse Resp BP Pulse Ox 11/25/18 11:07 99.5 F 63 18 160/65 93 General: Conversant, No Apparent Distress HEENT: Atraumatic, Normocephaly, Mucus Membranes Moist Neck: No JVD, Normal carotid pulses Cardiac: Other (Irregular) Lungs: Normal Breath Sounds, No Wheeze, Rales, Rhonchi Neuro: Alert and responsive, No focal deficits noted Abdomen: Soft, Non-Tender Skin: No rashes noted on visualized skin Musculoskeletal: No Chest Wall Tenderness Extremities: Other (Edema improved. trace ankle edema noted. ) Results 11/25/18 04:20 11/25/18 04:20 Lab Results 11/24/18 11/24/18 11/25/18 10:19 18:03 04:20 WBC 5.8 Hgb 8.7 L Hct 28.4 L Plt Count 479 H Sodium Potassium Chloride Carbon Dioxide BUN Creatinine Glucose Calcium Total Bilirubin AST ALT Alkaline Phosphatase Troponin I 0.16 H* 0.11 H* TSH 11/25/18 04:20 WBC Hgb Hct Plt Count Sodium 137 Potassium 4.2 Chloride 105 Carbon Dioxide 24 BUN 12 Creatinine 1.09 Glucose 91 Calcium 9.0 Total Bilirubin 0.2 L AST 17 ALT 13 Alkaline Phosphatase 66 Troponin I 0.13 H* TSH 3.353 - Imaging and Cardiology Echo: pending, report reviewed - EKG Interpretation EKG results cardiology: personally reviewed Consult Discharge Plan - Plan Referrals: Meg Reina STALLION KEEPER [Primary Care Provider] -
[2018-11-25] MEDS ORDERED: Silvasorb 44.4 ML TUBE TP SCH (12:00)
--- NOTE | 2018-11-25 13:44 | Neurology Progress Note ---
Addendum entered and electronically signed by Jaya Barrios MD 11/25/18 17:59: I did not a face to face evaluation with the patient in the presence of nurse practitioner Gurpreet Rosario and I agree with his assessment and plan outlined below. Patient is resumed regular dose of Xarelto for treatment of atrial fibrillation as well as aspirin 81 milligrams daily. Patient is a feeling better and reports no significant focal neurological deficits at this time. He reports no nosebleed since the admission. Would not recommend addition of Plavix at this time. The patient is ready to be discharged from a neurology perspective. Original Note: Date of Encounter: 11/25/18 Time of Encounter: 13:40 Assessment and Plan (1) Acute CVA (cerebrovascular accident) Current Visit: Yes Status: Ruled-out Patient was in with recurrent episodes of weakness, confusion and slurred speech lasting approximately 30 minutes. Episodes were intermittent and self-limited and resolved without further intervention. Given history of CVA and A. fib there are concerns for new cerebrovascular event. Additionally, given the length of symptoms, confusion and weakness lasting approximately half hours also concerns for seizures since patient does also have some left temporal cortical atrophy. CT of the head and MRI of the brain obtained and ruled out intracranial ischemia. EEG negative for seizure events but does show some expected slow and left temporal lobe. This is consistent with left temporal lobe atrophy which is evident on neuroimaging. The patient does not appear to have had a TIA either. However, it is reported the patient recently had a reduction in the dose of his DOAC due to an episode of epistaxis. Given history of CVA and A. fib at this time neurology continues to recommend increasing Xarelto to full strength dose for stroke prevention. Per my examination today the patient is back to baseline status. He is not having any focal or lateralizing deficits. Continue with aspirin, Plavix, statin and Xarelto at discharge. Subjective Principal diagnosis: dizziness, difficulty speaking Interval history: Mr. Sahu is a 68 y.o male with a PMH of a fib on Xarelto, on ASA, has CAD, CABG, DM and DL BCL. Presenting with recurrent episodes of mild confusion that is intermittent, weakness and slurred speech 1 week. Concerns for TIA versus CVA. CT imaging of the head and MR imaging of the brain did not reveal any acute intracranial findings. Acute stroke ruled out. Patient seen and examined at bedside today. No acute changes edition overnight. Patient reports that he is back to baseline status. Objective - Constitutional Vitals: Temp Pulse Resp BP Pulse Ox 99.5 F 63 18 160/65 93 11/25/18 11:07 11/25/18 11:07 11/25/18 11:07 11/25/18 11:07 11/25/18 11:07 Exam: Examination: General Examination: *CONSTITUTIONAL: A&OX3, no acute distress *GENERAL APPEARANCE OF PATIENT obese male, appropriate hygiene *EYES: pupils equal, round, reactive to light and accommodation, conjunctiva clear without masses or ulcerations, fundi normal. *CARDIOVASCULAR no peripheral edema Musculoskeletal: *GAIT AND STATION sitting upright in bed with erect posture *ASSESSMENT OF MUSCLE STRENGTH IN THE UPPER AND LOWER EXTREMITIES bilateral deltoid, bicep, tricep, embedded firmware engineer strength, hip flexors ,anterior tibialis, dorsoflexion of the foot 5/5 *MUSCLE TONE IN THE UPPER AND LOWER EXTREMITIES normal. No abnormal movements, fasciculations or atrophy identified. Neurological: *ORIENTATION to time, person, situation and place *RECURRENT AND REMOTE MEMORY intact *ATTENTION AND CONCENTRATION are normal *LANGUAGE FUNCTION no significant aphasia or dysarthia was noted. *FUND OF KNOWLEDGE aware of current events, past history, vocabulary *MENTAL attention span and concentration normal. *CN II optic fundi were normal, no papilledema noted. *CN III,IV, PERRLA extraocular eye movements were full, no nystagmus and no ptosis noted. *CN V shows normal sensation and jaw opens symmetrically. *CN VII shows normal facial movement symmetrically, upper and lower bilaterally. *CN VIII shows no significant hearing loss on exam *CN IX,,X palate elevated symmetrically *CN XI normal strength in the sternocleidomastoid muscles, asymmetrical shoulder shrugging right shoulder elevation less than left *CN XII tongue protruded in the midline, with normal strength and movement. *SENSORY EXAMINATION light touch intact *REFLEXES: deep tendon reflexes were dimished and symmetrical , grade 1/4 diffusely, no pathological reflexes were noted. *CEREBELLAR TESTING normal finger to nose, no obvious overshoot *PAIN LEVEL 0/10 Results - Laboratory Findings CBC and BMP: 11/25/18 04:20 11/25/18 04:20 Abnormal lab findings: Abnormal lab results RBC 3.66 M/mcL (4.19-5.50) L 11/25/18 04:20 Hgb 8.7 g/dL (12.9-16.9) L 11/25/18 04:20 Hct 28.4 % (37.5-50.1) L 11/25/18 04:20 MCV 77.6 fL (83.0-100.0) L 11/25/18 04:20 MCH 23.8 pg (28.0-33.3) L 11/25/18 04:20 MCHC 30.6 g/dL (31.6-35.5) L 11/25/18 04:20 RDW 19.9 % (11.5-14.5) H 11/25/18 04:20 Plt Count 479 K/mcL (140-400) H 11/25/18 04:20 Immature Gran % 9.9 % (0-4) H 11/24/18 04:30 ESR >= 130 mm/hr (0-10) H 11/24/18 08:32 PT 17.4 Seconds (9.4-12.1) H 11/24/18 04:30 POC Glucose 113 mg/dL (70-99) H 11/25/18 05:35 Hemoglobin A1c 6.8 % (-5.6) H 11/25/18 04:00 Total Bilirubin 0.2 mg/dL (0.3-1.0) L 11/25/18 04:20 Troponin I 0.13 ng/mL (< 0.04) H* 11/25/18 04:20 C-Reactive Protein 118 mg/L (Less than 10) H 11/24/18 08:32 Serum Total Protein 6.0 g/dL (6.4-8.9) L 11/25/18 04:20 Albumin 3.3 g/dL (3.5-5.7) L 11/25/18 04:20 HDL Cholesterol 23 mg/dL (40-59) L 11/25/18 04:20 Vitamin B12 > 1500 pg/mL (250-1100) H 11/25/18 04:00 25-OH Vitamin D Total 12 ng/mL (30-80) L 11/25/18 04:20 Urine Protein 30 mg/dL (Neg-Trace) H 11/24/18 07:15 Nasal Screen MRSA (PCR) Positive (Negative) A 11/24/18 16:55 Consult Discharge Plan - Plan Referrals: Meg Reina, JIGMAKER [Primary Care Provider] -
--- NOTE | 2018-11-25 15:52 | Discharge Summary ---
Orders not resulted at time of discharge: Pending orders 11/24/18 08:32 Culture,Blood [BC] Stat 11/25/18 11:25 ECG 48 holter monitor setup [ECG] Routine Date of Encounter: 11/25/18 Time of Encounter: 15:50 - Discharge Diagnosis (1) Acute CVA (cerebrovascular accident) Priority: Primary Status: Acute (2) Atrial fibrillation Priority: Primary Status: Chronic Qualifiers: Atrial fibrillation type: paroxysmal Qualified Code(s): I48.0 - Paroxysmal atrial fibrillation (3) Elevated troponin Priority: Secondary Status: Acute (4) Hypoglycemia Priority: Secondary Status: Acute (5) Diabetes Priority: Secondary Status: Chronic Qualifiers: Diabetes mellitus type: type 2 Diabetes mellitus half-way insulin use: with half-way use Diabetes mellitus complication status: with neurologic complications Diabetes mellitus complication detail: with unspecified neuropathy Qualified Code(s): E11.40 - Type 2 diabetes mellitus with diabetic neuropathy, unspecified; Z79.4 - medical terminologist (current) use of insulin (6) Lymphoma Priority: Primary Status: Acute Qualifiers: Lymphoma type: non-Hodgkin Non-Hodgkin lymphoma type: B-cell B-cell lymphoma type: diffuse large B-cell Lymphoma site: unspecified region Qualified Code(s): C83.30 - Diffuse large B-cell lymphoma, unspecified site (7) Iron deficiency anemia Priority: Secondary Status: Chronic Qualifiers: Iron deficiency anemia type: inadequate dietary iron intake Qualified Code(s): D50.8 - Other iron deficiency anemias (8) Decubitus ulcer, stage 2 with infection Priority: Secondary Status: Chronic (9) Obesity (BMI 30-39.9) Priority: Secondary Status: Chronic Hospital course: HOSPITAL COURSE: The patient is a 68-year-old male, who is currently undergoing chemotherapy for treatment of his lymphoma. He had episodes of slurred speech in the last few weeks preceding this admission. He had had difficulty to find words on the day of admission; had slurred speech on 3 different occasions. He has been treated for atrial fibrillation. He is on Xarelto. The dose was decreased by 50% on November 21, when he developed nosebleeds. The patient was basically asymptomatic in the emergency room. Neurology and cardiology were consulted. We found him to have anemia with hemoglobin of 8.8 (chronic). With WBC of 5.1 thousand and platelet count of 366,000. His BMP/magnesium were normal. Liver function tests were normal. Troponin was between 0.11 and 0.13. Normal EKG. His TTE from 11/04 showed ejection fraction of 65%. The patient is treated for chronic diastolic heart failure. He has underlying coronary artery disease. He had CABG surgery in the past. CT of head/brain without contrast showed possible acute infarct in the left temporal lobe. It was followed by MRI of head/brain without contrast. It did not show any evidence for acute infarct or lymphoma intracranially. EEG was obtained. It showed normal findings. This patient had hypoglycemia shortly after the admissionwith fingerstick for glucose of 58. It was 41 8 hours later. The patient was taking insulin and oral hypoglycemics at home. We had also oncology consult. They wanted us to discharge this patient to before her next scheduled chemotherapyon 11/26. After talking to neurology and to looking into notes from cardiology, I decided to discharge him home on 11/25/18. The patient will be on regular dose of Xarelto. He will make an appointment to an ENT specialist. I feel, that he is recurrent spells of slurred speech could be caused by uncontrolled type 2 diabetes mellitus (with hypoglycemia). He might have had TIA on the day of admission (difficulty in finding words). His elevated troponin is likely secondary to atrial fibrillation and/or chronic diastolic heart failure. CONDITION AT DISCHARGE: He feels good. Denies chest pain and difficulty breathing. He has no difficulty with speech and swallowing. He ambulates on his own. Skin: Free of rash and discoloration. Respiratory: Normal breath sounds with no crackles and wheezes bilaterally. CV: Heart is regular with no gallop or murmur. GI: Abdomen is flat and soft with no palpable mass or visceromegaly. Neuro exam: There is no focal deficits. Normal speech, swallowing and gait. SEE DISCHARGE ORDERS/MEDICATIONS I decided to decrease his insulin by 50%. He will be taking it with metformin. All other hypoglycemics are discontinued. He is to see his oncologist on November 26. Discharge discussed with: patient, family, nurse - Time Spent with Patient Total time spent providing and/or coordinating discharge services: Greater than 30 minutes (40 minutes...) - Discharge Medications Prescriptions: Continue Lisinopril [Zestril] 5 mg PO DAILY Atorvastatin [Lipitor] 10 mg PO HS amLODIPine [Norvasc] 5 mg PO DAILY Nitroglycerin 0.4 mg SL Q5MIN PRN PRN Reason: Chest Pain Metformin HCl [Glucophage] 1,000 mg PO BID Aspirin [Lo-Dose Aspirin EC] 81 mg PO DAILY Ondansetron HCl [Zofran] 4 mg PO Q6HR PRN #20 tab PRN Reason: Nausea Lidocaine/Prilocaine [Emla] 1 appl TP DAILY #30 gm OxyCODONE ER (12 HR) [OxyCONTIN] 10 mg PO Q12HR 30 Days #60 tab.er.12h Doxycycline 100 mg PO BID #20 capsule Ferrous Sulfate [Iron] 325 mg PO DAILY Insulin Degludec [Tresiba Flextouch U-100] 10 unit SQ QAM OxyCODONE/APAP 5/325 [Percocet 5/325 MG] 1 each PO Q6HR PRN PRN Reason: Breakthrough Pain Furosemide [Lasix] 20 mg PO BID Cyanocobalamin (Vitamin B-12) [Vitamin B12] 1,000 mcg PO DAILY Changed Rivaroxaban [Xarelto] 20 mg PO DAILY #30 tablet No Action Acyclovir [Zovirax] 400 mg PO BID #60 tablet Allopurinol [Zyloprim] 300 mg PO BID #60 tablet Ciprofloxacin HCl [Cipro] 500 mg PO BID #60 tablet Fluconazole [Diflucan] 400 mg PO DAILY #60 tab PredniSONE [Deltasone] 60 mg PO DAILY #15 tablet Omeprazole [PriLOSEC] 40 mg PO DAILY #30 cap Home Medications: Aspirin [Lo-Dose Aspirin EC] 81 mg PO DAILY 11/21/16 [History] Atorvastatin [Lipitor] 10 mg PO HS 11/21/16 [History] Lisinopril [Zestril] 5 mg PO DAILY 11/21/16 [History] Metformin HCl [Glucophage] 1,000 mg PO BID 11/21/16 [History] Nitroglycerin 0.4 mg SL Q5MIN PRN 11/21/16 [History] amLODIPine [Norvasc] 5 mg PO DAILY 11/21/16 [History] Ondansetron HCl [Zofran] 4 mg PO Q6HR PRN #20 tab 11/03/18 [Rx] Lidocaine/Prilocaine [Emla] 1 appl TP DAILY #30 gm 11/06/18 [Rx] OxyCODONE ER (12 HR) [OxyCONTIN] 10 mg PO Q12HR 30 Days #60 tab.er.12h 11/06/18 [Rx] Doxycycline 100 mg PO BID #20 capsule 11/20/18 [Rx] Cyanocobalamin (Vitamin B-12) [Vitamin B12] 1,000 mcg PO DAILY 11/24/18 [History] Ferrous Sulfate [Iron] 325 mg PO DAILY 11/24/18 [History] Furosemide [Lasix] 20 mg PO BID 11/24/18 [History] Insulin Degludec [Tresiba Flextouch U-100] 10 unit SQ QAM 11/24/18 [History] OxyCODONE/APAP 5/325 [Percocet 5/325 MG] 1 each PO Q6HR PRN 11/24/18 [History] Rivaroxaban [Xarelto] 20 mg PO DAILY #30 tablet 11/25/18 [Rx] Acyclovir [Zovirax] 400 mg PO BID #60 tablet 11/26/18 [Rx] Allopurinol [Zyloprim] 300 mg PO BID #60 tablet 11/26/18 [Rx] Ciprofloxacin HCl [Cipro] 500 mg PO BID #60 tablet 11/26/18 [Rx] Fluconazole [Diflucan] 400 mg PO DAILY #60 tab 11/26/18 [Rx] Omeprazole [PriLOSEC] 40 mg PO DAILY #30 cap 11/26/18 [Rx] PredniSONE [Deltasone] 60 mg PO DAILY #15 tablet 11/26/18 [Rx] Allergies/Adverse Reactions: Allergy/AdvReac Type Severity Reaction Status Date / Time No Known Allergies Allergy Verified 11/26/18 08:21 Date of admission: 11/24/18 07:44 Primary care physician: Meg Reina CNP Consults: 11/24/18 08:04 Consult to Neurology [CONS] Routine Consulting Provider: Neurology [facility] Reason for Consult: acute stroke Call Completed: Yes 11/24/18 08:07 Consult to Oncology Hematology [CONS] Routine Consulting Provider: Katerine Ward Reason for Consult: stage 4 lymphoma on chemotherapy, next cycle on 11/26- on xarelto for Afib dose was decreased now with stroke Call Completed: Yes 11/24/18 08:10 Consult to Physical Therapy [CONS] Routine Comment: Evaluate, develop and implement POC Reason for Consult: dispostion Does patient have active BEDREST order?: No Is patient medically & hemodynamically stable?: Yes Patient assessed for mobility or mobilized this visit?: Yes 11/24/18 08:11 Consult to Wound Care [CONS] Routine Reason for Consult: sacral ulcer Call Completed: No 11/24/18 12:44 Consult to Cardiology [CONS] Routine Comment: Consulting Provider: Cardiology [facility] Reason for Consult: elevated troponin, afib with Slow ventricular rate. Call Completed: Yes 11/24/18 15:31 Consult to Interpret Exam [CONS] Routine Consulting Provider: Jaya Barrios Consult to Interpret Exam: Interpret EEG Discharging clinician: Flynn Friend Anticipated date of discharge: 11/25/18 - Constitutional Vitals: Temp Pulse Resp BP Pulse Ox 99.5 F 63 18 160/65 93 11/25/18 11:07 11/25/18 11:07 11/25/18 11:07 11/25/18 11:07 11/25/18 11:07 General appearance: Present: A&O X 3, no acute distress, answers questions appropriately Exam: xx - Patient Status Disposition: Home, Self-Care Condition: Good Functional capacity at discharge: independent ambulation Overall status at discharge: patient is progressing back to baseline - Discharge Instructions Instructions: Holter Monitoring (GEN), Sleep Apnea Syndrome (GEN), Methicillin Resistant Staphylococcus Aureus (GEN), Wound Infection (GEN), Diabetic Hypoglycemia (GEN), Bradycardia (GEN), Transient Ischemic Attack, Ladies' Locker Room Attendant (GEN), Ischemic Stroke, Ladies' Locker Room Attendant (GEN) Follow Up With: Meg Reina GETTERING FILAMENT MACHINE OPERATOR [Primary Care Provider] - (Please f/u in 7-10 days with PCP, please review all of hospital stay including possible need for KAUSHAL further testing) Additional Instructions: FOLLOW-UP WITH ONCOLOGY -- TOMORROW... FOLLOW-UP WITH CARDIOLOGY -- IN 2-3 WEEKS FOLLOW-UP WITH ENT (NOSE BLEEDS) -- THIS OR NEXT WEEK... - Diet and Activity Activity: increase activity as tolerated Diet: diabetic diet - VTE Deep Vein Thrombosis/Pulmonary Embolism Present on Admission: No
[2018-11-25 16:00] VITALS: BP 161/71
[2018-11-25] MEDS: *HR* Rivaroxaban 10 MG TABLET PO SCH (17:25)
--- NOTE | 2018-11-26 09:23 | Electrocardiograph Report ---
[address] [place], [place] [address] Test Date: 2018-11-24 Pat Name: Selwyn Sahu Department: [id number] Room: 2S5 Gender: M Lead Shipper: : [id number] Requested By: Cee Borrego Order Number: [id number] Reading MD: Carolann Bahena Measurements Intervals [place] Rate: 59 P: DE: QRS: -16 QRSD: 114 T: 115 QT: 465 QTc: 461 Interpretive Statements Atrial flutter Borderline intraventricular conduction delay Baseline artifact Electronically Signed On 11-26-2018 9:21:47 EST by Carolann Bahena
== END 2018-11-25 20:02 | disposition home or self-care (01) ==
LOC: 2SOUTHHOLD 04:03 → EMEROOARM 04:03 → SUATTDRO 07:44 → 2SOUTHHOLD 07:56
PROVIDERS: ADMIT Internal Medicine; ATTEND Internal Medicine

== ENCOUNTER 2019-05-24 21:00 | Observation (INO) ==
[2019-05-24] MEDS ORDERED: Isovue-370 500 ML BOTTLE IVP ONE (21:27)
--- NOTE | 2019-05-24 21:34 | Emergency Department Note ---
Disposition Clinical Impression: Heart failure, Community acquired pneumonia Disposition: Admitted As Inpatient Condition: Fair Referrals: Meg Reina CNP [Partnered Physician] - Forms: ED Satisfaction Letter Time of Disposition: 00:15 General Adult HPI - General Chief complaint: ED Shortness of Breath/Dyspnea Stated complaint: SOB Time Seen by Provider: 05/24/19 21:04 Source: patient, family Mode of arrival: ambulatory Limitations: no limitations Nursing Notes Reviewed: Yes Vital Signs Reviewed: Yes - History of Present Illness HPI Narrative: 68-year-old male with extensive medical history presents today with dyspnea for the last 2 days. Significant past medical history of CHF on lasix, large B cell lymphoma currently on chemotherapy, atrial fibrillation and history of DVT on Xarelto. He reports that he has not been able to lay down flat. Also admits to worsening lower extremity edema bilaterally. He underwent recent toe removal 2/2 DVT, vascular disease. Symptoms improve when he is sitting up and are worse at night, when he is laying down. He has not been able to sleep due to his SOB. He denies any chest pain, diaphoresis, confusion, weight gain, worsening cough with sputum. Denies any active bleeding, hemoptysis, hematemesis, dysuria, diarrhea. Pt Subjective Complaint: Difficulty lying down Onset (ago): day(s) (2) Pain Severity: mild Pain Scale: 4 - Related Data Home Medications Medication Instructions Recorded Confirmed Atorvastatin [Lipitor] 10 mg PO HS 11/21/16 04/01/19 Lisinopril [Zestril] 5 mg PO DAILY 11/21/16 04/01/19 Metformin HCl [Glucophage] 1,000 mg PO BIDWM 11/21/16 04/01/19 Nitroglycerin 0.4 mg SL Q5MIN PRN 11/21/16 04/01/19 Cyanocobalamin (Vitamin B-12) 1,000 mcg PO DAILY 11/24/18 04/01/19 [Vitamin B12] Ferrous Sulfate [Iron] 325 mg PO BID 11/24/18 04/01/19 Insulin Degludec [Tresiba 20 unit SQ QAM 11/24/18 04/01/19 Flextouch U-100] Aspirin [Lo-Dose Aspirin EC] 81 mg PO DAILY 03/10/19 04/01/19 Furosemide [Lasix] 20 mg PO DAILY 03/10/19 04/01/19 Rivaroxaban [Xarelto] 20 mg PO 1700 03/10/19 04/01/19 Prochlorperazine Maleate 10 mg PO Q6HR PRN 05/24/19 05/24/19 [Compazine] Previous Rx's Medication Instructions Recorded Omeprazole [PriLOSEC] 40 mg PO DAILY #30 cap 11/26/18 Ondansetron HCl [Zofran] 4 mg PO Q6HR PRN #20 tab 02/20/19 Metoprolol Succinate 100 mg PO DAILY #30 tab.er.24h 03/11/19 Allergies Allergy/AdvReac Type Severity Reaction Status Date / Time No Known Allergies Allergy Verified 05/24/19 21:02 Review of Systems: As Per HPI Constitutional: Denies: fever, chills Eyes: Denies: eye pain Cardiovascular: Denies: chest pain, palpitations Respiratory: Reports: cough, dyspnea, wheezes Gastrointestinal: Denies: abdominal pain, nausea, vomiting Genitourinary: Denies: urgency, dysuria Past Medical History - Past Medical History Attestation: Yes The following information was validated with the patient. Medical history: Reports: arthritis, atrial fibrillation, cancer, coronary artery disease, diabetes, hyperlipidemia, hypertension, malignancy, myocardial infarction, other Surgical history: Reports: angioplasty/stent, appendectomy, coronary bypass (CABG), knee replacement, orthopedic, other, other Psychiatric history: Reports: no psych history - Social History Smoking Status: Never smoker Smokeless Tobacco Status: No Alcohol use: Reports: none Drug use: Reports: none Physical Exam - General General appearance: alert, in no apparent distress - Head Head exam: atraumatic, normocephalic - Eye Eye exam: Present: normal appearance - Neck Neck exam: Present: trachea midline - Chest Chest inspection: Present: symmetric chest wall rise - Respiratory Respiratory exam: Present: normal lung sounds bilaterally. Absent: respiratory distress, wheezes, stridor - Cardiovascular Cardiovascular exam: Present: regular rate, normal rhythm - Abdominal Exam Abdominal exam: Absent: Non-Tender, tenderness Course Course Narrative: 68-year-old male presents today with worsening dyspnea for the last 2 days. BNP 2081, CXR pleural effusions with possible superimposed right basilar pneumonia. EKG unremarkable, troponin elevated at 0.1, likely demand ischemia. Patient received dose of lasix with mild improvement but continues to be SOB. BCx obtained prior to giving Augmentin for possible superimposed right basilar PNA. Currently hemodynamically stable. Dr Ferreira has accepted admission for CHF exacerbation. Of note, patient has chemotherapy tomorrow with Dr. Hudson for Large B cell lymphoma. - Consultations Consultation #1: admitting hospitalist has accepted admission. Time: 23:59 Vital Signs Temperature 98.1 F 05/24/19 21:00 Pulse Rate 60 05/24/19 21:00 Respiratory Rate 20 05/24/19 21:00 Blood Pressure 129/70 05/24/19 21:00 O2 Sat by Pulse Oximetry 97 05/24/19 21:00 Temperature 98.1 F 05/24/19 21:00 Pulse Rate 61 05/24/19 23:37 Respiratory Rate 18 05/24/19 23:37 Blood Pressure 127/81 05/24/19 23:37 O2 Sat by Pulse Oximetry 100 05/24/19 23:40 Oxygen Delivery Oxygen Delivery Room Air Medical Decision Making - Medical Records Medical records reviewed: Yes I reviewed the patient's medical records. - Lab Data Lab results reviewed: Yes I reviewed the patient's lab results. Result diagrams: 05/24/19 21:44 05/24/19 21:44 Lab Results 05/24/19 05/24/19 05/24/19 Range/Units 21:44 21:44 21:44 WBC (4.3-11.1) K/mcL RBC (4.19-5.50) M/mcL Hgb (12.9-16.9) g/dL Hct (37.5-50.1) % MCV (83.0-100.0) fL MCH (28.0-33.3) pg MCHC (31.6-35.5) g/dL RDW (11.5-14.5) % Plt Count (140-400) K/mcL MPV (9.4-12.4) fL Immature Gran % (0-4) % Seg Neutrophils % % Lymphocytes % % Monocytes % % Eosinophils % % Basophils % % Neutrophils # (1.6-8.9) K/mcL Lymphocytes # (0.6-4.6) K/mcL Monocytes # (0.0-1.3) K/mcL Eosinophils # (0.0-0.6) K/mcL Basophils # (0.0-0.2) K/mcL PT 14.1 H (9.4-12.1) Seconds INR 1.2 APTT 34.8 (26.0-36.0) Seconds Sodium (136-145) mEq/L Potassium (3.5-5.1) mEq/L Chloride (98-107) mEq/L Carbon Dioxide (23-29) mEq/L BUN (8-23) mg/dL Creatinine (0.70-1.30) mg/dL Est GFR ( Amer) (> 60) Est GFR (Non-Af Amer) (> 60) BUN/Creatinine Ratio (6-26) Glucose (70-105) mg/dL Calculated Osmolality (280-300) Calcium (8.6-10.3) mg/dL Total Bilirubin 0.4 (0.3-1.0) mg/dL Direct Bilirubin 0.2 (0.0-0.2) mg/dL Indirect Bilirubin 0.2 (0.0-1.2) mg/dL AST 12 L (13-39) Units/L ALT 7 (7-52) Units/L Alkaline Phosphatase 84 (34-104) Units/L Troponin I (< 0.04) ng/mL B-Natriuretic Peptide 2081 H (Less than 100) pg/mL Serum Total Protein 6.1 L (6.4-8.9) g/dL Albumin 4.0 (3.5-5.7) g/dL Globulin 2.1 L (2.4-3.5) g/dL Albumin/Globulin Ratio 1.9 (1.1-2.2) Lipase 22 (11-82) Units/L 05/24/19 05/24/19 Range/Units 21:44 21:44 WBC 6.7 (4.3-11.1) K/mcL RBC 4.19 (4.19-5.50) M/mcL Hgb 12.2 L (12.9-16.9) g/dL Hct 39.5 (37.5-50.1) % MCV 94.3 (83.0-100.0) fL MCH 29.1 (28.0-33.3) pg MCHC 30.9 L (31.6-35.5) g/dL RDW 15.5 H (11.5-14.5) % Plt Count 151 (140-400) K/mcL MPV 11.1 (9.4-12.4) fL Immature Gran % 0.3 (0-4) % Seg Neutrophils % 63.1 % Lymphocytes % 23.6 % Monocytes % 9.8 % Eosinophils % 2.5 % Basophils % 0.7 % Neutrophils # 4.3 (1.6-8.9) K/mcL Lymphocytes # 1.6 (0.6-4.6) K/mcL Monocytes # 0.7 (0.0-1.3) K/mcL Eosinophils # 0.2 (0.0-0.6) K/mcL Basophils # 0.1 (0.0-0.2) K/mcL PT (9.4-12.1) Seconds INR APTT (26.0-36.0) Seconds Sodium 139 (136-145) mEq/L Potassium 4.2 (3.5-5.1) mEq/L Chloride 104 (98-107) mEq/L Carbon Dioxide 23 (23-29) mEq/L BUN 12 (8-23) mg/dL Creatinine 0.93 (0.70-1.30) mg/dL Est GFR ( Amer) > 60 (> 60) Est GFR (Non-Af Amer) > 60 (> 60) BUN/Creatinine Ratio 13 (6-26) Glucose 119 H (70-105) mg/dL Calculated Osmolality 289 (280-300) Calcium 9.4 (8.6-10.3) mg/dL Total Bilirubin (0.3-1.0) mg/dL Direct Bilirubin (0.0-0.2) mg/dL Indirect Bilirubin (0.0-1.2) mg/dL AST (13-39) Units/L ALT (7-52) Units/L Alkaline Phosphatase (34-104) Units/L Troponin I 0.10 H* (< 0.04) ng/mL B-Natriuretic Peptide (Less than 100) pg/mL Serum Total Protein (6.4-8.9) g/dL Albumin (3.5-5.7) g/dL Globulin (2.4-3.5) g/dL Albumin/Globulin Ratio (1.1-2.2) Lipase (11-82) Units/L - Radiology Data Radiology results reviewed: Yes I reviewed the patient's radiology results. - EKG Data EKG #1 EKG attestation: Yes I reviewed and interpreted this EKG. EKG results narrative: Atrial flutter with heart rate 51, QT 443. No significant ST changes noted Rate: bradycardia When compared to previous EKG there are: no significant changes
[2019-05-24 22:00] LABS: Basophils # 0.1 K/mcL (0.0-0.2); Basophils % 0.7 %; Eosinophils # 0.2 K/mcL (0.0-0.6); Eosinophils % 2.5 %; Hematocrit 39.5 % (37.5-50.1); Hemoglobin 12.2 g/dL (12.9-16.9); Immature Granulocytes % 0.3 % (0-4); Lymphocytes # 1.6 K/mcL (0.6-4.6); Lymphocytes % 23.6 %; Mean Corpuscular HGB Conc 30.9 g/dL (31.6-35.5); Mean Corpuscular Hemoglobin 29.1 pg (28.0-33.3); Mean Corpuscular Volume 94.3 fL (83.0-100.0); Mean Platelet Volume 11.1 fL (9.4-12.4); Monocytes # 0.7 K/mcL (0.0-1.3); Monocytes % 9.8 %; Neutrophils # 4.3 K/mcL (1.6-8.9); Platelet Count 151 K/mcL (140-400); Red Blood Count 4.19 M/mcL (4.19-5.50); Red Cell Distribution Width 15.5 % (11.5-14.5); Segmented Neutrophils % 63.1 %; White Blood Count 6.7 K/mcL (4.3-11.1)
[2019-05-24 22:04] LABS: INR 1.2; Prothrombin Time 14.1 Seconds (9.4-12.1)
[2019-05-24 22:07] LABS: Activated Partial Thrombo Time 34.8 Seconds (26.0-36.0)
[2019-05-24 22:14] LABS: Albumin/Globulin Ratio 1.9 (1.1-2.2); Bilirubin,Direct 0.2 mg/dL (0.0-0.2); Bilirubin,Indirect 0.2 mg/dL (0.0-1.2); Bilirubin,Total 0.4 mg/dL (0.3-1.0); Globulin 2.1 g/dL (2.4-3.5); Total Protein 6.1 g/dL (6.4-8.9)
[2019-05-24 22:15] LABS: BUN/Creatinine Ratio 13 (6-26); Blood Urea Nitrogen 12 mg/dL (8-23); Calcium 9.4 mg/dL (8.6-10.3); Carbon Dioxide 23 mEq/L (23-29); Chloride 104 mEq/L (98-107); Glucose 119 mg/dL (70-105); Osmolality,Calculated 289 (280-300); Potassium 4.2 mEq/L (3.5-5.1); Sodium 139 mEq/L (136-145); eGFR For African Americans > 60 (> 60); eGFR For Non-African Americans > 60 (> 60)
[2019-05-24] MEDS ORDERED: Furosemide 40 MG/4 ML VIAL IVP ONE (22:20)
[2019-05-24] MEDS ORDERED: Piperacillin/Tazobactam 3.375 GM in Water for inj. (sterile) 20 ML IVP ONE (22:22)
--- NOTE | 2019-05-25 00:13 | Internal Med History&Physical ---
Date of Encounter: 05/25/19 Time of Encounter: 00:13 Internal Medicine - H&P: HPI Chief complaint: shortness of breath History of present illness: Mr. Sahu is a 68 year old male with arthritis, atrial fibrillation, cancer, coronary artery disease, diabetes, hyperlipidemia, hypertension, malignancy, myocardial infarction with past medical history of large be tested lymphoma currently anemia most therapy and history of atrophy fibrillation, atrial flutter and tachycardia bradycardia syndrome, who presented to the ER with progressive worsening of shortness of breath associated with bilateral lower extremity edema, the patient also is complaining of orthopnea and paroxysmal nocturnal dyspnea. He denies chest pain, diaphoresis, cough, hemoptysis, changes of bowel habits or urinary habits. The patient was evaluated by the ER staff and his clinical picture was suggestive of congestive heart failure, the patient was started an IV Lasix and was admitted for further evaluation and management. The patient telling me that he was following with Dr. Bowman as an outpatient and he was supposed to be scheduled for pacemaker however he learned that Dr. Bowman is no longer with the practice antique suppressed at bedside he is wishes to get that procedure done while his inpatient. Past Med Surg Social Fam HX - Past Medical History Medical history: arthritis, atrial fibrillation, cancer, coronary artery disease, diabetes, hyperlipidemia, hypertension, malignancy, myocardial infarction, other Additional medical history: stomach cancer. PR x5 Psychiatric history: no psych history - Past Surgical History Surgical History: angioplasty/stent, appendectomy, coronary bypass (CABG), knee replacement, orthopedic, other, other Additional surgical history: cardiac stent. knee surgery - Social History Smoking Status: Never smoker Smokeless Tobacco Status: No Alcohol use: none Drug use: none - Family History Mother Living Status: Still Living Hx Family Cardiac Disorders: Yes (CAD, CABG) Father Living Status: Hx Family Cardiac Disorders: Yes (CAD; CABG) Hx Family Endocrine Disorder: Yes (DM) Internal Medicine - H&P: Meds Atorvastatin [Lipitor] 10 mg PO QAM 11/21/16 [History] Lisinopril [Zestril] 5 mg PO DAILY 11/21/16 [History] Metformin HCl [Glucophage] 1,000 mg PO BIDWM 11/21/16 [History] Nitroglycerin 0.4 mg SL Q5MIN PRN 11/21/16 [History] Cyanocobalamin (Vitamin B-12) [Vitamin B12] 2,000 mcg PO DAILY 11/24/18 [History] Ferrous Sulfate [Iron] 325 mg PO BID 11/24/18 [History] Insulin Degludec [Tresiba Flextouch U-100] 25 unit SQ QAM 11/24/18 [History] Ondansetron HCl [Zofran] 4 mg PO Q6HR PRN #20 tab 02/20/19 [Rx] Aspirin [Lo-Dose Aspirin EC] 81 mg PO DAILY 03/10/19 [History] Rivaroxaban [Xarelto] 20 mg PO HS 03/10/19 [History] Metoprolol Succinate 100 mg PO DAILY #30 tab.er.24h 03/11/19 [Rx] Prochlorperazine Maleate [Compazine] 10 mg PO Q6HR PRN 05/24/19 [History] Omeprazole [PriLOSEC] 40 mg PO QAM 05/25/19 [History] OxyCODONE/APAP 5/325 [Percocet 5/325 MG] 1 tab PO Q6H PRN 05/25/19 [History] Oxycodone HCl [Oxycontin] 10 mg PO Q12H 05/25/19 [History] Furosemide [Lasix] 40 mg PO BID #60 tablet 05/26/19 [Rx] Allergy/AdvReac Type Severity Reaction Status Date / Time No Known Allergies Allergy Verified 05/25/19 11:04 All Systems PM: A 10-system review of systems was performed and is negative for pertinent findings except as documented above in the HPI. - Constitutional Vitals: Temp Pulse Resp BP Pulse Ox 98.1 F 61 18 127/81 100 05/24/19 21:00 05/24/19 23:37 05/24/19 23:37 05/24/19 23:37 05/24/19 23:40 General appearance: Present: A&O X 3 Exam: . - Head Head exam: Present: atraumatic, normocephalic - Neck Neck exam general surgery: Present: supple, trachea midline. Absent: lymphadenopathy - Respiratory Respiratory exam: Present: decreased breath sounds, rales, rhonchi. Absent: accessory muscle use, wheezes - Cardiovascular Cardiovascular exam: Present: RRR, +S1, +S2. Absent: diastolic murmur, gallop, rubs, systolic murmur - GI/Abdominal GI/Abdominal exam: Present: normal bowel sounds, soft, no peritoneal signs. Absent: distended, tenderness - Extremities Exam Extremities exam: Present: pedal edema, warm, radial pulses palpable and symmetrical. Absent: calf tenderness, cyanotic Internal Med - H&P Results - Labs CBC & Chem 7: 05/25/19 03:13 05/25/19 03:13 Labs: Short CBC 05/24/19 Range/Units 21:44 WBC 6.7 (4.3-11.1) K/mcL Hgb 12.2 L (12.9-16.9) g/dL Hct 39.5 (37.5-50.1) % Plt Count 151 (140-400) K/mcL Neutrophils # 4.3 (1.6-8.9) K/mcL BMP 05/24/19 21:44 Sodium 139 Potassium 4.2 Chloride 104 Carbon Dioxide 23 BUN 12 Creatinine 0.93 Glucose 119 H Calcium 9.4 Cardiac Enzymes 05/24/19 Range/Units 21:44 Troponin I 0.10 H* (< 0.04) ng/mL Liver Function 05/24/19 Range/Units 21:44 Total Bilirubin 0.4 (0.3-1.0) mg/dL Direct Bilirubin 0.2 (0.0-0.2) mg/dL AST 12 L (13-39) Units/L ALT 7 (7-52) Units/L Alkaline Phosphatase 84 (34-104) Units/L Albumin 4.0 (3.5-5.7) g/dL - Impressions ITS Impressions Chest X-Ray 05/24/19 21:05 IMPRESSION: Findings most consistent with mild congestive heart failure with trace pleural effusions. Superimposed right basilar pneumonia not excluded. D/ / Moisés Rankin MD / Moisés Rankin MD Interpreting Provider: Moisés Rankin MD Chest CTA 05/24/19 21:27 IMPRESSION: No evidence of pulmonary embolism on slightly limited exam. Bilateral airspace disease suggestive of pulmonary edema with a moderate right and small left pleural effusion. Mild mediastinal lymphadenopathy which is new compared to prior CT. Given the patient's history of lymphoma, short-term follow-up recommended once the patient's acute illness has resolved. D/ / Ayanna Orr MD / Ayanna Orr MD Interpreting Provider: Ayanna Orr MD - Assessment and Plan (1) CHF exacerbation Status: Acute Assessment and plan: PLAN: - CPP x 1 more, 8 hr after the 1st one - EKG in AM - ASA - O2 to keep SpO2 > 92% - Lasix 40 mg IV BID - Aerosols UD q 4 hr - 2D Echo - CBCD, BMP in AM - Qualifiers: Heart failure type: combined systolic and diastolic Qualified Code(s): I50.43 - Acute on chronic combined systolic (congestive) and diastolic (congestive) heart failure (2) Tachycardia-bradycardia syndrome Status: Acute Assessment and plan: The patient telling me that he was following with Dr. Bowman as an outpatient and he was supposed to be scheduled for pacemaker however he learned that Dr. Bowman is no longer with the practice antique suppressed at bedside he is wishes to get that procedure done while his inpatient. (3) Large B-cell lymphoma Status: Acute Assessment and plan: The patient has chemotherapy treatment arranged tomorrow, cardiology will be contacted in a.m. to arrange for transportation for the cancer Center if appointment cannot be rescheduled. (4) Diabetes Status: Chronic Assessment and plan: We will start the patient on insulin sliding scale with moderate coverage Qualifiers: Diabetes mellitus type: type 2 Diabetes mellitus alf insulin use: with roasterman use Diabetes mellitus complication status: with neurologic complications Diabetes mellitus complication detail: with unspecified neuropathy Qualified Code(s): E11.40 - Type 2 diabetes mellitus with diabetic neuropathy, unspecified; Z79.4 - halfway (current) use of insulin (5) Hypertension Status: Chronic Qualifiers: Hypertension type: essential hypertension Qualified Code(s): I10 - Essential (primary) hypertension (6) CAD (coronary artery disease) Status: Chronic Assessment and plan: We will continue home medication. Qualifiers: Coronary Disease-Associated Artery/Lesion type: [place] artery [place] vs. transplanted heart: [place] heart Associated angina: without angina Qualified Code(s): I25.10 - Atherosclerotic heart disease of [place] coronary artery without angina pectoris (7) Obesity (BMI 30-39.9) Status: Chronic (8) Atrial flutter Status: Acute Assessment and plan: Rate is controlled, continue chronic anticoagulation Qualifiers: Atrial flutter type: unspecified Qualified Code(s): I48.92 - Unspecified atrial flutter (9) Pneumonia Status: Acute Assessment and plan: Chest x-ray is suggestive of superimposed pneumonia, we will start the patient on empiric treatment for hospital-acquired pneumonia including Levaquin and Zosyn Qualifiers: Qualified Code(s): J18.9 - Pneumonia, unspecified organism - Time Spent With Patient Total time spent is greater than 50% in coordination of care (as documented) at patient's floor/unit and/or counseling patient:
--- NOTE | 2019-05-25 00:37 | Emergency Department Note ---
Disposition Clinical Impression: CHF exacerbation Qualifiers: Heart failure type: unspecified Qualified Code(s): I50.9 - Heart failure, unspecified Disposition: Admitted As Inpatient Condition: Good Forms: ED Satisfaction Letter Time of Disposition: 00:41 General Adult HPI - General Chief complaint: ED Shortness of Breath/Dyspnea Stated complaint: SOB Time Seen by Provider: 05/24/19 21:04 Source: patient, family Mode of arrival: ambulatory Limitations: no limitations - History of Present Illness Pain Scale: 4 - Related Data Home Medications Medication Instructions Recorded Confirmed Atorvastatin [Lipitor] 10 mg PO HS 11/21/16 05/24/19 Lisinopril [Zestril] 5 mg PO DAILY 11/21/16 05/24/19 Metformin HCl [Glucophage] 1,000 mg PO BIDWM 11/21/16 05/24/19 Nitroglycerin 0.4 mg SL Q5MIN PRN 11/21/16 05/24/19 Cyanocobalamin (Vitamin B-12) 1,000 mcg PO DAILY 11/24/18 05/24/19 [Vitamin B12] Ferrous Sulfate [Iron] 325 mg PO BID 11/24/18 05/24/19 Insulin Degludec [Tresiba 20 unit SQ QAM 11/24/18 05/24/19 Flextouch U-100] Aspirin [Lo-Dose Aspirin EC] 81 mg PO DAILY 03/10/19 05/24/19 Furosemide [Lasix] 40 mg PO DAILY 03/10/19 05/24/19 Rivaroxaban [Xarelto] 20 mg PO 1700 03/10/19 05/24/19 Prochlorperazine Maleate 10 mg PO Q6HR PRN 05/24/19 05/24/19 [Compazine] Previous Rx's Medication Instructions Recorded Omeprazole [PriLOSEC] 40 mg PO DAILY #30 cap 11/26/18 Ondansetron HCl [Zofran] 4 mg PO Q6HR PRN #20 tab 02/20/19 Metoprolol Succinate 100 mg PO DAILY #30 tab.er.24h 03/11/19 Allergies Allergy/AdvReac Type Severity Reaction Status Date / Time No Known Allergies Allergy Verified 05/24/19 21:02 Constitutional: Denies: fever, chills Eyes: Denies: eye pain Cardiovascular: Denies: chest pain, palpitations Respiratory: Reports: cough, dyspnea, wheezes Gastrointestinal: Denies: abdominal pain, nausea, vomiting Genitourinary: Denies: urgency, dysuria Past Medical History - Past Medical History Medical history: Reports: arthritis, atrial fibrillation, cancer, coronary artery disease, diabetes, hyperlipidemia, hypertension, malignancy, myocardial infarction, other Surgical history: Reports: angioplasty/stent, appendectomy, coronary bypass (CABG), knee replacement, orthopedic, other, other Psychiatric history: Reports: no psych history - Social History Smoking Status: Never smoker Smokeless Tobacco Status: No Alcohol use: Reports: none Drug use: Reports: none Physical Exam - General Limitations: no limitations General appearance: alert, in no apparent distress Course Vital Signs Temperature 98.1 F 05/24/19 21:00 Pulse Rate 60 05/24/19 21:00 Respiratory Rate 20 05/24/19 21:00 Blood Pressure 129/70 05/24/19 21:00 O2 Sat by Pulse Oximetry 97 05/24/19 21:00 Temperature 98.1 F 05/24/19 21:00 Pulse Rate 61 05/24/19 23:37 Respiratory Rate 18 05/24/19 23:37 Blood Pressure 127/81 05/24/19 23:37 O2 Sat by Pulse Oximetry 100 05/24/19 23:40 Oxygen Delivery Oxygen Delivery Room Air Medical Decision Making - Lab Data Result diagrams: 05/24/19 21:44 05/24/19 21:44 Lab Results 05/24/19 05/24/19 05/24/19 Range/Units 21:44 21:44 21:44 WBC (4.3-11.1) K/mcL RBC (4.19-5.50) M/mcL Hgb (12.9-16.9) g/dL Hct (37.5-50.1) % MCV (83.0-100.0) fL MCH (28.0-33.3) pg MCHC (31.6-35.5) g/dL RDW (11.5-14.5) % Plt Count (140-400) K/mcL MPV (9.4-12.4) fL Immature Gran % (0-4) % Seg Neutrophils % % Lymphocytes % % Monocytes % % Eosinophils % % Basophils % % Neutrophils # (1.6-8.9) K/mcL Lymphocytes # (0.6-4.6) K/mcL Monocytes # (0.0-1.3) K/mcL Eosinophils # (0.0-0.6) K/mcL Basophils # (0.0-0.2) K/mcL PT 14.1 H (9.4-12.1) Seconds INR 1.2 APTT 34.8 (26.0-36.0) Seconds Sodium (136-145) mEq/L Potassium (3.5-5.1) mEq/L Chloride (98-107) mEq/L Carbon Dioxide (23-29) mEq/L BUN (8-23) mg/dL Creatinine (0.70-1.30) mg/dL Est GFR ( Amer) (> 60) Est GFR (Non-Af Amer) (> 60) BUN/Creatinine Ratio (6-26) Glucose (70-105) mg/dL Calculated Osmolality (280-300) Calcium (8.6-10.3) mg/dL Total Bilirubin 0.4 (0.3-1.0) mg/dL Direct Bilirubin 0.2 (0.0-0.2) mg/dL Indirect Bilirubin 0.2 (0.0-1.2) mg/dL AST 12 L (13-39) Units/L ALT 7 (7-52) Units/L Alkaline Phosphatase 84 (34-104) Units/L Troponin I (< 0.04) ng/mL B-Natriuretic Peptide 2081 H (Less than 100) pg/mL Serum Total Protein 6.1 L (6.4-8.9) g/dL Albumin 4.0 (3.5-5.7) g/dL Globulin 2.1 L (2.4-3.5) g/dL Albumin/Globulin Ratio 1.9 (1.1-2.2) Lipase 22 (11-82) Units/L 05/24/19 05/24/19 Range/Units 21:44 21:44 WBC 6.7 (4.3-11.1) K/mcL RBC 4.19 (4.19-5.50) M/mcL Hgb 12.2 L (12.9-16.9) g/dL Hct 39.5 (37.5-50.1) % MCV 94.3 (83.0-100.0) fL MCH 29.1 (28.0-33.3) pg MCHC 30.9 L (31.6-35.5) g/dL RDW 15.5 H (11.5-14.5) % Plt Count 151 (140-400) K/mcL MPV 11.1 (9.4-12.4) fL Immature Gran % 0.3 (0-4) % Seg Neutrophils % 63.1 % Lymphocytes % 23.6 % Monocytes % 9.8 % Eosinophils % 2.5 % Basophils % 0.7 % Neutrophils # 4.3 (1.6-8.9) K/mcL Lymphocytes # 1.6 (0.6-4.6) K/mcL Monocytes # 0.7 (0.0-1.3) K/mcL Eosinophils # 0.2 (0.0-0.6) K/mcL Basophils # 0.1 (0.0-0.2) K/mcL PT (9.4-12.1) Seconds INR APTT (26.0-36.0) Seconds Sodium 139 (136-145) mEq/L Potassium 4.2 (3.5-5.1) mEq/L Chloride 104 (98-107) mEq/L Carbon Dioxide 23 (23-29) mEq/L BUN 12 (8-23) mg/dL Creatinine 0.93 (0.70-1.30) mg/dL Est GFR ( Amer) > 60 (> 60) Est GFR (Non-Af Amer) > 60 (> 60) BUN/Creatinine Ratio 13 (6-26) Glucose 119 H (70-105) mg/dL Calculated Osmolality 289 (280-300) Calcium 9.4 (8.6-10.3) mg/dL Total Bilirubin (0.3-1.0) mg/dL Direct Bilirubin (0.0-0.2) mg/dL Indirect Bilirubin (0.0-1.2) mg/dL AST (13-39) Units/L ALT (7-52) Units/L Alkaline Phosphatase (34-104) Units/L Troponin I 0.10 H* (< 0.04) ng/mL B-Natriuretic Peptide (Less than 100) pg/mL Serum Total Protein (6.4-8.9) g/dL Albumin (3.5-5.7) g/dL Globulin (2.4-3.5) g/dL Albumin/Globulin Ratio (1.1-2.2) Lipase (11-82) Units/L Attestation Statement - Attestation Attestation: I reviewed the residents documentation and agree with the residents assessment and plan of care. I have personally had face to face time with the patient. (Brief History, Brief Exam, and MDM) I personally supervised and was present for the tang/critical portions of the following procedures completed by the resident : EKG 68 year old male presents to the eD with cmplaints of Ed with complaints of dyapnes and has a history of CHF and it appaers that on evaluation today he is having a CHF excerbation with elevated BNP and pleural effusion on CXR and CTA chest to rule out PE secondary to his B cell lymphoma. PE negative. Admitt to medicine, lasix therapy given
[2019-05-25] MEDS ORDERED: Nitroglycerin 0.4 MG TAB.SUBL SL PRN (01:51)
[2019-05-25] MEDS ORDERED: Ondansetron ODT 4 MG TAB.RAPDIS PO PRN (01:51)
[2019-05-25] MEDS ORDERED: Dextrose Gel 15 GM/37.5 ML TUBE PO PRN ×2 (01:53)
[2019-05-25] MEDS ORDERED: *HR* Dextrose 50 % in Water (Syg) 50 ML SYRINGE IVP PRN (01:53)
[2019-05-25] MEDS ORDERED: D5% in Water 1,000 ML IVC PRN (01:53)
[2019-05-25] MEDS ORDERED: Ondansetron 4 MG/2 ML VIAL IVP PRN (02:04)
[2019-05-25] MEDS ORDERED: Acetaminophen 325 MG TABLET PO PRN (02:04)
[2019-05-25] MEDS ORDERED: Naloxone 0.4 MG/ML INJ IVP PRN (02:04)
[2019-05-25 03:43] LABS: Basophils % 0.8 %; Eosinophils # 0.1 K/mcL (0.0-0.6); Eosinophils % 2.2 %; Hematocrit 41.6 % (37.5-50.1); Hemoglobin 12.5 g/dL (12.9-16.9); Immature Granulocytes % 0.4 % (0-4); Lymphocytes # 1.6 K/mcL (0.6-4.6); Lymphocytes % 31.7 %; Mean Corpuscular Hemoglobin 29.2 pg (28.0-33.3); Mean Corpuscular Volume 97.2 fL (83.0-100.0); Mean Platelet Volume 11.9 fL (9.4-12.4); Monocytes # 0.5 K/mcL (0.0-1.3); Monocytes % 9.4 %; Neutrophils # 2.7 K/mcL (1.6-8.9); Platelet Count 109 K/mcL (140-400); Red Blood Count 4.28 M/mcL (4.19-5.50); Red Cell Distribution Width 15.9 % (11.5-14.5); Segmented Neutrophils % 55.5 %; White Blood Count 4.9 K/mcL (4.3-11.1)
[2019-05-25 03:50] LABS: INR 1.2; Prothrombin Time 13.5 Seconds (9.4-12.1)
[2019-05-25 03:52] LABS: Activated Partial Thrombo Time 33.8 Seconds (26.0-36.0)
[2019-05-25 03:58] LABS: Alanine Aminotransferase 7 Units/L (7-52); Albumin 4.1 g/dL (3.5-5.7); Albumin/Globulin Ratio 1.9 (1.1-2.2); Alkaline Phosphatase 85 Units/L (34-104); Aspartate Amino Transferase 13 Units/L (13-39); BUN/Creatinine Ratio 12 (6-26); Bilirubin,Total 0.5 mg/dL (0.3-1.0); Blood Urea Nitrogen 12 mg/dL (8-23); Calcium 9.6 mg/dL (8.6-10.3); Carbon Dioxide 24 mEq/L (23-29); Chloride 103 mEq/L (98-107); Chol/HDL Ratio 3.4 (0-4.9); Cholesterol 112 mg/dL (< 200); Globulin 2.2 g/dL (2.4-3.5); Glucose 115 mg/dL (70-105); HDL Cholesterol 33 mg/dL (40-59); LDL Cholesterol,Calculated 57 mg/dL (0-99); Magnesium 1.6 mg/dL (1.6-2.6); Osmolality,Calculated 291 (280-300); Phosphorous 3.6 mg/dL (2.7-4.5); Potassium 4.1 mEq/L (3.5-5.1); Sodium 140 mEq/L (136-145); Total Protein 6.3 g/dL (6.4-8.9); Triglycerides 111 mg/dL (< 150); eGFR For African Americans > 60 (> 60); eGFR For Non-African Americans > 60 (> 60)
[2019-05-25] MEDS ORDERED: Furosemide 40 MG/4 ML VIAL IVP ONE ×2 (03:59→18:00)
[2019-05-25 04:04] LABS: Platelet Estimate Decreased (Normal)
[2019-05-25] MEDS ORDERED: Ipratropium/Albuterol Neb 3 ML IH PRN (04:04)
--- NOTE | 2019-05-25 07:46 | Event Note ---
Date of Encounter: 05/25/19 Time of Encounter: 09:00 I have seen and independently assessed this patient and I agree with plan per night team Plan Acute combined systolic and diastolic CHF. Improving on diuresis with IV lasix. Transition to po lasix in am [place] ugo syndrome. Outpt follow up with EP
[2019-05-25] MEDS: Metoprolol XL (24 HR) Succ 50 MG TAB.ER.24H PO SCH (07:54)
[2019-05-25] MEDS: Aspirin Enteric Coated 81 MG Tablet PO SCH (07:54)
[2019-05-25] MEDS: Cyanocobalamin (B-12) 1,000 MCG TABLET PO SCH (07:54)
[2019-05-25] MEDS ORDERED: Piperacillin/Tazobactam 3.375 GM in 0.9 % Sodium Chloride Mini Bag 100 ML IVPB SCH (08:00)
[2019-05-25] MEDS: Insulin LISPRO 300 UNITS/3 ML VIAL SQ SCH ×3 (08:10→16:36)
[2019-05-25] MEDS ORDERED: Furosemide 20 MG TABLET PO SCH (09:00)
[2019-05-25] MEDS ORDERED: levoFLOXacin 750 MG/150 ML 750 MG/150 ML BAG IVPB SCH (09:00)
[2019-05-25] MEDS ORDERED: Furosemide 40 MG/4 ML VIAL IVP SCH ×2 (09:00→17:00)
[2019-05-25 09:06] LABS: Estimated Average Glucose 126 mg/dl
[2019-05-25] MEDS ORDERED: Perflutren Lipid Microsphere 1.3 ML in 0.9 % Sodium Chloride 8.7 ML IVP ONE (09:28)
--- NOTE | 2019-05-25 11:04 | Cardiology Consult Note ---
<Francisco Varela R - Last Filed: 05/25/19 11:55> Date of Encounter: 05/25/19 Time of Encounter: 11:02 Assessment and Plan (1) Acute systolic CHF (congestive heart failure), NYHA class 3 Current Visit: Yes Status: Acute Presented with worsening dyspnea, PND, orthopnea. BNP 2080. CXR mild congestive CHF, trace pleural effusions. Received IV Lasix, symptoms improved. LVEF 40-45%. Mild global left ventricular systolic dysfunction. Mildly dilated LA. Normal RV structure and mild systolic dysfunction. Mild MR. Mild TR No phtn. EF is mildly reduced compared to TTE 12/2018 when EF ws 45-50%. Cumulative I/O documented as -9500mL. Question accuracy, as no intake has been recorded. Recommend strict I/Os, Na and fluid restriction, daily weights. Will start PO maintenance Lasix 40mg daily. Anticipate sign off once seen and evaluated by Dr. Mayer. (2) Atrial fibrillation Current Visit: No Status: Chronic Chronic A-Fib. 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 Holter 12/2018 AVG HR 74, lowest HR 43, max 140bpm. Overall, rate controlled on BB. Lowest HR noted on tele 43 during nocturnal hours. Pt reports occasional dizziness/lightheadedness with HR reportedly 30s at home. No urgent indication for PPM. Anticoagulated on Xarelto. Will refer to EP as outpt for further PPM evaluation. Qualifiers: Atrial fibrillation type: chronic Qualified Code(s): I48.2 - Chronic atrial fibrillation (3) CAD (coronary artery disease) Current Visit: No Status: Chronic Hx CABG and PCI. NSTEMI 11/2018 medical therapy was recommended given GI bleeding, anemia with hemoccult positive stool. Upper endoscopy at that time single nonbleeding angiodysplastic lesion in the stomach. It was treated with bipolar cautery. Colonoscopy revealed three, 7-15 mm nonbleeding Polyps in the proximal ascending colon. Dissection was not attempted. Continue ASA, Statin, BB. Qualifiers: Coronary Disease-Associated Artery/Lesion type: kaw artery [place] vs. transplanted heart: kaw heart Associated angina: without angina Qualified Code(s): I25.10 - Atherosclerotic heart disease of kaw coronary artery without angina pectoris (4) Cardiomyopathy Current Visit: Yes Status: Acute TTE 11/2018 EF 55%. TTE 12/2018 EF 45-50%. Currently EF 40-45%. ICMP vs NICMP. Hx CAD, CABG and PCI. VA 11/2018 with medical management recommended given comorbidities and acute anemia at that time. 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 Continue BB and ACEi. Add PO Lasix. Can re-evaluate outpt if further ischemic evaluation is warranted. Denies anginal symptoms currently. Qualifiers: Cardiomyopathy type: unspecified Qualified Code(s): I42.9 - Cardiomyopathy, unspecified (5) Elevated troponin Current Visit: No Status: Acute Troponin 0.10 x 2 in setting of CHF, PNA. Suspect demand ischemia, nondiagnostic for ACS. Plan as above. Cardiac rehab not warranted. Discussion w patient/family: The assessment and plan as outlined above was discussed with the patient and/or family members who expressed understanding and agreement. All questions were answered. Thank you for involving us in the care of your patient. Please call with any questions. I will discuss all the above with Dr. Mayer and make changes as necessary. History of Present Illness Consult date: 05/25/19 Consult reason: PPM evaluation, CHF Chief complaint: dyspnea History of present illness: Mr. Sahu is a 68 year old male with PMH of arthritis, atrial fibrillation, cancer, CAD s/p CABG and PCI, diabetes, hyperlipidemia, hypertension, GI Bleed, myocardial infarction, Large B Cell lymphoma who presented to the ER with progressive worsening of shortness of breath since Saturday, orthopnea and paroxysmal nocturnal dyspnea. Reports associated chest tightness. BNP 2080. Troponin 0.10 x 2. CXR with mild congestive CHF, trace pleural effusions, suggestive of PNA. Cardiology consulted for further recs. TTE resulted--LVEF 40- 45%. Mild global left ventricular systolic dysfunction. Indeterminate diastolic function. Mildly dilated left atrium. Normal right ventricular structure and mild systolic dysfunction. Mild mitral regurgitation. Mild tricuspid regurgitation. No pulmonary hypertension. Prior CV testing: Holter 12/18/18: A-Fib throughout. AVG HR 74. Occasional PVCs. No pauses. Minimum HR 43bpm. Maximum 140 bpm. Limited TTE 12/2018: LVEF 45-50%. Consider use of Definity. Atypical septal motion consistent with post-operative status. Mild LV segmental wall motion abnormality previously seen. Normal right ventricular structure and function. No valvular vegetation. Partially linear echodensity in the RA may represent an indwelling catheter. Lexiscan Cardiolite 07/18/2018: Gated EF greater than 70%. ECG was negative for ischemia at the level of heart rate achieved. Mild to moderate intensity, decreased perfusion defect involving the mid to distal inferior wall and inferos eptum. Findings consistent with ischemia. Fixed defect involving the basal to mid inferior wall represent prior infarct. TTE 07/17/2018: LVEF 55%. Basal inferior akinesis. Midinferior hypokinesis. Nor mal RV size and function. Mild MR, MT. No pulmonary hypertension. C 11/21/2016: Left main normal. LAD unreffeu892% stenosis. OM1 30% stenosis. OM to 100% stenosis. Ramus 99% stenosis (JAMIE placed). RCA proximal 100% stenosis. SVG to OM 2 patent. YARBROUGH to proximal LAD patent. SVG to RCA occluded. TTE 11/22/2069: LVEF 50%. Moderate diastolic dysfunction. Moderate left atrial enlargement. Mild pulmonic regurgitation. No pulmonary hypertension. Past Med Surg Social Fam HX - Past Medical History Medical history: arthritis, atrial fibrillation, cancer, coronary artery disease, diabetes, hyperlipidemia, hypertension, malignancy, myocardial infarction, other Additional medical history: stomach cancer. VA x5 Psychiatric history: no psych history - Past Surgical History Surgical History: angioplasty/stent, appendectomy, coronary bypass (CABG), knee replacement, orthopedic, other, other Additional surgical history: cardiac stent. knee surgery - Social History Smoking Status: Never smoker Smokeless Tobacco Status: No Alcohol use: none Drug use: none - Family History Mother Living Status: Still Living Hx Family Cardiac Disorders: Yes (CAD, CABG) Father Living Status: Hx Family Cardiac Disorders: Yes (CAD; CABG) Hx Family Endocrine Disorder: Yes (DM) Medications and Allergies Atorvastatin [Lipitor] 10 mg PO QAM 11/21/16 [History] Lisinopril [Zestril] 5 mg PO DAILY 11/21/16 [History] Metformin HCl [Glucophage] 1,000 mg PO BIDWM 11/21/16 [History] Nitroglycerin 0.4 mg SL Q5MIN PRN 11/21/16 [History] Cyanocobalamin (Vitamin B-12) [Vitamin B12] 2,000 mcg PO DAILY 11/24/18 [History] Ferrous Sulfate [Iron] 325 mg PO BID 11/24/18 [History] Insulin Degludec [Tresiba Flextouch U-100] 25 unit SQ QAM 11/24/18 [History] Ondansetron HCl [Zofran] 4 mg PO Q6HR PRN #20 tab 02/20/19 [Rx] Aspirin [Lo-Dose Aspirin EC] 81 mg PO DAILY 03/10/19 [History] Furosemide [Lasix] 40 mg PO QAM 03/10/19 [History] Rivaroxaban [Xarelto] 20 mg PO HS 03/10/19 [History] Metoprolol Succinate 100 mg PO DAILY #30 tab.er.24h 03/11/19 [Rx] Prochlorperazine Maleate [Compazine] 10 mg PO Q6HR PRN 05/24/19 [History] Omeprazole [PriLOSEC] 40 mg PO QAM 05/25/19 [History] OxyCODONE/APAP 5/325 [Percocet 5/325 MG] 1 tab PO Q6H PRN 05/25/19 [History] Oxycodone HCl [Oxycontin] 10 mg PO Q12H 05/25/19 [History] Allergy/AdvReac Type Severity Reaction Status Date / Time No Known Allergies Allergy Verified 05/25/19 11:04 All Systems Review: The remainder of the systems were reviewed and are negative - Cardiovascular Cardiovascular: as per HPI, chest pain at rest, dyspnea at rest, dyspnea on exertion, orthopnea, paroxysmal nocturnal dyspnea - Respiratory Respiratory: dyspnea Physical Examination Vital Signs, Last 4 Hours Pulse 05/25/19 07:52 84 Vital Signs Temp Pulse Resp BP Pulse Ox 05/25/19 07:52 84 05/25/19 06:54 97.5 F L 54 19 156/75 97 05/25/19 04:49 18 99 05/25/19 03:50 97.9 F 45 19 142/75 100 05/25/19 00:59 97.9 F 77 19 169/101 100 05/25/19 00:21 55 19 126/76 100 05/24/19 23:40 100 05/24/19 23:37 61 18 127/81 97 05/24/19 22:21 58 17 138/80 99 05/24/19 21:00 98.1 F 60 20 129/70 97 Intake and Output 05/24/19 05/25/19 05/25/19 23:59 07:59 15:59 Intake Total Output Total 9500 / 9500 Balance -9500 / -9500 Intake: IV Fluids Zosyn 3.375 GM In Water for inj . (sterile) 20 ML @ 400 mls/hr IVP ONCE ONE Rx#:[id number] Output: Urine 9500 / 9500 Other: Weight 92.079 kg 92 kg Blood Glucose* 124 Patient Weight 05/25/19 23:59 Weight 92 kg General: Conversant, No Apparent Distress HEENT: Atraumatic, Normocephaly, Mucus Membranes Moist Neck: Normal carotid pulses Cardiac: Other (irregularly irregular) Lungs: Other (diminished) Neuro: Alert and responsive, No focal deficits noted Abdomen: Soft, Non-Tender Skin: No rashes noted on visualized skin Musculoskeletal: No Chest Wall Tenderness Extremities: Other (mild BLE edema) Results 05/25/19 03:13 05/25/19 03:13 Lab Results 05/24/19 05/24/19 05/24/19 21:44 21:44 21:44 WBC Hgb Hct Plt Count INR 1.2 APTT 34.8 Sodium Potassium Chloride Carbon Dioxide BUN Creatinine Glucose Calcium Magnesium Total Bilirubin 0.4 AST 12 L ALT 7 Alkaline Phosphatase 84 Troponin I B-Natriuretic Peptide 2081 H Lipase 22 05/24/19 05/24/19 05/25/19 21:44 21:44 03:13 WBC 6.7 4.9 Hgb 12.2 L 12.5 L Hct 39.5 41.6 Plt Count 151 109 L INR APTT Sodium 139 Potassium 4.2 Chloride 104 Carbon Dioxide 23 BUN 12 Creatinine 0.93 Glucose 119 H Calcium 9.4 Magnesium Total Bilirubin AST ALT Alkaline Phosphatase Troponin I 0.10 H* B-Natriuretic Peptide Lipase 05/25/19 05/25/19 03:13 03:13 WBC Hgb Hct Plt Count INR 1.2 APTT 33.8 Sodium 140 Potassium 4.1 Chloride 103 Carbon Dioxide 24 BUN 12 Creatinine 0.97 Glucose 115 H Calcium 9.6 Magnesium 1.6 Total Bilirubin 0.5 AST 13 ALT 7 Alkaline Phosphatase 85 Troponin I 0.10 H* B-Natriuretic Peptide Lipase Short CBC 05/25/19 05/24/19 Range/Units 03:13 21:44 WBC 4.9 6.7 (4.3-11.1) K/mcL Hgb 12.5 L 12.2 L (12.9-16.9) g/dL Hct 41.6 39.5 (37.5-50.1) % Plt Count 109 L 151 (140-400) K/mcL Neutrophils # 2.7 4.3 (1.6-8.9) K/mcL BMP 05/25/19 05/24/19 Range/Units 03:13 21:44 Sodium 140 139 (136-145) mEq/L Potassium 4.1 4.2 (3.5-5.1) mEq/L Chloride 103 104 (98-107) mEq/L Carbon Dioxide 24 23 (23-29) mEq/L BUN 12 12 (8-23) mg/dL Creatinine 0.97 0.93 (0.70-1.30) mg/dL Glucose 115 H 119 H (70-105) mg/dL Calcium 9.6 9.4 (8.6-10.3) mg/dL Cardiac Enzymes 05/25/19 05/24/19 Range/Units 03:13 21:44 Troponin I 0.10 H* 0.10 H* (< 0.04) ng/mL Liver Function 05/25/19 05/24/19 Range/Units 03:13 21:44 Total Bilirubin 0.5 0.4 (0.3-1.0) mg/dL Direct Bilirubin 0.2 (0.0-0.2) mg/dL AST 13 12 L (13-39) Units/L ALT 7 7 (7-52) Units/L Alkaline Phosphatase 85 84 (34-104) Units/L Albumin 4.1 4.0 (3.5-5.7) g/dL Impressions Chest X-Ray 05/24/19 21:05 IMPRESSION: Findings most consistent with mild congestive heart failure with trace pleural effusions. Superimposed right basilar pneumonia not excluded. D/ / Moisés Rankin MD / Moisés Rankin MD Interpreting Provider: Moisés Rankin MD Chest CTA 05/24/19 21:27 IMPRESSION: No evidence of pulmonary embolism on slightly limited exam. Bilateral airspace disease suggestive of pulmonary edema with a moderate right and small left pleural effusion. Mild mediastinal lymphadenopathy which is new compared to prior CT. Given the patient's history of lymphoma, short-term follow-up recommended once the patient's acute illness has resolved. D/ / Ayanna Orr MD / Ayanna Orr MD Interpreting Provider: Ayanna Orr MD Echocardiogram 05/25/19 04:58 Impressions: LVEF 40-45%. Mild global left ventricular systolic dysfunction. Indeterminate diastolic function. Mildly dilated left atrium. Normal right ventricular structure and mild systolic dysfunction. Mild mitral regurgitation. Mild tricuspid regurgitation. No pulmonary hypertension. Left Ventricular Wall Motion: Rest Echo Findings The apex, apical inferior, mid inferior, basal inferior, apical anterior, mid anterior, basal anterior, apical septal, mid inferior septal, basal inferior septal, apical lateral, mid anterior lateral, basal anterior lateral, mid anterior septal, mid inferior lateral, basal anterior septal and basal inferior lateral villa were hypokinetic. Findings: Study Quality * Technically adequate exam. ECG Findings * Atrial fibrillation, PVCs. Left Ventricle * LVEF 40-45%. * Normal LV chamber size, wall thickness. * Mild global left ventricular systolic dysfunction. * Indeterminate diastolic function. * There is no LV thrombus. * Definity echo contrast was used. Right Ventricle * Normal right ventricular structure and mild systolic dysfunction. Left Atrium * Mildly dilated left atrium. Right Atrium * Normal right atrial size. Interatrial Septum * Interatrial septum not well evaluated. Aortic Valve * Trileaflet aortic valve with normal function. * No aortic stenosis. * No aortic regurgitation. Mitral Valve * Normal mitral valve structure. * No mitral stenosis. * Mild mitral regurgitation. Tricuspid Valve * Normal tricuspid valve structure. * No tricuspid stenosis. * Mild tricuspid regurgitation. * Estimated RVSP is 29 mmHg. * Estimated RA pressure is 3 mmHg. * No pulmonary hypertension. Pulmonic Valve * Pulmonic valve is not well visualized. * No pulmonic stenosis. * Trace pulmonic regurgitation. Aorta * Normally sized aortic root. Pericardium * The pericardium appears normal. IVC * The IVC is not dilated. * > 50% respiratory change Active Medications Acetaminophen (Tylenol) 650 mg PO Q6H PRN PRN Reason: Mild Pain/Fever Stop: 11/24/19 02:05 Albuterol/Ipratropium (Duoneb) 3 ml IH [id number] PRN PRN Reason: Shortness Of Breath/Wheezing Stop: 11/24/19 04:05 Last Admin: 05/25/19 04:45 Dose: 3 ml Documented by: Aspirin (Aspirin Ec) 81 mg PO DAILY [facility] Stop: 11/24/19 09:01 Last Admin: 05/25/19 07:54 Dose: 81 mg Documented by: Atorvastatin Calcium (Lipitor) 10 mg PO HS [facility] Stop: 11/24/19 21:01 Cyanocobalamin (Vitamin B12) 1,000 mcg PO DAILY [facility] Stop: 11/24/19 09:01 Last Admin: 05/25/19 07:54 Dose: 1,000 mcg Documented by: Dextrose/Water (Dextrose 50% (Syg)) 25 ml IVP AD PRN PRN Reason: Hypoglycemia Stop: 11/24/19 01:54 Ferrous Sulfate (Ferrous Sulfate) 325 mg PO BIDWM [facility] Stop: 11/24/19 17:01 Furosemide (Lasix) 40 mg IVP BIDDIURETIC [facility] Stop: 11/24/19 17:01 Glucagon (Glucagen) 1 mg IM ONCE PRN PRN Reason: Hypoglycemia Stop: 11/24/19 01:54 Glucose (Gluctose) 15 gm PO ONCE PRN PRN Reason: Hypoglycemia Stop: 11/24/19 01:54 Glucose (Gluctose) 30 gm PO ONCE PRN PRN Reason: Hypoglycemia Stop: 11/24/19 01:54 Dextrose (Dextrose 5%) 1,000 mls @ 100 mls/hr IVC .Q10H PRN PRN Reason: HYPOGLYCEMIA Stop: 11/24/19 01:54 Insulin Human Lispro (Humalog) 0 units SQ HS [facility]; Protocol Stop: 11/24/19 21:01 Insulin Human Lispro (Humalog) 0 units SQ TIDAC [facility]; Protocol Stop: 11/24/19 07:31 Last Admin: 05/25/19 08:10 Dose: Not Given Documented by: Lisinopril (Zestril) 5 mg PO DAILY [facility]; Protocol Stop: 02/18/20 09:01 Last Admin: 05/25/19 07:54 Dose: 5 mg Documented by: Metoprolol Succinate (Toprol Xl) 100 mg PO DAILY [facility] Stop: 11/24/19 09:01 Last Admin: 05/25/19 07:54 Dose: 100 mg Documented by: Naloxone HCl (Narcan) 0.4 mg IVP Q2MPRN PRN PRN Reason: SEE COMMENTS Stop: 11/24/19 02:05 Nitroglycerin (Nitroglycerin) 0.4 mg SL Q5MIN PRN PRN Reason: Chest Pain Stop: 11/24/19 01:52 Omeprazole (Prilosec) 40 mg PO DAILY [facility] Stop: 11/24/19 09:01 Last Admin: 05/25/19 07:54 Dose: 40 mg Documented by: Ondansetron HCl (Zofran Odt) 4 mg PO Q6H PRN PRN Reason: Nausea Stop: 11/24/19 01:52 Ondansetron HCl (Zofran) 4 mg IVP Q8HR PRN PRN Reason: Nausea And Vomiting Stop: 11/24/19 02:05 Prochlorperazine Maleate (Compazine) 10 mg PO Q6HR PRN PRN Reason: Blood Pressure Stop: 11/24/19 01:52 Rivaroxaban (Xarelto) 20 mg PO 1700 [facility] Stop: 11/24/19 17:01 - Imaging and Cardiology Stress Test: report reviewed Echo: report reviewed Cardiac cath: report reviewed - EKG Interpretation EKG results cardiology: personally reviewed (A-Flutter rate 56), other (12 hr tele AVG HR 64, A-Flutter, lowest 43, max 117.) Consult Discharge Plan - Plan Referrals: Meg Reina AUTOMATION CONTROL INTEGRATOR [Primary Care Provider] - < A - Last Filed: 05/25/19 15:12> Date of Encounter: 05/25/19 - Attending Attestation I have personally performed a face to face evaluation on this patient. I have reviewed and agree with the documented findings and care plan as documented by the AUTOMATION CONTROL INTEGRATOR. History and Exam by me shows: Pt with afib and occasional ugo episodes with lightheadedness, no syncope. Recommend pacemaker implantation as out patient. Refer to EP Continue GDMT for chronic heart failure with mid range EF Thanks for the consult, please call with questions. Kannan Mayer MD [facility] Assessment and Plan Discussion w patient/family: The assessment and plan as outlined above was discussed with the patient and/or family members who expressed understanding and agreement. All questions were answered. Thank you for involving us in the care of your patient. Please call with any questions. History of Present Illness History of present illness: Mr. Sahu is a 68 year old male All Systems Review: The remainder of the systems were reviewed and are negative Physical Examination Vital Signs, Last 4 Hours Temp Pulse Resp BP Pulse Ox 05/25/19 11:31 97.4 F L 57 16 139/77 98 Results 05/25/19 03:13 05/25/19 03:13 Lab Results 05/24/19 05/24/19 05/24/19 21:44 21:44 21:44 WBC Hgb Hct Plt Count INR 1.2 APTT 34.8 Sodium Potassium Chloride Carbon Dioxide BUN Creatinine Glucose Calcium Magnesium Total Bilirubin 0.4 AST 12 L ALT 7 Alkaline Phosphatase 84 Troponin I B-Natriuretic Peptide 2081 H Lipase 22 05/24/19 05/24/19 05/25/19 21:44 21:44 03:13 WBC 6.7 4.9 Hgb 12.2 L 12.5 L Hct 39.5 41.6 Plt Count 151 109 L INR APTT Sodium 139 Potassium 4.2 Chloride 104 Carbon Dioxide 23 BUN 12 Creatinine 0.93 Glucose 119 H Calcium 9.4 Magnesium Total Bilirubin AST ALT Alkaline Phosphatase Troponin I 0.10 H* B-Natriuretic Peptide Lipase 05/25/19 05/25/19 03:13 03:13 WBC Hgb Hct Plt Count INR 1.2 APTT 33.8 Sodium 140 Potassium 4.1 Chloride 103 Carbon Dioxide 24 BUN 12 Creatinine 0.97 Glucose 115 H Calcium 9.6 Magnesium 1.6 Total Bilirubin 0.5 AST 13 ALT 7 Alkaline Phosphatase 85 Troponin I 0.10 H* B-Natriuretic Peptide Lipase
[2019-05-25] MEDS ORDERED: *HR* Rivaroxaban 10 MG TABLET PO SCH (17:00)
--- NOTE | 2019-05-25 17:44 | Electrocardiograph Report ---
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
[2019-05-25] MEDS ORDERED: Insulin LISPRO 300 UNITS/3 ML VIAL SQ SCH (21:00)
[2019-05-26 07:13] VITALS: BP 137/69
[2019-05-26] MEDS ORDERED: levoFLOXacin 750 MG TABLET PO SCH (09:00)
[2019-05-26] MEDS ORDERED: Furosemide 40 MG TABLET PO SCH (09:00)
--- NOTE | 2019-05-26 09:17 | Discharge Summary ---
Date of Encounter: 05/26/19 Time of Encounter: 09:00 - Discharge Diagnosis (1) CHF exacerbation Priority: Primary Status: Acute Assessment and Plan: 68 year old male with arthritis, atrial fibrillation, cancer, coronary artery disease, diabetes, hyperlipidemia, hypertension, malignancy, myocardial infarction with past medical history of large be tested lymphoma currently anemia most therapy and history of atrophy fibrillation, atrial flutter and tachycardia bradycardia syndrome, who presented to the ER with progressive worsening of shortness of breath associated with bilateral lower extremity edema, the patient also is complaining of orthopnea and paroxysmal nocturnal dyspnea. He denies chest pain, diaphoresis, cough, hemoptysis, changes of bowel habits or urinary habits. The patient was evaluated by the ER staff and his clinical picture was suggestive of congestive heart failure, the patient was started an IV Lasix and was admitted for further evaluation and management. He improved on diuresis with IV lasix and was resumed on po lasix on discharge. He was seen by cardiology for his tachy uog syndrome for pacemaker placement and they recommended outpatient follow up with EP. He was scheduled for radiat ion this week and radiation oncology said he could follow up after discharge Qualifiers: Heart failure type: combined systolic and diastolic Qualified Code(s): I50.43 - Acute on chronic combined systolic (congestive) and diastolic (congestive) heart failure (2) Diabetes Priority: Primary Status: Chronic Qualifiers: Diabetes mellitus type: type 2 Diabetes mellitus repatcher insulin use: with repatcher use Diabetes mellitus complication status: with neurologic complications Diabetes mellitus complication detail: with unspecified neuropathy Qualified Code(s): E11.40 - Type 2 diabetes mellitus with diabetic neuropathy, unspecified; 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 transplanted heart: [place] heart Associated angina: without angina Qualified Code(s): I25.10 - Atherosclerotic heart disease of [place] coronary artery without angina pectoris (5) Obesity (BMI 30-39.9) Priority: Primary Status: Chronic (6) Atrial flutter Priority: Primary Status: Acute Qualifiers: Atrial flutter type: unspecified Qualified Code(s): I48.92 - Unspecified atrial flutter (7) Large B-cell lymphoma Priority: Primary Status: Acute (8) Tachycardia-bradycardia syndrome Priority: Primary Status: Acute (9) Pneumonia Priority: Primary Status: Acute Qualifiers: Qualified Code(s): J18.9 - Pneumonia, unspecified organism Hospital course: Mr. Sahu is a 68 year old male - Time Spent with Patient Total time spent providing and/or coordinating discharge services: - Discharge Medications Prescriptions: Continued Lisinopril [Zestril] 5 mg PO DAILY Atorvastatin [Lipitor] 10 mg PO QAM Nitroglycerin 0.4 mg SL Q5MIN PRN PRN Reason: Chest Pain Metformin HCl [Glucophage] 1,000 mg PO BIDWM Ferrous Sulfate [Iron] 325 mg PO BID Insulin Degludec [Tresiba Flextouch U-100] 25 unit SQ QAM Cyanocobalamin (Vitamin B-12) [Vitamin B12] 2,000 mcg PO DAILY Ondansetron HCl [Zofran] 4 mg PO Q6HR PRN #20 tab PRN Reason: Nausea Aspirin [Lo-Dose Aspirin EC] 81 mg PO DAILY Rivaroxaban [Xarelto] 20 mg PO HS Metoprolol Succinate 100 mg PO DAILY #30 tab.er.24h Prochlorperazine Maleate [Compazine] 10 mg PO Q6HR PRN PRN Reason: NAUSEA/VOMITING Omeprazole [PriLOSEC] 40 mg PO QAM Oxycodone HCl [Oxycontin] 10 mg PO Q12H OxyCODONE/APAP 5/325 [Percocet 5/325 MG] 1 tab PO Q6H PRN PRN Reason: Pain Changed Furosemide [Lasix] 40 mg PO BID #60 tablet Home Medications: Atorvastatin [Lipitor] 10 mg PO QAM 11/21/16 [History] Lisinopril [Zestril] 5 mg PO DAILY 11/21/16 [History] Metformin HCl [Glucophage] 1,000 mg PO BIDWM 11/21/16 [History] Nitroglycerin 0.4 mg SL Q5MIN PRN 11/21/16 [History] Cyanocobalamin (Vitamin B-12) [Vitamin B12] 2,000 mcg PO DAILY 11/24/18 [History] Ferrous Sulfate [Iron] 325 mg PO BID 11/24/18 [History] Insulin Degludec [Tresiba Flextouch U-100] 25 unit SQ QAM 11/24/18 [History] Ondansetron HCl [Zofran] 4 mg PO Q6HR PRN #20 tab 02/20/19 [Rx] Aspirin [Lo-Dose Aspirin EC] 81 mg PO DAILY 03/10/19 [History] Rivaroxaban [Xarelto] 20 mg PO HS 03/10/19 [History] Metoprolol Succinate 100 mg PO DAILY #30 tab.er.24h 03/11/19 [Rx] Prochlorperazine Maleate [Compazine] 10 mg PO Q6HR PRN 05/24/19 [History] Omeprazole [PriLOSEC] 40 mg PO QAM 05/25/19 [History] OxyCODONE/APAP 5/325 [Percocet 5/325 MG] 1 tab PO Q6H PRN 05/25/19 [History] Oxycodone HCl [Oxycontin] 10 mg PO Q12H 05/25/19 [History] Furosemide [Lasix] 40 mg PO BID #60 tablet 05/26/19 [Rx] Allergies/Adverse Reactions: Allergy/AdvReac Type Severity Reaction Status Date / Time No Known Allergies Allergy Verified 05/25/19 11:04 Date of admission: 05/25/19 00:16 Primary care physician: Meg Reina CNP Consults: 05/25/19 00:55 Consult to Nutrition [CONS] Routine Comment: poor appetite Consulting Provider: NUTRITION Reason for Dietary Consult: MST Score PO Supplementation 05/25/19 02:02 Consult to Wound Care [CONS] Routine Reason for Consult: L foot wound care Call Completed: No 05/25/19 02:16 Consult to Cardiac Rehabilitation-Phase1 [CONS] Routine Comment: Reason for Consult: heart failure Call Completed: Yes Consult to Nurse Navigator [CONS] Routine Comment: 05/25/19 05:37 Consult to Nurse Navigator [CONS] Routine Comment: 05/25/19 05:50 Consult to Cardiology [CONS] Routine Comment: Consulting Provider: Cardiology Pia Reason for Consult: Patient requested to be evaluated by cardiology to consider placement of pacemaker as was discussed with him during his clinic visit with Dr. Bowman. The patient currently in atrial flutter, heart rate around 50 and some occasion he bradycardia to around 40, as usual call was consulted and recommended to place a consult in a.m. for further evaluation and management Call Completed: Yes - Constitutional Vitals: Temp Pulse Resp BP Pulse Ox 98.0 F 99 16 137/69 95 05/26/19 07:11 05/26/19 07:11 05/26/19 07:11 05/26/19 07:11 05/26/19 07:11 General appearance: Present: A&O X 3 Exam: NAD - Head Head exam: Present: atraumatic, normocephalic - Eye Eye exam: Present: PERRL, conjuntiva pink, sclera anicteric Pupils: Present: PERRL - Neck Neck exam general surgery: Present: supple, trachea midline. Absent: lymphadenopathy - Respiratory Respiratory exam: Present: CTAB. Absent: accessory muscle use, rales, rhonchi, wheezes - Cardiovascular Cardiovascular exam: Present: RRR, +S1, +S2. Absent: diastolic murmur, gallop, rubs, systolic murmur - GI/Abdominal GI/Abdominal exam: Present: normal bowel sounds, soft, no peritoneal signs. Absent: distended, tenderness - Extremities Exam Extremities exam: Present: warm, radial pulses palpable and symmetrical. Absent: calf tenderness, cyanotic, pedal edema - Neurological Exam Neurological exam: Present: CN II-XII intact, oriented X3, no focal deficits. Absent: pronater drift, facial droop, speech deficit - Skin Skin exam: Present: dry, intact - Patient Status Disposition: Home, Self-Care Condition: Good - Discharge Instructions Instructions: Heart Failure (DC) Follow Up With: Meg Reina CNP [Primary Care Provider] - 06/01/19 10:30 am (Please follow up as schedule...,)
[2019-05-26] MEDS: Metoprolol XL (24 HR) Succ 50 MG TAB.ER.24H PO SCH (10:40)
[2019-05-26] MEDS: Aspirin Enteric Coated 81 MG Tablet PO SCH (10:40)
[2019-05-26] MEDS: Insulin LISPRO 300 UNITS/3 ML VIAL SQ SCH (10:41)
[2019-05-26] MEDS: Cyanocobalamin (B-12) 1,000 MCG TABLET PO SCH (10:41)
== END 2019-05-26 11:43 | disposition home or self-care (01) ==
LOC: EMEROOARM 21:00 → INTOOBSV 05-25 00:16 → 2ANU 05-25 00:16
PROVIDERS: ADMIT Internal Medicine Nephrology; ATTEND Internal Medicine Nephrology

== ENCOUNTER 2019-08-02 15:21 | Inpatient (IN) ==
[2019-08-02] MEDS ORDERED: Piperacillin/Tazobactam 3.375 GM in Water for inj. (sterile) 20 ML IVP ONE (15:37)
[2019-08-02] MEDS: 0.9 % Sodium Chloride 1,000 ML IVC SCH ×3 (15:50→18:31)
[2019-08-02 16:11] LABS: Basophils % 0.2 %; Hematocrit 38.9 % (37.5-50.1); Hemoglobin 12.9 g/dL (12.9-16.9); INR 3.2; Immature Granulocytes % 1.2 % (0-4); Lymphocytes # 0.9 K/mcL (0.6-4.6); Lymphocytes % 8.7 %; Mean Corpuscular HGB Conc 33.2 g/dL (31.6-35.5); Mean Corpuscular Hemoglobin 29.7 pg (28.0-33.3); Mean Corpuscular Volume 89.4 fL (83.0-100.0); Mean Platelet Volume 10.6 fL (9.4-12.4); Monocytes # 0.6 K/mcL (0.0-1.3); Monocytes % 5.7 %; Neutrophils # 9.1 K/mcL (1.6-8.9); Platelet Count 131 K/mcL (140-400); Prothrombin Time 36.6 Seconds (9.4-12.1); Red Blood Count 4.35 M/mcL (4.19-5.50); Segmented Neutrophils % 84.2 %; White Blood Count 10.8 K/mcL (4.3-11.1)
[2019-08-02 16:13] LABS: Activated Partial Thrombo Time 36.9 Seconds (26.0-36.0)
[2019-08-02 16:23] LABS: Bilirubin,Urine Negative (Negative); Blood,Urine Negative (Negative); Clarity,Urine Clear (Clear); Color,Urine Yellow (Yellow); Glucose,Urine (UA) Normal (Normal); Ketones,Urine Negative (Negative); Leukocyte Esterase,Urine Negative (Negative); Nitrite,Urine Negative (Negative); Protein,Urine 100 mg/dL (Neg-Trace); Specific Gravity,Urine 1.014 (1.010-1.025); Urobilinogen,Urine Normal (Normal)
[2019-08-02 16:25] LABS: Bacteria,Urine None Seen per hpf (None-Few); Hyaline Casts,Urine None Seen per lpf (None-Few); Squamous Epithelial Cell,Urine Many per lpf (None-Few); WBC,Urine 0-3 per hpf (0-3)
[2019-08-02 16:26] LABS: Albumin 3.7 g/dL (3.5-5.7); Albumin/Globulin Ratio 1.4 (1.1-2.2); Bilirubin,Direct 0.3 mg/dL (0.0-0.2); Bilirubin,Indirect 0.6 mg/dL (0.0-1.0); Bilirubin,Total 0.9 mg/dL (0.3-1.0); Calcium 8.8 mg/dL (8.6-10.3); Globulin 2.6 g/dL (2.4-3.5); Magnesium 1.6 mg/dL (1.6-2.6); Phosphorous 3.3 mg/dL (2.7-4.5); Potassium 3.8 mEq/L (3.5-5.1); Total Protein 6.3 g/dL (6.4-8.9)
[2019-08-02 16:34] LABS: Troponin I 1.92 ng/mL (< 0.04)
[2019-08-02] MEDS ORDERED: Naloxone 0.4 MG/ML INJ IVP PRN (21:00)
[2019-08-02] MEDS ORDERED: Ondansetron ODT 4 MG TAB.RAPDIS SL PRN (21:00)
[2019-08-02] MEDS ORDERED: *HR* Dextrose 50 % in Water (Syg) 50 ML SYRINGE IVP PRN (21:04)
[2019-08-02] MEDS ORDERED: D5% in Water 1,000 ML IVC PRN (21:04)
[2019-08-02] MEDS ORDERED: Dextrose Gel 15 GM/37.5 ML TUBE PO PRN ×2 (21:04)
[2019-08-02] MEDS ORDERED: Nitroglycerin 0.4 MG TAB.SUBL SL PRN (21:06)
[2019-08-02] MEDS ORDERED: Acetaminophen 325 MG TABLET PO PRN (22:31)
[2019-08-02] MEDS: Ringers Solution, Lactated 1,000 ML IVC SCH (22:43)
[2019-08-03 01:25] LABS: Adenovirus Not Detected (Not Detect); Bordetella Pertussis Not Detected (Not Detect); Chlamydophila pneumoniae Not Detected (Not Detect); Coronavirus 229E Not Detected (Not Detect); Coronavirus HKU1 Not Detected (Not Detect); Coronavirus NL63 Not Detected (Not Detect); Coronavirus OC43 Not Detected (Not Detect); Human Metapneumovirus Not Detected (Not Detect); Human Rhinovirus/Enterovirus Not Detected (Not Detect); Influenza A Subtype 2009 H1 Not Detected (Not Detect); Influenza A Untypeable Not Detected (Not Detect); Influenza B Not Detected (Not Detect); Mycoplasma pneumoniae Not Detected (Not Detect); Parainfluenza Virus 1 Not Detected (Not Detect); Parainfluenza Virus 2 Not Detected (Not Detect); Parainfluenza Virus 3 Not Detected (Not Detect); Parainfluenza Virus 4 Not Detected (Not Detect); Respiratory Syncytial Virus Not Detected (Not Detect)
[2019-08-03 04:03] LABS: Basophils % 0.3 %; INR 2.6; Prothrombin Time 29.2 Seconds (9.4-12.1)
[2019-08-03 04:04] LABS: Eosinophils % 0.1 %; Hematocrit 33.5 % (37.5-50.1); Hemoglobin 10.9 g/dL (12.9-16.9); Immature Platelets 6.3 % (1.1-6.1); Lymphocytes # 0.8 K/mcL (0.6-4.6); Lymphocytes % 11.1 %; Mean Corpuscular HGB Conc 32.5 g/dL (31.6-35.5); Mean Corpuscular Hemoglobin 29.1 pg (28.0-33.3); Mean Corpuscular Volume 89.6 fL (83.0-100.0); Mean Platelet Volume 11.1 fL (9.4-12.4); Monocytes # 0.3 K/mcL (0.0-1.3); Monocytes % 4.5 %; Neutrophils # 5.7 K/mcL (1.6-8.9); Red Blood Count 3.74 M/mcL (4.19-5.50); Red Cell Distribution Width 16.2 % (11.5-14.5); White Blood Count 6.9 K/mcL (4.3-11.1)
[2019-08-03 04:20] LABS: Potassium 3.5 mEq/L (3.5-5.1)
[2019-08-03 04:30] LABS: Troponin I 1.65 ng/mL (< 0.04)
[2019-08-03 04:38] LABS: Thyroid Stimulating Hormone 2.069 mcIU/mL (0.340-5.600)
[2019-08-03 04:51] LABS: Platelet Count 88 K/mcL (140-400)
[2019-08-03 04:54] LABS: Platelet Estimate Slight Decrease (Normal)
[2019-08-03 06:31] LABS: Acinetobacter baumannii by PCR Not Detected (Not Detect); Candida albicans by PCR Not Detected (Not Detect); Candida glabrata by PCR Not Detected (Not Detect); Candida krusei by PCR Not Detected (Not Detect); Candida parapsilosis by PCR Not Detected (Not Detect); Candida tropicalis by PCR Not Detected (Not Detect); Enterobacter cloacae Cmplx PCR Not Detected (Not Detect); Enterobacteriaceae by PCR Not Detected (Not Detect); Enterococcus by PCR Not Detected (Not Detect); Escherichia coli by PCR Not Detected (Not Detect); Klebsiella oxytoca by PCR Not Detected (Not Detect); Klebsiella pneumoniae by PCR Not Detected (Not Detect); Proteus by PCR Not Detected (Not Detect); Pseudomonas aeruginosa by PCR Not Detected (Not Detect); Serratia marcescens by PCR Not Detected (Not Detect); Staphylococcus aureus by PCR DETECTED (Not Detect); Streptococcus agalactiae(B)PCR Not Detected (Not Detect); Streptococcus by PCR Not Detected (Not Detect); Streptococcus pneumoniae PCR Not Detected (Not Detect); Streptococcus pyogenes (A) PCR Not Detected (Not Detect); mecA Methicillin-Resist Gene DETECTED (Not Detect)
[2019-08-03] MEDS ORDERED: Perflutren Lipid Microsphere 1.3 ML in 0.9 % Sodium Chloride 8.7 ML IVP ONE (07:09)
[2019-08-03] MEDS ORDERED: Perflutren Lipid Microsphere 2 ML VIAL ONE (07:12)
[2019-08-03] MEDS: Aspirin Enteric Coated 81 MG Tablet PO SCH (08:50)
[2019-08-03] MEDS: Ringers Solution, Lactated 1,000 ML IVC SCH (08:57)
[2019-08-03] MEDS: Insulin LISPRO 300 UNITS/3 ML VIAL SQ SCH ×4 (08:57→20:29)
[2019-08-03 10:49] LABS: Hematocrit 33.8 % (37.5-50.1); Hemoglobin 10.7 g/dL (12.9-16.9); Immature Platelets 6.7 % (1.1-6.1); Mean Corpuscular HGB Conc 31.7 g/dL (31.6-35.5); Mean Corpuscular Volume 91.6 fL (83.0-100.0); Mean Platelet Volume 11.1 fL (9.4-12.4); Monocytes # 0.4 K/mcL (0.0-1.3); Red Blood Count 3.69 M/mcL (4.19-5.50); Red Cell Distribution Width 16.1 % (11.5-14.5); White Blood Count 5.9 K/mcL (4.3-11.1)
[2019-08-03 10:52] LABS: Platelet Count 83 K/mcL (140-400)
[2019-08-03 11:35] LABS: Lymphocytes # 0.5 K/mcL (0.6-4.6); Neutrophils # 5.1 K/mcL (1.6-8.9); Platelet Estimate Slight Decrease (Normal)
[2019-08-03] MEDS ORDERED: 0.9 % Sodium Chloride 1,000 ML ONE (11:38)
[2019-08-03] MEDS: Metoprolol XL (24 HR) Succ 50 MG TAB.ER.24H PO SCH (11:42)
[2019-08-03] MEDS: 0.9 % Sodium Chloride 1,000 ML IVC SCH (11:52)
[2019-08-03] MEDS ORDERED: *HR* Heparin 5,000 UNIT/ML VIAL IVP ONE (16:20)
[2019-08-03] MEDS ORDERED: *HR* Heparin 5,000 UNIT/ML VIAL IVP PRN ×2 (16:20)
[2019-08-03] MEDS ORDERED: *HR* Rivaroxaban 10 MG TABLET PO SCH (17:00)
[2019-08-03] MEDS: Heparin 25,000 UNIT/250 ML D5W 25,000 UNIT/250 ML IV.SOLN IVC SCH (17:40)
[2019-08-03 17:56] LABS: Hemoglobin 11.2 g/dL (12.9-16.9)
[2019-08-03 17:58] LABS: Immature Platelets 7.3 % (1.1-6.1); Mean Corpuscular HGB Conc 32.9 g/dL (31.6-35.5); Mean Corpuscular Hemoglobin 29.1 pg (28.0-33.3); Mean Corpuscular Volume 88.3 fL (83.0-100.0); Mean Platelet Volume 10.8 fL (9.4-12.4); Red Blood Count 3.85 M/mcL (4.19-5.50); White Blood Count 5.4 K/mcL (4.3-11.1)
[2019-08-03 18:02] LABS: Prothrombin Time 22.2 Seconds (9.4-12.1)
[2019-08-03] MEDS ORDERED: NON-FORMULARY MEDICATION 1 EACH EACH (Rivaroxaban [Xarelto] 20 MG) PO SCH (21:00)
[2019-08-04 02:00] LABS: Eosinophils % 0.9 %
[2019-08-04 02:02] LABS: Basophils % 0.4 %; Eosinophils # 0.1 K/mcL (0.0-0.6); Hematocrit 33.2 % (37.5-50.1); Hemoglobin 10.9 g/dL (12.9-16.9); Immature Granulocytes % 0.7 % (0-4); Immature Platelets 8.9 % (1.1-6.1); Lymphocytes # 0.8 K/mcL (0.6-4.6); Lymphocytes % 14.3 %; Mean Corpuscular HGB Conc 32.8 g/dL (31.6-35.5); Mean Corpuscular Hemoglobin 28.9 pg (28.0-33.3); Mean Corpuscular Volume 88.1 fL (83.0-100.0); Mean Platelet Volume 11.2 fL (9.4-12.4); Monocytes # 0.6 K/mcL (0.0-1.3); Monocytes % 10.2 %; Neutrophils # 4.1 K/mcL (1.6-8.9); Red Blood Count 3.77 M/mcL (4.19-5.50); Red Cell Distribution Width 16.1 % (11.5-14.5); Segmented Neutrophils % 73.5 %; White Blood Count 5.6 K/mcL (4.3-11.1)
[2019-08-04 02:04] LABS: BUN/Creatinine Ratio 31 (6-26); Blood Urea Nitrogen 42 mg/dL (8-23); Carbon Dioxide 22 mEq/L (23-29); Chloride 106 mEq/L (98-107); Glucose 161 mg/dL (70-105); Osmolality,Calculated 296 (280-300); Potassium 3.3 mEq/L (3.5-5.1); Sodium 136 mEq/L (136-145); eGFR For African Americans > 60 (> 60); eGFR For Non-African Americans 52 (> 60)
[2019-08-04 02:07] LABS: Platelet Count 70 K/mcL (140-400)
[2019-08-04 04:32] LABS: Acinetobacter baumannii by PCR Not Detected (Not Detect); Enterobacter cloacae Cmplx PCR Not Detected (Not Detect); Enterobacteriaceae by PCR Not Detected (Not Detect); Enterococcus by PCR Not Detected (Not Detect); Escherichia coli by PCR Not Detected (Not Detect); Klebsiella oxytoca by PCR Not Detected (Not Detect); Klebsiella pneumoniae by PCR Not Detected (Not Detect); Proteus by PCR Not Detected (Not Detect); Pseudomonas aeruginosa by PCR Not Detected (Not Detect); Serratia marcescens by PCR Not Detected (Not Detect); Staphylococcus aureus by PCR DETECTED (Not Detect); Streptococcus agalactiae(B)PCR Not Detected (Not Detect); Streptococcus by PCR Not Detected (Not Detect); Streptococcus pneumoniae PCR Not Detected (Not Detect); Streptococcus pyogenes (A) PCR Not Detected (Not Detect); mecA Methicillin-Resist Gene DETECTED (Not Detect)
[2019-08-04 04:33] LABS: Candida albicans by PCR Not Detected (Not Detect); Candida glabrata by PCR Not Detected (Not Detect); Candida krusei by PCR Not Detected (Not Detect); Candida parapsilosis by PCR Not Detected (Not Detect); Candida tropicalis by PCR Not Detected (Not Detect)
[2019-08-04] MEDS: 0.9 % Sodium Chloride 1,000 ML IVC SCH ×2 (06:31→21:02)
[2019-08-04] MEDS: Metoprolol XL (24 HR) Succ 50 MG TAB.ER.24H PO SCH (08:51)
[2019-08-04] MEDS: Aspirin Enteric Coated 81 MG Tablet PO SCH (08:51)
[2019-08-04] MEDS: Insulin LISPRO 300 UNITS/3 ML VIAL SQ SCH ×4 (08:52→21:03)
[2019-08-04 09:53] LABS: Immature Reticulocyte % 5.8 % (11.0-38.0); Retculocyte # 0.05 M/mcL (0.05-0.10); Reticulocyte % 1.5 % (1.6-2.8)
[2019-08-04 10:14] LABS: % Iron Saturation 27 % (20-55); Iron 42 mcg/dL (65-175); Lactate Dehydrogenase 150 Units/L (140-271); Transferrin 113 mg/dL (203-362)
[2019-08-04 10:32] LABS: Ferritin > 1500 ng/mL (20-250)
[2019-08-04 11:25] LABS: Folate 7.9 ng/mL (3.0-16.0); Vitamin B12 > 1500 pg/mL (250-1100)
[2019-08-04] MEDS: Heparin 25,000 UNIT/250 ML D5W 25,000 UNIT/250 ML IV.SOLN IVC SCH (11:29)
[2019-08-05 05:09] LABS: INR 1.1; Prothrombin Time 12.8 Seconds (9.4-12.1)
[2019-08-05 05:18] LABS: Basophils % 0.4 %; Hematocrit 32.8 % (37.5-50.1); Hemoglobin 10.7 g/dL (12.9-16.9); Immature Granulocytes % 1.1 % (0-4); Mean Corpuscular HGB Conc 32.6 g/dL (31.6-35.5); Mean Platelet Volume 12.1 fL (9.4-12.4)
[2019-08-05 05:20] LABS: Eosinophils # 0.1 K/mcL (0.0-0.6); Eosinophils % 1.5 %; Immature Platelets 9.9 % (1.1-6.1); Lymphocytes # 1.2 K/mcL (0.6-4.6); Lymphocytes % 22.6 %; Mean Corpuscular Hemoglobin 29.1 pg (28.0-33.3); Mean Corpuscular Volume 89.1 fL (83.0-100.0); Monocytes # 0.5 K/mcL (0.0-1.3); Monocytes % 8.3 %; Neutrophils # 3.6 K/mcL (1.6-8.9); Red Blood Count 3.68 M/mcL (4.19-5.50); Red Cell Distribution Width 16.1 % (11.5-14.5); Segmented Neutrophils % 66.1 %; White Blood Count 5.4 K/mcL (4.3-11.1)
[2019-08-05 05:28] LABS: BUN/Creatinine Ratio 30 (6-26); Blood Urea Nitrogen 34 mg/dL (8-23); Calcium 8.2 mg/dL (8.6-10.3); Carbon Dioxide 22 mEq/L (23-29); Chloride 108 mEq/L (98-107); Glucose 148 mg/dL (70-105); Osmolality,Calculated 298 (280-300); Potassium 3.4 mEq/L (3.5-5.1); Sodium 139 mEq/L (136-145); eGFR For African Americans > 60 (> 60); eGFR For Non-African Americans > 60 (> 60)
[2019-08-05 05:29] LABS: Platelet Count 75 K/mcL (140-400)
[2019-08-05] MEDS ORDERED: *HR* FentaNYL (PF) 100 MCG/2 ML VIAL IVP PRN (08:20)
[2019-08-05] MEDS ORDERED: Lidocaine Viscous Oral Soln 15 ML SOLUTION MM PRN (08:20)
[2019-08-05] MEDS ORDERED: *HR* Midazolam HCl 5 MG/5 ML VIAL IVP PRN (08:21)
[2019-08-05] MEDS ORDERED: 0.9 % Sodium Chloride 500 ML IVC ONE (08:21)
[2019-08-05] MEDS: Insulin LISPRO 300 UNITS/3 ML VIAL SQ SCH ×3 (11:20→16:48)
[2019-08-05] MEDS ORDERED: *HR* Midazolam HCl 2 MG/2 ML VIAL ONE (12:50)
[2019-08-05] MEDS ORDERED: 0.9 % Sodium Chloride 500 ML ONE (12:50)
[2019-08-05] MEDS ORDERED: *HR* FentaNYL (PF) 100 MCG/2 ML VIAL ONE (12:50)
[2019-08-05] MEDS ORDERED: 0.9 % Sodium Chloride 1,000 ML ONE ×2 (12:57→13:27)
[2019-08-05] MEDS: Metoprolol XL (24 HR) Succ 50 MG TAB.ER.24H PO SCH (15:01)
[2019-08-05] MEDS: Aspirin Enteric Coated 81 MG Tablet PO SCH (15:01)
[2019-08-05] MEDS: *HR* Heparin 5,000 UNIT/ML VIAL SQ SCH (16:46)
[2019-08-06 02:21] LABS: BUN/Creatinine Ratio 22 (6-26); Blood Urea Nitrogen 26 mg/dL (8-23); Calcium 8.1 mg/dL (8.6-10.3); Carbon Dioxide 19 mEq/L (23-29); Chloride 110 mEq/L (98-107); Glucose 213 mg/dL (70-105); Osmolality,Calculated 299 (280-300); Potassium 3.5 mEq/L (3.5-5.1); Sodium 139 mEq/L (136-145); eGFR For African Americans > 60 (> 60); eGFR For Non-African Americans 60 (> 60)
[2019-08-06 02:26] LABS: Basophils % 0.4 %; Eosinophils % 0.8 %; Hemoglobin 10.9 g/dL (12.9-16.9); Immature Granulocytes % 1.3 % (0-4); Immature Platelets 9.7 % (1.1-6.1); Lymphocytes # 1.1 K/mcL (0.6-4.6); Lymphocytes % 23.6 %; Mean Corpuscular HGB Conc 32.1 g/dL (31.6-35.5); Mean Corpuscular Hemoglobin 29.4 pg (28.0-33.3); Mean Corpuscular Volume 91.6 fL (83.0-100.0); Mean Platelet Volume 12.7 fL (9.4-12.4); Monocytes # 0.4 K/mcL (0.0-1.3); Neutrophils # 3.1 K/mcL (1.6-8.9); Red Blood Count 3.71 M/mcL (4.19-5.50); Red Cell Distribution Width 16.3 % (11.5-14.5); Segmented Neutrophils % 64.9 %; White Blood Count 4.8 K/mcL (4.3-11.1)
[2019-08-06 04:06] LABS: Platelet Count 75 K/mcL (140-400)
[2019-08-06] MEDS: Insulin LISPRO 300 UNITS/3 ML VIAL SQ SCH ×5 (04:29→21:17)
[2019-08-06] MEDS: *HR* Heparin 5,000 UNIT/ML VIAL SQ SCH ×2 (04:36→16:55)
[2019-08-06] MEDS: Aspirin Enteric Coated 81 MG Tablet PO SCH (08:17)
[2019-08-06] MEDS ORDERED: *HR* FentaNYL (PF) 100 MCG/2 ML VIAL IVP ONE (09:06)
[2019-08-06] MEDS ORDERED: 0.9 % Sodium Chloride 500 ML ONE (09:09)
[2019-08-06] MEDS ORDERED: *HR* FentaNYL (PF) 100 MCG/2 ML VIAL ONE (09:21)
[2019-08-06] MEDS: Metoprolol XL (24 HR) Succ 50 MG TAB.ER.24H PO SCH (10:07)
[2019-08-06] MEDS ORDERED: Furosemide 40 MG/4 ML VIAL IVP ONE (11:22)
[2019-08-07] MEDS: *HR* Heparin 5,000 UNIT/ML VIAL SQ SCH ×2 (05:17→17:35)
[2019-08-07 06:34] LABS: Basophils % 0.2 %; Eosinophils # 0.1 K/mcL (0.0-0.6); Eosinophils % 1.9 %; Hematocrit 31.3 % (37.5-50.1); Hemoglobin 9.8 g/dL (12.9-16.9); Immature Granulocytes % 1.3 % (0-4); Lymphocytes # 1.8 K/mcL (0.6-4.6); Lymphocytes % 33.8 %; Mean Corpuscular HGB Conc 31.3 g/dL (31.6-35.5); Mean Corpuscular Hemoglobin 28.7 pg (28.0-33.3); Mean Corpuscular Volume 91.8 fL (83.0-100.0); Monocytes # 0.5 K/mcL (0.0-1.3); Monocytes % 10.1 %; Neutrophils # 2.8 K/mcL (1.6-8.9); Platelet Count 104 K/mcL (140-400); Red Blood Count 3.41 M/mcL (4.19-5.50); Red Cell Distribution Width 16.1 % (11.5-14.5); Segmented Neutrophils % 52.7 %; White Blood Count 5.3 K/mcL (4.3-11.1)
[2019-08-07 06:57] LABS: BUN/Creatinine Ratio 16 (6-26); Blood Urea Nitrogen 17 mg/dL (8-23); Calcium 8.2 mg/dL (8.6-10.3); Carbon Dioxide 21 mEq/L (23-29); Chloride 110 mEq/L (98-107); Glucose 156 mg/dL (70-105); Osmolality,Calculated 299 (280-300); Potassium 3.3 mEq/L (3.5-5.1); Sodium 142 mEq/L (136-145); eGFR For African Americans > 60 (> 60); eGFR For Non-African Americans > 60 (> 60)
[2019-08-07] MEDS: Aspirin Enteric Coated 81 MG Tablet PO SCH (08:14)
[2019-08-07] MEDS: Metoprolol XL (24 HR) Succ 50 MG TAB.ER.24H PO SCH (08:14)
[2019-08-07] MEDS: Furosemide 40 MG TABLET PO SCH (08:14)
[2019-08-07] MEDS: Insulin LISPRO 300 UNITS/3 ML VIAL SQ SCH ×4 (08:15→20:13)
[2019-08-07] MEDS: *HR* OxyCODONE/APAP 5/325 TABLET PO PRN (15:29)
[2019-08-07] MEDS: *HR* OxyCODONE/APAP 5/325 TABLET PO SCH (20:45)
[2019-08-08] MEDS: *HR* Heparin 5,000 UNIT/ML VIAL SQ SCH ×2 (06:02→17:11)
[2019-08-08] MEDS: Insulin LISPRO 300 UNITS/3 ML VIAL SQ SCH ×4 (08:15→21:10)
[2019-08-08] MEDS: Furosemide 40 MG TABLET PO SCH (08:16)
[2019-08-08] MEDS: Aspirin Enteric Coated 81 MG Tablet PO SCH (08:16)
[2019-08-08] MEDS: Metoprolol XL (24 HR) Succ 50 MG TAB.ER.24H PO SCH (08:16)
[2019-08-08] MEDS: *HR* OxyCODONE/APAP 5/325 TABLET PO SCH (08:16)
[2019-08-08] MEDS: *HR* OxyCODONE/APAP 5/325 TABLET PO PRN (17:12)
[2019-08-09] MEDS: *HR* OxyCODONE/APAP 5/325 TABLET PO PRN ×2 (06:28→17:06)
[2019-08-09] MEDS: *HR* Heparin 5,000 UNIT/ML VIAL SQ SCH (06:28)
[2019-08-09] MEDS: Metoprolol XL (24 HR) Succ 50 MG TAB.ER.24H PO SCH (08:16)
[2019-08-09] MEDS: Furosemide 40 MG TABLET PO SCH (08:17)
[2019-08-09] MEDS: Aspirin Enteric Coated 81 MG Tablet PO SCH (08:17)
[2019-08-09] MEDS: Insulin LISPRO 300 UNITS/3 ML VIAL SQ SCH ×4 (08:17→20:50)
[2019-08-09] MEDS ORDERED: Aminoglycoside Consult 1 EACH MC ONE (14:33)
[2019-08-09] MEDS ORDERED: *HR* Rivaroxaban 10 MG TABLET PO SCH (17:00)
[2019-08-10 01:47] LABS: Basophils % 0.6 %; Eosinophils # 0.1 K/mcL (0.0-0.6); Eosinophils % 2.5 %; Hemoglobin 10.7 g/dL (12.9-16.9); Immature Granulocytes % 4.5 % (0-4); Lymphocytes # 1.7 K/mcL (0.6-4.6); Lymphocytes % 31.1 %; Mean Corpuscular HGB Conc 31.5 g/dL (31.6-35.5); Mean Corpuscular Hemoglobin 28.4 pg (28.0-33.3); Mean Corpuscular Volume 90.2 fL (83.0-100.0); Mean Platelet Volume 11.7 fL (9.4-12.4); Monocytes # 0.4 K/mcL (0.0-1.3); Monocytes % 7.4 %; Neutrophils # 2.9 K/mcL (1.6-8.9); Platelet Count 170 K/mcL (140-400); Red Blood Count 3.77 M/mcL (4.19-5.50); Red Cell Distribution Width 16.5 % (11.5-14.5); Segmented Neutrophils % 53.9 %; White Blood Count 5.3 K/mcL (4.3-11.1)
[2019-08-10 02:11] LABS: BUN/Creatinine Ratio 13 (6-26); Blood Urea Nitrogen 14 mg/dL (8-23); Calcium 8.6 mg/dL (8.6-10.3); Carbon Dioxide 24 mEq/L (23-29); Chloride 106 mEq/L (98-107); Glucose 175 mg/dL (70-105); Osmolality,Calculated 291 (280-300); Sodium 138 mEq/L (136-145); eGFR For African Americans > 60 (> 60); eGFR For Non-African Americans > 60 (> 60)
[2019-08-10] MEDS: *HR* OxyCODONE/APAP 5/325 TABLET PO PRN ×2 (04:48→14:15)
[2019-08-10] MEDS: Metoprolol XL (24 HR) Succ 50 MG TAB.ER.24H PO SCH (08:15)
[2019-08-10] MEDS: Aspirin Enteric Coated 81 MG Tablet PO SCH (08:15)
[2019-08-10] MEDS: Furosemide 40 MG TABLET PO SCH (08:15)
[2019-08-10] MEDS: Insulin LISPRO 300 UNITS/3 ML VIAL SQ SCH ×2 (08:25→12:22)
[2019-08-10 11:49] VITALS: BP 148/82
== END 2019-08-10 14:34 | disposition home health service (06) | DRG 260 ==
LOC: EMEROOARM 15:21 → 2NNU 15:21 → SUATTDRO 19:42 → 2NNU 21:08
PROVIDERS: ADMIT Student in an Organized Health Care Education/Training Program; ATTEND Internal Medicine

== ENCOUNTER 2020-09-08 09:23 | Inpatient (IN) ==
[2020-09-08] MEDS ORDERED: *HR* OxyCODONE/APAP 5/325 TABLET PO ONE (09:46)
[2020-09-08] MEDS ORDERED: Piperacillin/Tazobactam 3.375 GM in 0.9 % Sodium Chloride Mini Bag 100 ML IVPB ONE (09:46)
[2020-09-08] MEDS ORDERED: Vancomycin 1,500 MG/265 ML IV.SOLN IVPB ONE (10:00)
[2020-09-08] MEDS ORDERED: Ondansetron 4 MG/2 ML VIAL IVP PRN (10:11)
[2020-09-08 10:32] LABS: Hematocrit 29.5 % (37.5-50.1); Hemoglobin 8.4 g/dL (12.9-16.9); Mean Corpuscular HGB Conc 28.5 g/dL (31.6-35.5); Mean Corpuscular Hemoglobin 25.8 pg (28.0-33.3); Mean Corpuscular Volume 90.5 fL (83.0-100.0); Mean Platelet Volume 9.8 fL (9.4-12.4); Platelet Count 303 K/mcL (140-400); Red Blood Count 3.26 M/mcL (4.19-5.50); Red Cell Distribution Width 18.4 % (11.5-14.5); White Blood Count 7.7 K/mcL (4.3-11.1)
[2020-09-08 10:53] LABS: BUN/Creatinine Ratio 17 (6-26); Blood Urea Nitrogen 21 mg/dL (8-23); Calcium 9.7 mg/dL (8.6-10.3); Carbon Dioxide 25 mEq/L (23-29); Chloride 105 mEq/L (98-107); Glucose 147 mg/dL (70-105); Osmolality,Calculated 294 (280-300); Potassium 4.3 mEq/L (3.5-5.1); Sodium 139 mEq/L (136-145); eGFR For African Americans > 60 (> 60); eGFR For Non-African Americans 57 (> 60)
[2020-09-08] MEDS ORDERED: D5% in Water 1,000 ML IVC PRN (11:39)
[2020-09-08] MEDS ORDERED: *HR* Dextrose 50 % in Water (Vial) 50 ML VIAL IVP PRN (11:39)
[2020-09-08] MEDS ORDERED: Dextrose Gel 15 GM/37.5 ML TUBE PO PRN ×2 (11:39)
[2020-09-08 13:08] LABS: Adenovirus Not Detected (Not Detect); Bordetella Pertussis Not Detected (Not Detect); Chlamydophila pneumoniae Not Detected (Not Detect); Coronavirus 229E Not Detected (Not Detect); Coronavirus HKU1 Not Detected (Not Detect); Coronavirus NL63 Not Detected (Not Detect); Coronavirus OC43 Not Detected (Not Detect); Human Metapneumovirus Not Detected (Not Detect); Human Rhinovirus/Enterovirus Not Detected (Not Detect); Influenza A Subtype 2009 H1 Not Detected (Not Detect); Influenza B Not Detected (Not Detect); Mycoplasma pneumoniae Not Detected (Not Detect); Parainfluenza Virus 1 Not Detected (Not Detect); Parainfluenza Virus 2 Not Detected (Not Detect); Parainfluenza Virus 3 Not Detected (Not Detect); Parainfluenza Virus 4 Not Detected (Not Detect); Respiratory Syncytial Virus Not Detected (Not Detect); SARS-CoV-2 Not Detected (Not Detect)
[2020-09-08] MEDS: *HR* OxyCODONE Immed Rel 5 MG TABLET PO PRN ×2 (15:08→21:40)
[2020-09-08] MEDS: Insulin LISPRO 300 UNITS/3 ML VIAL SQ SCH ×2 (18:03→21:39)
[2020-09-08] MEDS: *HR* Heparin 5,000 UNIT/ML VIAL SQ SCH (18:03)
[2020-09-08] MEDS: Piperacillin/Tazobactam 3.375 GM in 0.9 % Sodium Chloride Mini Bag 100 ML IVPB SCH (18:04)
[2020-09-09] MEDS: *HR* Heparin 5,000 UNIT/ML VIAL SQ SCH ×3 (01:06→15:08)
[2020-09-09] MEDS: Piperacillin/Tazobactam 3.375 GM in 0.9 % Sodium Chloride Mini Bag 100 ML IVPB SCH ×2 (02:04→10:30)
[2020-09-09 05:41] LABS: Hemoglobin 8.2 g/dL (12.9-16.9); Platelet Count 281 K/mcL (140-400)
[2020-09-09 05:42] LABS: Hematocrit 28.3 % (37.5-50.1); Mean Corpuscular Hemoglobin 26.3 pg (28.0-33.3); Mean Corpuscular Volume 90.7 fL (83.0-100.0); Mean Platelet Volume 9.7 fL (9.4-12.4); Red Blood Count 3.12 M/mcL (4.19-5.50); Red Cell Distribution Width 18.5 % (11.5-14.5)
[2020-09-09 05:52] LABS: INR 1.4; Prothrombin Time 15.9 Seconds (9.4-12.1)
[2020-09-09 06:08] LABS: BUN/Creatinine Ratio 14 (6-26); Blood Urea Nitrogen 18 mg/dL (8-23); Calcium 9.4 mg/dL (8.6-10.3); Carbon Dioxide 26 mEq/L (23-29); Chloride 104 mEq/L (98-107); Glucose 132 mg/dL (70-105); Magnesium 1.8 mg/dL (1.6-2.6); Osmolality,Calculated 292 (280-300); Potassium 4.7 mEq/L (3.5-5.1); Sodium 139 mEq/L (136-145); eGFR For African Americans > 60 (> 60); eGFR For Non-African Americans 56 (> 60)
[2020-09-09] MEDS ORDERED: Furosemide 40 MG TABLET PO SCH (09:00)
[2020-09-09] MEDS: Insulin LISPRO 300 UNITS/3 ML VIAL SQ SCH ×4 (10:08→21:06)
[2020-09-09] MEDS: Insulin DETEMIR 100 UNIT/ML X5UNITS SQ SCH (10:08)
[2020-09-09] MEDS: *HR* OxyCODONE Immed Rel 5 MG TABLET PO PRN ×2 (10:29→15:08)
[2020-09-09] MEDS: Aspirin Enteric Coated 81 MG Tablet PO SCH (10:29)
[2020-09-09] MEDS: Metoprolol XL (24 HR) Succ 50 MG TAB.ER.24H PO SCH (10:30)
[2020-09-09] MEDS ORDERED: Heparin 1,000 UNITS/500 mL 500 ML ONE ×2 (10:39→12:03)
[2020-09-09] MEDS ORDERED: *HR* Heparin 10,000 UNIT/10 ML VIAL ONE (10:39)
[2020-09-09] MEDS ORDERED: 0.9 % Sodium Chloride 1,000 ML ONE ×2 (10:39→10:40)
[2020-09-09] MEDS ORDERED: *HR* Midazolam HCl 2 MG/2 ML VIAL ONE (11:04)
[2020-09-09] MEDS ORDERED: *HR* FentaNYL (PF) 100 MCG/2 ML VIAL ONE ×2 (11:04→12:12)
[2020-09-09] MEDS: Vancomycin 1,500 MG/265 ML IV.SOLN IVPB SCH (14:58)
[2020-09-09] MEDS: metroNIDAZOLE 500 MG TABLET PO SCH ×2 (15:08→21:07)
[2020-09-09] MEDS: Cefepime HCl 2,000 MG in Water for inj. (sterile) 20 ML IVP SCH (19:04)
[2020-09-10] MEDS: *HR* Heparin 5,000 UNIT/ML VIAL SQ SCH ×2 (00:38→08:05)
[2020-09-10] MEDS: *HR* OxyCODONE Immed Rel 5 MG TABLET PO PRN ×3 (01:12→18:56)
[2020-09-10] MEDS: Cefepime HCl 2,000 MG in Water for inj. (sterile) 20 ML IVP SCH ×2 (05:33→17:50)
[2020-09-10 05:49] LABS: Red Cell Distribution Width 18.1 % (11.5-14.5)
[2020-09-10 05:50] LABS: Hematocrit 26.7 % (37.5-50.1); Hemoglobin 7.5 g/dL (12.9-16.9); Mean Corpuscular HGB Conc 28.1 g/dL (31.6-35.5); Mean Corpuscular Hemoglobin 25.4 pg (28.0-33.3); Mean Corpuscular Volume 90.5 fL (83.0-100.0); Mean Platelet Volume 10.3 fL (9.4-12.4); Platelet Count 217 K/mcL (140-400); Red Blood Count 2.95 M/mcL (4.19-5.50); White Blood Count 7.2 K/mcL (4.3-11.1)
[2020-09-10 06:14] LABS: BUN/Creatinine Ratio 15 (6-26); Blood Urea Nitrogen 19 mg/dL (8-23); Calcium 8.8 mg/dL (8.6-10.3); Carbon Dioxide 26 mEq/L (23-29); Chloride 105 mEq/L (98-107); Glucose 145 mg/dL (70-105); Osmolality,Calculated 291 (280-300); Potassium 4.4 mEq/L (3.5-5.1); Sodium 138 mEq/L (136-145); eGFR For African Americans > 60 (> 60); eGFR For Non-African Americans 55 (> 60)
[2020-09-10] MEDS: Insulin LISPRO 300 UNITS/3 ML VIAL SQ SCH ×4 (08:03→21:11)
[2020-09-10] MEDS: metroNIDAZOLE 500 MG TABLET PO SCH ×3 (08:04→21:20)
[2020-09-10] MEDS: Metoprolol XL (24 HR) Succ 50 MG TAB.ER.24H PO SCH (08:04)
[2020-09-10] MEDS: Aspirin Enteric Coated 81 MG Tablet PO SCH (08:04)
[2020-09-10] MEDS: lisinopriL 10 MG TABLET PO SCH (08:04)
[2020-09-10] MEDS: Insulin DETEMIR 100 UNIT/ML X5UNITS SQ SCH ×2 (08:13→21:20)
[2020-09-10] MEDS: Furosemide 80 MG in 0.9 % Sodium Chloride 50 ML IVPB SCH ×2 (08:24→21:20)
[2020-09-10] MEDS ORDERED: Furosemide 80 MG in 0.9 % Sodium Chloride 50 ML IVPB SCH (09:00)
[2020-09-10] MEDS ORDERED: *HR* Heparin 5,000 UNIT/ML VIAL IVP ONE (11:38)
[2020-09-10] MEDS ORDERED: Heparin 25,000UNIT/250ML 1/2NS 25,000 UNIT/250 ML IV.SOLN IVC SCH (11:45)
[2020-09-10 12:37] LABS: INR 1.4; Prothrombin Time 15.8 Seconds (9.4-12.1)
[2020-09-10 12:39] LABS: Heparin anti-factor XA UFH < 0.04 IU/mL (0.30-0.70)
[2020-09-10] MEDS: Heparin 25,000UNIT/250ML 1/2NS 25,000 UNIT/250 ML IV.SOLN IVC SCH (12:43)
[2020-09-10] MEDS: Vancomycin 1,500 MG/265 ML IV.SOLN IVPB SCH ×2 (13:30→14:29)
[2020-09-10] MEDS ORDERED: Insulin DETEMIR 100 UNIT/ML X5UNITS SQ SCH (16:15)
[2020-09-10] MEDS ORDERED: *HR* Heparin 5,000 UNIT/ML VIAL IVP PRN ×2 (17:30)
[2020-09-11] MEDS: Vancomycin 1,500 MG/265 ML IV.SOLN IVPB SCH ×2 (01:19→15:33)
[2020-09-11] MEDS: *HR* OxyCODONE Immed Rel 5 MG TABLET PO PRN ×3 (03:40→21:08)
[2020-09-11 03:48] LABS: Mean Platelet Volume 9.3 fL (9.4-12.4); Red Cell Distribution Width 18.1 % (11.5-14.5)
[2020-09-11 03:49] LABS: Hematocrit 27.6 % (37.5-50.1); Hemoglobin 7.8 g/dL (12.9-16.9); Mean Corpuscular HGB Conc 28.3 g/dL (31.6-35.5); Platelet Count 261 K/mcL (140-400)
[2020-09-11 04:08] LABS: BUN/Creatinine Ratio 16 (6-26); Blood Urea Nitrogen 21 mg/dL (8-23); Calcium 8.5 mg/dL (8.6-10.3); Carbon Dioxide 25 mEq/L (23-29); Chloride 107 mEq/L (98-107); Glucose 109 mg/dL (70-105); Osmolality,Calculated 294 (280-300); Potassium 4.2 mEq/L (3.5-5.1); Sodium 140 mEq/L (136-145); eGFR For African Americans > 60 (> 60); eGFR For Non-African Americans 53 (> 60)
[2020-09-11] MEDS: Cefepime HCl 2,000 MG in Water for inj. (sterile) 20 ML IVP SCH ×2 (06:07→19:03)
[2020-09-11] MEDS: Heparin 25,000UNIT/250ML 1/2NS 25,000 UNIT/250 ML IV.SOLN IVC SCH (07:45)
[2020-09-11] MEDS: Insulin LISPRO 300 UNITS/3 ML VIAL SQ SCH ×4 (07:48→20:59)
[2020-09-11] MEDS ORDERED: Furosemide 80 MG in 0.9 % Sodium Chloride 50 ML IVPB SCH (09:00)
[2020-09-11] MEDS: Aspirin Enteric Coated 81 MG Tablet PO SCH (11:14)
[2020-09-11] MEDS: Metoprolol XL (24 HR) Succ 50 MG TAB.ER.24H PO SCH (11:14)
[2020-09-11] MEDS: Fluconazole 200 MG/100 ML 200 MG/100 ML BAG IVPB SCH (11:15)
[2020-09-11] MEDS: metroNIDAZOLE 500 MG TABLET PO SCH ×3 (11:15→21:08)
[2020-09-11] MEDS: Insulin DETEMIR 100 UNIT/ML X5UNITS SQ SCH ×2 (11:16→21:09)
[2020-09-11] MEDS: lisinopriL 10 MG TABLET PO SCH (19:30)
[2020-09-11] MEDS ORDERED: *HR* LORazepam 2 MG/ML VIAL IVP ONE (21:04)
[2020-09-12 01:30] LABS: Calcium 8.7 mg/dL (8.6-10.3); Potassium 3.9 mEq/L (3.5-5.1)
[2020-09-12] MEDS: Heparin 25,000UNIT/250ML 1/2NS 25,000 UNIT/250 ML IV.SOLN IVC SCH ×2 (02:01→22:03)
[2020-09-12] MEDS: Cefepime HCl 2,000 MG in Water for inj. (sterile) 20 ML IVP SCH ×2 (06:10→16:01)
[2020-09-12] MEDS: Aspirin Enteric Coated 81 MG Tablet PO SCH (08:38)
[2020-09-12] MEDS: metroNIDAZOLE 500 MG TABLET PO SCH ×3 (08:38→20:34)
[2020-09-12] MEDS: Insulin LISPRO 300 UNITS/3 ML VIAL SQ SCH ×4 (08:39→22:59)
[2020-09-12] MEDS: Metoprolol XL (24 HR) Succ 50 MG TAB.ER.24H PO SCH (08:39)
[2020-09-12] MEDS: Fluconazole 200 MG/100 ML 200 MG/100 ML BAG IVPB SCH (08:39)
[2020-09-12 11:14] LABS: Hemoglobin 7.8 g/dL (12.9-16.9); Immature Granulocytes % 1.7 % (0-4)
[2020-09-12 11:15] LABS: Basophils # 0.1 K/mcL (0.0-0.2); Basophils % 0.8 %; Eosinophils # 0.4 K/mcL (0.0-0.6); Eosinophils % 5.2 %; Hematocrit 27.6 % (37.5-50.1); Lymphocytes # 1.2 K/mcL (0.6-4.6); Lymphocytes % 16.1 %; Mean Corpuscular HGB Conc 28.3 g/dL (31.6-35.5); Mean Corpuscular Hemoglobin 25.8 pg (28.0-33.3); Mean Corpuscular Volume 91.4 fL (83.0-100.0); Mean Platelet Volume 9.7 fL (9.4-12.4); Monocytes # 0.7 K/mcL (0.0-1.3); Monocytes % 9.5 %; Neutrophils # 5.1 K/mcL (1.6-8.9); Platelet Count 279 K/mcL (140-400); Red Blood Count 3.02 M/mcL (4.19-5.50); Red Cell Distribution Width 18.3 % (11.5-14.5); Segmented Neutrophils % 66.7 %; White Blood Count 7.7 K/mcL (4.3-11.1)
[2020-09-12 11:53] LABS: Anisocytosis 1+ (Not Present); Platelet Estimate Normal (Normal); Polychromasia 1+ (Not Present)
[2020-09-12] MEDS ORDERED: 0.9 % Sodium Chloride 250 ML IVC SCH (12:30)
[2020-09-12] MEDS: Insulin DETEMIR 100 UNIT/ML X5UNITS SQ SCH ×2 (15:42→20:34)
[2020-09-12] MEDS ORDERED: *HR* Midazolam HCl 2 MG/2 ML VIAL ONE (16:38)
[2020-09-12] MEDS ORDERED: *HR* Propofol 200 MG/20 ML VIAL IVP ONE (16:38)
[2020-09-12] MEDS ORDERED: Lidocaine -MPF 2% 2 ML VIAL ONE (16:38)
[2020-09-12] MEDS ORDERED: Dexamethasone 4 MG/ML VIAL ONE (16:38)
[2020-09-12] MEDS ORDERED: *HR* FentaNYL (PF) 100 MCG/2 ML VIAL ONE (16:38)
[2020-09-12] MEDS ORDERED: Ondansetron 4 MG/2 ML VIAL ONE (16:38)
[2020-09-12] MEDS ORDERED: Bupivacaine/EPI 1:200k 0.25% 50 ML VIAL ONE (16:53)
[2020-09-12] MEDS ORDERED: Lidocaine 1% 20 ML MDV ONE ×3 (16:53→18:50)
[2020-09-12] MEDS: *HR* OxyCODONE Immed Rel 5 MG TABLET PO PRN ×2 (18:37→23:02)
[2020-09-12] MEDS: Acetaminophen 325 MG TABLET PO PRN (20:34)
[2020-09-12] MEDS ORDERED: *HR* Rivaroxaban 10 MG TABLET PO SCH (21:00)
[2020-09-13] MEDS ORDERED: *HR* OxyCODONE/APAP 7.5/325 TABLET PO ONE (01:31)
[2020-09-13 03:20] LABS: Hematocrit 31.4 % (37.5-50.1); Mean Corpuscular HGB Conc 28.7 g/dL (31.6-35.5); Mean Corpuscular Hemoglobin 26.3 pg (28.0-33.3); Mean Corpuscular Volume 91.8 fL (83.0-100.0); Mean Platelet Volume 9.8 fL (9.4-12.4); Platelet Count 300 K/mcL (140-400); Red Blood Count 3.42 M/mcL (4.19-5.50); Red Cell Distribution Width 18.2 % (11.5-14.5); White Blood Count 8.1 K/mcL (4.3-11.1)
[2020-09-13 03:42] LABS: BUN/Creatinine Ratio 15 (6-26); Blood Urea Nitrogen 19 mg/dL (8-23); Calcium 9.2 mg/dL (8.6-10.3); Carbon Dioxide 21 mEq/L (23-29); Chloride 106 mEq/L (98-107); Glucose 200 mg/dL (70-105); Osmolality,Calculated 290 (280-300); Potassium 4.3 mEq/L (3.5-5.1); Sodium 136 mEq/L (136-145); eGFR For African Americans > 60 (> 60); eGFR For Non-African Americans 54 (> 60)
[2020-09-13] MEDS: Acetaminophen 325 MG TABLET PO PRN (04:34)
[2020-09-13] MEDS: *HR* OxyCODONE Immed Rel 5 MG TABLET PO PRN ×3 (05:40→17:11)
[2020-09-13] MEDS: Cefepime HCl 2,000 MG in Water for inj. (sterile) 20 ML IVP SCH ×2 (05:40→17:12)
[2020-09-13] MEDS: Insulin LISPRO 300 UNITS/3 ML VIAL SQ SCH ×3 (09:21→17:12)
[2020-09-13] MEDS: Metoprolol XL (24 HR) Succ 50 MG TAB.ER.24H PO SCH (09:22)
[2020-09-13] MEDS: Insulin DETEMIR 100 UNIT/ML X5UNITS SQ SCH (09:23)
[2020-09-13] MEDS: Aspirin Enteric Coated 81 MG Tablet PO SCH (09:32)
[2020-09-13] MEDS ORDERED: *HR* Dextrose 50 % in Water (Vial) 50 ML VIAL IVP PRN (13:55)
[2020-09-13] MEDS ORDERED: *HR* Heparin 5,000 UNIT/ML VIAL IVP PRN ×2 (13:55)
[2020-09-13] MEDS ORDERED: Acetaminophen 325 MG TABLET PO PRN (13:55)
[2020-09-13] MEDS ORDERED: Ondansetron 4 MG/2 ML VIAL IVP PRN (13:55)
[2020-09-13] MEDS ORDERED: Dextrose Gel 15 GM/37.5 ML TUBE PO PRN ×2 (13:55)
[2020-09-13] MEDS ORDERED: 0.9 % Sodium Chloride 250 ML IVC SCH (13:55)
[2020-09-13] MEDS ORDERED: D5% in Water 1,000 ML IVC PRN (13:55)
[2020-09-13] MEDS ORDERED: Heparin 25,000UNIT/250ML 1/2NS 25,000 UNIT/250 ML IV.SOLN IVC SCH (13:55)
[2020-09-13] MEDS ORDERED: Insulin LISPRO 300 UNITS/3 ML VIAL SQ SCH (21:00)
[2020-09-13] MEDS ORDERED: *HR* OxyCODONE ER (12 HR) 10 MG TABLET PO SCH (21:00)
[2020-09-13] MEDS ORDERED: *HR* Rivaroxaban 10 MG TABLET PO SCH (21:00)
[2020-09-14] MEDS: *HR* OxyCODONE Immed Rel 5 MG TABLET PO PRN ×3 (02:03→11:13)
[2020-09-14 04:34] LABS: Hematocrit 31.6 % (37.5-50.1); Hemoglobin 8.8 g/dL (12.9-16.9); Mean Corpuscular HGB Conc 27.8 g/dL (31.6-35.5); Mean Corpuscular Hemoglobin 25.4 pg (28.0-33.3); Mean Corpuscular Volume 91.1 fL (83.0-100.0); Mean Platelet Volume 10.1 fL (9.4-12.4); Platelet Count 262 K/mcL (140-400); Red Blood Count 3.47 M/mcL (4.19-5.50); Red Cell Distribution Width 18.4 % (11.5-14.5); White Blood Count 8.5 K/mcL (4.3-11.1)
[2020-09-14 04:55] LABS: BUN/Creatinine Ratio 14 (6-26); Blood Urea Nitrogen 18 mg/dL (8-23); Calcium 8.9 mg/dL (8.6-10.3); Carbon Dioxide 21 mEq/L (23-29); Chloride 106 mEq/L (98-107); Glucose 184 mg/dL (70-105); Osmolality,Calculated 289 (280-300); Potassium 4.2 mEq/L (3.5-5.1); Sodium 136 mEq/L (136-145); eGFR For African Americans > 60 (> 60); eGFR For Non-African Americans 53 (> 60)
[2020-09-14] MEDS: Cefepime HCl 2,000 MG in Water for inj. (sterile) 20 ML IVP SCH (05:41)
[2020-09-14] MEDS: Insulin LISPRO 300 UNITS/3 ML VIAL SQ SCH ×2 (08:07→12:56)
[2020-09-14] MEDS ORDERED: Metoprolol XL (24 HR) Succ 50 MG TAB.ER.24H PO SCH (09:00)
[2020-09-14] MEDS ORDERED: Insulin DETEMIR 100 UNIT/ML X5UNITS SQ SCH (09:00)
[2020-09-14] MEDS ORDERED: Aspirin Enteric Coated 81 MG Tablet PO SCH (09:00)
[2020-09-14 12:25] VITALS: BP 121/65
== END 2020-09-14 15:18 | disposition home or self-care (01) | DRG 239 ==
LOC: EMEROOARM 09:23 → 3ANU 09:23 → SUATTDRO 10:36 → 3ANU 13:51
PROVIDERS: ADMIT Internal Medicine; ATTEND Internal Medicine